=== PATIENT | male | born 1955 | race Caucasian/White ===

== ENCOUNTER 2017-03-16 13:11 | Inpatient (IN) | payer SELFPAY ==
[~2017-03-16] VITALS: Ht 170.2 cm; Wt 56.5 kg
[2017-03-16 13:15] VITALS: BP 131/99; PULSE 114; RESP 20; TEMP 97.7; O2SAT 97
--- NOTE | 2017-03-16 13:43 | PD ---
HPI Chief Complaint: Respiratory Symptoms Time Seen by Provider: 13:28 Travel History International Travel<30 days: No Contact w/Intl Traveler<30days: No Traveled to known affect area: No History of Present Illness HPI 61-year-old male presents to the emergency room for evaluation of worsening shortness of breath over the past 6 months. States it is especially worsened over the past 3 months. States he can go all day feeling well but then around 6 :00 at night he become suddenly short of breath. He also has worsening symptoms after just a few minutes of activity such as riding his bicycle or performing work duties (drywalling). He denies any history of heart or lung disease. He last saw a doctor when he was in high school. He denies any chronic medical conditions or daily medications. He has never been hospitalized or worked up for shortness of breath. Smokes half a pack of cigarettes per day. Reports occasional nonproductive cough. Denies chest pain. [facility] Social History Tobacco Use: Yes Allergies-Medications (Allergen,Severity, Reaction): Coded Allergies: No Known Allergies (Unverified , 03/16/17) Reported Meds & Prescriptions Reported Meds & Active Scripts Active No Active Prescriptions or Reported Medications Review of Systems Except as stated in HPI: all other systems reviewed are Neg Physical Exam Narrative GENERAL: Well-nourished, well-developed, thin male in no acute distress. Afebrile. Ambulatory. SKIN: Focused skin assessment warm/dry. HEAD: Normocephalic. EYES: No scleral icterus. No injection or drainage. NECK: Supple, trachea midline. No JVD or lymphadenopathy. CARDIOVASCULAR: Regular rate and rhythm without murmurs, gallops, or rubs. RESPIRATORY: Barrel chest. Patient has accessory muscle use. Bilateral inspiratory and expiratory wheezes. Data Data Last Documented VS Vital Signs Date Time Temp Pulse Resp B/P (MAP) Pulse Ox O2 Delivery O2 Flow Rate FiO2 03/16/17 14:32 101 20 153/83 (106) 100 Nasal Cannula 2.00 03/16/17 13:15 97.7 Orders Orders Complete Blood Count With Diff (03/16/17 13:33) Comprehensive Metabolic Panel (03/16/17 13:33) B-Type Natriuretic Peptide (03/16/17 13:33) Iv Access Insert/Monitor (03/16/17 13:33) Electrocardiogram (03/16/17 13:33) Ecg Monitoring (03/16/17 13:33) Oximetry (03/16/17 13:33) Sodium Chloride 0.9% Flush (Ns Flush) (03/16/17 13:45) Methylprednisolone So Succ Inj (Solumedr (03/16/17 13:45) Albuterol-Ipratropium Neb (Duoneb Neb) (03/16/17 13:45) Adenosine Inj (Adenocard Inj) (03/16/17 14:15) Ckmb (Isoenzyme) Profile (03/16/17 14:22) Troponin I (03/16/17 14:22) Aspirin Chew (Aspirin Chew) (03/16/17 14:30) Chest, Single Ap (03/16/17 ) Heparin Inj (Heparin Inj) (03/16/17 15:15) Heparin-D5w 25,000 U/250 Ml (Heparin-D5w (03/16/17 15:15) Cbc No Diff, Includes Plts (03/19/17 06:00) Act Partial Throm Time (Ptt) (03/16/17 22:15) Occult Blood (Hemoccult) Stool (03/16/17 15:15) Act Partial Throm Time (Ptt) (03/16/17 15:39) Prothrombin Time / Inr (Pt) (03/16/17 15:39) Admit Order (Ed Use Only) (03/16/17 ) Still Pump Operator / Telemetry RANDY.Q8H (03/16/17 15:54) Vital Signs (Adult) Q4H (03/16/17 15:54) Activity Oob With Assistance (03/16/17 15:54) Notify Dr: Other (03/16/17 15:54) Magnesium (Mg) (03/16/17 16:02) Labs Laboratory Tests Test 03/16/17 13:55 White Blood Count 5.3 TH/MM3 Red Blood Count 4.36 MIL/MM3 Hemoglobin 14.6 GM/DL Hematocrit 43.8 % Mean Corpuscular Volume 100.3 FL Mean Corpuscular Hemoglobin 33.4 PG Mean Corpuscular Hemoglobin Concent 33.3 % Red Cell Distribution Width 12.9 % Platelet Count 194 TH/MM3 Mean Platelet Volume 7.8 FL Neutrophils (%) (Auto) 74.0 % Lymphocytes (%) (Auto) 16.1 % Monocytes (%) (Auto) 8.4 % Eosinophils (%) (Auto) 0.9 % Basophils (%) (Auto) 0.6 % Neutrophils # (Auto) 3.9 TH/MM3 Lymphocytes # (Auto) 0.9 TH/MM3 Monocytes # (Auto) 0.4 TH/MM3 Eosinophils # (Auto) 0.0 TH/MM3 Basophils # (Auto) 0.0 TH/MM3 CBC Comment DIFF FINAL Differential Comment Prothrombin Time 11.5 SEC Prothromb Time International Ratio 1.1 RATIO Activated Partial Thromboplast Time 29.4 SEC Blood Urea Nitrogen 6 MG/DL Creatinine 0.61 MG/DL Random Glucose 90 MG/DL Total Protein 7.3 GM/DL Albumin 3.5 GM/DL Calcium Level 8.9 MG/DL Alkaline Phosphatase 105 U/L Aspartate Amino Transf (AST/SGOT) 26 U/L Alanine Aminotransferase (ALT/SGPT) 18 U/L Total Bilirubin 0.7 MG/DL Sodium Level 131 MEQ/L Potassium Level 4.3 MEQ/L Chloride Level 95 MEQ/L Carbon Dioxide Level 29.3 MEQ/L Anion Gap 7 MEQ/L Estimat Glomerular Filtration Rate 134 ML/MIN Total Creatine Kinase 89 U/L Troponin I 0.10 NG/ML B-Type Natriuretic Peptide 1611 PG/ML MDM Medical Decision Making Medical Screen Exam Complete: Yes Emergency Medical Condition: Yes Medical Record Reviewed: Yes Differential Diagnosis COPD exacerbation, CHF, CAD, asthma, pneumonia Narrative Course 61-year-old male presents to the emergency room for evaluation of worsening shortness of breath over the past 6 months. Symptoms are worse with exertion. He has not seen a doctor since high school. He smokes half a pack cigarettes per day. Physical exam reveals a thin male with a barrel chest. He has accessory muscle use. Lungs sounds reveal bilateral inspiratory and expiratory wheezes. Patient given IV Solu-Medrol and 3 DuoNeb. Vital signs stable on arrival. While obtaining an EKG and receiving 3 DuoNeb, the nurse noted patient to be in SVT. Heart rate was 174 bpm. My attending physician, Dr. Wang , had the patient perform vagal move and carotid massage which brought patient' s heart rate down to 101 bpm. New EKG shows sinus tachycardia with a rate of 101 bpm with occasional PVCs. Signed off by my attending physician. I suspect SVT was caused by beta agonist. DuoNeb was immediately stopped. Wheezing is resolved afterwards. CBC is essentially unremarkable. CMP shows mild hyponatremia of 131. BNP is markedly elevated at 1611. Troponin is elevated to 0.1. Patient was given aspirin and heparin in ED. Patient will be admitted for new onset congestive heart failure. I spoke to the hospitalist on-call, Dr. Urena, who agrees to admit this patient to service. He will be admitted to [facility] for heparin drip and cardiac monitoring. Diagnosis Primary Impression: Congestive heart failure (CHF) Qualified Codes: I50.9 - Heart failure, unspecified Additional Impression: Elevated troponin Admitting Information Admitting Physician Requests: Admit Scripts No Active Prescriptions or Reported Meds Condition: Stable Rahcel Flores Mar 16, 2017 13:43
[2017-03-16] MEDS ORDERED: SODIUM CHLORIDE 0.9% FLUSH 10 ML FLUSH IVF PRN (13:45)
[2017-03-16] MEDS ORDERED: methylPREDNISolone SOD SUCC 125 MG/2 ML VIAL IV PUSH ONE (13:45)
[2017-03-16] MEDS: RESP: ALBUTEROL 2.5 MG/IPRATROPIUM 0.5 MG NEB (SCH) INH (13:57)
[2017-03-16 14:07] LABS: AUTOMATED NEUTROPHIL # 3.9 TH/MM3 (1.8-7.7); BASOPHIL % 0.6 % (0.0-2.0); EOSINOPHIL % 0.9 % (0.0-4.0); HEMATOCRIT 43.8 % (39.0-51.0); HEMO FLAGS DIFF FINAL; LYMPH % 16.1 % (9.0-44.0); LYMPHOCYTE # 0.9 TH/MM3 (1.0-4.8); MEAN CELL VOLUME 100.3 FL (80.0-100.0); MEAN CORPUSCULAR HEMOGLOBIN 33.4 PG (27.0-34.0); MEAN CORPUSCULAR HGB CONC 33.3 % (32.0-36.0); MONO % 8.4 % (0.0-8.0); PLATELET COUNT 194 TH/MM3 (150-450); RED BLOOD COUNT 4.36 MIL/MM3 (4.50-5.90); RED CELL DISTRIBUTION WIDTH 12.9 % (11.6-17.2); WHITE BLOOD COUNT 5.3 TH/MM3 (4.0-11.0)
[2017-03-16] MEDS ORDERED: ADENOSINE IV SOLN 3 MG/ML 2 ML VIAL ONE (14:15)
[2017-03-16 14:30] LABS: ALKALINE PHOSPHATASE 105 U/L (45-117); TOTAL BILIRUBIN ADULT 0.7 MG/DL (0.2-1.0)
[2017-03-16] MEDS ORDERED: ASPIRIN 81 MG CHEW TAB PO ONE (14:30)
[2017-03-16 14:32] VITALS: BP 153/83; PULSE 101; RESP 20; O2SAT 100
[2017-03-16 14:35] LABS: ALT (GPT) 18 U/L (12-78); ANION GAP 7 MEQ/L (5-15); AST (GOT) 26 U/L (15-37); BICARBONATE 29.3 MEQ/L (21.0-32.0); BLOOD UREA NITROGEN 6 MG/DL (7-18); CHLORIDE 95 MEQ/L (98-107); GLOMERULAR FILTRATION RATE 134 ML/MIN (>89); POTASSIUM 4.3 MEQ/L (3.5-5.1); SODIUM (NA) 131 MEQ/L (136-145)
--- NOTE | 2017-03-16 14:41 | PD ---
Data Data Last Documented VS Vital Signs Date Time Temp Pulse Resp B/P (MAP) Pulse Ox O2 Delivery O2 Flow Rate FiO2 03/16/17 14:32 101 20 153/83 (106) 100 Nasal Cannula 2.00 03/16/17 13:15 97.7 Orders Orders Complete Blood Count With Diff (03/16/17 13:33) Comprehensive Metabolic Panel (03/16/17 13:33) B-Type Natriuretic Peptide (03/16/17 13:33) Iv Access Insert/Monitor (03/16/17 13:33) Electrocardiogram (03/16/17 13:33) Ecg Monitoring (03/16/17 13:33) Oximetry (03/16/17 13:33) Sodium Chloride 0.9% Flush (Ns Flush) (03/16/17 13:45) Methylprednisolone So Succ Inj (Solumedr (03/16/17 13:45) Albuterol-Ipratropium Neb (Duoneb Neb) (03/16/17 13:45) Adenosine Inj (Adenocard Inj) (03/16/17 14:15) Ckmb (Isoenzyme) Profile (03/16/17 14:22) Troponin I (03/16/17 14:22) Aspirin Chew (Aspirin Chew) (03/16/17 14:30) Chest, Single Ap (03/16/17 ) Heparin Inj (Heparin Inj) (03/16/17 15:15) Heparin-D5w 25,000 U/250 Ml (Heparin-D5w (03/16/17 15:15) Cbc No Diff, Includes Plts (03/19/17 06:00) Act Partial Throm Time (Ptt) (03/16/17 22:15) Occult Blood (Hemoccult) Stool (03/16/17 15:15) Act Partial Throm Time (Ptt) (03/16/17 15:39) Prothrombin Time / Inr (Pt) (03/16/17 15:39) Admit Order (Ed Use Only) (03/16/17 ) Supervisor [employer] Department / Telemetry RANDY.Q8H (03/16/17 15:54) Vital Signs (Adult) Q4H (03/16/17 15:54) Activity Oob With Assistance (03/16/17 15:54) Notify Dr: Other (03/16/17 15:54) Magnesium (Mg) (03/16/17 16:02) Labs Laboratory Tests Test 03/16/17 13:55 White Blood Count 5.3 TH/MM3 Red Blood Count 4.36 MIL/MM3 Hemoglobin 14.6 GM/DL Hematocrit 43.8 % Mean Corpuscular Volume 100.3 FL Mean Corpuscular Hemoglobin 33.4 PG Mean Corpuscular Hemoglobin Concent 33.3 % Red Cell Distribution Width 12.9 % Platelet Count 194 TH/MM3 Mean Platelet Volume 7.8 FL Neutrophils (%) (Auto) 74.0 % Lymphocytes (%) (Auto) 16.1 % Monocytes (%) (Auto) 8.4 % Eosinophils (%) (Auto) 0.9 % Basophils (%) (Auto) 0.6 % Neutrophils # (Auto) 3.9 TH/MM3 Lymphocytes # (Auto) 0.9 TH/MM3 Monocytes # (Auto) 0.4 TH/MM3 Eosinophils # (Auto) 0.0 TH/MM3 Basophils # (Auto) 0.0 TH/MM3 CBC Comment DIFF FINAL Differential Comment Prothrombin Time 11.5 SEC Prothromb Time International Ratio 1.1 RATIO Activated Partial Thromboplast Time 29.4 SEC Blood Urea Nitrogen 6 MG/DL Creatinine 0.61 MG/DL Random Glucose 90 MG/DL Total Protein 7.3 GM/DL Albumin 3.5 GM/DL Calcium Level 8.9 MG/DL Alkaline Phosphatase 105 U/L Aspartate Amino Transf (AST/SGOT) 26 U/L Alanine Aminotransferase (ALT/SGPT) 18 U/L Total Bilirubin 0.7 MG/DL Sodium Level 131 MEQ/L Potassium Level 4.3 MEQ/L Chloride Level 95 MEQ/L Carbon Dioxide Level 29.3 MEQ/L Anion Gap 7 MEQ/L Estimat Glomerular Filtration Rate 134 ML/MIN Total Creatine Kinase 89 U/L Troponin I 0.10 NG/ML B-Type Natriuretic Peptide 1611 PG/ML MDM Supervised Visit with NEMESIO: Yes Narrative Course I, Dr. Wang, have reviewed the advance practice practitioner's documentation and am in agreement, met with the patient face to face, made the diagnosis, and the medical decision making was done by me. *My assessment and Findings: I was called to the bedside by patient's nurse for rapid heartbeat. I arrived to find the patient sitting upright in a stretcher in no obvious distress undergoing breathing treatment. The patient does have physique of COPD, he presented to the emergency department with wheezing and shortness of breath. Further examination revealed supraventricular tachycardia at a rate of 180, fairly regular and rate and rhythm. No carotid bruits and no heart murmur. The patient alert and awake and talking, IV access was confirmed, EKG at the bedside the patient was counseled on vagal maneuvers, he bear down as I performed a left carotid massage, the patient was able to be converted with this maneuver alone. Afterwards the patient remained hemodynamically stable. On cardiac telemetry he was having occasional P waves without QRS indicating a type II block. After some time after the cardioversion the patient is sinus bradycardia. He does have an elevated troponin, symptoms this is a CHF including bibasilar rales. Patient stabilized for the moment, will be admitted to the CICU for further workup and management. He will be heparinized given the elevated troponin. Diagnosis Primary Impression: SVT (supraventricular tachycardia) Additional Impressions: Heart block CHF (congestive heart failure) NSTEMI (non-ST elevated myocardial infarction) Admitting Information Admitting Physician Requests: Admit Scripts No Active Prescriptions or Reported Meds Condition: Stable Scotty Wang MD Mar 16, 2017 14:41
--- NOTE | 2017-03-16 14:50 | RADRPT ---
EXAM DATE/TIME: 03/16/2017 14:40 [facility] COMPARISON: No previous studies available for comparison. INDICATIONS : Shortness of breath. MEDICAL HISTORY : Chronic obstructive pulmonary disease. SURGICAL HISTORY : None. ENCOUNTER: Initial ACUITY: 4 - 6 months PAIN SCORE: 0/10 LOCATION: Bilateral chest FINDINGS: There is cardiomegaly with moderate interstitial edema. Consolidative changes left base with trace p leural effusion. Blunting right calcific sulcus negative for pneumothorax CONCLUSION: Moderate congestive failure consolidative changes left base. Trace pleural effusions. Cecilio Liriano MD FACR on March 16, 2017 at 14:47 Board Certified Radiologist. This report was verified electronically.
[2017-03-16] MEDS ORDERED: HEPARIN-D5W 25,000 U/250 ML 250 ML IV PRN (15:15)
[2017-03-16] MEDS ORDERED: HEPARIN SODIUM - IV 10,000 UNITS/10 ML VIAL IV PUSH STA (15:15)
[2017-03-16 16:08] LABS: APTT (PATIENT) 29.4 SEC (24.3-30.1); INTERNATIONAL NORMALIZED RATIO 1.1 RATIO; PROTHROMBIN TIME - PATIENT 11.5 SEC (9.8-11.6)
[2017-03-16 16:26] VITALS: BP 137/87; PULSE 93; RESP 18; O2SAT 98
--- NOTE | 2017-03-16 17:56 | HHI.HP ---
HPI [facility] Primary Care Physician No Primary Care Physician Admission Diagnosis new onset CHF, elevated troponin Diagnoses: (1) Congestive heart failure (CHF) Diagnosis: Principal (2) Elevated troponin Diagnosis: Principal Chief Complaint: Shortness of breath Travel History International Travel<30 Days: No Contact w/Intl Traveler <30 Da: No Traveled to Known Affected Are: No History of Present Illness Written by Pietro Galdamez, acting as scribe for Dr. Urena on 03/16/17 at 17: 56. 61-year-old male with significant past medical history who presents to the ED with complaints of progressive shortness of breath for the past 6 months. He states that in the past 3 months this has gotten worse and is unable to do simple things such as ride his bike which he had no issues during previously. He denies any swelling of his legs but does report cough for the past 2 weeks with a scratchy throat. Exertion will make his shortness of breath worse, he denies any chest pain. He denies any fevers, chills, nausea, vomiting, diarrhea , or trouble urinating. He is a smoker half a pack a day and also admits to sixpack of beer daily. States that his last drink was yesterday when he had about 3 beers. He does not report taking any regular medications or visiting a doctor regularly. Review of Systems Respiratory: COMPLAINS OF: Cough, Shortness of breath Cardiovascular: DENIES: Chest pain Except as stated in HPI: all other systems reviewed are Neg Past Family Social History Past Medical History Denies any past medical history Past Surgical History Denies any past surgical history Reported Medications Reported Meds & Active Scripts Active No Active Prescriptions or Reported Medications Allergies: Coded Allergies: No Known Allergies (Unverified , 03/16/17) Family History Denies any past family history Social History Tobacco: Half a pack a day Alcohol: 6 pack of beer daily Illicit drug use: Denies Physical Exam Vital Signs Vital Signs Date Time Temp Pulse Resp B/P (MAP) Pulse Ox O2 Delivery O2 Flow Rate FiO2 03/16/17 16:26 93 18 137/87 (104) 98 Nasal Cannula 2.00 03/16/17 14:32 101 20 153/83 (106) 100 Nasal Cannula 2.00 03/16/17 13:44 84 22 96 Room Air 03/16/17 13:15 97.7 114 20 131/99 (110) 97 Physical Exam GENERAL: This is a well-nourished, well-developed patient, in no apparent distress. SKIN: No rashes, ecchymoses or lesions. Cool and dry. HEAD: Atraumatic. Normocephalic. No temporal or scalp tenderness. EYES: Pupils equal round and reactive. Extraocular motions intact. No scleral icterus. No injection or drainage. ENT: Nose without bleeding, purulent drainage or septal hematoma. Throat without erythema, tonsillar hypertrophy or exudate. Uvula midline. Airway patent. NECK: Trachea midline. No JVD or lymphadenopathy. Supple, nontender, no meningeal signs. CARDIOVASCULAR: Regular rate and rhythm without murmurs, gallops, or rubs. RESPIRATORY: Clear to auscultation. With diminished breath sounds bilateral anterior upper lobes. No wheezes, rales, or rhonchi. GASTROINTESTINAL: Abdomen soft, non-tender, nondistended. No hepato-splenomegaly , or palpable masses. No guarding. MUSCULOSKELETAL: Extremities without clubbing, cyanosis, or edema. No joint tenderness, effusion, or edema noted. No calf tenderness. Negative Homans sign bilaterally. NEUROLOGICAL: Awake and alert. Motor and sensory grossly within normal limits. Five out of 5 muscle strength in all muscle groups. Normal speech. Laboratory Laboratory Tests Test 03/16/17 13:55 03/16/17 17:05 White Blood Count 5.3 Red Blood Count 4.36 Hemoglobin 14.6 Hematocrit 43.8 Mean Corpuscular Volume 100.3 Mean Corpuscular Hemoglobin 33.4 Mean Corpuscular Hemoglobin Concent 33.3 Red Cell Distribution Width 12.9 Platelet Count 194 Mean Platelet Volume 7.8 Neutrophils (%) (Auto) 74.0 Lymphocytes (%) (Auto) 16.1 Monocytes (%) (Auto) 8.4 Eosinophils (%) (Auto) 0.9 Basophils (%) (Auto) 0.6 Neutrophils # (Auto) 3.9 Lymphocytes # (Auto) 0.9 Monocytes # (Auto) 0.4 Eosinophils # (Auto) 0.0 Basophils # (Auto) 0.0 CBC Comment DIFF FINAL Differential Comment Prothrombin Time 11.5 Prothromb Time International Ratio 1.1 Activated Partial Thromboplast Time 29.4 Blood Urea Nitrogen 6 Creatinine 0.61 Random Glucose 90 Total Protein 7.3 Albumin 3.5 Calcium Level 8.9 Alkaline Phosphatase 105 Aspartate Amino Transf (AST/SGOT) 26 Alanine Aminotransferase (ALT/SGPT) 18 Total Bilirubin 0.7 Sodium Level 131 Potassium Level 4.3 Chloride Level 95 Carbon Dioxide Level 29.3 Anion Gap 7 Estimat Glomerular Filtration Rate 134 Total Creatine Kinase 89 Troponin I 0.10 0.08 B-Type Natriuretic Peptide 1611 Magnesium Level 1.5 Result Diagram: 03/16/17 1355 03/16/17 1355 Imaging Last Impressions Chest X-Ray 03/16/17 0000 Signed Impressions: Service Date/Time: Thursday, March 16, 2017 14:40 - CONCLUSION: Moderate congestive failure consolidative changes left base. Trace pleural effusions. Cecilio Liriano MD FACR Caprini VTE Risk Assessment Caprini VTE Risk Assessment: Mod/High Risk (score >= 2) Caprini Risk Assessment Model Point Value = 1 Point Value = 2 Point Value = 3 Point Value = 5 Age 41-60 Minor surgery BMI > 25 kg/m2 Swollen legs Varicose veins or History of unexplained or recurrent spontaneous Oral contraceptives or hormone replacement Sepsis (< 1 month) Serious lung disease, including pneumonia (< 1 month) Abnormal pulmonary function Acute myocardial infarction Congestive heart failure (< 1 month) History of inflammatory bowel disease Medical patient at bed rest Age 61-74 Arthroscopic surgery Major open surgery (> 45 min) Laparoscopic surgery (> 45 min) Malignancy Confined to bed (> 72 hours) Immobilizing plaster cast Central venous access Age >= 75 History of VTE Family history of VTE Factor V Leiden Prothrombin [id number] Lupus anticoagulant Anticardiolipin antibodies Elevated serum homocysteine Heparin-induced thrombocytopenia Other congenital or acquired thrombophilia Stroke (< 1 month) Elective arthroplasty Hip, pelvis, or leg fracture Acute spinal cord injury (< 1 month) Prophylaxis Regimen Total Risk Factor Score Risk Level Prophylaxis Regimen 0-1 Low Early ambulation 2 Moderate Order ONE of the following: *Sequential Compression Device (SCD) *Heparin 5000 units SQ BID 3-4 Higher Order ONE of the following medications: *Heparin 5000 units SQ TID *Enoxaparin/Lovenox 40 mg SQ daily (WT < 150 kg, CrCl > 30 mL/min) *Enoxaparin/Lovenox 30 mg SQ daily (WT < 150 kg, CrCl > 10-29 mL/min) *Enoxaparin/Lovenox 30 mg SQ BID (WT < 150 kg, CrCl > 30 mL/min) AND/OR *Sequential Compression Device (SCD) 5 or more Highest Order ONE of the following medications: *Heparin 5000 units SQ TID (Preferred with Epidurals) *Enoxaparin/Lovenox 40 mg SQ daily (WT < 150 kg, CrCl > 30 mL/min) *Enoxaparin/Lovenox 30 mg SQ daily (WT < 150 kg, CrCl > 10-29 mL/min) *Enoxaparin/Lovenox 30 mg SQ BID (WT < 150 kg, CrCl > 30 mL/min) AND *Sequential Compression Device (SCD) Assessment and Plan Assessment and Plan 61-year-old male with significant past medical history who presents to the ED with complaints of progressive shortness of breath for the past 6 months. SOB, acute likely new onset CHF vs COPD exacerbation - Progressive increase in shortness of breath 6 months - Admit patient to [facility] - Chest x-ray reviewed showing moderate congestive failure consolidative changes in the left base, trace pleural effusions. - BNP 1611 - Diuresis with Lasix - One-time dose of Solu-Medrol given in ED - Hold off on duo nebs due to episode of SVT following breathing treatment in ED - Will order 2-D echo -Consult cardiology for possible new onset of CHF as well as elevated troponin, appreciate recommendations - CBC were reviewed unremarkable, CMP reviewed with slight hyponatremia 131 Elevated troponin Episode of SVT - Patient with no chest pain however initial troponin was 0.1---0.08 - Initial EKG personally reviewed showing frequent PVCs with T-wave inversion in inferior leads - And also had episode of SVT caught on EKG following breathing treatment. Vagal maneuvers resolved SVT episode. - Patient administered aspirin 324 in ED, bolus of heparin along with heparin drip initiated. - Cardiology consult placed for further evaluation and recommendations. Alcohol abuse -Repots drinking 6 beers daily - CIWA protocol/ seizure precautions - Ativan PRN VTE - Anticoagulated on heparin drip Patient discussed with ED nurse. This note was transcribed by garrett Galdamez. I, Dr. Brandon Lockhart personally performed the history, physical exam, and medical decision making; and confirmed the accuracy of the information in the transcribed note. Authenticated by Dr. Brandon Lockhart on 03/16/17 at 18:25. Code Status Full code Physician Certification 2 Midnight Certification Type: Admission for Inpatient Services Order for Inpatient Services The services are ordered in accordance with Medicare regulations or non- Medicare payer requirements, as applicable. In the case of services not specified as inpatient-only, they are appropriately provided as inpatient services in accordance with the 2-midnight benchmark. Estimated LOS (days): 3 days is the estimated time the patient will need to remain in the hospital, assuming treatment plan goals are met and no additional complications. Post-Hospital Plan: Not yet determined Problem Qualifiers (1) Congestive heart failure (CHF): Qualified Codes: I50.9 - Heart failure, unspecified Pietro Galdamez Mar 16, 2017 17:56 Brandon Suárez MD Mar 16, 2017 19:01
[2017-03-16 18:42] VITALS: BP 130/82; PULSE 97; PULSE 98; RESP 17; O2SAT 96
[2017-03-16 19:00] VITALS: BP 132/93; PULSE 91; PULSE 97; RESP 18; TEMP 98.6; O2SAT 96
[2017-03-16] MEDS ORDERED: RESP: ALBUTEROL 2.5 MG/IPRATROPIUM 0.5 MG NEB (PRN) NEB (19:30)
[2017-03-16] MEDS ORDERED: LORazepam 2 MG TAB PO PRN (19:45)
[2017-03-16] MEDS ORDERED: FLUMAZENIL 0.5 MG/5 ML VIAL IV PUSH PRN (19:45)
[2017-03-16] MEDS ORDERED: SODIUM CHLORIDE 0.9% FLUSH 10 ML FLUSH IV FLUSH PRN (19:45)
[2017-03-16] MEDS ORDERED: LORazepam 1 MG TAB PO PRN (19:45)
[2017-03-16] MEDS ORDERED: LORazepam 2 MG/ML VIAL IV PUSH PRN ×4 (19:45)
[2017-03-16] MEDS: SODIUM CHLORIDE 0.9% FLUSH 10 ML FLUSH IV FLUSH SCH (21:00)
[2017-03-16 23:00] VITALS: BP 117/75; PULSE 92; RESP 20; TEMP 97.9; O2SAT 96
[2017-03-16 23:10] LABS: APTT (PATIENT) 35.4 SEC (24.3-30.1)
[2017-03-17] VITALS (19 sets, daily range): BP systolic 106–125; BP diastolic 63–76; PULSE 64–101; RESP 16–20; TEMP 98–98.3; O2SAT 92–97
[2017-03-17 06:50] LABS: APTT (PATIENT) 37.6 SEC (24.3-30.1)
[2017-03-17] MEDS: FOLIC ACID 1 MG TAB PO SCH (08:26)
[2017-03-17] MEDS: MULTIVITAMINS/MINERALS THERAPEUTIC TAB PO SCH (08:26)
[2017-03-17] MEDS: THIAMINE HCL 100 MG TAB PO SCH (08:26)
[2017-03-17] MEDS: SODIUM CHLORIDE 0.9% FLUSH 10 ML FLUSH IV FLUSH SCH ×2 (08:27→21:21)
[2017-03-17] MEDS ORDERED: PILL SPLITTER OTHER PRN (10:00)
[2017-03-17] MEDS: METOPROLOL TARTRATE 25 MG TAB PO SCH ×2 (10:06→21:22)
--- NOTE | 2017-03-17 11:05 | MB ---
cc: GOPI WARE DO DATE OF CONSULTATION: 03/17/2017 REASON FOR CONSULTATION New-onset congestive heart failure, SVT, elevated troponin. HISTORY OF PRESENT ILLNESS Scotty Villegas is a pleasant 61-year-old male who presented to [facility] Emergency Room on March 16, 2017 with the complaint of shortness of breath which has been progressive over the past six months. He states that he rides his bike and he tries to push himself when riding his bike, but has been noticing that he gets more short of breath. He denies chest pain with any of these events. He denies orthopnea. He has had a cough for the past two weeks with a scratchy throat. He denies any fevers, chills, nausea or vomiting. While in the emergency room he was receiving a nebulizer and went into SVT with a heart rate of 170-180 beats per minute. This resolved with Valsalva maneuver. During that he had no chest pain or shortness of breath. PAST MEDICAL HISTORY 1. Alcohol abuse, drinking 4-6 beers a day. 2. Tobacco abuse. 3. Probable COPD, although undiagnosed as the patient does not visit doctors regularly. PAST SURGICAL HISTORY Denies. ALLERGIES No known drug allergies. MEDICATIONS Denies. FAMILY HISTORY Denies premature coronary artery disease or sudden cardiac within the family. SOCIAL HISTORY The patient smokes a half-pack of cigarettes a day. Drinks around six beers a day. Denies drug abuse. REVIEW OF SYSTEMS 14-systems were reviewed including osteopathic. Pertinent positives and negatives as above, otherwise negative. PHYSICAL EXAMINATION VITAL SIGNS: Temperature 98.0, heart rate 88, blood pressure 125/70, respirations 17, pulse ox 96% on 2 liters. GENERAL: The patient appears well, in no acute distress, alert awake and oriented x3. HEENT: Extraocular muscles intact. Mucous membranes moist. NECK: Supple. No JVD at 45 degrees. No carotid bruits heard bilaterally. Carotid upstrokes are brisk in nature. HEART: Regular rate and rhythm. Positive first and second heart sounds without murmurs, gallops or rubs. LUNGS: Decreased breath sounds bilaterally with wheezing throughout. ABDOMEN: Soft, nontender, nondistended. No organomegaly noted. EXTREMITIES: No clubbing, cyanosis or edema. Femoral and distal pulses intact bilaterally. NEUROLOGIC: No focal deficits. SKIN: Warm, dry and intact. MUSCULOSKELETAL: Osteopathically no kyphoscoliosis, lordosis or paraspinal tender points. LABORATORY Hemoglobin 14.6, hematocrit 43.8, platelets 194. Potassium 4.3, BUN 6, creatinine 0.61. Troponin 0.1, decreasing to 0.08. BNP 1611. IMPRESSION 1. New-onset congestive heart failure, unsure if diastolic versus systolic at this time, possibly due to arrhythmia. 2. Episode of SVT, possibly caused by nebulizer therapy. 3. Nonspecific elevated troponin. 4. Tobacco abuse. 5. Alcohol abuse. RECOMMENDATIONS 1. Mr. Villegas presented with shortness of breath which is kind of nonspecific for heart failure versus COPD. Will check an echo to look at his overall left ventricular function, cardiac structure and possible valvulopathies. 2. He does have a mildly elevated troponin, although this possibly could be due to his episode of SVT. This does not appear to be an acute coronary syndrome. Will have him undergo a stress test. 3. I spoke to him for greater than three minutes about tobacco cessation. 4. Further recommendations will be made based on the hospital course. Thank you for allowing me to see Scotty Villegas. If there are any questions, please do not hesitate to call. Gopi Ware DO VGP/BT /9:30 AM /10:49 AM
[2017-03-17] MEDS ORDERED: ADENOSINE IV SOLN 3 MG/ML 2 ML VIAL IV PUSH ONE ×3 (12:42→12:48)
[2017-03-17] MEDS ORDERED: METOPROLOL TARTRATE 5 MG/5 ML VIAL IV PUSH ONE (12:50)
[2017-03-17] MEDS ORDERED: METOPROLOL TARTRATE 5 MG/5 ML VIAL ONE (12:50)
[2017-03-17] MEDS ORDERED: AMIODARONE HCL 150 MG/3 ML VIAL IV PUSH ONE (12:55)
[2017-03-17] MEDS ORDERED: AMIODARONE HCL 150 MG/3 ML VIAL ONE (12:55)
[2017-03-17] MEDS ORDERED: AMIODARONE 150 MG/D5W 97 ML BOLUS 10 MINUTES IV ONE ×2 (12:55)
--- NOTE | 2017-03-17 13:05 | PD.CARD ---
Cardiology Procedure Note Procedure Name: Pharmacologic/mechanical cardioversion Procedure Date: Mar 17, 2017 Procedure Note: Called for a heart rate of 180 bpm. Patient noted to be in SVT again, most likely AVNRT. Patient overall stable. Attempted vagal maneuvers without effect. Given Adenosine 6mg, 12mg, 12mg with no effect. Given Lopressor 5mg IV , then Amiodarone 150mg IV. Carotid massage done, which broke the patient's SVT and now back in normal sinus rhythm. Will place on Amiodarone drip for now. Watch for further episodes. Will plan on stress test in 1 hour if stable. Will need to evaluated by EP cardiology after stress testing. > 30mins critical care time Gopi Sales DO Mar 17, 2017 13:05
[2017-03-17] MEDS ORDERED: AMIODARONE INJ 450 MG in D5W (EXCEL BAG) INJ 241 ML IV PRN (13:30)
--- NOTE | 2017-03-17 14:26 | EKG ---
Date Performed: 03/16/2017 Time Performed: 14:14:04 PTAGE: 61 years EKG: SUPRAVENTRICULAR TACHYCARDIA INFERIOR MYOCARDIAL INFARCTION ST DEPRESSION, CONSIDER SUBENDO CARDIAL INJURY CLINICAL CORRELATION STRONGLY RECOMMENDED ABNORMAL ECG NO PREVIOUS TRACING DOCTOR: Rivas Solis Interpretating Date/Time 03/19/2017 07:55:00
--- NOTE | 2017-03-17 14:26 | EKG ---
Date Performed: 03/16/2017 Time Performed: 14:20:28 PTAGE: 61 years EKG: SINUS TACHYCARDIA WITH FREQUENT VENTRICULAR PREMATURE COMPLEXES WITH OCCASIONAL SUPRAVENTRI CULAR PREMATURE COMPLEXES POSSIBLE LEFT ATRIAL ENLARGEMENT POSSIBLE INFERIOR MYOCARDIAL INFARCTION ST DEVIATION AND MODERATE T-WAVE ABNORMALITY, CONSIDER LATERAL ISCHEMIA ABNORMAL ECG Compared to PREVIOUS TRACING , the heart rate has slowed but persistent ventricular ectopy. Continued clinical correlation recommended. PREVIOUS TRACIN03/16/2017 14.19 DOCTOR: Rivas Solis Interpretating Date/Time 03/17/2017 14:25:39
[2017-03-17] MEDS ORDERED: REGADENOSON INJ 0.4 MG/5 ML SYR ONE (15:06)
[2017-03-17 15:34] LABS: APTT (PATIENT) 38.9 SEC (24.3-30.1)
--- NOTE | 2017-03-17 16:39 | RADRPT ---
EXAM DATE/TIME: 03/17/2017 14:52 [facility] COMPARISON: No previous studies available for comparison. INDICATIONS : Dyspnea with elevated troponins. Congestive heart failure. DOSE: 25.4 mCi Tc99m Myoview at stress. 8.1 mCi Tc99m Myoview at rest. 0.4 mg Lexiscan STRESS SYMPTOMS: Dyspnea. EJECTION FRACTION: 22% MEDICAL HISTORY : None SURGICAL HISTORY : None. ENCOUNTER: Initial ACUITY: 1 day PAIN SCALE: 0/10 LOCATION: chest TECHNIQUE: The patient underwent pharmacologic stress with infusion of prescribed dose. Continuous ECG tracing was monitored during stress. Gated SPECT imaging was performed after stress and conventional SPECT i maging was performed at rest. The examination was performed on a SPECT/CT scanner, both attenuation and non-corrected datasets were reviewed. FINDINGS: DISTRIBUTION: The maximum perfused segment at stress is in the anterior wall. PERFUSION STUDY: There is a large fixed defect involving the inferior and inferior septal wall. No reversible defects observed. GATED STUDY: There is global hypokinesia with significant reduced ejection fraction. No dyskinesia appreciated. CONCLUSION: Large fixed defect involving the anteroseptal wall with global hypokinesia and significantly reduced ejection fraction. No reversible defects observed to suggest acute ischemia. RISK CATEGORY: Intermediate Sherman Xiao Jr., MD on March 17, 2017 at 16:34 Board Certified Radiologist. This report was verified electronically.
--- NOTE | 2017-03-17 17:32 | ECHRPT ---
Indication: Heart failure, unspecified CONCLUSIONS The left ventricular systolic function is severely reduced with an estimated ejection fraction in th e range of 20-25%. There is global left ventricular dysfunction. Moderate mitral valve regurgitation. There is trace tricuspid valve regurgitation. Moderate left pleural effusion is noted. BP: / HR: Rhythm: MEASUREMENTS (Male / Female) Normal Values Technical Quality:Good 2D ECHO LV Diastolic Diameter PLAX 5.6 cm 4.2 - 5.9 / 3.9 - 5.3 cm LV Systolic Diameter PLAX 5.0 cm IVS Diastolic Thickness 1.2 cm 0.6 - 1.0 / 0.6 - 0.9 cm LVPW Diastolic Thickness 1.1 cm 0.6 - 1.0 / 0.6 - 0.9 cm LV Relative Wall Thickness 0.4 RV Internal Dim ED PLAX 2.3 cm LVOT Diameter 2.0 cm M-MODE Aortic Root Diameter MM 2.9 cm LA Systolic Diameter MM 5.1 cm LA Ao Ratio MM 1.8 AV Cusp Separation MM 1.3 cm DOPPLER LVOT Peak Velocity 77.5 cm/s LVOT Peak Gradient 2.4 mmHg LVOT Velocity Time Integral 14.0 cm Mitral E Point Velocity 153.0 cm/s Mitral A Point Velocity 60.8 cm/s Mitral E to A Ratio 2.5 LV E' Lateral Velocity 6.4 cm/s Mitral E to LV E' Lateral Ratio 23.8 TR Peak Velocity 246.0 cm/s TR Peak Gradient 24.2 mmHg Right Atrial Pressure 10.0 mmHg Pulmonary Artery Systolic Pressu 34.2 mmHg Right Ventricular Systolic Press 34.2 mmHg FINDINGS LEFT VENTRICLE Wall thickness is normal. The left ventricular systolic function is severely reduced with an estimated ejection fraction in th e range of 20-25%. There is global left ventricular dysfunction. RIGHT VENTRICLE The right ventricular size is normal. The right ventricular systoilc function is mildly decreased. LEFT ATRIUM The left atrial size is moderately dilated. RIGHT ATRIUM The right atrial size is normal. ATRIAL SEPTUM Normal atrial septal thickness. AORTA The aortic root and proximal ascending aorta are not well visualized. MITRAL VALVE Structurally normal mitral valve. Moderate mitral valve regurgitation. No mitral valve stenosis. AORTIC VALVE Diffuse calcification of the aortic valve. No aortic valve regurgitation. No aortic valve stenosis. TRICUSPID VALVE Structurally normal tricuspid valve. There is trace tricuspid valve regurgitation. No tricuspid valve stenosis. PULMONARY VALVE The pulmonary valve is not well visualized. VESSELS The inferior vena cava is normal in size. PERICARDIUM No pericardial effusion. Moderate left pleural effusion is noted Gopi Sales DO (Electronically Signed) Final Date:17 March 2017 17:31
--- NOTE | 2017-03-17 17:54 | HHI.PR ---
Subjective Remarks Denies cp, sob, palpitations. Case discussed w RN - patient went into SVT earlier. Objective Vitals Vital Signs Date Time Temp Pulse Resp B/P (MAP) Pulse Ox O2 Delivery O2 Flow Rate FiO2 03/17/17 17:00 70 03/17/17 16:00 72 03/17/17 16:00 72 17 106/63 (77) 97 03/17/17 16:00 97 Nasal Cannula 2.00 03/17/17 14:00 70 03/17/17 13:56 69 104/73 03/17/17 13:00 67 03/17/17 12:02 85 03/17/17 11:00 92 Room Air 03/17/17 11:00 98.3 84 19 117/75 (89) 92 03/17/17 11:00 92 03/17/17 10:00 101 03/17/17 09:00 87 03/17/17 09:00 92 21 03/17/17 08:04 95 03/17/17 07:15 96 Nasal Cannula 2.00 03/17/17 07:15 98.0 88 17 125/70 (88) 96 03/17/17 07:05 98 03/17/17 06:00 72 03/17/17 03:00 98.2 84 20 123/76 (92) 96 03/17/17 03:00 84 03/16/17 23:00 97.9 92 20 117/75 (89) 96 03/16/17 23:00 92 03/16/17 20:03 Nasal Cannula 3.00 03/16/17 19:15 96 Nasal Cannula 2.00 03/16/17 19:00 97 03/16/17 19:00 98.6 91 18 132/93 (106) 96 03/16/17 18:42 97 17 130/82 (98) 96 03/16/17 18:42 96 Nasal Cannula 2.00 03/16/17 18:42 98 03/16/17 18:07 I/O 03/16/17 03/16/17 03/16/17 03/17/17 03/17/17 03/17/17 07:00 15:00 23:00 07:00 15:00 23:00 Intake Total 37 ml 288 ml 610 ml Output Total 0 ml 550 ml Balance 37 ml 288 ml 60 ml Intake Oral 240 ml IV Total 37 ml 48 ml 610 ml Output Urine Total 550 ml Stool Total 0 ml # Voids 2 Result Diagram: 03/16/17 1355 03/16/17 1355 Imaging Last Impressions Myocardial Perfusion Scan Nuc Med 03/17/17 0000 Signed Impressions: Service Date/Time: Friday, March 17, 2017 14:52 - CONCLUSION: Large fixed defect involving the anteroseptal wall with global hypokinesia and significantly reduced ejection fraction. No reversible defects observed to suggest acute ischemia. RISK CATEGORY: Intermediate Sherman Xiao Jr., MD Chest X-Ray 03/16/17 0000 Signed Impressions: Service Date/Time: Thursday, March 16, 2017 14:40 - CONCLUSION: Moderate congestive failure consolidative changes left base. Trace pleural effusions. Cecilio Liriano MD FACR Objective Remarks AAOx3 NAD S1S2 RRR, no MRG Diminished breath sounds with diffuse expiratory wheezin in BL lung gonzalez. Abdomen soft, nt, nd no JVD Medications and IVs Current Medications Medications (Trade) Dose Ordered Sig/Heladio Route Start Time Stop Time Status Last Admin (Duoneb Neb) 1 ampule Q4HR NEB PRN NEB 03/16/17 19:30 03/17/17 09:47 (NS Flush) 2 ml UNSCH PRN IV FLUSH 03/16/17 19:45 (NS Flush) 2 ml BID IV FLUSH 03/16/17 21:00 03/17/17 08:27 (Folate) 1 mg DAILY PO 03/17/17 09:00 03/22/17 08:59 03/17/17 08:26 (Vitamin B1) 100 mg DAILY PO 03/17/17 09:00 03/17/17 08:26 (Theragran M Tab) 1 tab DAILY PO 03/17/17 09:00 03/22/17 08:59 03/17/17 08:26 (Romazicon Inj) 0.2 mg Q1M PRN IV PUSH 03/16/17 19:45 (Ativan) 1 mg Q4H PRN PO 03/16/17 19:45 (Ativan Inj) 1 mg Q4H PRN IV PUSH 03/16/17 19:45 (Ativan) 2 mg Q2H PRN PO 03/16/17 19:45 (Ativan Inj) 2 mg Q2H PRN IV PUSH 03/16/17 19:45 (Ativan Inj) 2 mg Q1H PRN IV PUSH 03/16/17 19:45 (Ativan Inj) 2 mg Q15M PRN IV PUSH 03/16/17 19:45 (Aspirin Chew) 81 mg DAILY CHEW 03/18/17 09:00 (Lopressor) 12.5 mg Q12HR PO 03/17/17 09:45 03/17/17 10:06 (Pill Splitter) 1 ea UNSCH PRN OTHER 03/17/17 10:00 (Pneumovax-23 Inj) 25 mcg ONCE ONCE IM 03/18/17 10:00 03/18/17 10:01 (Flu (Quadrivalent) Vaccine Inj) 0.5 ml ONCE ONCE IM 03/18/17 10:00 03/18/17 10:01 Ceftriaxone Sodium 2000 mg/ Sodium Chloride 100 ml @ 200 mls/hr Q24H IV 03/17/17 18:15 UNV Azithromycin 500 mg/Sodium Chloride 250 ml @ 250 mls/hr Q24H IV 03/17/17 18:15 UNV (SoluMEDROL INJ) 40 mg Q6HR IV PUSH 03/17/17 18:15 UNV A/P Problem List: (1) SOB (shortness of breath) ICD Code: R06.02 - Shortness of breath Plan: Likely due to a combination of COPD exacerbation since patient is a chronic heavy smoker and CHF. CXR on admission showed congestion and left consolidative changes - reviewed by me. (2) Acute systolic heart failure ICD Code: I50.21 - Acute systolic (congestive) heart failure Plan: Echo with EF of 20 - 25%. Cardiology consulted. Recommendations appreciated. Patient was given IV lasix in ED. Will place on furosemide 40 mg po daily. (3) COPD exacerbation ICD Code: J44.1 - Chronic obstructive pulmonary disease with (acute) exacerbation Plan: Given 125 mg IV Solumedrol in ED. Will start on IV Solumedrol 40 mg IV Q 6 hrs. Start on ipratropium nebs (4) Demand ischemia ICD Code: I24.8 - Other forms of acute ischemic heart disease Plan: Troponins elevated on admission. Possibly 2/2 episode of SVT. Troponins trending down. Continue to monitor. DC IV heparin. continue aspirin. (5) SVT (supraventricular tachycardia) ICD Code: I47.1 - Supraventricular tachycardia Status: Acute Plan: Patient had episode in ED. Patient has been experiencing palpitations for a year. Patient had another episode today which did not respond to adenosine administration. SVT resolved after patient started on Amiodarone drip and carotid massage applied by cardiology. EP consulted. Discussed case with Dr Pathak who will do EP study in am. Instructed to DC amiodarone and place npo after midnight. Ordered heart healthy diet for tonight. (6) Cardiomyopathy ICD Code: I42.9 - Cardiomyopathy, unspecified Plan: Echo with low ef of 20-25%. Cardiology and EP on board. Patient on beta shanna. BP on the lower side to start JUSTINE inhibitor now. will start if BP allows. Nuclear stress testing ordered by cardiology which showed a large fixed deficit involving the anteroseptal wall (7) Alcohol abuse ICD Code: F10.10 - Alcohol abuse, uncomplicated Status: Chronic Plan: CIWA protocol, no evidence of withdrawal or delirium. (8) Smoking addiction ICD Code: F17.200 - Nicotine dependence, unspecified, uncomplicated Status: Chronic Plan: Advised smoking cessation. Did not offer nicotine patch due to SVT. Assessment and Plan DVT prophylaxis: SCD's Brandon Suárez MD Mar 17, 2017 17:54
[2017-03-17] MEDS: methylPREDNISolone SOD SUCC 40 MG/1 ML VIAL IV PUSH SCH ×2 (18:35→23:43)
--- NOTE | 2017-03-17 18:39 | MB ---
cc: SEN WARE SHRAVANTI R. MD SEIDE, HANSCY M.D. AHMED, SHAHABUDDIN DO DATE OF CONSULTATION 03/17/2017 Electrophysiology consultation REASON FOR CONSULTATION Supraventricular tachyarrhythmia. HISTORY Mr. Villegas is a 61-year-old gentleman with no history of systemic illness. No previous hospitalization. Smokes one-half to a one pack of cigarettes per day. Having palpitations for the past year and a half. Admitted through the emergency room due to shortness of breath. Heart failure diagnosed. He has recurrent episode of tachyarrhythmia. I was consulted for evaluation and management. The chart was reviewed. The patient was evaluated. ALLERGIES None. SOCIAL HISTORY The patient smoked close to a pack of cigarettes a day and drinks 6 beers daily. FAMILY HISTORY Noncontributory to his current medical condition. MEDICATIONS Currently he is on: 1. Amiodarone. 2. And IV heparin. 3. Metoprolol. REVIEW OF SYSTEMS He refers currently feeling better. No chest pain but tachyarrhythmia and palpitation but no fever. PHYSICAL EXAMINATION GENERAL: Alert, fully oriented. VITAL SIGNS: His blood pressure 104/73, pulse 70, respiratory 18. LUNGS: Ventilated. CARDIOVASCULAR: S1-S2, no gallop. No murmur. ABDOMEN: Soft. No mass. No bruit. EXTREMITIES: No edema. Electrocardiogram shows on hospitalization supraventricular tachyarrhythmia. Subsequent electrocardiogram shows sinus rhythm and PACs, poor R-wave progression, diffuse ST changes. LABORATORY DATA Hemoglobin is 14.6, white blood cell 5.3. Potassium 4.3, creatinine is 0.61. Troponin 0.01. INR is 1.1. ASSESSMENT AND RECOMMENDATIONS Mr. Villegas apparently has longstanding episode of tachyarrhythmia. His nuclear stress test indicated no ischemia. Ejection fraction of 25%. 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 He is on amiodarone. I am going to DC the amiodarone. Electrophysiology study and possible ablation discussed. The risks, the nature and the benefit of the procedure are clearly stated to him. The risks include pneumothorax, cardiac perforation, stroke and even . He understood and agreed to proceed. The nature and the presentation of the arrhythmia looks like pulmonary vein tachyarrhythmia versus atrial flutter. There is a possibility also of AV amie reentrant tachycardia. I discussed the case with Dr. Ware and Dr. Urena. The case will be scheduled for the morning. MD BRET Gómez/KK /6:04 PM /6:24 PM
[2017-03-17 18:46] LABS: MEAN CELL VOLUME 100.5 FL (80.0-100.0); MEAN CORPUSCULAR HGB CONC 33.9 % (32.0-36.0); PLATELET COUNT 219 TH/MM3 (150-450); RED BLOOD COUNT 4.28 MIL/MM3 (4.50-5.90); RED CELL DISTRIBUTION WIDTH 12.6 % (11.6-17.2); REVIEW FLAG FINAL
[2017-03-17 19:10] LABS: BICARBONATE 29.5 MEQ/L (21.0-32.0); POTASSIUM 3.9 MEQ/L (3.5-5.1)
[2017-03-17] MEDS: AZITHROMYCIN INJ 500 MG in SODIUM CHLOR 0.9% 250 ML INJ 250 ML IV SCH (20:26)
[2017-03-17] MEDS: RESP: IPRATROPIUM 0.5 MG/2.5 ML NEB NEB SCH (21:05)
[2017-03-17] MEDS: cefTRIAXone INJ 2,000 MG in SODIUM CHLORIDE 0.9% INJ 100 ML IV SCH (21:22)
[2017-03-18] VITALS (21 sets, daily range): BP systolic 112–133; BP diastolic 60–87; PULSE 61–88; RESP 16–18; TEMP 97.5–98.3; O2SAT 95–98
[2017-03-18] MEDS ORDERED: LACTATED RINGER'S 1000 ML IV PRN (03:45)
[2017-03-18] MEDS ORDERED: POVIDONE IODINE 5% (ANTISEPSIS KIT) 4 APPLICATIONS EACH NARE PRN (03:45)
[2017-03-18] MEDS ORDERED: CHLORHEXIDINE GLUCONATE 2 % 1 PACK (2 CLOTHS) TOPICAL PRN (03:45)
[2017-03-18] MEDS: RESP: IPRATROPIUM 0.5 MG/2.5 ML NEB NEB SCH ×4 (04:15→21:03)
[2017-03-18] MEDS: methylPREDNISolone SOD SUCC 40 MG/1 ML VIAL IV PUSH SCH ×3 (06:08→23:19)
[2017-03-18 06:51] LABS: AUTOMATED NEUTROPHIL # 6.1 TH/MM3 (1.8-7.7); HEMATOCRIT 40.7 % (39.0-51.0); HEMO FLAGS DIFF FINAL; LYMPH % 2.5 % (9.0-44.0); LYMPHOCYTE # 0.2 TH/MM3 (1.0-4.8); MEAN CELL VOLUME 100.4 FL (80.0-100.0); MEAN CORPUSCULAR HEMOGLOBIN 34.1 PG (27.0-34.0); NEUT % 96.5 % (16.0-70.0); PLATELET COUNT 175 TH/MM3 (150-450); RED BLOOD COUNT 4.05 MIL/MM3 (4.50-5.90); RED CELL DISTRIBUTION WIDTH 12.5 % (11.6-17.2); WHITE BLOOD COUNT 6.3 TH/MM3 (4.0-11.0)
[2017-03-18] MEDS ORDERED: HEPARIN-NS/PF INJ 1,000 ML ONE (06:53)
[2017-03-18 07:18] LABS: ANION GAP 8 MEQ/L (5-15); AST (GOT) 18 U/L (15-37); BICARBONATE 30.9 MEQ/L (21.0-32.0); BLOOD UREA NITROGEN 13 MG/DL (7-18); CHLORIDE 95 MEQ/L (98-107); GLOMERULAR FILTRATION RATE 137 ML/MIN (>89); MAGNESIUM 1.8 MG/DL (1.5-2.5); POTASSIUM 4.3 MEQ/L (3.5-5.1); SODIUM (NA) 134 MEQ/L (136-145)
[2017-03-18 07:20] LABS: ALT (GPT) 14 U/L (12-78)
[2017-03-18 07:22] LABS: ALKALINE PHOSPHATASE 89 U/L (45-117); TOTAL BILIRUBIN ADULT 0.4 MG/DL (0.2-1.0)
[2017-03-18] MEDS ORDERED: ISOPROTERENOL HCL 1 MG/5 ML AMP ONE (07:54)
[2017-03-18] MEDS ORDERED: BACITRACIN OINT 0.9 GM PKT TOP ONE (08:15)
[2017-03-18] MEDS ORDERED: ATROPINE SULFATE 1 MG/ML VIAL IV PUSH PRN (08:15)
[2017-03-18] MEDS ORDERED: LIDOCAINE HCL 1% 50 ML VIAL INFIL PRN (08:15)
[2017-03-18] MEDS ORDERED: oxyCODONE/ACETAMINOPHEN 5 MG/325 MG TAB PO PRN ×2 (08:15)
[2017-03-18] MEDS ORDERED: SODIUM CHLOR 0.9% 250 ML INJ 250 ML IV PRN (08:15)
[2017-03-18] MEDS ORDERED: METOCLOPRAMIDE HCL 10 MG/2 ML VIAL IV PUSH PRN (08:15)
[2017-03-18] MEDS ORDERED: LORazepam 2 MG/ML VIAL IV PUSH PRN (08:15)
[2017-03-18] MEDS ORDERED: ONDANSETRON HCL 4 MG/2 ML VIAL IV PUSH PRN (08:15)
--- NOTE | 2017-03-18 08:33 | CATHPROC ---
Needish HIS Report Study Information Study Number Admission Scheduled Start Study Start [id number] Mar 16 2017 4:02PM 03/17/2017 Mar 18 2017 6:32AM [place] [facility] Electrophysiology Study Admit Source Facility Department Other [facility] Physician and Clinical Staff Initial Yfn Sosa In House Counsel Estela Regan,RT(R) TECH2 Other Anesthesia, C WEB DEVELOPER Recorder Tessie Caro,RN Scrub Raúl Sepulveda,RT(R) Procedures Performed Procedure Location (Site) RF Ablation AV NODE Equipment Time Postal Superintendent Description Size Mfg Part Number Used/Scraped BIOSENSE MANRIQUE CATHETER, CELSIUS, 4MM, D [id number] 07:46 FR 7 Used INC. TYPE QUAD *[id number] 06:40 Invaluable IND[employer]ES PACK, CCL CUSTOM * Used *[id number] 06:40 Invaluable PACER WILLS, LIMB * 2530 *[id number] Used [id number] 06:40 [employer] BL[employer]ET,WARM AIR CCL * Used *[id number] 06:40 [employer] MEDICAL CATHETER, JSN, QUAD FR 5 Used *[id number] 06:40 [employer] MEDICAL CATHETER, JSN, QUAD FR 5 Used *[id number] 06:40 [employer] MEDICAL CATHETER, JSN, QUAD FR 5 Used *[id number] 06:40 [employer] MEDICAL CATHETER, JSN, QUAD FR 5 Used *[id number] 06:40 [employer] MEDICAL ELECTRODE KIT, REDDY X SURFACE * Used *[id number] 06:40 [employer] MED[employer] SHEATH, EPS, FR5 FAST CATH FR 5 Used *[id number] 06:40 [employer] MEDICAL SHEATH, EPS, FR5 FAST CATH FR 5 Used *[id number] 06:40 [employer] MEDICAL SHEATH, EPS, FR5 FAST CATH FR 5 Used *[id number] 06:40 [employer] MED[employer] SHEATH, EPS, FR6 FAST CATH FR 6 Used *[id number] 06:40 [employer] MEDICAL SHEATH, EPS, FR8 FAST CATH FR 8 Used *[id number] [facility] PAD, ELECTROSURGICAL 06:40 * [id number] *[id number] Used SURGICAL GROUNDING (BLUE) History: Allergies Allergy Reaction No Known Allergies History: Risk Factors Previous Heart Failure Yes Labs Hgb (g/dl) Hct (%) RBC (MIL/MM3) WBC (l/cumm) Platelets (thousands) 11.60-17.00 35.00-51.00 4.00-5.90 4.00-11.00 150.00-450.00 14.0 43 4.4 12 219 Glucose (mg/dl) BUN (mg/dl) Creatinine (mg/dl) BUN:Creatinine (1:x) 74.00-106.00 7.00-18.00 0.50-1.30 10.00-20.00 119 11 0.6 18.3 Na (meq/l) K (meq/l) 136.00-145.00 3.50-5.10 133 3.9 INR (PTT:PT) 0.90-1.10 1 Medication Medication Total Dose (Bolus/Oral) Medication Total Dosage/Unit 1% XYLOCAINE 40 mL Medications (Bolus/Oral) Medication Time Given Dosage/Unit Administered By Reason 1% XYLOCAINE 03/18/2017 7:29:36 AM 20 mL Yfn Pathak 20 mL 1% XYLOCAINE given by Yfn Pathak in Left Groin via Subcutaneous. 1% XYLOCAINE 03/18/2017 7:33:51 AM 20 mL Yfn Pathak 20 mL 1% XYLOCAINE given in lab by Yfn Pathak in Right Groin via Subcutaneous. Medication (Drip) Medication Time Given Dosage/Unit Concentration/Unit Diluent (ml) Solution ISUPREL 03/18/2017 7:56:44 AM 4 mcg/min 1 mg 250 NaCl .9 4 mcg/min ISUPREL given in lab by Anesthesia, C WEB DEVELOPER via Peripheral IV. Pump/Drip Flow = 60 ml/hr using NaCl .9 with a concentration of 1 mg in 250 ml. Ordered by Yfn Pathak. Reason: As per physicians verbal order. Initial Case Assessment Cardiovascular HR Rhythm NIBP Chest Pain 84 sr 140/86 0 Edema Present Skin color Skin None Normal Warm Dry Circulatory - Right Pulses Dorsalis Pedis 3 Scale (0,1,2,3,4,d) Circulatory - Left Pulses Dorsalis Pedis 1 Scale (0,1,2,3,4,d) Circulatory - Lower Extremities Color Lower Right Color Lower Left Normal Normal Neurological State Oriented to time-place- Alert Moves all extremities person Respiration - General Respiration Rate SpO2 (%) O2 (lpm) (B/min) 18 100 4 Final Case Assessment Cardiovascular HR Rhythm NIBP 81 sr 103/57 Edema Present Skin color Skin None Normal Warm Dry Circulatory - Right Pulses Dorsalis Pedis 3 Scale (0,1,2,3,4,d) Circulatory - Left Pulses Dorsalis Pedis 1 Scale (0,1,2,3,4,d) Circulatory - Lower Extremities Color Lower Right Color Lower Left Normal Normal Neurological State Oriented to time-place- Alert Moves all extremities person Respiration - General Respiration Rate SpO2 (%) (B/min) 16 93 Chronological Log Time Study Chronological Log 6:54:31 Patient arrived via Bed. 6:54:32 Patient Name, D.O.B, / Armband Verified By R.N. 6:54:34 Consent signed by the physician and the patient and verified by the [facility] staff. 6:54:34 Pre-op and post- op instructions given; patient acknowledges understanding of instructions. 6:54:35 Verbal Stimulation=2 Physical Stimulation=2 Airway=2 Respiration=2 TOTAL=8. (0=absent, 1=li mited, 2=present) 6:54:36 Anesthesia at bedside. Assumes care of patient. 6:54:45 Patient has been NPO for More than 6Hrs. 6:54:46 Skin Breakdown- none per pt 6:54:57 Patient Warmer Placed on the Table. 6:54:58 Disposable Defibrillator Pads Placed On Patient. 6:54:58 Stevan Prominences Protected 6:55:00 A # 20 IV was noted in the Antecubital (left). Grade = 0 0.9ns kvo 6:55:12 A # 20 IV was noted in the Hand (left). Grade = 0 0.9ns kvo 6:55:28 History and physical on the chart. Assessment: Initial Case, HR=84 BPM, Rhythm=sr, QNSB=675/86 mmhg, Chest Pain=0, Edema=None, Rolla r=Normal, Skin = Warm, Dry Right Pulses: Terell Ped=3 Left Pulses: Terell Ped=1 7:10:45 Lower Right Extremities: Color=Normal Lower Left Extremities: Color=Normal Neurological: State=Alert, Ox3, TURCIOS Respiration: Resp=18 B/min, HtU1=219 %, O2=4 lpm 7:15:50 MD paged 7:16:57 Reference ECG taken 7:17:24 Table restraints applied according to hospital policy 7:17:29 Bilateral groins prepped with 2% chlorhexidine, and draped after a 3 minute waiting time. 7:17:59 MD responded 7:26:31 MD arrived. Time Out. Correct patient, procedure, procedure equipment, site and side verified with physician present. Time 7:29:00 concurred by MD, individual staff and C WEB DEVELOPER. Time Out #2 - Consents verified, patient in correct position, all results are labled and display ed, safety precautions 7:29:20 taken, antibiotics administered. Time out concurred by MD, individual staff and C WEB DEVELOPER in procedur e 7:29:32 Case Start 7:29:36 20 mL 1% XYLOCAINE given by Yfn Pathak in Left Groin via Subcutaneous. 7:32:10 Vascular access was obtained in the Fem Vein (left). 7:32:12 Vascular access was obtained in the Fem Vein (left). 7:32:17 Vascular access was obtained in the Fem Vein (left). 7:32:57 A SHEATH, EPS, FR5 FAST CATH FR 5 was advanced into the Fem Vein (left) using the Modified S eldinger technique. 7:33:04 A SHEATH, EPS, FR5 FAST CATH FR 5 was advanced into the Fem Vein (left) using the Modified S eldinger technique. 7:33:17 A SHEATH, EPS, FR5 FAST CATH FR 5 was advanced into the Fem Vein (left) using the Modified S eldinger technique. 7:33:51 20 mL 1% XYLOCAINE given in lab by Yfn Pathak in Right Groin via Subcutaneous. 7:34:23 Vascular access was obtained in the Fem Vein (right). 7:34:27 Vascular access was obtained in the Fem Vein (right). 7:34:29 A SHEATH, EPS, FR6 FAST CATH FR 6 was advanced into the Fem Vein (right) using the Modified Seldinger technique. 7:34:38 A SHEATH, EPS, FR8 FAST CATH FR 8 was advanced into the Fem Vein (right) using the Modified Seldinger technique. A CATHETER, JSN, QUAD FR 5 was advanced vis Fem Vein (left) and placed in the CS. Placement was visually 7:36:00 confirmed under fluoroscopy. A CATHETER, JSN, QUAD FR 5 was advanced vis Fem Vein (left) and placed in the HIS. Placement was visually 7:36:37 confirmed under fluoroscopy. A CATHETER, JSN, QUAD FR 5 was advanced vis Fem Vein (left) and placed in the RVA. Placement was visually 7:36:59 confirmed under fluoroscopy. A CATHETER, JSN, QUAD FR 5 was advanced vis Fem Vein (right) and placed in the HRA. Placement wa s visually 7:37:54 confirmed under fluoroscopy. 7:38:54 EPS in progress. A CATHETER, CELSIUS, 4MM, D TYPE QUAD FR 7 was advanced vis Fem Vein (right) and placed in the H RA. Placement 7:45:27 was visually confirmed under fluoroscopy. 7:46:46 mapping in progress 7:47:13 RF Ablation of the AV NODE with a CATHETER, CELSIUS, 4MM, D TYPE QUAD FR 7. slow pathway 7:51:01 EPS in progress. 4 mcg/min ISUPREL given in lab by Anesthesia, C WEB DEVELOPER via Peripheral IV. Pump/Drip Flow = 60 ml/hr using NaCl .9 with 7:56:44 a concentration of 1 mg in 250 ml. Ordered by Yfn Pathak. Reason: As per physicians verbal or vane. 8:06:03 Isuprel off 8:06:28 All Catheter(s) removed without difficulty 8:13:32 Sheaths removed; pressure applied to access sites by DB and HH. 8:28:31 Sterile dressings applied to sites. 8:28:41 Case End 8:28:42 No case complications noted. 8:28:42 Cine recording checked. 8:28:57 CPCU called. Spoke to Ambar 8:29:07 Bedside Report will be given. 8:29:09 Defibrillator and ground pads removed. Skin intact. Assessment: Final Case, HR=81 BPM, Rhythm=sr, XDXA=143/57 mmhg, Edema=None, Color=Normal, Skin = Warm, Dry Right Pulses: Terell Ped=3 Left Pulses: Terell Ped=1 8:29:15 Lower Right Extremities: Color=Normal Lower Left Extremities: Color=Normal Neurological: State=Alert, Ox3, TURCIOS Respiration: Resp=16 B/min, SpO2=93 % 8:35:20 Patient moved to stretcher End Study - Contrast Media Used In Study Contrast Total Opened (mL) Total Used (mL) Total Wasted (mL) Unspecified 0 0 0 End Study - Maximum Contrast Load Max Contrast Load (mL) 479.2 End Study - Radiation Exposure Fluoro Time (minutes) 3.9 End Study - Patient Disposition Complications Transferred To Interventional Outcome No Telemetry Bed successful
--- NOTE | 2017-03-18 08:37 | MA ---
cc: MISHA MCCORMACK MD, HANSCY M.D. 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 INDICATION FOR PROCEDURE Mr. Villegas is a 61-year-old gentleman with tachyarrhythmia for the past year and sustained tachyarrhythmia referred for electrophysiology study and ablation. The risks, the nature and the benefit of the procedure were clearly stated to him. The risks include pneumothorax, cardiac perforation, stroke, need for open heart surgery and even . The patient understood and agreed to proceed. PROCEDURE After written informed consent was obtained, the patient was brought to the EP lab where he was prepped and draped in the usual sterile fashion. Conscious sedation was initiated and maintained throughout the procedure by the anesthesiologist. Once sedation was verified, the right and left inguinal area was anesthetized with 2% Xylocaine. Using the modified Seldinger technique, the right femoral vein was cannulated on two occasions and two guidewires were advanced. Over the wire one 6 and one 8 Monegasque Hemaquet were advanced. Then the left femoral vein was cannulated on three occasions and three guidewires were advanced. Over the wire three 5 Monegasque Hemaquets were advanced. Then under fluoroscopic guidance through the 5 and 6 Monegasque Hemaquets, four 5 Monegasque [place] curved quadripolar electrophysiology catheters were advanced and positioned on the His, upper right atrium, coronary sinus and right ventricular apex. During catheter manipulation the patient went into supraventricular tachyarrhythmia. He was paced terminated. Atrial pacing protocol was repeated again and echo beat jump observed. 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 Again it was pace terminated. Then through the 8 Monegasque Hemaquet, a Cordis-Bedolla D-curve 4 mm mapping and radiofrequency ablation catheter was advanced. Using [employer] mapping system a three-dimensional configuration of the right atrium was obtained. Then the catheter was placed at the tricuspid valve annulus. Nearby the os of the coronary sinus ablation energy was delivered. The patient went into junctional rhythm. Further burn was delivered in the area. Then atrial pacing protocol was repeated again with no tachyarrhythmia, no echo beat, no jump observed. Then Isuprel infusion was initiated. Post Isuprel no tachyarrhythmia was induced. At that point the procedure was complete. All catheters were removed. The patient is going to be transferred to the recovery room. No incident report. The patient tolerated the procedure. Blood loss minimal. FINDINGS 1. Electrocardiogram: At baseline the patient was in sinus. Post procedure electrocardiogram was unchanged. 2. Basic intervals: Basic cycle length was around 740, AH at 62 and HV at 50 milliseconds. 3. Atrial pacing protocol: Wenckebach was not reached at the beginning because tachyarrhythmia was induced. Post ablation it was 420 milliseconds. During atrial pacing protocol tachyarrhythmia was induced. 4. Ventricular pacing protocol: There was VA conduction, it was concentric. 5. Tachyarrhythmia. 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 Slow pathway was mapped and ablated. Ablation was successful. 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 COMMENT/RECOMMENDATION The patient is going to be transferred to the telemetry unit. He will be observed and when stable can be discharged home. Also the gentleman has an EF of 20-25%. He will need a defibrillatory vest before going home. Yfn Pathak MD HS/BT /8:06 AM /8:15 AM
[2017-03-18] MEDS ORDERED: FUROSEMIDE 40 MG TAB PO SCH (09:00)
[2017-03-18] MEDS ORDERED: INFLUENZA VIRUS VACCINE (QUADRIVALENT) 0.5 ML SYR IM ONE (10:00)
[2017-03-18] MEDS ORDERED: PNEUMOCOCCAL POLYVALENT INJ 25 MCG/0.5 ML SYR IM ONE (10:00)
[2017-03-18] MEDS: MULTIVITAMINS/MINERALS THERAPEUTIC TAB PO SCH (10:28)
[2017-03-18] MEDS: THIAMINE HCL 100 MG TAB PO SCH (10:28)
[2017-03-18] MEDS: METOPROLOL TARTRATE 50 MG TAB PO SCH ×2 (10:29→21:09)
[2017-03-18] MEDS: FOLIC ACID 1 MG TAB PO SCH (10:29)
[2017-03-18] MEDS: ASPIRIN 81 MG CHEW TAB CHEW SCH (10:29)
[2017-03-18] MEDS: RAMIPRIL 2.5 MG CAP PO SCH (10:30)
[2017-03-18] MEDS: SODIUM CHLORIDE 0.9% FLUSH 10 ML FLUSH IV FLUSH SCH ×2 (10:31→21:10)
[2017-03-18] MEDS ORDERED: DEFIB EXTERNAL (10:56)
--- NOTE | 2017-03-18 11:03 | PD.CARD.PN ---
Subjective Subjective Remarks No events overnight s/p AVNRT ablation this morning No chest pain SOB better Objective Medications Current Medications Medications (Trade) Dose Ordered Sig/Heladio Route Start Time Stop Time Status Last Admin (Duoneb Neb) 1 ampule Q4HR NEB PRN NEB 03/16/17 19:30 03/17/17 09:47 (NS Flush) 2 ml UNSCH PRN IV FLUSH 03/16/17 19:45 (NS Flush) 2 ml BID IV FLUSH 03/16/17 21:00 03/18/17 10:31 (Folate) 1 mg DAILY PO 03/17/17 09:00 03/22/17 08:59 03/18/17 10:29 (Vitamin B1) 100 mg DAILY PO 03/17/17 09:00 03/18/17 10:28 (Theragran M Tab) 1 tab DAILY PO 03/17/17 09:00 03/22/17 08:59 03/18/17 10:28 (Romazicon Inj) 0.2 mg Q1M PRN IV PUSH 03/16/17 19:45 (Ativan) 1 mg Q4H PRN PO 03/16/17 19:45 (Ativan Inj) 1 mg Q4H PRN IV PUSH 03/16/17 19:45 (Ativan) 2 mg Q2H PRN PO 03/16/17 19:45 (Ativan Inj) 2 mg Q2H PRN IV PUSH 03/16/17 19:45 (Ativan Inj) 2 mg Q1H PRN IV PUSH 03/16/17 19:45 (Ativan Inj) 2 mg Q15M PRN IV PUSH 03/16/17 19:45 (Aspirin Chew) 81 mg DAILY CHEW 03/18/17 09:00 03/18/17 10:29 (Pill Splitter) 1 ea UNSCH PRN OTHER 03/17/17 10:00 Ceftriaxone Sodium 2000 mg/ Sodium Chloride 100 ml @ 200 mls/hr Q24H IV 03/17/17 21:00 03/17/17 21:22 Azithromycin 500 mg/Sodium Chloride 250 ml @ 250 mls/hr Q24H IV 03/17/17 20:00 03/17/17 20:26 (SoluMEDROL INJ) 40 mg Q6HR IV PUSH 03/17/17 18:30 03/18/17 06:08 (Atrovent Neb) 0.5 mg Q6HR NEB NEB 03/17/17 18:15 03/18/17 09:09 (Lasix) 40 mg BID@,18 PO 03/18/17 09:00 03/18/17 10:27 Lactated Ringer's 1,000 ml @ 30 mls/hr Q24H PRN IV 03/18/17 03:45 03/21/17 03:44 (Betadine 5% Antisepsis Kit) 1 applic RN PROCEDURES PRN EACH NARE 03/18/17 03:45 03/21/17 03:44 (Chlorhexidine 2% Cloth) 3 pack RN PROCEDURES PRN TOPICAL 03/18/17 03:45 03/21/17 03:44 (Percocet 5-325 Mg) 1 tab Q4H PRN PO 03/18/17 08:15 (Percocet 5-325 Mg) 2 tab Q4H PRN PO 03/18/17 08:15 (Ativan Inj) 0.5 mg UNSCH PRN IV PUSH 03/18/17 08:15 03/19/17 08:14 (Atropine Inj) 0.5 mg UNSCH PRN IV PUSH 03/18/17 08:15 Sodium Chloride 250 ml @ 500 mls/hr ONCE PRN IV 03/18/17 08:15 03/19/17 08:14 (Reglan Inj) 10 mg Q4H PRN IV PUSH 03/18/17 08:15 (Zofran Inj) 4 mg Q4H PRN IV PUSH 03/18/17 08:15 (Xylocaine 1% Inj (50 ml)) 10 ml UNSCH PRN INFIL 03/18/17 08:15 03/19/17 08:14 (Lopressor) 50 mg BID PO 03/18/17 09:00 03/18/17 10:29 (Altace) 2.5 mg DAILY PO 03/18/17 09:00 03/18/17 10:30 Vital Signs / I&O Vital Signs Date Time Temp Pulse Resp B/P (MAP) Pulse Ox O2 Delivery O2 Flow Rate FiO2 03/18/17 09:09 96 Nasal Cannula 2.00 03/18/17 06:00 80 03/18/17 05:00 78 03/18/17 04:00 98 Nasal Cannula 2.00 03/18/17 04:00 88 03/18/17 04:00 97.8 88 16 133/87 (102) 98 03/18/17 03:00 63 03/18/17 02:00 64 03/18/17 01:00 61 03/18/17 00:00 78 03/18/17 00:00 97.5 78 16 112/78 (89) 98 03/18/17 00:00 98 Nasal Cannula 2.00 03/17/17 23:00 64 03/17/17 22:00 72 03/17/17 21:07 Nasal Cannula 2.00 03/17/17 21:00 72 03/17/17 20:00 70 03/17/17 20:00 98.3 82 16 109/74 (86) 96 03/17/17 20:00 96 Nasal Cannula 2.00 03/17/17 19:00 64 03/17/17 18:00 83 03/17/17 17:00 70 03/17/17 16:00 72 03/17/17 16:00 72 17 106/63 (77) 97 03/17/17 16:00 97 Nasal Cannula 2.00 03/17/17 14:00 70 03/17/17 13:56 69 104/73 03/17/17 13:00 67 03/17/17 12:02 85 03/17/17 11:00 92 Room Air 03/17/17 11:00 98.3 84 19 117/75 (89) 92 03/17/17 11:00 92 I/O 03/17/17 03/17/17 03/17/17 03/18/17 03/18/17 03/18/17 07:00 15:00 23:00 07:00 15:00 23:00 Intake Total 288 ml 610 ml 590 ml Output Total 0 ml 550 ml Balance 288 ml 60 ml 590 ml Intake Oral 240 ml 240 ml IV Total 48 ml 610 ml 350 ml Output Urine Total 550 ml Stool Total 0 ml # Voids 2 3 # Bowel Movements 1 Physical Exam GENERAL: NAD, AAOx3 SKIN: Warm and dry. HEAD: Atraumatic. Normocephalic. EYES: Pupils equal and round. No scleral icterus. No injection or drainage. ENT: No nasal bleeding or discharge. Mucous membranes pink and moist. NECK: Trachea midline. No JVD. CARDIOVASCULAR: Regular rate and rhythm. RESPIRATORY: No accessory muscle use. Decreased breath sounds bilaterally GASTROINTESTINAL: Abdomen soft, non-tender, nondistended. Hepatic and splenic margins not palpable. MUSCULOSKELETAL: Extremities without clubbing, cyanosis, or edema. No obvious deformities. NEUROLOGICAL: Awake and alert. No obvious cranial nerve deficits. Motor grossly within normal limits. Five out of 5 muscle strength in the arms and legs. Normal speech. PSYCHIATRIC: Appropriate mood and affect; insight and judgment normal. Laboratory Laboratory Tests Test 03/17/17 14:16 03/17/17 18:20 03/18/17 06:01 Activated Partial Thromboplast Time 38.9 SEC White Blood Count 12.0 TH/MM3 6.3 TH/MM3 Red Blood Count 4.28 MIL/MM3 4.05 MIL/MM3 Hemoglobin 14.6 GM/DL 13.8 GM/DL Hematocrit 43.0 % 40.7 % Mean Corpuscular Volume 100.5 FL 100.4 FL Mean Corpuscular Hemoglobin 34.0 PG 34.1 PG Mean Corpuscular Hemoglobin Concent 33.9 % 34.0 % Red Cell Distribution Width 12.6 % 12.5 % Platelet Count 219 TH/MM3 175 TH/MM3 Mean Platelet Volume 8.5 FL 8.2 FL Blood Urea Nitrogen 11 MG/DL 13 MG/DL Creatinine 0.63 MG/DL 0.60 MG/DL Random Glucose 119 MG/DL 128 MG/DL Calcium Level 9.1 MG/DL 8.5 MG/DL Sodium Level 133 MEQ/L 134 MEQ/L Potassium Level 3.9 MEQ/L 4.3 MEQ/L Chloride Level 94 MEQ/L 95 MEQ/L Carbon Dioxide Level 29.5 MEQ/L 30.9 MEQ/L Anion Gap 10 MEQ/L 8 MEQ/L Estimat Glomerular Filtration Rate 129 ML/MIN 137 ML/MIN Neutrophils (%) (Auto) 96.5 % Lymphocytes (%) (Auto) 2.5 % Monocytes (%) (Auto) 1.0 % Eosinophils (%) (Auto) 0.0 % Basophils (%) (Auto) 0.0 % Neutrophils # (Auto) 6.1 TH/MM3 Lymphocytes # (Auto) 0.2 TH/MM3 Monocytes # (Auto) 0.1 TH/MM3 Eosinophils # (Auto) 0.0 TH/MM3 Basophils # (Auto) 0.0 TH/MM3 CBC Comment DIFF FINAL Differential Comment Total Protein 6.9 GM/DL Albumin 3.2 GM/DL Phosphorus Level 3.6 MG/DL Magnesium Level 1.8 MG/DL Alkaline Phosphatase 89 U/L Aspartate Amino Transf (AST/SGOT) 18 U/L Alanine Aminotransferase (ALT/SGPT) 14 U/L Total Bilirubin 0.4 MG/DL Assessment and Plan Problem List: (1) Cardiomyopathy ICD Codes: I42.9 - Cardiomyopathy, unspecified (2) Demand ischemia ICD Codes: I24.8 - Other forms of acute ischemic heart disease (3) COPD exacerbation ICD Codes: J44.1 - Chronic obstructive pulmonary disease with (acute) exacerbation (4) Acute systolic heart failure ICD Codes: I50.21 - Acute systolic (congestive) heart failure (5) SOB (shortness of breath) ICD Codes: R06.02 - Shortness of breath (6) SVT (supraventricular tachycardia) ICD Codes: I47.1 - Supraventricular tachycardia Status: Acute (7) CHF (congestive heart failure) ICD Codes: I50.9 - Heart failure, unspecified Status: Acute (8) Smoking addiction ICD Codes: F17.200 - Nicotine dependence, unspecified, uncomplicated Status: Chronic Assessment and Plan 1) AVNRT s/p ablation Con't BB therapy 2) New acute systolic heart failure Needs further diuresis Start JUSTINE-I Con't Lopressor (will use metoprolol over coreg due to concern with arrhythmias and ablation) EF 20-25% (possible due to CAD vs arrhythmogenic, doubt ETOH induced unless he drinks more than he states) Lifevest if possible Recheck echo in 3 months, if still low then consideration of ICD 3) Social work/Case management help with insurance 4) Possible DC tomorrow Will need to have time off from work for next week 5) Tobacco/ETOH cessation Problem Qualifiers (1) Cardiomyopathy: Qualified Codes: I42.0 - Dilated cardiomyopathy Gopi Sales DO Mar 18, 2017 11:03
--- NOTE | 2017-03-18 14:16 | HHI.PR ---
Subjective Remarks sp ep study with ablation denies cp/son/palpitations states sob better on 2 liters nasal canula sating 98% Objective Vitals Vital Signs Date Time Temp Pulse Resp B/P (MAP) Pulse Ox O2 Delivery O2 Flow Rate FiO2 03/18/17 11:00 Nasal Cannula 2.00 03/18/17 11:00 98.3 82 18 118/76 (90) 98 03/18/17 11:00 80 03/18/17 10:00 74 03/18/17 09:09 96 Nasal Cannula 2.00 03/18/17 09:00 Nasal Cannula 2.00 03/18/17 09:00 74 03/18/17 09:00 97.8 78 18 113/74 (87) 98 03/18/17 06:00 80 03/18/17 05:00 78 03/18/17 04:00 98 Nasal Cannula 2.00 03/18/17 04:00 88 03/18/17 04:00 97.8 88 16 133/87 (102) 98 03/18/17 03:00 63 03/18/17 02:00 64 03/18/17 01:00 61 03/18/17 00:00 78 03/18/17 00:00 97.5 78 16 112/78 (89) 98 03/18/17 00:00 98 Nasal Cannula 2.00 03/17/17 23:00 64 03/17/17 22:00 72 03/17/17 21:07 Nasal Cannula 2.00 03/17/17 21:00 72 03/17/17 20:00 70 03/17/17 20:00 98.3 82 16 109/74 (86) 96 03/17/17 20:00 96 Nasal Cannula 2.00 03/17/17 19:00 64 03/17/17 18:00 83 03/17/17 17:00 70 03/17/17 16:00 72 03/17/17 16:00 72 17 106/63 (77) 97 03/17/17 16:00 97 Nasal Cannula 2.00 I/O 03/17/17 03/17/17 03/17/17 03/18/17 03/18/17 03/18/17 07:00 15:00 23:00 07:00 15:00 23:00 Intake Total 288 ml 610 ml 590 ml Output Total 0 ml 550 ml Balance 288 ml 60 ml 590 ml Intake Oral 240 ml 240 ml IV Total 48 ml 610 ml 350 ml Output Urine Total 550 ml Stool Total 0 ml # Voids 2 3 # Bowel Movements 1 Result Diagram: 03/18/17 0601 03/18/17 0601 Imaging Last Impressions Myocardial Perfusion Scan Nuc Med 03/17/17 0000 Signed Impressions: Service Date/Time: Friday, March 17, 2017 14:52 - CONCLUSION: Large fixed defect involving the anteroseptal wall with global hypokinesia and significantly reduced ejection fraction. No reversible defects observed to suggest acute ischemia. RISK CATEGORY: Intermediate Sherman Xiao Jr., MD Chest X-Ray 03/16/17 0000 Signed Impressions: Service Date/Time: Thursday, March 16, 2017 14:40 - CONCLUSION: Moderate congestive failure consolidative changes left base. Trace pleural effusions. Cecilio Liriano MD FACR Objective Remarks AAOx3 NAD S1S2 RRR, no MRG Diminished breath sounds with diffuse expiratory wheezin in BL lung gonzalez. Abdomen soft, nt, nd no JVD Medications and IVs Current Medications Medications (Trade) Dose Ordered Sig/Heladio Route Start Time Stop Time Status Last Admin (Duoneb Neb) 1 ampule Q4HR NEB PRN NEB 03/16/17 19:30 03/17/17 09:47 (NS Flush) 2 ml UNSCH PRN IV FLUSH 03/16/17 19:45 (NS Flush) 2 ml BID IV FLUSH 03/16/17 21:00 03/18/17 10:31 (Folate) 1 mg DAILY PO 03/17/17 09:00 03/22/17 08:59 03/18/17 10:29 (Vitamin B1) 100 mg DAILY PO 03/17/17 09:00 03/18/17 10:28 (Theragran M Tab) 1 tab DAILY PO 03/17/17 09:00 03/22/17 08:59 03/18/17 10:28 (Romazicon Inj) 0.2 mg Q1M PRN IV PUSH 03/16/17 19:45 (Ativan) 1 mg Q4H PRN PO 03/16/17 19:45 (Ativan Inj) 1 mg Q4H PRN IV PUSH 03/16/17 19:45 (Ativan) 2 mg Q2H PRN PO 03/16/17 19:45 (Ativan Inj) 2 mg Q2H PRN IV PUSH 03/16/17 19:45 (Ativan Inj) 2 mg Q1H PRN IV PUSH 03/16/17 19:45 (Ativan Inj) 2 mg Q15M PRN IV PUSH 03/16/17 19:45 (Aspirin Chew) 81 mg DAILY CHEW 03/18/17 09:00 03/18/17 10:29 (Pill Splitter) 1 ea UNSCH PRN OTHER 03/17/17 10:00 Ceftriaxone Sodium 2000 mg/ Sodium Chloride 100 ml @ 200 mls/hr Q24H IV 03/17/17 21:00 03/17/17 21:22 Azithromycin 500 mg/Sodium Chloride 250 ml @ 250 mls/hr Q24H IV 03/17/17 20:00 03/17/17 20:26 (SoluMEDROL INJ) 40 mg Q6HR IV PUSH 03/17/17 18:30 03/18/17 12:33 (Atrovent Neb) 0.5 mg Q6HR NEB NEB 03/17/17 18:15 03/18/17 09:09 Lactated Ringer's 1,000 ml @ 30 mls/hr Q24H PRN IV 03/18/17 03:45 03/21/17 03:44 (Betadine 5% Antisepsis Kit) 1 applic SENIOR TAX ACCOUNTANT PRN EACH NARE 03/18/17 03:45 03/21/17 03:44 (Chlorhexidine 2% Cloth) 3 pack SENIOR TAX ACCOUNTANT PRN TOPICAL 03/18/17 03:45 03/21/17 03:44 (Percocet 5-325 Mg) 1 tab Q4H PRN PO 03/18/17 08:15 (Percocet 5-325 Mg) 2 tab Q4H PRN PO 03/18/17 08:15 (Ativan Inj) 0.5 mg UNSCH PRN IV PUSH 03/18/17 08:15 03/19/17 08:14 (Atropine Inj) 0.5 mg UNSCH PRN IV PUSH 03/18/17 08:15 Sodium Chloride 250 ml @ 500 mls/hr ONCE PRN IV 03/18/17 08:15 03/19/17 08:14 (Reglan Inj) 10 mg Q4H PRN IV PUSH 03/18/17 08:15 (Zofran Inj) 4 mg Q4H PRN IV PUSH 03/18/17 08:15 (Xylocaine 1% Inj (50 ml)) 10 ml UNSCH PRN INFIL 03/18/17 08:15 03/19/17 08:14 (Lopressor) 50 mg BID PO 03/18/17 09:00 03/18/17 10:29 (Altace) 2.5 mg DAILY PO 03/18/17 09:00 03/18/17 10:30 (Lasix Inj) 40 mg BID@,18 IV PUSH 03/18/17 18:00 A/P Problem List: (1) Community acquired pneumonia ICD Code: J18.9 - Pneumonia, unspecified organism Status: Acute Plan: CXR showed consolidative changes on BL bases. Continue IV Rocephin and IV Azithromycin. Assessment and Plan (1) SOB (shortness of breath) ICD Code: R06.02 - Shortness of breath Plan: Likely due to a combination of COPD exacerbation since patient is a chronic heavy smoker and CHF. CXR on admission showed congestion and left consolidative changes - reviewed by me. (2) Acute systolic heart failure ICD Code: I50.21 - Acute systolic (congestive) heart failure Plan: Echo with EF of 20 - 25%. Cardiology consulted. Recommendations appreciated. Patient was given IV lasix in ED. Will place on furosemide 40 mg po daily. 03/18 Patient placed on Lasix 40 mg IV BID as per cardiology. (3) COPD exacerbation ICD Code: J44.1 - Chronic obstructive pulmonary disease with (acute) exacerbation Plan: Given 125 mg IV Solumedrol in ED. Will start on IV Solumedrol 40 mg IV Q 6 hrs. Start on ipratropium nebs 03/18 Taper steroids down to 40 mg IV Q8 hrs. Continue IV antibiotics (4) Demand ischemia ICD Code: I24.8 - Other forms of acute ischemic heart disease Plan: Troponins elevated on admission. Possibly 2/2 episode of SVT. Troponins trending down. Continue to monitor. heparin dc'd. continue aspirin. (5) SVT (supraventricular tachycardia) ICD Code: I47.1 - Supraventricular tachycardia Status: Acute Plan: Patient had episode in ED. Patient has been experiencing palpitations for a year. Patient had another episode today which did not respond to adenosine administration. SVT resolved after patient started on Amiodarone drip and carotid massage applied by cardiology. EP consulted. Discussed case with Dr Pathak who will do EP study in am. Instructed to DC amiodarone and place npo after midnight. Ordered heart healthy diet for tonight. 03/18 SP EP study with successful radiofrequency ablation. (6) Cardiomyopathy ICD Code: I42.9 - Cardiomyopathy, unspecified Plan: Echo with low ef of 20-25%. Cardiology and EP on board. Patient on beta shanna. BP on the lower side to start JUSTINE inhibitor now. will start if BP allows. Nuclear stress testing ordered by cardiology which showed a large fixed deficit involving the anteroseptal wall 02/28o Patient will need a life vest prior to DC. Order has been placed by cardiology. Patient without insurance, life vest accounting representative working on case. (7) Alcohol abuse ICD Code: F10.10 - Alcohol abuse, uncomplicated Status: Chronic Plan: CIWA protocol, no evidence of withdrawal or delirium. (8) Smoking addiction ICD Code: F17.200 - Nicotine dependence, unspecified, uncomplicated Status: Chronic Plan: Advised smoking cessation. Did not offer nicotine patch due to SVT. Assessment and Plan DVT prophylaxis: SCD's Discharge Planning Continue to monitor on cardiac floor. Needs vest prior to DC. Problem Qualifiers (1) Community acquired pneumonia: Qualified Codes: J18.9 - Pneumonia, unspecified organism Brandon Suárez MD Mar 18, 2017 14:16
[2017-03-18 16:34] LABS: HEMOGLOBIN A1a 1.1 %; HEMOGLOBIN A1b 1.3 %; HEMOGLOBIN Ao 85.8 %; HEMOGLOBIN F 0.2 %; HEMOGLOBIN LA1C 2.2 %; HEMOGLOBIN P3 3.5 %
[2017-03-18] MEDS: FUROSEMIDE 40 MG/4 ML VIAL IV PUSH SCH (17:32)
[2017-03-18] MEDS: cefTRIAXone INJ 2,000 MG in SODIUM CHLORIDE 0.9% INJ 100 ML IV SCH (21:11)
[2017-03-18] MEDS: AZITHROMYCIN INJ 500 MG in SODIUM CHLOR 0.9% 250 ML INJ 250 ML IV SCH (23:19)
[2017-03-19] VITALS (18 sets, daily range): BP systolic 95–123; BP diastolic 63–81; PULSE 65–90; RESP 16–18; TEMP 97.7–98.4; O2SAT 91–98
[2017-03-19] MEDS: RESP: IPRATROPIUM 0.5 MG/2.5 ML NEB NEB SCH ×3 (03:06→16:18)
[2017-03-19 05:11] LABS: HEMATOCRIT 41.3 % (39.0-51.0); MEAN CELL VOLUME 99.9 FL (80.0-100.0); MEAN CORPUSCULAR HEMOGLOBIN 33.9 PG (27.0-34.0); MEAN CORPUSCULAR HGB CONC 33.9 % (32.0-36.0); PLATELET COUNT 174 TH/MM3 (150-450); RED BLOOD COUNT 4.13 MIL/MM3 (4.50-5.90); RED CELL DISTRIBUTION WIDTH 12.9 % (11.6-17.2); REVIEW FLAG FINAL; WHITE BLOOD COUNT 8.5 TH/MM3 (4.0-11.0)
[2017-03-19 05:20] LABS: INTERNATIONAL NORMALIZED RATIO 1.2 RATIO; PROTHROMBIN TIME - PATIENT 11.7 SEC (9.8-11.6)
[2017-03-19] MEDS: methylPREDNISolone SOD SUCC 40 MG/1 ML VIAL IV PUSH SCH (05:37)
[2017-03-19] MEDS: METOPROLOL TARTRATE 50 MG TAB PO SCH (08:53)
[2017-03-19] MEDS: FOLIC ACID 1 MG TAB PO SCH (08:53)
[2017-03-19] MEDS: ASPIRIN 81 MG CHEW TAB CHEW SCH (08:53)
[2017-03-19] MEDS: SODIUM CHLORIDE 0.9% FLUSH 10 ML FLUSH IV FLUSH SCH (08:53)
[2017-03-19] MEDS: RAMIPRIL 2.5 MG CAP PO SCH (08:53)
[2017-03-19] MEDS: FUROSEMIDE 40 MG/4 ML VIAL IV PUSH SCH (08:54)
[2017-03-19] MEDS: MULTIVITAMINS/MINERALS THERAPEUTIC TAB PO SCH (08:54)
[2017-03-19] MEDS: THIAMINE HCL 100 MG TAB PO SCH (08:54)
--- NOTE | 2017-03-19 09:49 | HHI.DS ---
Discharge Summary Admission Date Mar 16, 2017 at 16:02 Discharge Date: Mar 19, 2017 Admitting Diagnosis new onset CHF, elevated troponin (1) Community acquired pneumonia ICD Code: J18.9 - Pneumonia, unspecified organism Status: Acute (2) Cardiomyopathy ICD Code: I42.9 - Cardiomyopathy, unspecified Diagnosis: Principal (3) COPD exacerbation ICD Code: J44.1 - Chronic obstructive pulmonary disease with (acute) exacerbation Diagnosis: Principal (4) Acute systolic heart failure ICD Code: I50.21 - Acute systolic (congestive) heart failure Diagnosis: Principal Procedures EP study/ ablation Brief History - From Admission Written by Pietro Galdamez, acting as scribe for Dr. Urena on 03/16/17 at 17: 56. 61-year-old male with significant past medical history who presents to the ED with complaints of progressive shortness of breath for the past 6 months. He states that in the past 3 months this has gotten worse and is unable to do simple things such as ride his bike which he had no issues during previously. He denies any swelling of his legs but does report cough for the past 2 weeks with a scratchy throat. Exertion will make his shortness of breath worse, he denies any chest pain. He denies any fevers, chills, nausea, vomiting, diarrhea , or trouble urinating. He is a smoker half a pack a day and also admits to sixpack of beer daily. States that his last drink was yesterday when he had about 3 beers. He does not report taking any regular medications or visiting a doctor regularly. CBC/BMP: 03/19/17 0437 03/18/17 0601 Significant Findings Laboratory Tests Test 03/16/17 13:55 03/16/17 17:05 03/16/17 22:24 03/17/17 05:30 Red Blood Count 4.36 MIL/MM3 (4.50-5.90) Mean Corpuscular Volume 100.3 FL (80.0-100.0) Neutrophils (%) (Auto) 74.0 % (16.0-70.0) Monocytes (%) (Auto) 8.4 % (0.0-8.0) Lymphocytes # (Auto) 0.9 TH/MM3 (1.0-4.8) Blood Urea Nitrogen 6 MG/DL (7-18) Sodium Level 131 MEQ/L (136-145) Chloride Level 95 MEQ/L (98-107) Troponin I 0.10 NG/ML (0.02-0.05) 0.08 NG/ML (0.02-0.05) B-Type Natriuretic Peptide 1611 PG/ML (0-100) Activated Partial Thromboplast Time 35.4 SEC (24.3-30.1) 37.6 SEC (24.3-30.1) Test 03/17/17 14:16 03/17/17 18:20 03/18/17 06:01 03/19/17 04:37 Activated Partial Thromboplast Time 38.9 SEC (24.3-30.1) White Blood Count 12.0 TH/MM3 (4.0-11.0) Red Blood Count 4.28 MIL/MM3 (4.50-5.90) 4.05 MIL/MM3 (4.50-5.90) 4.13 MIL/MM3 (4.50-5.90) Mean Corpuscular Volume 100.5 FL (80.0-100.0) 100.4 FL (80.0-100.0) Random Glucose 119 MG/DL (74-106) 128 MG/DL (74-106) Sodium Level 133 MEQ/L (136-145) 134 MEQ/L (136-145) Chloride Level 94 MEQ/L (98-107) 95 MEQ/L (98-107) Mean Corpuscular Hemoglobin 34.1 PG (27.0-34.0) Neutrophils (%) (Auto) 96.5 % (16.0-70.0) Lymphocytes (%) (Auto) 2.5 % (9.0-44.0) Lymphocytes # (Auto) 0.2 TH/MM3 (1.0-4.8) Albumin 3.2 GM/DL (3.4-5.0) Prothrombin Time 11.7 SEC (9.8-11.6) PE at Discharge AAOx3 NAD S1S2 RRR, no MRG Clear to auscultation Abdomen soft, nt, nd no JVD No lower extremity edema Hospital Course Dyspnea The pt has COPD and CHF. CXR showed consolidative changes on bilateral bases. He was started on IV Rocephin and IV Azithromycin. He was started on IV steroids and received nebs. He will continue antibiotics and steroids upon discharge. He received smoking cessation instruction. Acute systolic heart failure Echo with EF of 20 - 25%. Cardiology was consulted. Nuclear stress test was ordered by cardiology which showed a large fixed deficit involving the anteroseptal wall. The pt was placed on Lasix 40 mg IV BID as per cardiology. He will continue PO Lasix and will follow up with cardiology as an outpt. LifeVest was arranged at the time of discharge. He will continue his cardiac regimen. SVT Patient had an episode in the ED. Patient has been experiencing palpitations for a year. Patient had another episode which did not respond to adenosine administration. SVT resolved after patient was started on Amiodarone drip and carotid massage was applied by cardiology. EP was consulted. S/p EP study with successful radiofrequency ablation. The pt will follow up with cardiology as an outpt. Pt Condition on Discharge: Stable Discharge Disposition: Discharge Home Discharge Time: > 30 minutes Discharge Instructions DIET: Follow Instructions for: Heart Healthy Diet Activities you can perform: Weight Bearing as Orel Follow up Referrals: Cardiology - [address] Sales PCP Follow-up - 1 Week New Orders: BASIC METABOLIC PROF - 3-5 Days New Medications: Azithromycin (Azithromycin) 500 Mg Tab 500 MG PO DAILY for Infection, #3 TAB 0 Refills Cefuroxime (Cefuroxime) 500 Mg Tab 500 MG PO BID for Infection, #8 TAB 0 Refills Defibrillator Jacket (Defibrillator Jacket) 1 Ea Device EA EXTERNAL ONCE for Cardiomyopathy, #1 Energy = 150 Joules; VT Threshold = 150 BPM; VF Threshold = 200 BPM Use up to 90 days only Furosemide (Furosemide) 40 Mg Tab 40 MG PO DAILY for Heart failure, #30 TAB 0 Refills Potassium Chloride ER (Potassium Chloride ER) 20 Meq Tab 20 MEQ PO DAILY for Electrolyte Replacement, #30 TAB 0 Refills Aspirin (Tgt Aspirin) 81 Mg Chw 81 MG CHEW DAILY for Heart, #30 EA Metoprolol Tartrate (Lopressor) 50 Mg Tab 50 MG PO BID for Heart, #60 TAB Ramipril (Ramipril) 2.5 Mg Cap 2.5 MG PO DAILY for Heart, #30 CAP Manish Smith. DO Mar 19, 2017 09:49
--- NOTE | 2017-03-19 09:50 | HHI.DCPOC ---
Discharge Care Plan Diagnosis: (1) Smoking addiction (2) Community acquired pneumonia (3) COPD exacerbation (4) Cardiomyopathy (5) Acute systolic heart failure (6) SOB (shortness of breath) (7) SVT (supraventricular tachycardia) Goals to Promote Your Health * To prevent worsening of your condition and complications * To maintain your health at the optimal level Directions to Meet Your Goals Take your medications as prescribed Follow your dietary instruction Follow activity as directed Keep your appointments as scheduled Take your immunizations and boosters as scheduled If your symptoms worsen call your PCP, if no PCP go to Urgent Care Center or Emergency Room Smoking is Dangerous to Your Health. Avoid second hand smoke Call the 24-hour hour crisis hotline for domestic abuse at Manish Smith DO Mar 19, 2017 09:50
[2017-03-19] MEDS ORDERED: CEFU1TAB20 PO (11:02)
[2017-03-19] MEDS ORDERED: ASPI81 CHEW (11:02)
[2017-03-19] MEDS ORDERED: AZIT500T2 PO (11:02)
[2017-03-19] MEDS ORDERED: FURO40TA PO (11:02)
[2017-03-19] MEDS ORDERED: METO-309 PO (11:02)
[2017-03-19] MEDS ORDERED: RAMI2.5C PO (11:02)
[2017-03-19] MEDS ORDERED: POTA-163 PO (11:02)
--- NOTE | 2017-03-19 12:11 | PD.CARD.PN ---
Subjective Subjective Remarks No events overnight s/p AVNRT ablation No chest pain SOB better Objective Medications Current Medications Medications (Trade) Dose Ordered Sig/Heladio Route Start Time Stop Time Status Last Admin (Duoneb Neb) 1 ampule Q4HR NEB PRN NEB 03/16/17 19:30 03/17/17 09:47 (NS Flush) 2 ml UNSCH PRN IV FLUSH 03/16/17 19:45 (NS Flush) 2 ml BID IV FLUSH 03/16/17 21:00 03/19/17 08:53 (Folate) 1 mg DAILY PO 03/17/17 09:00 03/22/17 08:59 03/19/17 08:53 (Vitamin B1) 100 mg DAILY PO 03/17/17 09:00 03/19/17 08:54 (Theragran M Tab) 1 tab DAILY PO 03/17/17 09:00 03/22/17 08:59 03/19/17 08:54 (Romazicon Inj) 0.2 mg Q1M PRN IV PUSH 03/16/17 19:45 (Ativan) 1 mg Q4H PRN PO 03/16/17 19:45 (Ativan Inj) 1 mg Q4H PRN IV PUSH 03/16/17 19:45 (Ativan) 2 mg Q2H PRN PO 03/16/17 19:45 (Ativan Inj) 2 mg Q2H PRN IV PUSH 03/16/17 19:45 (Ativan Inj) 2 mg Q1H PRN IV PUSH 03/16/17 19:45 (Ativan Inj) 2 mg Q15M PRN IV PUSH 03/16/17 19:45 (Aspirin Chew) 81 mg DAILY CHEW 03/18/17 09:00 03/19/17 08:53 (Pill Splitter) 1 ea UNSCH PRN OTHER 03/17/17 10:00 Ceftriaxone Sodium 2000 mg/ Sodium Chloride 100 ml @ 200 mls/hr Q24H IV 03/17/17 21:00 03/18/17 21:11 Azithromycin 500 mg/Sodium Chloride 250 ml @ 250 mls/hr Q24H IV 03/17/17 20:00 03/18/17 23:19 (Atrovent Neb) 0.5 mg Q6HR NEB NEB 03/17/17 18:15 03/19/17 09:37 Lactated Ringer's 1,000 ml @ 30 mls/hr Q24H PRN IV 03/18/17 03:45 03/21/17 03:44 (Betadine 5% Antisepsis Kit) 1 applic HAND GRINDER PRN EACH NARE 03/18/17 03:45 03/21/17 03:44 (Chlorhexidine 2% Cloth) 3 pack HAND GRINDER PRN TOPICAL 03/18/17 03:45 03/21/17 03:44 (Percocet 5-325 Mg) 1 tab Q4H PRN PO 03/18/17 08:15 (Percocet 5-325 Mg) 2 tab Q4H PRN PO 03/18/17 08:15 (Atropine Inj) 0.5 mg UNSCH PRN IV PUSH 03/18/17 08:15 (Reglan Inj) 10 mg Q4H PRN IV PUSH 03/18/17 08:15 (Zofran Inj) 4 mg Q4H PRN IV PUSH 03/18/17 08:15 (Lopressor) 50 mg BID PO 03/18/17 09:00 03/19/17 08:53 (Altace) 2.5 mg DAILY PO 03/18/17 09:00 03/19/17 08:53 (Lasix Inj) 40 mg BID@,18 IV PUSH 03/18/17 18:00 03/19/17 08:54 Vital Signs / I&O Vital Signs Date Time Temp Pulse Resp B/P (MAP) Pulse Ox O2 Delivery O2 Flow Rate FiO2 03/19/17 10:00 75 03/19/17 09:38 93 21 03/19/17 09:00 90 03/19/17 08:00 77 03/19/17 07:32 98.4 74 18 115/81 (92) 95 03/19/17 07:32 95 Room Air 03/19/17 07:00 80 03/19/17 06:00 75 03/19/17 04:00 95 Room Air 03/19/17 04:00 98.2 75 16 114/74 (87) 95 03/19/17 04:00 73 03/19/17 00:00 95 Room Air 03/19/17 00:00 98.2 73 16 95/63 (74) 98 03/18/17 21:03 96 Nasal Cannula 2.00 03/18/17 20:00 98.0 68 18 132/66 (88) 95 03/18/17 20:00 95 Room Air 03/18/17 18:25 66 03/18/17 17:00 68 03/18/17 16:00 76 03/18/17 15:06 96 Nasal Cannula 1.00 03/18/17 15:06 98.3 84 18 119/60 (79) 97 03/18/17 15:00 73 03/18/17 14:00 80 03/18/17 13:00 70 I/O 03/18/17 03/18/17 03/18/17 03/19/17 03/19/17 03/19/17 07:00 15:00 23:00 07:00 15:00 23:00 Intake Total 590 ml 900 ml 240 ml Output Total 500 ml 500 ml Balance 590 ml 400 ml -260 ml Intake Oral 240 ml 900 ml 240 ml IV Total 350 ml Output Urine Total 500 ml 500 ml # Voids 3 # Bowel Movements 1 Physical Exam GENERAL: NAD, AAOx3 SKIN: Warm and dry. HEAD: Atraumatic. Normocephalic. EYES: Pupils equal and round. No scleral icterus. No injection or drainage. ENT: No nasal bleeding or discharge. Mucous membranes pink and moist. NECK: Trachea midline. No JVD. CARDIOVASCULAR: Regular rate and rhythm. RESPIRATORY: No accessory muscle use. Decreased breath sounds bilaterally GASTROINTESTINAL: Abdomen soft, non-tender, nondistended. Hepatic and splenic margins not palpable. MUSCULOSKELETAL: Extremities without clubbing, cyanosis, or edema. No obvious deformities. NEUROLOGICAL: Awake and alert. No obvious cranial nerve deficits. Motor grossly within normal limits. Five out of 5 muscle strength in the arms and legs. Normal speech. PSYCHIATRIC: Appropriate mood and affect; insight and judgment normal. Laboratory Laboratory Tests Test 03/19/17 04:37 White Blood Count 8.5 TH/MM3 Red Blood Count 4.13 MIL/MM3 Hemoglobin 14.0 GM/DL Hematocrit 41.3 % Mean Corpuscular Volume 99.9 FL Mean Corpuscular Hemoglobin 33.9 PG Mean Corpuscular Hemoglobin Concent 33.9 % Red Cell Distribution Width 12.9 % Platelet Count 174 TH/MM3 Mean Platelet Volume 8.5 FL Prothrombin Time 11.7 SEC Prothromb Time International Ratio 1.2 RATIO Assessment and Plan Problem List: (1) Cardiomyopathy ICD Codes: I42.9 - Cardiomyopathy, unspecified (2) Demand ischemia ICD Codes: I24.8 - Other forms of acute ischemic heart disease (3) COPD exacerbation ICD Codes: J44.1 - Chronic obstructive pulmonary disease with (acute) exacerbation (4) Acute systolic heart failure ICD Codes: I50.21 - Acute systolic (congestive) heart failure (5) SOB (shortness of breath) ICD Codes: R06.02 - Shortness of breath (6) SVT (supraventricular tachycardia) ICD Codes: I47.1 - Supraventricular tachycardia Status: Acute (7) CHF (congestive heart failure) ICD Codes: I50.9 - Heart failure, unspecified Status: Acute (8) Smoking addiction ICD Codes: F17.200 - Nicotine dependence, unspecified, uncomplicated Status: Chronic Assessment and Plan 1) AVNRT s/p ablation Con't BB therapy 2) New acute systolic heart failure Con't Lasix Start JUSTINE-I Con't Lopressor (will use metoprolol over coreg due to concern with arrhythmias and ablation) EF 20-25% (possible due to CAD vs arrhythmogenic, doubt ETOH induced unless he drinks more than he states) Lifevest if possible Recheck echo in 3 months, if still low then consideration of ICD 3) Social work/Case management help with insurance 4) Plan for discharge today, cardiovascularly stable 5) Tobacco/ETOH cessation Especially with cardiomyopathy Problem Qualifiers (1) Cardiomyopathy: Qualified Codes: I42.0 - Dilated cardiomyopathy Gopi Sales DO Mar 19, 2017 12:11
--- NOTE | 2017-03-19 15:41 | HHI.PR ---
Subjective Remarks The patient was resting comfortably. He was anxious to go home. He had no acute concerns. He was willing to use the LifeVest. Discussed with cardiology and nursing. Objective Vitals Vital Signs Date Time Temp Pulse Resp B/P (MAP) Pulse Ox O2 Delivery O2 Flow Rate FiO2 03/19/17 14:00 69 03/19/17 13:00 65 03/19/17 12:00 72 03/19/17 11:32 91 Room Air 03/19/17 11:32 98.2 76 18 123/69 (87) 91 03/19/17 11:00 78 03/19/17 10:00 75 03/19/17 09:38 93 21 03/19/17 09:00 90 03/19/17 08:00 77 03/19/17 07:32 98.4 74 18 115/81 (92) 95 03/19/17 07:32 95 Room Air 03/19/17 07:00 80 03/19/17 06:00 75 03/19/17 04:00 95 Room Air 03/19/17 04:00 98.2 75 16 114/74 (87) 95 03/19/17 04:00 73 03/19/17 00:00 95 Room Air 03/19/17 00:00 98.2 73 16 95/63 (74) 98 03/18/17 21:03 96 Nasal Cannula 2.00 03/18/17 20:00 98.0 68 18 132/66 (88) 95 03/18/17 20:00 95 Room Air 03/18/17 18:25 66 03/18/17 17:00 68 03/18/17 16:00 76 I/O 03/18/17 03/18/17 03/18/17 03/19/17 03/19/17 03/19/17 07:00 15:00 23:00 07:00 15:00 23:00 Intake Total 590 ml 900 ml 240 ml Output Total 500 ml 500 ml Balance 590 ml 400 ml -260 ml Intake Oral 240 ml 900 ml 240 ml IV Total 350 ml Output Urine Total 500 ml 500 ml # Voids 3 # Bowel Movements 1 Result Diagram: 03/19/17 0437 03/18/17 0601 Imaging Last Impressions Myocardial Perfusion Scan Nuc Med 03/17/17 0000 Signed Impressions: Service Date/Time: Friday, March 17, 2017 14:52 - CONCLUSION: Large fixed defect involving the anteroseptal wall with global hypokinesia and significantly reduced ejection fraction. No reversible defects observed to suggest acute ischemia. RISK CATEGORY: Intermediate Sherman Xiao Jr., MD Chest X-Ray 03/16/17 0000 Signed Impressions: Service Date/Time: Thursday, March 16, 2017 14:40 - CONCLUSION: Moderate congestive failure consolidative changes left base. Trace pleural effusions. Cecilio Liriano MD FACR Objective Remarks AAOx3 NAD S1S2 RRR, no MRG Clear to auscultation Abdomen soft, nt, nd no JVD No lower extremity edema Medications and IVs Current Medications Medications (Trade) Dose Ordered Sig/Heladio Route Start Time Stop Time Status Last Admin (Duoneb Neb) 1 ampule Q4HR NEB PRN NEB 03/16/17 19:30 03/17/17 09:47 (NS Flush) 2 ml UNSCH PRN IV FLUSH 03/16/17 19:45 (NS Flush) 2 ml BID IV FLUSH 03/16/17 21:00 03/19/17 08:53 (Folate) 1 mg DAILY PO 03/17/17 09:00 03/22/17 08:59 03/19/17 08:53 (Vitamin B1) 100 mg DAILY PO 03/17/17 09:00 03/19/17 08:54 (Theragran M Tab) 1 tab DAILY PO 03/17/17 09:00 03/22/17 08:59 03/19/17 08:54 (Romazicon Inj) 0.2 mg Q1M PRN IV PUSH 03/16/17 19:45 (Ativan) 1 mg Q4H PRN PO 03/16/17 19:45 (Ativan Inj) 1 mg Q4H PRN IV PUSH 03/16/17 19:45 (Ativan) 2 mg Q2H PRN PO 03/16/17 19:45 (Ativan Inj) 2 mg Q2H PRN IV PUSH 03/16/17 19:45 (Ativan Inj) 2 mg Q1H PRN IV PUSH 03/16/17 19:45 (Ativan Inj) 2 mg Q15M PRN IV PUSH 03/16/17 19:45 (Aspirin Chew) 81 mg DAILY CHEW 03/18/17 09:00 03/19/17 08:53 (Pill Splitter) 1 ea UNSCH PRN OTHER 03/17/17 10:00 Ceftriaxone Sodium 2000 mg/ Sodium Chloride 100 ml @ 200 mls/hr Q24H IV 03/17/17 21:00 03/18/17 21:11 Azithromycin 500 mg/Sodium Chloride 250 ml @ 250 mls/hr Q24H IV 03/17/17 20:00 03/18/17 23:19 (Atrovent Neb) 0.5 mg Q6HR NEB NEB 03/17/17 18:15 03/19/17 09:37 Lactated Ringer's 1,000 ml @ 30 mls/hr Q24H PRN IV 03/18/17 03:45 03/21/17 03:44 (Betadine 5% Antisepsis Kit) 1 applic PILOT INSTRUCTOR PRN EACH NARE 03/18/17 03:45 03/21/17 03:44 (Chlorhexidine 2% Cloth) 3 pack PILOT INSTRUCTOR PRN TOPICAL 03/18/17 03:45 03/21/17 03:44 (Percocet 5-325 Mg) 1 tab Q4H PRN PO 03/18/17 08:15 (Percocet 5-325 Mg) 2 tab Q4H PRN PO 03/18/17 08:15 (Atropine Inj) 0.5 mg UNSCH PRN IV PUSH 03/18/17 08:15 (Reglan Inj) 10 mg Q4H PRN IV PUSH 03/18/17 08:15 (Zofran Inj) 4 mg Q4H PRN IV PUSH 03/18/17 08:15 (Lopressor) 50 mg BID PO 03/18/17 09:00 03/19/17 08:53 (Altace) 2.5 mg DAILY PO 03/18/17 09:00 03/19/17 08:53 (Lasix Inj) 40 mg BID@,18 IV PUSH 03/18/17 18:00 03/19/17 08:54 A/P Problem List: (1) Community acquired pneumonia ICD Code: J18.9 - Pneumonia, unspecified organism Status: Acute (2) Cardiomyopathy ICD Code: I42.9 - Cardiomyopathy, unspecified (3) COPD exacerbation ICD Code: J44.1 - Chronic obstructive pulmonary disease with (acute) exacerbation (4) Acute systolic heart failure ICD Code: I50.21 - Acute systolic (congestive) heart failure Assessment and Plan Community acquired pneumonia - CXR showed consolidative changes on BL bases. Continue IV Rocephin and IV Azithromycin. SOB (shortness of breath) Likely due to a combination of COPD exacerbation since patient is a chronic heavy smoker and CHF. CXR on admission showed congestion and left consolidative changes. - continue Lasix and nebs. - smoking cessation instruction. Acute systolic heart failure Echo with EF of 20 - 25%. Cardiology consulted. Recommendations appreciated. - Patient was given IV Lasix in ED. Will place on furosemide 40 mg po daily on d /c. COPD exacerbation Given 125 mg IV Solumedrol in ED. - Will start on steroid taper. - Start on ipratropium nebs. (Demand ischemia Troponins elevated on admission. Possibly 2/2 episode of SVT. Troponins trending down. - heparin dc'd. continue aspirin. SVT (supraventricular tachycardia) Patient had episode in ED. Patient has been experiencing palpitations for a year. Patient had another episode today which did not respond to adenosine administration. SVT resolved after patient started on Amiodarone drip and carotid massage applied by cardiology. EP consulted. SP EP study with successful radiofrequency ablation. - continue cardiac regimen. Cardiomyopathy Echo with low ef of 20-25%. Cardiology and EP on board. - Patient on beta shanna. BP on the lower side to start JUSTINE inhibitor now. will start if BP allows. - Nuclear stress testing ordered by cardiology which showed a large fixed deficit involving the anteroseptal wall. - Patient will need a life vest prior to DC. Order has been placed by cardiology. Patient without insurance, life vest route sales representative working on case. DVT prophylaxis: SCD's Discharge Planning d/c when LifeVest obtained Problem Qualifiers (1) Community acquired pneumonia: Qualified Codes: J18.9 - Pneumonia, unspecified organism (2) Cardiomyopathy: Qualified Codes: I42.0 - Dilated cardiomyopathy Manish Smith DO Mar 19, 2017 15:41
== END 2017-03-19 18:30 | disposition home or self-care (01) | DRG 273 ==
LOC: NEPC 13:11 → NEDA 16:02 → HCPC 18:30
PROVIDERS: ADMIT Hospitalist; ATTEND Hospitalist
PROC: 5A2204Z Restoration of Cardiac Rhythm, Single (ICD-10-PCS; 2017-03-17)
PROC: 02K83ZZ Map Conduction Mechanism, Percutaneous Approach (ICD-10-PCS; 2017-03-18)
PROC: 4A0234Z Measurement of Cardiac Electrical Activity, Percutaneous Approach (ICD-10-PCS; 2017-03-18)
PROC: 02583ZZ Destruction of Conduction Mechanism, Percutaneous Approach (ICD-10-PCS; principal; 2017-03-18 07:15)
DX: I47.1 Supraventricular tachycardia (principal); I50.21 Acute systolic (congestive) heart failure; J18.9 Pneumonia, unspecified organism; I24.8 Other forms of acute ischemic heart disease; I42.0 Dilated cardiomyopathy; J44.0 Chronic obstructive pulmonary disease with (acute) lower respiratory infection; E87.1 Hypo-osmolality and hyponatremia; J44.1 Chronic obstructive pulmonary disease with (acute) exacerbation; F17.210 Nicotine dependence, cigarettes, uncomplicated; R74.8 Abnormal levels of other serum enzymes; I45.9 Conduction disorder, unspecified; F10.10 Alcohol abuse, uncomplicated; Z23 Encounter for immunization
CPT/HCPCS: 71010; 78452; 80048; 80053; 82550; 82948; 83036; 83735; 83880; 84100; 84484; 85025; 85027; 85610; 85730; 90686; 90732; 93005; 93017; 93306; 93613; 93623; 93653; 94640; 94664; 96374; 96375; A9502; C1730; C1732; C2630; J0153; J0282; J0456; J0696; J1644; J1940; J2785; J2920; J2930; J7050; J7060; J7644; Q2038

== ENCOUNTER 2017-07-29 10:37 | Inpatient (IN) | payer SELFPAY ==
[2017-07-29] VITALS (9 sets, daily range): BP systolic 126–152; BP diastolic 74–85; PULSE 71–104; RESP 16–20; TEMP 97.2; O2SAT 91–98
[~2017-07-29] VITALS: Ht 167.6 cm; Wt 55.9 kg
[~2017-07-29 10:37] MED LIST: ASPI81 CHEW; AZIT500T2 PO; CEFU1TAB20 PO; DEFIB EXTERNAL; FURO40TA PO; METO-309 PO; POTA-163 PO; RAMI2.5C PO
[2017-07-29] MEDS ORDERED: SODIUM CHLORIDE 0.9% FLUSH 10 ML FLUSH IVF PRN (11:15)
--- NOTE | 2017-07-29 11:25 | PD ---
HPI Chief Complaint: Respiratory Symptoms Time Seen by Provider: 11:06 Travel History International Travel<30 days: No Contact w/Intl Traveler<30days: No Traveled to known affect area: No History of Present Illness HPI 61-year-old male with PMH of COPD, CHF diagnosed in February of last year presents to the ED for evaluation of 5 day history of dyspnea on exertion, worsening shortness of breath. Patient also notes edema in his lower extremities. He endorses palpitations. He denies chest pain, productive cough , abdominal pain, nausea, vomiting. He states that he does not currently take any medications. He treated at home with a nebulizer treatment just before arrival with no improvement of symptoms. The patient was admitted in February of last year, discharged with instructions to follow with a auto radio mechanic. Patient states that he has not followed up. He was also discharged with a LifeVest, states that he wore it for 3 months but has not been wearing it as of late. He is a current smoker for 40+ years. He is a daily drinker of "at least a 6 pack" of beer. PFSH Past Medical History Asthma: No Cancer: No Cardiovascular Problems: No Congestive Heart Failure: Yes (With this admission ) COPD: Yes Diabetes: No Endocrine: No Genitourinary: No Immune Disorder: No Musculoskeletal: No Neurologic: No Psychiatric: No Sleep Apnea: No Social History Alcohol Use: No Tobacco Use: Yes Substance Use: Yes (Occasional marijuana use ) Allergies-Medications (Allergen,Severity, Reaction): Coded Allergies: No Known Allergies (Unverified , 03/16/17) Reported Meds & Prescriptions Reported Meds & Active Scripts Active No Active Prescriptions or Reported Medications Review of Systems Except as stated in HPI: all other systems reviewed are Neg Physical Exam Narrative GENERAL: Well-nourished, well-developed white male no acute distress. Speaking in short sentences. SKIN: Focused skin assessment warm/dry. Deeply tanned. HEAD: Normocephalic. EYES: No scleral icterus. No injection or drainage. NECK: Supple, trachea midline. No JVD or lymphadenopathy. CARDIOVASCULAR: Regular rate and rhythm without murmurs, gallops, or rubs. RESPIRATORY: Breath sounds clear and equal bilaterally. No accessory muscle use. GASTROINTESTINAL: Abdomen soft, non-tender, nondistended. Active bowel sounds. MUSCULOSKELETAL: No cyanosis. 1+ edema to the mid shins bilaterally. BACK: Nontender without obvious deformity. No CVA tenderness. Data Data Last Documented VS Vital Signs Date Time Temp Pulse Resp B/P (MAP) Pulse Ox O2 Delivery O2 Flow Rate FiO2 07/29/17 12:59 90 17 126/78 (94) 94 Room Air 07/29/17 10:45 97.2 Orders Orders Complete Blood Count With Diff (07/29/17 11:12) Comprehensive Metabolic Panel (07/29/17 11:12) B-Type Natriuretic Peptide (07/29/17 11:12) Act Partial Throm Time (Ptt) (07/29/17 11:12) Prothrombin Time / Inr (Pt) (07/29/17 11:12) Urinalysis - C+S If Indicated (07/29/17 11:12) Iv Access Insert/Monitor (07/29/17 11:12) Electrocardiogram (07/29/17 11:12) Ecg Monitoring (07/29/17 11:12) Oximetry (07/29/17 11:12) Chest, Single Ap (07/29/17 11:12) Sodium Chloride 0.9% Flush (Ns Flush) (07/29/17 11:15) Furosemide Inj (Lasix Inj) (07/29/17 12:45) Troponin I (07/29/17 12:59) Ckmb (Isoenzyme) Profile (07/29/17 12:59) CKMB (07/29/17 12:00) CKMB% (07/29/17 12:00) Labs Laboratory Tests Test 07/29/17 12:00 07/29/17 12:10 White Blood Count 5.3 TH/MM3 Red Blood Count 4.40 MIL/MM3 Hemoglobin 15.3 GM/DL Hematocrit 44.6 % Mean Corpuscular Volume 101.4 FL Mean Corpuscular Hemoglobin 34.8 PG Mean Corpuscular Hemoglobin Concent 34.3 % Red Cell Distribution Width 12.3 % Platelet Count 203 TH/MM3 Mean Platelet Volume 7.6 FL Neutrophils (%) (Auto) 75.1 % Lymphocytes (%) (Auto) 12.7 % Monocytes (%) (Auto) 10.7 % Eosinophils (%) (Auto) 1.0 % Basophils (%) (Auto) 0.5 % Neutrophils # (Auto) 3.9 TH/MM3 Lymphocytes # (Auto) 0.7 TH/MM3 Monocytes # (Auto) 0.6 TH/MM3 Eosinophils # (Auto) 0.1 TH/MM3 Basophils # (Auto) 0.0 TH/MM3 CBC Comment DIFF FINAL Differential Comment Prothrombin Time 12.4 SEC Prothromb Time International Ratio 1.2 RATIO Activated Partial Thromboplast Time 31.3 SEC Blood Urea Nitrogen 4 MG/DL Creatinine 0.58 MG/DL Random Glucose 88 MG/DL Total Protein 7.2 GM/DL Albumin 3.5 GM/DL Calcium Level 9.0 MG/DL Alkaline Phosphatase 118 U/L Aspartate Amino Transf (AST/SGOT) 41 U/L Alanine Aminotransferase (ALT/SGPT) 23 U/L Total Bilirubin 0.6 MG/DL Sodium Level 125 MEQ/L Potassium Level 4.5 MEQ/L Chloride Level 88 MEQ/L Carbon Dioxide Level 29.0 MEQ/L Anion Gap 8 MEQ/L Estimat Glomerular Filtration Rate 142 ML/MIN Total Creatine Kinase 151 U/L Creatine Kinase MB 8.4 NG/ML Troponin I 0.03 NG/ML B-Type Natriuretic Peptide 2556 PG/ML Urine Color YELLOW Urine Turbidity CLEAR Urine pH 5.5 Urine Specific Darwin 1.019 Urine Protein 30 mg/dL Urine Glucose (UA) NEG mg/dL Urine Ketones TRACE mg/dL Urine Occult Blood NEG Urine Nitrite NEG Urine Bilirubin NEG Urine Urobilinogen 2.0 MG/DL Urine Leukocyte Esterase NEG Urine RBC 1 /hpf Urine WBC 4 /hpf Urine Bacteria RARE /hpf Urine Hyaline Casts 3 /lpf Urine Mucus FEW /lpf Microscopic Urinalysis Comment CULT NOT INDICATED MDM Medical Decision Making Medical Screen Exam Complete: Yes Emergency Medical Condition: Yes Differential Diagnosis CHF exacerbation versus COPD exacerbation versus dysrhythmia versus noncompliance versus other Narrative Course 61-year-old male with PMH of COPD, CHF diagnosed in February of last year presents to the ED for evaluation of 5 day history of dyspnea on exertion, worsening shortness of breath. Patient also notes edema in his lower extremities. He endorses palpitations. He denies chest pain, productive cough , abdominal pain, nausea, vomiting. Per chart review the patient was admitted in February of last year, discharged with a Life Vest and instructions to follow with a auto radio mechanic. Patient states that he has not followed up. Current smoker for 40+ years. He is a daily drinker of "at least a 6 pack" of beer. Patient is afebrile, pulse 90, O2 sats 98% ORA on presentation. On exam this is a thin white male speaking in short sentences. Chest is CTAB. 1+ edema in the extremities bilaterally. Review of the patient's record reveals echo performed 02/2017 showed EF of 20-25 %. Stress test revealed a large fixed deficit of the anteroseptal wall. 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 EKG rate 87, sinus rhythm with PVCs. ND interval 157, QRS 120, QTC 404 ms. Normal axis. Q waves in [address] No acute [address] changes. Reviewed by Dr. Parrish CXR: Pulmonary edema with bilateral pleural effusions. Infiltrates in both lung bases most likely from compressive atelectasis per radiology read. BNP: 2556. Cardiac enzymes: Troponin negative. CKMB 8.4. CBC: WBC 5.3. Hemoglobin 15.3. Coags: INR 1.2. CMP: Sodium 125, chloride 88. BUN 4, creatinine 0.58. UA: No culture indicated. Patient was administered 40 mg Lasix IV. Given his low EF and previous discharge with LifeVest I feel cardiology consult is warranted. I discussed the results of the workup with the patient as well as the need for observation admission. Patient is agreeable. I spoke with Dr. Andujar who agrees to accept the patient to the medicine service. Please see medicine notes for disposition. Scripts No Active Prescriptions or Reported Meds Kaley Ye July 29, 2017 11:25
--- NOTE | 2017-07-29 12:12 | RADRPT ---
EXAM DATE/TIME: 07/29/2017 11:44 [facility] COMPARISON: CHEST SINGLE AP, March 16, 2017, 14:40. INDICATIONS : Short of breath.x 4 days MEDICAL HISTORY : Chronic obstructive pulmonary disease. hx of heart valve problem, not sure which one, high bloo d pressure SURGICAL HISTORY : None. ENCOUNTER: Initial ACUITY: 4 - 6 days PAIN SCORE: 0/10 LOCATION: Bilateral chest FINDINGS: There is infiltrates in both lung bases along with small bilateral effusions. There is prominence of the pulmonary vasculature. The heart size is stable. There is no pneumothorax. These findings are not significantly changed compared to the prior study. The bony structures appear to be stable. CONCLUSION: 1. Pulmonary edema with some bilateral pleural effusions. 2. Infiltrates in both lung bases most likely from compressive atelectasis. David Teresa MD on July 29, 2017 at 12:08 Board Certified Radiologist. This report was verified electronically.
[2017-07-29 12:28] LABS: INTERNATIONAL NORMALIZED RATIO 1.2 RATIO; PROTHROMBIN TIME - PATIENT 12.4 SEC (9.8-11.6)
[2017-07-29 12:29] LABS: AUTOMATED NEUTROPHIL # 3.9 TH/MM3 (1.8-7.7); BASOPHIL % 0.5 % (0.0-2.0); EOSINOPHIL # 0.1 TH/MM3 (0-0.4); HEMATOCRIT 44.6 % (39.0-51.0); HEMOGLOBIN 15.3 GM/DL (13.0-17.0); LYMPH % 12.7 % (9.0-44.0); LYMPHOCYTE # 0.7 TH/MM3 (1.0-4.8); MEAN CELL VOLUME 101.4 FL (80.0-100.0); MEAN CORPUSCULAR HEMOGLOBIN 34.8 PG (27.0-34.0); MEAN CORPUSCULAR HGB CONC 34.3 % (32.0-36.0); MEAN PLATELET VOLUME 7.6 FL (7.0-11.0); MONO % 10.7 % (0.0-8.0); MONOCYTE # 0.6 TH/MM3 (0-0.9); NEUT % 75.1 % (16.0-70.0); PLATELET COUNT 203 TH/MM3 (150-450); RED CELL DISTRIBUTION WIDTH 12.3 % (11.6-17.2); WHITE BLOOD COUNT 5.3 TH/MM3 (4.0-11.0)
[2017-07-29 12:32] LABS: ALBUMIN 3.5 GM/DL (3.4-5.0); AST (GOT) 41 U/L (15-37); BLOOD UREA NITROGEN 4 MG/DL (7-18); CHLORIDE 88 MEQ/L (98-107); CREATININE 0.58 MG/DL (0.60-1.30); GLOMERULAR FILTRATION RATE 142 ML/MIN (>89); GLUCOSE,RANDOM 88 MG/DL (74-106); SODIUM (NA) 125 MEQ/L (136-145)
[2017-07-29 12:33] LABS: ALT (GPT) 23 U/L (12-78)
[2017-07-29 12:36] LABS: ALKALINE PHOSPHATASE 118 U/L (45-117); TOTAL BILIRUBIN ADULT 0.6 MG/DL (0.2-1.0); TOTAL PROTEIN 7.2 GM/DL (6.4-8.2)
[2017-07-29 12:40] LABS: BACTERIA, URINE RARE /hpf; BILIRUBIN, URINE NEG (NEG); BLOOD, URINE NEG (NEG); GLUCOSE,URINE NEG (NEG); HYALINE CAST, URINE 3 /lpf (RARE); KETONE, URINE TRACE mg/dL (NEG); MUCUS URINE FEW /lpf (OCC); NITRITE,URINE NEG (NEG); PH, URINE 5.5 (5.0-8.5); URINE COLOR YELLOW (YELLW/STRAW); URINE LEUKOCYTE ESTERASE NEG (NEG)
[2017-07-29] MEDS ORDERED: FUROSEMIDE 40 MG/4 ML VIAL IV PUSH ONE (12:45)
[2017-07-29 14:01] LABS: TROPONIN I 0.03 NG/ML (0.02-0.05)
[2017-07-29] MEDS ORDERED: ACETAMINOPHEN 325 MG TAB PO PRN (14:45)
[2017-07-29] MEDS ORDERED: ONDANSETRON HCL 4 MG/2 ML VIAL IV PUSH PRN (14:45)
[2017-07-29] MEDS ORDERED: SODIUM CHLORIDE 0.9% FLUSH 10 ML FLUSH IV FLUSH PRN (14:45)
[2017-07-29] MEDS ORDERED: ALUMINUM/MAGNESIUM/SIMETH 30 ML CUP PO PRN (14:45)
[2017-07-29] MEDS: ENOXAPARIN SODIUM 40 MG/0.4 ML SYRINGE SQ SCH (16:14)
[2017-07-29] MEDS ORDERED: FLUMAZENIL 0.5 MG/5 ML VIAL IV PUSH PRN (16:30)
[2017-07-29] MEDS ORDERED: LORazepam 2 MG/ML VIAL IV PUSH PRN ×4 (16:30)
[2017-07-29] MEDS ORDERED: LORazepam 1 MG TAB PO PRN (16:30)
[2017-07-29] MEDS ORDERED: LORazepam 2 MG TAB PO PRN (16:30)
--- NOTE | 2017-07-29 16:51 | HHI.HP ---
[facility] Primary [facility]ician No Primary Care Physician Admission Diagnosis CHF exacerbation Diagnoses: (1) Acute on chronic systolic CHF (congestive heart failure) (2) Cardiomyopathy (3) COPD (chronic obstructive pulmonary disease) (4) Alcohol abuse Chief Complaint: Shortness of breath Travel History International Travel<30 Days: No Contact w/Intl Traveler <30 Da: No Traveled to Known Affected Are: No History of Present Illness 61-year-old male with history of systolic CHF, cardiomyopathy was admitted back in February 2017 and discharged home with a LifeVest 3 months which patient returned in June 2017, presented to the ED today for evaluation of worsening symptom of shortness of breath 2 weeks duration and bilateral lower extremity swelling over the past several weeks. Patient reports state over the past several days he was unable to walk past 50 feet without correction up his breath. He currently complains of a dry cough. After patient was discharged from the hospital in February 2017, he states that he wasn't aware that he had to follow-up with cardiology and his PCP. He did run out of his medications end of March 2017. He denies any chest pain. Abnormal lab on admission include BNP of 2556. Vitals on admission Temp 97.2, pulse 90, respiratory rate 20, BP 152/85 and 98% on room air Review of Systems Except as stated in HPI: all other systems reviewed are Neg Past Family Social History Past Medical History Systolic CHF COPD Cardiomyopathy Past Surgical History No previous surgery Reported Medications Not currently on any medication Allergies: Coded Allergies: No Known Allergies (Unverified , 03/16/17) Family History Mother with a history of hypertension Brother with history of CVA Social History Smokes 8 cigarettes per day and drinks 5 beers per day. Denies any illicit drug intake Physical Exam Vital Signs Vital Signs Date Time Temp Pulse Resp B/P (MAP) Pulse Ox O2 Delivery O2 Flow Rate FiO2 07/29/17 15:00 84 18 134/83 (100) 98 Room Air 07/29/17 12:59 90 17 126/78 (94) 94 Room Air 07/29/17 11:10 98 Room Air 07/29/17 10:45 97.2 90 20 152/85 (620) 78 Physical Exam GENERAL: This is a well-nourished, well-developed patient, in no apparent distress. SKIN: No rashes, ecchymoses or lesions. Cool and dry. HEAD: Atraumatic. Normocephalic. No temporal or scalp tenderness. EYES: Pupils equal round and reactive. Extraocular motions intact. No scleral icterus. No injection or drainage. ENT: Nose without bleeding, purulent drainage or septal hematoma. Throat without erythema, tonsillar hypertrophy or exudate. Uvula midline. Airway patent. NECK: Trachea midline. No JVD or lymphadenopathy. Supple, nontender, no meningeal signs. CARDIOVASCULAR: Regular rate and rhythm without murmurs, gallops, or rubs. RESPIRATORY: Clear to auscultation. Breath sounds decreased bilaterally. No wheezes, rales, or rhonchi. GASTROINTESTINAL: Abdomen soft, non-tender, nondistended. No hepato-splenomegaly , or palpable masses. No guarding. MUSCULOSKELETAL: Extremities without clubbing, cyanosis. +1 BLE edema. No joint tenderness, effusion, or edema noted. No calf tenderness. Negative Homans sign bilaterally. NEUROLOGICAL: Awake and alert. Cranial nerves II through XII intact. Motor and sensory grossly within normal limits. Five out of 5 muscle strength in all muscle groups. Normal speech. Laboratory Laboratory Tests Test 07/29/17 12:00 07/29/17 12:10 White Blood Count 5.3 Red Blood Count 4.40 Hemoglobin 15.3 Hematocrit 44.6 Mean Corpuscular Volume 101.4 Mean Corpuscular Hemoglobin 34.8 Mean Corpuscular Hemoglobin Concent 34.3 Red Cell Distribution Width 12.3 Platelet Count 203 Mean Platelet Volume 7.6 Neutrophils (%) (Auto) 75.1 Lymphocytes (%) (Auto) 12.7 Monocytes (%) (Auto) 10.7 Eosinophils (%) (Auto) 1.0 Basophils (%) (Auto) 0.5 Neutrophils # (Auto) 3.9 Lymphocytes # (Auto) 0.7 Monocytes # (Auto) 0.6 Eosinophils # (Auto) 0.1 Basophils # (Auto) 0.0 CBC Comment DIFF FINAL Differential Comment Prothrombin Time 12.4 Prothromb Time International Ratio 1.2 Activated Partial Thromboplast Time 31.3 Blood Urea Nitrogen 4 Creatinine 0.58 Random Glucose 88 Total Protein 7.2 Albumin 3.5 Calcium Level 9.0 Alkaline Phosphatase 118 Aspartate Amino Transf (AST/SGOT) 41 Alanine Aminotransferase (ALT/SGPT) 23 Total Bilirubin 0.6 Sodium Level 125 Potassium Level 4.5 Chloride Level 88 Carbon Dioxide Level 29.0 Anion Gap 8 Estimat Glomerular Filtration Rate 142 Total Creatine Kinase 151 Creatine Kinase MB 8.4 Troponin I 0.03 B-Type Natriuretic Peptide 2556 Urine Color YELLOW Urine Turbidity CLEAR Urine pH 5.5 Urine Specific [place] 1.019 Urine Protein 30 Urine Glucose (UA) NEG Urine Ketones TRACE Urine Occult Blood NEG Urine Nitrite NEG Urine Bilirubin NEG Urine Urobilinogen 2.0 Urine Leukocyte Esterase NEG Urine RBC 1 Urine WBC 4 Urine Bacteria RARE Urine Hyaline Casts 3 Urine Mucus FEW Microscopic Urinalysis Comment CULT NOT INDICATED Result Diagram: 07/29/17 1200 07/29/17 1200 Imaging Last Impressions Chest X-Ray 07/29/17 1112 Signed Impressions: Service Date/Time: Saturday, July 29, 2017 11:44 - CONCLUSION: 1. Pulmonary edema with some bilateral pleural effusions. 2. Infiltrates in both lung bases most likely from compressive atelectasis. David Teresa MD Septic Shock Reassessment Septic shock perfusion: reassessment completed Caprini VTE Risk Assessment Caprini VTE Risk Assessment: Mod/High Risk (score >= 2) Caprini Risk Assessment Model Point Value = 1 Point Value = 2 Point Value = 3 Point Value = 5 Age 41-60 Minor surgery BMI > 25 kg/m2 Swollen legs Varicose veins or History of unexplained or recurrent spontaneous Oral contraceptives or hormone replacement Sepsis (< 1 month) Serious lung disease, including pneumonia (< 1 month) Abnormal pulmonary function Acute myocardial infarction Congestive heart failure (< 1 month) History of inflammatory bowel disease Medical patient at bed rest Age 61-74 Arthroscopic surgery Major open surgery (> 45 min) Laparoscopic surgery (> 45 min) Malignancy Confined to bed (> 72 hours) Immobilizing plaster cast Central venous access Age >= 75 History of VTE Family history of VTE Factor V Leiden Prothrombin [id number] Lupus anticoagulant Anticardiolipin antibodies Elevated serum homocysteine Heparin-induced thrombocytopenia Other congenital or acquired thrombophilia Stroke (< 1 month) Elective arthroplasty Hip, pelvis, or leg fracture Acute spinal cord injury (< 1 month) Prophylaxis Regimen Total Risk Factor Score Risk Level Prophylaxis Regimen 0-1 Low Early ambulation 2 Moderate Order ONE of the following: *Sequential Compression Device (SCD) *Heparin 5000 units SQ BID 3-4 Higher Order ONE of the following medications: *Heparin 5000 units SQ TID *Enoxaparin/Lovenox 40 mg SQ daily (WT < 150 kg, CrCl > 30 mL/min) *Enoxaparin/Lovenox 30 mg SQ daily (WT < 150 kg, CrCl > 10-29 mL/min) *Enoxaparin/Lovenox 30 mg SQ BID (WT < 150 kg, CrCl > 30 mL/min) AND/OR *Sequential Compression Device (SCD) 5 or more Highest Order ONE of the following medications: *Heparin 5000 units SQ TID (Preferred with Epidurals) *Enoxaparin/Lovenox 40 mg SQ daily (WT < 150 kg, CrCl > 30 mL/min) *Enoxaparin/Lovenox 30 mg SQ daily (WT < 150 kg, CrCl > 10-29 mL/min) *Enoxaparin/Lovenox 30 mg SQ BID (WT < 150 kg, CrCl > 30 mL/min) AND *Sequential Compression Device (SCD) Assessment and Plan Problem List: (1) Acute on chronic systolic CHF (congestive heart failure) ICD Code: I50.23 - Acute on chronic systolic (congestive) heart failure (2) COPD (chronic obstructive pulmonary disease) ICD Code: J44.9 - Chronic obstructive pulmonary disease, unspecified (3) Alcohol abuse ICD Code: F10.10 - Alcohol abuse, uncomplicated (4) Cardiomyopathy ICD Code: I42.9 - Cardiomyopathy, unspecified Assessment and Plan 61-year-old man with Acute on chronic systolic CHF exacerbation Chest x-ray noted and reviewed by me with evidence of pulmonary congestion Continue ACS ruled out per protocol with serial cardiac enzyme and EKG Previous EF of 20 - 25% (February 2017), recheck 2D echo Status post Lasix 40 mg IV 1, start Lasix 40 mg IV every 12H Resume beta-shanna and JUSTINE inhibitor Strict I's and O's Cardiology consultation as needed Cardiomyopathy Patient discharged previously with a LifeVest in February 2017, however 3 months after he returned the LifeVest Previous EF of 20 - 25% (February 2017), recheck 2D echo and consult cardiology for evaluation for possible ICD versus new LifeVest Start Coreg and JUSTINE inhibitor holding parameter COPD No current exacerbation Tobacco cessation counseling provided Bronchodilator as needed Alcohol abuse Alcohol cessation counseling provided Start rally pack, CIWA protocol and consider Librium protocol Hyponatremia of beer potomania Secondary to CHF exacerbation, will hold treatment with IV fluid hydration Continue with fluid restriction Monitor electrolytes Tobacco abuse Tobacco counseling cessation provided DVT prophylaxis Lovenox Code Status Full code Discussed Condition With Patient, ED PA Physician Certification 2 Midnight Certification Type: Admission for Inpatient Services Order for Inpatient Services The services are ordered in accordance with Medicare regulations or non- Medicare payer requirements, as applicable. In the case of services not specified as inpatient-only, they are appropriately provided as inpatient services in accordance with the 2-midnight benchmark. Estimated LOS (days): 2 days is the estimated time the patient will need to remain in the hospital, assuming treatment plan goals are met and no additional complications. Post-Hospital Plan: Not yet determined Adiel Andujar MD July 29, 2017 16:51
[2017-07-29] MEDS: FUROSEMIDE 40 MG/4 ML VIAL IVP SCH (17:50)
[2017-07-29] MEDS: CARVEDILOL 3.125 MG TAB PO SCH (20:04)
[2017-07-29] MEDS: SODIUM CHLORIDE 0.9% FLUSH 10 ML FLUSH IV FLUSH SCH (20:04)
[2017-07-29] MEDS: RESP: ALBUTEROL 2.5 MG/IPRATROPIUM 0.5 MG NEB (PRN) NEB (22:40)
[2017-07-30] VITALS (10 sets, daily range): BP systolic 109–128; BP diastolic 71–80; PULSE 72–98; RESP 16–20; TEMP 97.2–98.6; O2SAT 91–98
[2017-07-30 02:50] LABS: BICARBONATE 32.8 MEQ/L (21.0-32.0); CALCIUM 8.6 MG/DL (8.5-10.1); CREATININE 0.51 MG/DL (0.60-1.30); TROPONIN I 0.05 NG/ML (0.02-0.05)
[2017-07-30] MEDS ORDERED: POTASSIUM CHLORIDE 25 MEQ EFFERVESCENT TAB PO ONE (04:30)
[2017-07-30] MEDS: RESP: ALBUTEROL 2.5 MG/IPRATROPIUM 0.5 MG NEB (PRN) NEB ×3 (04:51→23:30)
[2017-07-30] MEDS ORDERED: MAGNESIUM SULFATE 1 GM PREMIX 100 ML IV ONE (06:15)
[2017-07-30 08:30] LABS: CHOLESTEROL/ HDL RATIO 2.35 RATIO; HDL CHOLESTEROL 58.9 MG/DL (40.0-60.0)
[2017-07-30] MEDS: THIAMINE HCL 100 MG TAB PO SCH (09:26)
[2017-07-30] MEDS: ENALAPRIL MALEATE 2.5 MG TAB PO SCH (09:26)
[2017-07-30] MEDS: CARVEDILOL 3.125 MG TAB PO SCH ×2 (09:26→21:10)
[2017-07-30] MEDS: FUROSEMIDE 40 MG/4 ML VIAL IVP SCH ×2 (09:26→17:46)
[2017-07-30] MEDS: SODIUM CHLORIDE 0.9% FLUSH 10 ML FLUSH IV FLUSH SCH ×2 (09:27→21:12)
[2017-07-30] MEDS ORDERED: INFLUENZA VIRUS VACCINE (QUADRIVALENT) 0.5 ML SYR IM ONE (10:00)
[2017-07-30] MEDS ORDERED: PNEUMOCOCCAL POLYVALENT INJ 25 MCG/0.5 ML SYR IM ONE (10:00)
[2017-07-30] MEDS ORDERED: POTASSIUM CHLORIDE 20 MEQ CONTROLLED RELEASE TAB PO ONE (11:00)
--- NOTE | 2017-07-30 13:38 | HHI.PR ---
Subjective Remarks Patient reported feeling slightly better today no chest pain on O2 nasal cannula Afebrile Objective Vitals Vital Signs Date Time Temp Pulse Resp B/P (MAP) Pulse Ox O2 Delivery O2 Flow Rate FiO2 07/30/17 12:00 97.2 81 20 111/71 (84) 97 07/30/17 08:00 98.2 77 20 128/78 (95) 98 07/30/17 08:00 Nasal Cannula 2.00 07/30/17 06:04 98.6 07/30/17 05:58 Nasal Cannula 2.00 07/30/17 04:55 93 Nasal Cannula 2.00 07/30/17 04:00 90 07/30/17 03:56 81 16 117/80 (92) 93 07/30/17 00:25 85 07/29/17 22:40 92 07/29/17 20:08 71 20 127/77 (94) 91 07/29/17 20:00 104 07/29/17 16:30 78 18 136/74 (94) 98 07/29/17 16:29 97.2 94 16 127/82 (97) 94 07/29/17 15:00 84 18 134/83 (100) 98 Room Air Result Diagram: 07/29/17 1200 07/30/17 0119 Objective Remarks GENERAL: This is a well-nourished, well-developed patient, in no apparent distress. CARDIOVASCULAR: RRR, no gallops, or rubs. RESPIRATORY: Decreased breath sounds bibasilar with positive wheezing GASTROINTESTINAL: Abdomen soft, non-tender, nondistended. Positive bowel sounds MUSCULOSKELETAL: Extremities without clubbing, cyanosis, trace edema. Pedal pulses appreciated NEUROLOGICAL: Awake and alert. Moves all extremity. Normal speech.no focal neurological deficit A/P Problem List: (1) Acute on chronic systolic CHF (congestive heart failure) ICD Code: I50.23 - Acute on chronic systolic (congestive) heart failure (2) COPD (chronic obstructive pulmonary disease) ICD Code: J44.9 - Chronic obstructive pulmonary disease, unspecified (3) Alcohol abuse ICD Code: F10.10 - Alcohol abuse, uncomplicated (4) Cardiomyopathy ICD Code: I42.9 - Cardiomyopathy, unspecified Assessment and Plan 61-year-old man with 5/3: Improving on diuretic, continue current care strict I's and O's, will consult cardiology if EF less than 35 not improving we will need ICD Acute on chronic systolic CHF exacerbation Chest x-ray noted and reviewed by me with evidence of pulmonary congestion Continue ACS ruled out per protocol with serial cardiac enzyme and EKG Previous EF of 20 - 25% (February 2017), pending 2D echo Status post Lasix 40 mg IV 1, start Lasix 40 mg IV every 12H Resume beta-shanna and JUSTINE inhibitor Strict I's and O's Cardiology consultation as needed Cardiomyopathy Patient discharged previously with a LifeVest in February 2017, however 3 months after he returned the LifeVest Previous EF of 20 - 25% (February 2017), recheck 2D echo and consult cardiology for evaluation for possible ICD versus new LifeVest Start Coreg and JUSTINE inhibitor holding parameter COPD No current exacerbation Tobacco cessation counseling provided Bronchodilator as needed Alcohol abuse Alcohol cessation counseling provided Start rally pack, CIWA protocol and consider Librium protocol Hyponatremia of beer potomania Secondary to CHF exacerbation, will hold treatment with IV fluid hydration Continue with fluid restriction Monitor electrolytes Tobacco abuse Tobacco counseling cessation provided DVT prophylaxis Medhat Oleary MD July 30, 2017 13:38
--- NOTE | 2017-07-30 15:07 | EKG ---
Date Performed: 07/29/2017 Time Performed: 12:16:28 PTAGE: 61 years EKG: Sinus rhythm WITH FREQUENT VENTRICULAR PREMATURE COMPLEXES INFERIOR MYOCARDIAL INFARCTION ABNORMAL ECG PREVIOUS TRACING : 03/16/2017 14.20 Chaotic atrial rhythm. Since the prior tracing, there has b een an improvement in the ST segment depression in leads V5 and V6, but it does persist. The electroc ardiogram is otherwise without significant change. DOCTOR: Terri Rosa Interpretating Date/Time 07/30/2017 15:06:37
--- NOTE | 2017-07-30 15:08 | EKG ---
Date Performed: 07/29/2017 Time Performed: 21:42:44 PTAGE: 61 years EKG: Sinus rhythm WITH FREQUENT VENTRICULAR PREMATURE COMPLEXES INTRAVENTRICULAR CONDUCTION DELAY INFERIOR MYOCARDIAL INFARCTION , OF INDETERMINATE AGE ABNORMAL ECG PREVIOUS TRACING : 07/29/2017 12.16 Patient also has frequent atrial contractions. Since the mo st recent tracing, there has been no significant serial change. DOCTOR: Terri Rosa Interpretating Date/Time 07/30/2017 15:07:21
[2017-07-30] MEDS: ENOXAPARIN SODIUM 40 MG/0.4 ML SYRINGE SQ SCH (17:46)
--- NOTE | 2017-07-30 21:21 | ECHRPT ---
Indication: HEART FAILURE CONCLUSIONS Moderately dilated left ventricle. Wall thickness is normal. The left ventricular systolic function is severely reduced with an estimated ejection fraction in th e range of 15-20%. Mitral annular calcification is present. Mild mitral valve regurgitation. Aortic valve sclerosis is present. Trace aortic valve regurgitation. There is mild tricuspid valve regurgitation. A moderate left sided pleural effusion is noted. BP: / HR: Rhythm: Technical Quality: FINDINGS LEFT VENTRICLE Moderately dilated left ventricle. Wall thickness is normal. The left ventricular systolic function is severely reduced with an estimated ejection fraction in th e range of 15-20%. RIGHT VENTRICLE Normal right ventricular size and systolic function. LEFT ATRIUM The left atrial size is normal. RIGHT ATRIUM The right atrial size is normal. ATRIAL SEPTUM Normal atrial septal thickness without atrial level shunting by limited color doppler interrogation. AORTA The aortic root and proximal ascending aorta are normal in size on limited imaging. MITRAL VALVE Mitral annular calcification is present. Mild mitral valve regurgitation. AORTIC VALVE Aortic valve sclerosis is present. Trace aortic valve regurgitation. TRICUSPID VALVE There is mild tricuspid valve regurgitation. PULMONARY VALVE The pulmonary valve is not well visualized. VESSELS The inferior vena cava is normal in size. PERICARDIUM A moderate left sided pleural effusion is noted. Jeff Morgan MD, FACC (Electronically Signed) Final Date:30 Jul 2017 21:21
[2017-07-31] VITALS (11 sets, daily range): BP systolic 94–115; BP diastolic 59–72; PULSE 74–99; RESP 16–20; TEMP 97.3–98.1; O2SAT 95–98
[2017-07-31] MEDS: THIAMINE HCL 100 MG TAB PO SCH (08:29)
[2017-07-31] MEDS: CARVEDILOL 3.125 MG TAB PO SCH ×2 (08:29→21:07)
[2017-07-31] MEDS: FUROSEMIDE 40 MG/4 ML VIAL IVP SCH ×2 (08:29→17:58)
[2017-07-31] MEDS: ENALAPRIL MALEATE 2.5 MG TAB PO SCH (08:29)
[2017-07-31] MEDS: SODIUM CHLORIDE 0.9% FLUSH 10 ML FLUSH IV FLUSH SCH ×2 (08:29→21:07)
[2017-07-31 08:31] LABS: BICARBONATE 34.2 MEQ/L (21.0-32.0); CALCIUM 8.8 MG/DL (8.5-10.1); CREATININE 0.56 MG/DL (0.60-1.30); MAGNESIUM 1.5 MG/DL (1.5-2.5); PHOSPHORUS 4.1 MG/DL (2.5-4.9)
[2017-07-31] MEDS: RESP: ALBUTEROL 2.5 MG/IPRATROPIUM 0.5 MG NEB (PRN) NEB ×3 (08:47→21:16)
--- NOTE | 2017-07-31 14:17 | MB ---
cc: Tyrese Shi MD DATE: 07/31/2017 REASON FOR CONSULTATION: CHF. HISTORY OF PRESENT ILLNESS: The patient is a pleasant 61-year-old gentleman with a known presumably ischemic cardiomyopathy with an echocardiogram showing an ejection fraction back in February of 25%, but yesterday was found to be more like 15-20%. Back in February the patient was hospitalized for congestive heart failure and begun on standard heart failure medications as well as being fitted for a defibrillator jacket. The patient says he did fine over the next month taking his medications; however, he did not make any follow-up appointments and eventually his medications ran out and he had no refill so just stopped taking them. He wore his defibrillator vest for about 3 months and then sent it back as he got tired of wearing it. He had done fine until the last few days when he became progressively more short of breath and presented again in clinical congestive heart failure. He has already been started on diuresis and feels much better, though not completely back to baseline. He denies chest pain, lightheadedness, dizziness or syncope. PAST MEDICAL HISTORY: 1. Systolic congestive heart failure with an ejection fraction of approximately 15-20%. 2. Cardiomyopathy, presumably ischemic with nuclear stress test from 03/18/2017 showing a large anteroseptal infarct pattern without ischemia. 3. AVNRT status post ablation. 4. Tobacco abuse. CURRENT MEDICATIONS: 1. Enalapril 2.5 mg daily. 2. Thiamine. 3. Coreg 3.125 mg b.i.d. 4. Lasix 40 mg IV b.i.d. 5. Ativan. ALLERGIES: NO KNOWN DRUG ALLERGIES. PHYSICAL EXAMINATION: VITAL SIGNS: Afebrile, pulse 78, respiratory rate 18, BP 94/60, sating 95 on 2 liters. GENERAL: Pleasant, thin gentleman in no distress. NECK: No JVD. LUNGS: Decreased breath sounds in all gonzalez. HEART: Regular rate and rhythm. No significant murmurs appreciated. ABDOMEN: Benign. EXTREMITIES: Trace edema bilaterally. LABORATORY DATA: Sodium 128, potassium 3.7, chloride 85, bicarbonate 34.2, BUN 7, creatinine 0.56. BNP is 1805, down from 2393. INR is 1.2. White count 5.3, hematocrit 44.6, platelets 203. EKG shows sinus rhythm with PVCs with a possible inferior and anteroseptal infarct. Echocardiogram shows an ejection fraction of 15-20% with a dilated left ventricle and a left-sided pleural effusion. CONCLUSIONS: 1. Acute on chronic systolic congestive heart failure. The patient presents with this diagnosis likely due to not being on any heart failure medications for the last few months. The challenge here will be his long-term management given he does not have insurance and apparently does not follow up well in the outpatient setting. I will add a beta shanna and low-dose JUSTINE inhibitor. Depending on how well he diureses, hopefully, we can change him to oral Lasix soon. I will ask Dr. Pathak to evaluate him on Thursday. It is unclear whether he is truly a defibrillator candidate at all, due to his poor follow up or whether he is a candidate without 3 more months of proper medical therapy as he really did not have this to begin with. That being said, the patient denies repeat LifeVest. Further recommendations based on the above. Thank you again for the opportunity to participate in this patient's care. MD JACKELYN Villeda/MARISELA , 01:56 PM , 02:16 PM
[2017-07-31] MEDS: ENOXAPARIN SODIUM 40 MG/0.4 ML SYRINGE SQ SCH (17:58)
--- NOTE | 2017-07-31 20:18 | HHI.PR ---
Subjective Remarks No chest pain, afebrile, follow-up on acute on chronic advanced CHF On O2 nasal cannula Objective Vitals Vital Signs Date Time Temp Pulse Resp B/P (MAP) Pulse Ox O2 Delivery O2 Flow Rate FiO2 07/31/17 16:57 97 Nasal Cannula 2.00 07/31/17 16:00 77 07/31/17 16:00 97.6 85 18 96/72 (80) 97 07/31/17 12:00 80 07/31/17 11:10 97.7 78 18 94/60 (71) 95 07/31/17 08:49 98 Nasal Cannula 2.00 07/31/17 08:00 Nasal Cannula 2.00 07/31/17 08:00 80 07/31/17 07:25 97.3 82 18 115/72 (86) 97 07/31/17 04:00 75 07/31/17 04:00 97.5 74 16 109/68 (82) 97 07/31/17 04:00 Nasal Cannula 2.00 07/31/17 00:06 81 07/31/17 00:00 Nasal Cannula 2.00 07/31/17 00:00 98.1 76 18 109/67 (81) 96 07/30/17 20:30 Nasal Cannula 2.00 07/30/17 20:21 Nasal Cannula 2.00 I/O 07/30/17 07/30/17 07/30/17 07/31/17 07/31/17 07/31/17 07:00 15:00 23:00 07:00 15:00 23:00 Intake Total 720 ml 240 ml 480 ml Output Total 1200 ml 1850 ml Balance 720 ml -960 ml -1370 ml Intake Oral 720 ml 240 ml 480 ml Output Urine Total 1200 ml 1850 ml # Voids 4 1 # Bowel Movements 1 0 Result Diagram: 07/29/17 1200 07/31/17 0655 Objective Remarks GENERAL: This is a well-nourished, well-developed patient, in no apparent distress. CARDIOVASCULAR: RRR, no gallops, or rubs. RESPIRATORY: Bibasilar diminished breath sounds, with slight wheezing GASTROINTESTINAL: Abdomen soft, non-tender, nondistended. Positive bowel sounds MUSCULOSKELETAL: Extremities without clubbing, cyanosis, or edema. Pedal pulses appreciated NEUROLOGICAL: Awake and alert. Moves all extremity. Normal speech.no focal neurological deficit A/P Problem List: (1) Acute on chronic systolic CHF (congestive heart failure) ICD Code: I50.23 - Acute on chronic systolic (congestive) heart failure (2) COPD (chronic obstructive pulmonary disease) ICD Code: J44.9 - Chronic obstructive pulmonary disease, unspecified (3) Alcohol abuse ICD Code: F10.10 - Alcohol abuse, uncomplicated (4) Cardiomyopathy ICD Code: I42.9 - Cardiomyopathy, unspecified Assessment and Plan 61-year-old man with 5/3: Improving on diuretic, continue current care strict I's and O's, will consult cardiology if EF less than 35 not improving we will need ICD /4: Edema much improved, 2D echo showed EF 15-20% will consult cardiology, meanwhile continue monitoring BMP BAM continue IV diuretic monitor renal function A/P: Acute on chronic systolic CHF exacerbation Chest x-ray noted and reviewed by me with evidence of pulmonary congestion Continue ACS ruled out per protocol with serial cardiac enzyme and EKG Previous EF of 20 - 25% (February 2017), pending 2D echo Status post Lasix 40 mg IV 1, start Lasix 40 mg IV every 12H Resume beta-shanna and JUSTINE inhibitor Strict I's and O's Cardiology consultation as needed Cardiomyopathy Patient discharged previously with a LifeVest in February 2017, however 3 months after he returned the LifeVest Previous EF of 20 - 25% (February 2017), recheck 2D echo and consult cardiology for evaluation for possible ICD versus new LifeVest Start Coreg and JUSTINE inhibitor holding parameter COPD No current exacerbation Tobacco cessation counseling provided Bronchodilator as needed Alcohol abuse Alcohol cessation counseling provided Start ralSIVA lawler protocol and consider Librium protocol Hyponatremia of beer potomania Secondary to CHF exacerbation, will hold treatment with IV fluid hydration Continue with fluid restriction Monitor electrolytes Tobacco abuse Tobacco counseling cessation provided DVT prophylaxis Medhat Oleary MD July 31, 2017 20:18
[2017-08-01] VITALS (8 sets, daily range): BP systolic 95–113; BP diastolic 55–83; PULSE 78–91; RESP 18–20; TEMP 97.3–97.8; O2SAT 94–99
[2017-08-01] MEDS: RESP: ALBUTEROL 2.5 MG/IPRATROPIUM 0.5 MG NEB (PRN) NEB ×4 (07:37→19:52)
[2017-08-01] MEDS ORDERED: LISINOPRIL 5 MG TAB PO SCH (09:00)
[2017-08-01] MEDS: FUROSEMIDE 40 MG/4 ML VIAL IVP SCH (09:57)
[2017-08-01] MEDS: THIAMINE HCL 100 MG TAB PO SCH (09:59)
[2017-08-01] MEDS: ENALAPRIL MALEATE 2.5 MG TAB PO SCH (09:59)
[2017-08-01] MEDS: CARVEDILOL 3.125 MG TAB PO SCH (09:59)
[2017-08-01] MEDS: SODIUM CHLORIDE 0.9% FLUSH 10 ML FLUSH IV FLUSH SCH ×2 (10:00→21:30)
[2017-08-01] MEDS: methylPREDNISolone SOD SUCC 40 MG/1 ML VIAL IV PUSH SCH ×2 (14:00→21:30)
--- NOTE | 2017-08-01 14:07 | PD.CARD.PN ---
Subjective Subjective Remarks Pt feeling better, he did have a 7 beat run of NSVT, also short atrial runs, no sx currently Objective Medications Current Medications Medications (Trade) Dose Ordered Sig/Heladio Route Start Time Stop Time Status Last Admin (NS Flush) 2 ml BID IV FLUSH 07/29/17 21:00 08/01/17 10:00 (NS Flush) 2 ml UNSCH PRN IV FLUSH 07/29/17 14:45 (Lovenox Inj) 40 mg Q24H SQ 07/29/17 16:00 07/31/17 17:58 (Tylenol) 650 mg Q4H PRN PO 07/29/17 14:45 (Zofran Inj) 4 mg Q6H PRN IV PUSH 07/29/17 14:45 (Galilea-Colace) 1 tab BID PRN PO 07/29/17 14:45 (Mag-Al Plus Susp Liq) 30 ml Q6H PRN PO 07/29/17 14:45 (Restoril) 15 mg HS PRN PO 07/29/17 21:00 (Duoneb Neb) 1 ampule Q2HR NEB PRN NEB 07/29/17 14:45 08/01/17 12:30 (Coreg) 3.125 mg Q12HR PO 07/29/17 21:00 08/01/17 09:59 (Vasotec) 2.5 mg DAILY PO 07/30/17 09:00 08/01/17 09:59 (Romazicon Inj) 0.2 mg Q1M PRN IV PUSH 07/29/17 16:30 (Ativan) 1 mg Q4H PRN PO 07/29/17 16:30 (Ativan Inj) 1 mg Q4H PRN IV PUSH 07/29/17 16:30 (Ativan) 2 mg Q2H PRN PO 07/29/17 16:30 (Ativan Inj) 2 mg Q2H PRN IV PUSH 07/29/17 16:30 (Ativan Inj) 2 mg Q1H PRN IV PUSH 07/29/17 16:30 (Ativan Inj) 2 mg Q15M PRN IV PUSH 07/29/17 16:30 (Vitamin B1) 100 mg DAILY PO 07/30/17 09:00 08/01/17 09:59 (Lasix Inj) 40 mg BID@09,18 IV PUSH 08/01/17 18:00 (SoluMEDROL INJ) 40 mg Q8HR IV PUSH 08/01/17 14:00 (Symbicort 160-4.5 Mcg Inh) 2 puff Q12HR INH 08/01/17 21:00 Vital Signs / I&O Vital Signs Date Time Temp Pulse Resp B/P (MAP) Pulse Ox O2 Delivery O2 Flow Rate FiO2 08/01/17 09:00 Nasal Cannula 2.00 08/01/17 09:00 82 08/01/17 08:00 97.3 79 18 113/61 (78) 94 08/01/17 07:37 Nasal Cannula 2.00 08/01/17 04:05 97.8 80 20 105/61 (76) 96 07/31/17 20:12 97.9 99 20 108/59 (75) 96 07/31/17 16:57 97 Nasal Cannula 2.00 07/31/17 16:00 77 07/31/17 16:00 97.6 85 18 96/72 (80) 97 I/O 07/31/17 07/31/17 07/31/17 08/01/17 08/01/17 08/01/17 07:00 15:00 23:00 07:00 15:00 23:00 Intake Total 240 ml 1200 ml Output Total 1200 ml 1850 ml Balance -960 ml -650 ml Intake Oral 240 ml 1200 ml Output Urine Total 1200 ml 1850 ml # Voids 1 # Bowel Movements 0 Physical Exam GENERAL: This is a well-nourished, well-developed patient, in no apparent distress. CARDIOVASCULAR: Regular rate and rhythm without murmurs, gallops, or rubs. RESPIRATORY: Clear to auscultation. Breath sounds equal bilaterally. No wheezes , rales, or rhonchi. GASTROINTESTINAL: Abdomen soft, non-tender, nondistended. Normal active bowel sounds MUSCULOSKELETAL: Extremities without clubbing, cyanosis, or edema. NEURO: Alert & Oriented x4 to person, place, time, situation. Moves all ext x4 Imaging Last Impressions Chest X-Ray 07/29/17 1112 Signed Impressions: Service Date/Time: Saturday, July 29, 2017 11:44 - CONCLUSION: 1. Pulmonary edema with some bilateral pleural effusions. 2. Infiltrates in both lung bases most likely from compressive atelectasis. David Teresa MD Assessment and Plan Problem List: (1) Cardiomyopathy ICD Codes: I42.9 - Cardiomyopathy, unspecified Plan: on zayda/bb; already had life-vest for 3 mo+ but wasn't on meds for last few months and EF remains low. (2) NSVT (nonsustained ventricular tachycardia) ICD Codes: I47.2 - Ventricular tachycardia Plan: will increase BB to 6.25mg bid (3) Acute on chronic systolic CHF (congestive heart failure) ICD Codes: I50.23 - Acute on chronic systolic (congestive) heart failure Plan: ordered labs, still on O2, will try to wean off, hope to change to PO lasix tomorrow Assessment and Plan will ask dr. thompson to weigh in on aicd thursday Tyrese Shi MD August 01, 2017 14:07
[2017-08-01] MEDS: ENOXAPARIN SODIUM 40 MG/0.4 ML SYRINGE SQ SCH (15:20)
[2017-08-01 15:55] LABS: BICARBONATE 39.2 MEQ/L (21.0-32.0); CALCIUM 8.7 MG/DL (8.5-10.1); CREATININE 0.59 MG/DL (0.60-1.30); MAGNESIUM 1.5 MG/DL (1.5-2.5); PHOSPHORUS 3.3 MG/DL (2.5-4.9)
[2017-08-01] MEDS: FUROSEMIDE 40 MG/4 ML VIAL IV PUSH SCH (18:00)
[2017-08-01] MEDS ORDERED: FUROSEMIDE 40 MG TAB PO SCH (18:00)
--- NOTE | 2017-08-01 20:26 | HHI.PR ---
Subjective Remarks Resting in bed On O2 nasal cannula, no chest pain or short of breath while on oxygen, patient with nonsustained SVT on telemetry Objective Vitals Vital Signs Date Time Temp Pulse Resp B/P (MAP) Pulse Ox O2 Delivery O2 Flow Rate FiO2 08/01/17 19:54 94 Nasal Cannula 2.00 08/01/17 16:00 97.3 91 18 111/83 (92) 96 08/01/17 12:00 97.7 81 18 95/70 (78) 99 08/01/17 09:00 Nasal Cannula 2.00 08/01/17 09:00 82 08/01/17 08:00 97.3 79 18 113/61 (78) 94 08/01/17 07:37 Nasal Cannula 2.00 08/01/17 04:05 97.8 80 20 105/61 (76) 96 I/O 07/31/17 07/31/17 07/31/17 08/01/17 08/01/17 08/01/17 07:00 15:00 23:00 07:00 15:00 23:00 Intake Total 240 ml 1200 ml 600 ml Output Total 1200 ml 1850 ml 850 ml Balance -960 ml -650 ml -250 ml Intake Oral 240 ml 1200 ml 600 ml Output Urine Total 1200 ml 1850 ml 850 ml # Voids 1 # Bowel Movements 0 Result Diagram: 07/29/17 1200 08/01/17 1445 Objective Remarks GENERAL: This is a well-nourished, well-developed patient, in no apparent distress. CARDIOVASCULAR: RRR, no gallops, or rubs. RESPIRATORY: Bibasilar diminished breath sounds, with slight wheezing GASTROINTESTINAL: Abdomen soft, non-tender, nondistended. Positive bowel sounds MUSCULOSKELETAL: Extremities without clubbing, cyanosis, or edema. Pedal pulses appreciated NEUROLOGICAL: Awake and alert. Moves all extremity. Normal speech.no focal neurological deficit A/P Problem List: (1) Acute on chronic systolic CHF (congestive heart failure) ICD Code: I50.23 - Acute on chronic systolic (congestive) heart failure (2) COPD (chronic obstructive pulmonary disease) ICD Code: J44.9 - Chronic obstructive pulmonary disease, unspecified (3) Alcohol abuse ICD Code: F10.10 - Alcohol abuse, uncomplicated (4) Cardiomyopathy ICD Code: I42.9 - Cardiomyopathy, unspecified Assessment and Plan 61-year-old man with 5/: Improving on diuretic, continue current care strict I's and O's, will consult cardiology if EF less than 35 not improving we will need ICD 07/31: Edema much improved, 2D echo showed EF 15-20% will consult cardiology, meanwhile continue monitoring BMP BAM continue IV diuretic monitor renal function 08/01: CHF symptom improving, however patient is having NSVT, appreciate cardiology consultation, patient to be seen by Dr. Pathak on Thursday for ICD or like past A/P: Acute on chronic systolic CHF exacerbation Chest x-ray noted and reviewed by me with evidence of pulmonary congestion Continue ACS ruled out per protocol with serial cardiac enzyme and EKG Previous EF of 20 - 25% (February 2017), pending 2D echo Status post Lasix 40 mg IV 1, start Lasix 40 mg IV every 12H Resume beta-shanna and JUSTINE inhibitor Strict I's and O's Cardiology consultation as needed Cardiomyopathy Patient discharged previously with a LifeVest in February 2017, however 3 months after he returned the LifeVest Previous EF of 20 - 25% (February 2017), recheck 2D echo and consult cardiology for evaluation for possible ICD versus new LifeVest Start Coreg and JUSTINE inhibitor holding parameter COPD No current exacerbation Tobacco cessation counseling provided Bronchodilator as needed Alcohol abuse Alcohol cessation counseling provided Start rally pack, CIWA protocol and consider Librium protocol Hyponatremia of beer potomania Secondary to CHF exacerbation, will hold treatment with IV fluid hydration Continue with fluid restriction Monitor electrolytes Tobacco abuse Tobacco counseling cessation provided DVT prophylaxis Medhat Oleary MD August 01, 2017 20:25
[2017-08-01] MEDS: BUDESONIDE-FORMOTEROL 160/4.5 MCG INHALER INH SCH (21:29)
[2017-08-01] MEDS: CARVEDILOL 6.25 MG TAB PO SCH (21:29)
[2017-08-01] MEDS: TEMAZEPAM 15 MG CAP PO PRN (22:49)
[2017-08-02] VITALS (8 sets, daily range): BP systolic 103–116; BP diastolic 58–74; PULSE 67–97; RESP 17–18; TEMP 97.2–97.8; O2SAT 92–96
[2017-08-02] MEDS: methylPREDNISolone SOD SUCC 40 MG/1 ML VIAL IV PUSH SCH ×3 (06:14→20:40)
[2017-08-02] MEDS: RESP: ALBUTEROL 2.5 MG/IPRATROPIUM 0.5 MG NEB (PRN) NEB ×2 (08:28→16:17)
[2017-08-02] MEDS: THIAMINE HCL 100 MG TAB PO SCH (09:08)
[2017-08-02] MEDS: ENALAPRIL MALEATE 2.5 MG TAB PO SCH (09:08)
[2017-08-02] MEDS: CARVEDILOL 6.25 MG TAB PO SCH ×2 (09:08→20:42)
[2017-08-02] MEDS: FUROSEMIDE 40 MG/4 ML VIAL IV PUSH SCH (09:08)
[2017-08-02] MEDS: SODIUM CHLORIDE 0.9% FLUSH 10 ML FLUSH IV FLUSH SCH ×2 (09:08→20:40)
[2017-08-02] MEDS: BUDESONIDE-FORMOTEROL 160/4.5 MCG INHALER INH SCH ×2 (09:09→20:40)
--- NOTE | 2017-08-02 10:20 | PD.CARD.PN ---
Subjective Subjective Remarks Pt feeling better, he did have a 7 beat run of NSVT, also short atrial runs, no sx currently Objective Medications Current Medications Medications (Trade) Dose Ordered Sig/Heladio Route Start Time Stop Time Status Last Admin (NS Flush) 2 ml BID IV FLUSH 07/29/17 21:00 08/02/17 09:08 (NS Flush) 2 ml UNSCH PRN IV FLUSH 07/29/17 14:45 (Lovenox Inj) 40 mg Q24H SQ 07/29/17 16:00 08/01/17 15:20 (Tylenol) 650 mg Q4H PRN PO 07/29/17 14:45 (Zofran Inj) 4 mg Q6H PRN IV PUSH 07/29/17 14:45 (Galilea-Colace) 1 tab BID PRN PO 07/29/17 14:45 (Mag-Al Plus Susp Liq) 30 ml Q6H PRN PO 07/29/17 14:45 (Restoril) 15 mg HS PRN PO 07/29/17 21:00 08/01/17 22:49 (Duoneb Neb) 1 ampule Q2HR NEB PRN NEB 07/29/17 14:45 08/02/17 08:28 (Vasotec) 2.5 mg DAILY PO 07/30/17 09:00 08/02/17 09:08 (Romazicon Inj) 0.2 mg Q1M PRN IV PUSH 07/29/17 16:30 (Ativan) 1 mg Q4H PRN PO 07/29/17 16:30 (Ativan Inj) 1 mg Q4H PRN IV PUSH 07/29/17 16:30 (Ativan) 2 mg Q2H PRN PO 07/29/17 16:30 (Ativan Inj) 2 mg Q2H PRN IV PUSH 07/29/17 16:30 (Ativan Inj) 2 mg Q1H PRN IV PUSH 07/29/17 16:30 (Ativan Inj) 2 mg Q15M PRN IV PUSH 07/29/17 16:30 (Vitamin B1) 100 mg DAILY PO 07/30/17 09:00 08/02/17 09:08 (Lasix Inj) 40 mg BID@ IV PUSH 08/01/17 18:00 08/02/17 09:08 (SoluMEDROL INJ) 40 mg Q8HR IV PUSH 08/01/17 14:00 08/02/17 06:14 (Symbicort 160-4.5 Mcg Inh) 2 puff Q12HR INH 08/01/17 21:00 08/02/17 09:09 (Coreg) 6.25 mg Q12HR PO 08/01/17 21:00 08/02/17 09:08 Vital Signs / I&O Vital Signs Date Time Temp Pulse Resp B/P (MAP) Pulse Ox O2 Delivery O2 Flow Rate FiO2 08/02/17 08:28 92 Nasal Cannula 2.00 08/02/17 08:00 Nasal Cannula 2.00 08/02/17 08:00 97.3 80 18 115/66 (82) 92 08/02/17 05:22 97.7 70 18 116/68 (84) 94 08/02/17 04:00 Nasal Cannula 2.00 08/02/17 04:00 67 08/02/17 00:00 76 08/02/17 00:00 Nasal Cannula 2.00 08/02/17 00:00 97.5 70 18 110/58 (75) 92 08/01/17 20:02 78 08/01/17 20:00 97.5 90 18 103/55 (71) 95 08/01/17 20:00 2.00 08/01/17 19:54 94 Nasal Cannula 2.00 08/01/17 16:00 97.3 91 18 111/83 (92) 96 08/01/17 12:00 97.7 81 18 95/70 (78) 99 I/O 08/01/17 08/01/17 08/01/17 08/02/17 08/02/17 08/02/17 07:00 15:00 23:00 07:00 15:00 23:00 Intake Total 600 ml 240 ml Output Total 850 ml 775 ml Balance -250 ml -535 ml Intake Oral 600 ml 240 ml Output Urine Total 850 ml 775 ml Physical Exam GENERAL: This is a well-nourished, well-developed patient, in no apparent distress. CARDIOVASCULAR: Regular rate and rhythm without murmurs, gallops, or rubs. RESPIRATORY: Clear to auscultation. Breath sounds equal bilaterally. No wheezes , rales, or rhonchi. GASTROINTESTINAL: Abdomen soft, non-tender, nondistended. Normal active bowel sounds MUSCULOSKELETAL: Extremities without clubbing, cyanosis, or edema. NEURO: Alert & Oriented x4 to person, place, time, situation. Moves all ext x4 Laboratory Laboratory Tests Test 08/01/17 14:45 Blood Urea Nitrogen 9 MG/DL Creatinine 0.59 MG/DL Random Glucose 76 MG/DL Calcium Level 8.7 MG/DL Phosphorus Level 3.3 MG/DL Magnesium Level 1.5 MG/DL Sodium Level 128 MEQ/L Potassium Level 3.3 MEQ/L Chloride Level 81 MEQ/L Carbon Dioxide Level 39.2 MEQ/L Anion Gap 8 MEQ/L Estimat Glomerular Filtration Rate 139 ML/MIN Imaging Last Impressions Chest X-Ray 07/29/17 1112 Signed Impressions: Service Date/Time: Saturday, July 29, 2017 11:44 - CONCLUSION: 1. Pulmonary edema with some bilateral pleural effusions. 2. Infiltrates in both lung bases most likely from compressive atelectasis. David Teresa MD Assessment and Plan Problem List: (1) Cardiomyopathy ICD Codes: I42.9 - Cardiomyopathy, unspecified Plan: on zayda/bb; already had life-vest for 3 mo+ but wasn't on meds for last few months and EF remains low. (2) NSVT (nonsustained ventricular tachycardia) ICD Codes: I47.2 - Ventricular tachycardia Plan: on BB, will ask Dr thompson to evaluate for possible ICD vs 3 more months of med mgt given he really didn't take his meds for that long (3) Acute on chronic systolic CHF (congestive heart failure) ICD Codes: I50.23 - Acute on chronic systolic (congestive) heart failure Plan: asymptomatic, will change to PO lasix Assessment and Plan will ask dr. thompson to weigh in on aicd thursday Tyrese Shi MD August 02, 2017 10:20
[2017-08-02] MEDS ORDERED: POTASSIUM CHLORIDE 20 MEQ CONTROLLED RELEASE TAB PO ONE (11:00)
[2017-08-02 11:09] LABS: BICARBONATE 35.3 MEQ/L (21.0-32.0); CREATININE 0.51 MG/DL (0.60-1.30); MAGNESIUM 1.7 MG/DL (1.5-2.5); PHOSPHORUS 3.8 MG/DL (2.5-4.9)
[2017-08-02] MEDS: ENOXAPARIN SODIUM 40 MG/0.4 ML SYRINGE SQ SCH (15:48)
--- NOTE | 2017-08-02 18:09 | HHI.PR ---
Subjective Remarks Stable on O2 nasal cannula Plan be seen by [employer] store deli manager for N SVT will need ICD or LifeVest Objective Vitals Vital Signs Date Time Temp Pulse Resp B/P (MAP) Pulse Ox O2 Delivery O2 Flow Rate FiO2 08/02/17 12:00 97.6 75 18 112/72 (85) 92 08/02/17 08:28 92 Nasal Cannula 2.00 08/02/17 08:00 Nasal Cannula 2.00 08/02/17 08:00 97.3 80 18 115/66 (82) 92 08/02/17 05:22 97.7 70 18 116/68 (84) 94 08/02/17 04:00 Nasal Cannula 2.00 08/02/17 04:00 67 08/02/17 00:00 76 08/02/17 00:00 Nasal Cannula 2.00 08/02/17 00:00 97.5 70 18 110/58 (75) 92 08/01/17 20:02 78 08/01/17 20:00 97.5 90 18 103/55 (71) 95 08/01/17 20:00 2.00 08/01/17 19:54 94 Nasal Cannula 2.00 I/O 08/01/17 08/01/17 08/01/17 08/02/17 08/02/17 08/02/17 07:00 15:00 23:00 07:00 15:00 23:00 Intake Total 600 ml 240 ml Output Total 850 ml 775 ml Balance -250 ml -535 ml Intake Oral 600 ml 240 ml Output Urine Total 850 ml 775 ml Result Diagram: 07/29/17 1200 08/02/17 0937 Objective Remarks GENERAL: This is a well-nourished, well-developed patient, in no apparent distress. CARDIOVASCULAR: RRR, no gallops, or rubs. RESPIRATORY: Bibasilar diminished breath sounds, with slight wheezing GASTROINTESTINAL: Abdomen soft, non-tender, nondistended. Positive bowel sounds MUSCULOSKELETAL: Extremities without clubbing, cyanosis, or edema. Pedal pulses appreciated NEUROLOGICAL: Awake and alert. Moves all extremity. Normal speech.no focal neurological deficit A/P Problem List: (1) Acute on chronic systolic CHF (congestive heart failure) ICD Code: I50.23 - Acute on chronic systolic (congestive) heart failure (2) COPD (chronic obstructive pulmonary disease) ICD Code: J44.9 - Chronic obstructive pulmonary disease, unspecified (3) Alcohol abuse ICD Code: F10.10 - Alcohol abuse, uncomplicated (4) Cardiomyopathy ICD Code: I42.9 - Cardiomyopathy, unspecified Assessment and Plan 61-year-old man with 5/6: CHF symptoms improving, awaiting Dr. Cosby see patient on Thursday for ICD placement patient is having NSVT A/P: Acute on chronic systolic CHF exacerbation Chest x-ray noted and reviewed by me with evidence of pulmonary congestion Continue ACS ruled out per protocol with serial cardiac enzyme and EKG Previous EF of 20 - 25% (February 2017), pending 2D echo Status post Lasix 40 mg IV 1, start Lasix 40 mg IV every 12H Resume beta-shanna and JUSTINE inhibitor Strict I's and O's Cardiology consultation as needed Cardiomyopathy Patient discharged previously with a LifeVest in February 2017, however 3 months after he returned the LifeVest Previous EF of 20 - 25% (February 2017), recheck 2D echo and consult cardiology for evaluation for possible ICD versus new LifeVest Start Coreg and JUSTINE inhibitor holding parameter COPD No current exacerbation Tobacco cessation counseling provided Bronchodilator as needed Alcohol abuse Alcohol cessation counseling provided Start rally pack, CIWA protocol and consider Librium protocol Hyponatremia of beer potomania Secondary to CHF exacerbation, will hold treatment with IV fluid hydration Continue with fluid restriction Monitor electrolytes Tobacco abuse Tobacco counseling cessation provided DVT prophylaxis Medhat Oleary MD August 02, 2017 18:09
[2017-08-02] MEDS: TEMAZEPAM 15 MG CAP PO PRN (22:19)
[2017-08-03] VITALS (10 sets, daily range): BP systolic 109–120; BP diastolic 68–84; PULSE 66–90; RESP 16–20; TEMP 97.2–97.6; O2SAT 92–99
[2017-08-03] MEDS: methylPREDNISolone SOD SUCC 40 MG/1 ML VIAL IV PUSH SCH ×3 (05:15→22:02)
[2017-08-03] MEDS: CARVEDILOL 6.25 MG TAB PO SCH ×2 (08:52→22:02)
[2017-08-03] MEDS: THIAMINE HCL 100 MG TAB PO SCH (08:52)
[2017-08-03] MEDS: ENALAPRIL MALEATE 2.5 MG TAB PO SCH (08:52)
[2017-08-03] MEDS: POTASSIUM CHLORIDE 20 MEQ CONTROLLED RELEASE TAB PO SCH (08:52)
[2017-08-03] MEDS: SODIUM CHLORIDE 0.9% FLUSH 10 ML FLUSH IV FLUSH SCH ×2 (08:52→22:02)
[2017-08-03] MEDS: FUROSEMIDE 40 MG TAB PO SCH (08:52)
[2017-08-03] MEDS: BUDESONIDE-FORMOTEROL 160/4.5 MCG INHALER INH SCH ×2 (08:53→22:02)
[2017-08-03 08:54] LABS: BICARBONATE 33.4 MEQ/L (21.0-32.0); CREATININE 0.36 MG/DL (0.60-1.30)
--- NOTE | 2017-08-03 14:25 | HHI.PR ---
Subjective Remarks Patient reported feeling better, his eating his lunch is off O2 Plan to be seen by Sayed today to decide on ICD placement Objective Vitals Vital Signs Date Time Temp Pulse Resp B/P (MAP) Pulse Ox O2 Delivery O2 Flow Rate FiO2 08/03/17 12:00 97.6 74 20 120/68 (85) 92 08/03/17 12:00 Nasal Cannula 2.00 08/03/17 08:00 Nasal Cannula 2.00 08/03/17 08:00 97.2 78 20 112/76 (88) 93 08/03/17 04:00 97.2 90 17 112/70 (84) 93 08/03/17 01:11 69 08/03/17 00:00 97.2 81 16 109/68 (82) 93 08/02/17 20:00 97.2 97 17 111/74 (86) 96 08/02/17 16:00 97.8 78 18 103/64 (77) 94 I/O 08/02/17 08/02/17 08/02/17 08/03/17 08/03/17 08/03/17 07:00 15:00 23:00 07:00 15:00 23:00 Intake Total 240 ml 600 ml 480 ml Output Total 775 ml 800 ml 525 ml Balance -535 ml -200 ml 480 ml -525 ml Intake Oral 240 ml 600 ml 480 ml Output Urine Total 775 ml 800 ml 525 ml # Bowel Movements 2 Result Diagram: 08/03/17 0700 Objective Remarks GENERAL: This is a well-nourished, well-developed patient, in no apparent distress. CARDIOVASCULAR: RRR, no gallops, or rubs. RESPIRATORY: Wheezing is better after Solu-Medrol GASTROINTESTINAL: Abdomen soft, non-tender, nondistended. Positive bowel sounds MUSCULOSKELETAL: Extremities without clubbing, cyanosis, or edema. Pedal pulses appreciated NEUROLOGICAL: Awake and alert. Moves all extremity. Normal speech.no focal neurological deficit A/P Problem List: (1) Acute on chronic systolic CHF (congestive heart failure) ICD Code: I50.23 - Acute on chronic systolic (congestive) heart failure (2) COPD (chronic obstructive pulmonary disease) ICD Code: J44.9 - Chronic obstructive pulmonary disease, unspecified (3) Alcohol abuse ICD Code: F10.10 - Alcohol abuse, uncomplicated (4) Cardiomyopathy ICD Code: I42.9 - Cardiomyopathy, unspecified Assessment and Plan 61-year-old man with 08/02: CHF symptoms improving, awaiting Dr. Cosby see patient on Thursday for ICD placement patient is having NSVT 08/03: Respiratory symptoms improved, wheezing improved on Solu-Medrol, Dr. Cosby to see patient today to decide on ICD A/P: Acute on chronic systolic CHF exacerbation Chest x-ray noted and reviewed by me with evidence of pulmonary congestion Continue ACS ruled out per protocol with serial cardiac enzyme and EKG Previous EF of 20 - 25% (February 2017), pending 2D echo Status post Lasix 40 mg IV 1, start Lasix 40 mg IV every 12H Resume beta-hsanna and JUSTINE inhibitor Strict I's and O's Cardiology consultation as needed Cardiomyopathy Patient discharged previously with a LifeVest in February 2017, however 3 months after he returned the LifeVest Previous EF of 20 - 25% (February 2017), recheck 2D echo and consult cardiology for evaluation for possible ICD versus new LifeVest Start Coreg and JUSTINE inhibitor holding parameter COPD No current exacerbation Tobacco cessation counseling provided Bronchodilator as needed Alcohol abuse Alcohol cessation counseling provided Start rally pack, CIWA protocol and consider Librium protocol Hyponatremia of beer potomania Secondary to CHF exacerbation, will hold treatment with IV fluid hydration Continue with fluid restriction Monitor electrolytes Tobacco abuse Tobacco counseling cessation provided DVT prophylaxis Medhat Oleary MD August 03, 2017 14:25
[2017-08-03] MEDS: MAGNESIUM SULFAT 1 GM PREMIX 100 ML x2 bags IV SCH ×2 (15:36→18:01)
[2017-08-03] MEDS: ENOXAPARIN SODIUM 40 MG/0.4 ML SYRINGE SQ SCH (15:36)
[2017-08-03] MEDS: POTASSIUM CHLORIDE 10 MEQ CONTROLLED RELEASE TAB PO SCH ×2 (15:36→18:01)
[2017-08-03] MEDS: TEMAZEPAM 15 MG CAP PO PRN (22:01)
[2017-08-04] VITALS (7 sets, daily range): BP systolic 103–138; BP diastolic 75–95; PULSE 73–107; RESP 18–20; TEMP 97.2–98; O2SAT 94–99
[2017-08-04] MEDS: methylPREDNISolone SOD SUCC 40 MG/1 ML VIAL IV PUSH SCH ×3 (04:53→22:34)
[2017-08-04 06:38] LABS: BICARBONATE 33.4 MEQ/L (21.0-32.0); CALCIUM 8.8 MG/DL (8.5-10.1); CREATININE 0.42 MG/DL (0.60-1.30)
[2017-08-04] MEDS: THIAMINE HCL 100 MG TAB PO SCH (09:34)
[2017-08-04] MEDS: FUROSEMIDE 40 MG TAB PO SCH (09:34)
[2017-08-04] MEDS: ENALAPRIL MALEATE 2.5 MG TAB PO SCH (09:34)
[2017-08-04] MEDS: CARVEDILOL 6.25 MG TAB PO SCH ×2 (09:34→23:23)
[2017-08-04] MEDS: POTASSIUM CHLORIDE 20 MEQ CONTROLLED RELEASE TAB PO SCH (09:35)
[2017-08-04] MEDS: SODIUM CHLORIDE 0.9% FLUSH 10 ML FLUSH IV FLUSH SCH (09:35)
[2017-08-04] MEDS: BUDESONIDE-FORMOTEROL 160/4.5 MCG INHALER INH SCH ×2 (09:35→21:00)
--- NOTE | 2017-08-04 09:39 | MB ---
cc: Yfn Pathak MD,Tyrese Murillo MD DATE: 08/04/2017 REASON FOR CONSULTATION: Congestive heart failure. HISTORY OF PRESENT ILLNESS: Mr. Villegas is a 61-year-old gentleman with a history of congestive heart failure, nonischemic cardiomyopathy, previous ablation in February. In February, ejection fraction was around 25%. This gentleman is not followed through my office. Currently ejection fraction is around 15-20%. Previously seen by Dr. Shi and referred for electrophysiology study for defibrillator implantation for sudden prevention. The chart was reviewed. The patient was evaluated. ALLERGIES: NONE. SOCIAL HISTORY: The patient is still smoking. FAMILY HISTORY: Noncontributory to his current medical condition. MEDICATIONS: The patient is on enalapril 2.5 mg a day, thiamine, Coreg, Lasix and Ativan. REVIEW OF SYSTEMS: Shortness of breath on activity, but no chest pain or chest discomfort. PHYSICAL EXAMINATION: GENERAL: Alert, fully oriented. VITAL SIGNS: Blood pressure on evaluation 114/74, pulse 80, respiratory rate 18. LUNGS: Ventilated. CARDIOVASCULAR: S1, S2. No gallop. No murmur. ABDOMEN: Soft. No mass or bruit. EXTREMITIES: No edema. LABORATORY DATA: Electrocardiogram show sinus rhythm right axis PACs, PVCs, poor R-wave progression, diffuse ST changes. Hemoglobin is 15.3, white blood cells 5.3. Potassium 4.6, creatinine 0.42. BNP is over 2200. INR 1.2. ASSESSMENT AND RECOMMENDATIONS: Mr. Villegas's systolic blood pressure at one point was around 89. He is on Coreg and Altace. There is no further room for medication to up-titrate. He was not taking completely his medication because this gentleman said he does have the morning, but at the same time also, he has very symptomatic hypotension. This is why they stopped all the medication. Ejection fraction is low. As mentioned before, last February, it was 25%. At this point, the best approach for this gentleman is a defibrillator insertion for sudden prevention. The risks, the nature and the benefits of the procedure were clearly stated to him. The risks include pneumothorax, cardiac perforation, stroke and even . The patient understood and agreed to proceed. Procedure will be performed during hospitalization. MD JEAN PIERRE Gómez , 09:21 AM , 09:39 AM
[2017-08-04] MEDS ORDERED: LIDOCAINE HCL 1% PF 5 ML SYRINGE OTHER ONE (12:00)
[2017-08-04] MEDS ORDERED: PROPOFOL 200 MG/20 ML AMP IV ONE (12:00)
[2017-08-04] MEDS ORDERED: ePHEDrine/NS 25 MG/5 ML SYRINGE IV ONE (12:00)
--- NOTE | 2017-08-04 16:01 | HHI.PR ---
Subjective Remarks Doing much better respiratory gibson Plan for ICD today by Dr. Cosby Objective Vitals Vital Signs Date Time Temp Pulse Resp B/P (MAP) Pulse Ox O2 Delivery O2 Flow Rate FiO2 08/04/17 12:00 97.2 79 20 138/78 (98) 99 08/04/17 08:00 96 Nasal Cannula 2.00 08/04/17 08:00 97.3 84 20 125/83 (97) 95 08/04/17 04:00 76 08/04/17 04:00 97.4 107 19 114/87 (96) 99 08/04/17 00:20 77 08/04/17 00:19 Nasal Cannula 2.00 08/04/17 00:00 98.0 73 18 103/75 (84) 94 08/03/17 20:00 86 08/03/17 20:00 97.6 82 18 115/84 (94) 99 I/O 08/03/17 08/03/17 08/03/17 08/04/17 08/04/17 08/04/17 07:00 15:00 23:00 07:00 15:00 23:00 Intake Total 480 ml 120 ml 200 ml Output Total 525 ml 400 ml Balance 480 ml -525 ml 120 ml -200 ml Intake Oral 480 ml 120 ml 200 ml Output Urine Total 525 ml 400 ml # Voids 3 3 # Bowel Movements 1 Result Diagram: 08/04/17 0450 Objective Remarks GENERAL: This is a well-nourished, well-developed patient, in no apparent distress. CARDIOVASCULAR: RRR, no gallops, or rubs. RESPIRATORY: Wheezing is better after Solu-Medrol GASTROINTESTINAL: Abdomen soft, non-tender, nondistended. Positive bowel sounds MUSCULOSKELETAL: Extremities without clubbing, cyanosis, or edema. Pedal pulses appreciated NEUROLOGICAL: Awake and alert. Moves all extremity. Normal speech.no focal neurological deficit A/P Problem List: (1) Acute on chronic systolic CHF (congestive heart failure) ICD Code: I50.23 - Acute on chronic systolic (congestive) heart failure (2) COPD (chronic obstructive pulmonary disease) ICD Code: J44.9 - Chronic obstructive pulmonary disease, unspecified (3) Alcohol abuse ICD Code: F10.10 - Alcohol abuse, uncomplicated (4) Cardiomyopathy ICD Code: I42.9 - Cardiomyopathy, unspecified Assessment and Plan 61-year-old man with 5/6: CHF symptoms improving, awaiting Dr. Cosby see patient on Thursday for ICD placement patient is having NSVT 08/03: Respiratory symptoms improved, wheezing improved on Solu-Medrol, Dr. Cosby to see patient today to decide on ICD /8: Improved respiratory symptom and CHF, plan for ICD today by Dr. Cosby A/P: Acute on chronic systolic CHF exacerbation Chest x-ray noted and reviewed by me with evidence of pulmonary congestion Continue ACS ruled out per protocol with serial cardiac enzyme and EKG Previous EF of 20 - 25% (February 2017), pending 2D echo Status post Lasix 40 mg IV 1, start Lasix 40 mg IV every 12H Resume beta-shanna and JUSTINE inhibitor Strict I's and O's Cardiology consultation as needed Cardiomyopathy Patient discharged previously with a LifeVest in February 2017, however 3 months after he returned the LifeVest Previous EF of 20 - 25% (February 2017), recheck 2D echo and consult cardiology for evaluation for possible ICD versus new LifeVest Start Coreg and JUSTINE inhibitor holding parameter COPD No current exacerbation Tobacco cessation counseling provided Bronchodilator as needed Alcohol abuse Alcohol cessation counseling provided Start rally pack, CIWA protocol and consider Librium protocol Hyponatremia of beer potomania Secondary to CHF exacerbation, will hold treatment with IV fluid hydration Continue with fluid restriction Monitor electrolytes Tobacco abuse Tobacco counseling cessation provided DVT prophylaxis Medhat Oleary MD August 04, 2017 16:01
--- NOTE | 2017-08-04 20:30 | CATHPROC ---
[facility] HIS Report Study Information Study Number Admission Scheduled Start Study Start [id number] Jul 29 2017 2:47PM 08/04/2017 Aug 04 2017 7:00PM [place] Service Cardiac Pacer/ICD Admit Source Facility Department Other [facility] Physician and Clinical Staff Initial Yfn Sosa Staff Registered Nurse Raúl Sepulveda,RT(R) Staff Registered Nurse Suni Michaud,FIELD [employer] ADVOCATE Other Anesthesia, [employer] SALES CONSULTANT Recorder Tessie Caro,JOEL Scrub Estela Regan,RT(R) TECH2 Procedures Performed Procedure Lead Insertion Equipment Time Grain Unloader Machine Description Size Mfg Part Number Used/Scraped DERMABOND, ADHESIVE SKIN [id number] 19:08 CORDIS/PACER * Used GLUE MINI *[id number] 19:08 [employer] INDUSTRIES SUTURE, STRIP PLUS 1/2" * Used *[id number] 19:08 [employer] PACER WILLS, LIMB * 2530 *[id number] Used [id number] 19:08 [employer] PACER PACK, PACER CUSTOM * Used *[id number] 20:15 [employer] PACER SAFE SHEATH, FR9, 13CM FR 9 [id number] Used 19:57 Needle Sponge Count 2 22 Used 19:57 Needle Sponge Count 20 200 Used 19:57 Needle Sponge Count 3 3 Used SUTURE, 0 ETHIBOND [CT1] ([id number]), 8pk SUTURE, 2-0 VICRYL [CT1] ([id number]) SUTURE, 2-0 VICRYL [CT1] ([id number]) [id number] 19:08 [employer],WARM AIR CCL * Used *[id number] [facility] PAD, ELECTROSURGICAL 19:08 * [id number] *[id number] Used SURGICAL GROUNDING ORANGE 20:21 [employer] DEFIBRILLATOR, VISIA AF MRI VR VVEVVIR [id number] Use d LEAD, SPRINT QUATTRO SECURE [id number] 20:16 [employer] 62CM Used S 62CM *[id number] 19:34 [employer] MONITOR, PACEMAKER\\ICD 46417 *[id number] Used [id number] 19:08 [employer] MIC[employer]EL. / * Used *[id number] Equipment Model, Serial, Lot Number and Expiration Data Description Model Number Serial Number Lot Number Expiration Date DEFIBRILLATOR, VISIA AF MRI VR [id number] 07-25-2018 JEFFREY LOPEZ [id number] [id number] 08-01-2018 62CM Medication Medication Total Dose (Bolus/Oral) Medication Total Dosage/Unit 2% XYLOCAINE 50 mL Medications (Bolus/Oral) Medication Time Given Dosage/Unit Administered By Reason 2% XYLOCAINE 08/04/2017 8:11:13 PM 50 mL Yfn Pathak 50 mL 2% XYLOCAINE given in lab by Yfn Pathak via Subcutaneous. Ordered by Yfn Pathak. Medication (Drip) Medication Time Given Dosage/Unit Concentration/Unit Diluent (ml) Solution ANCEF 08/04/2017 7:52:26 PM 2 g 2 g ANCEF given in lab by Anesthesia, [employer] SALES CONSULTANT via Peripheral IV. Ordered by Yfn Pathak. Reason: As pe r physicians verbal order. VANCOMYCIN DRIP 08/04/2017 7:53:44 PM 1 g 1 g VANCOMYCIN DRIP given in lab by Anesthesia, [employer] SALES CONSULTANT via Peripheral IV. Ordered by Yfn Pathak. Leona son: As per physicians verbal order. Initial Case Assessment Cardiovascular HR NIBP Chest Pain 91 148/92 0 Edema Present Skin color Skin None Normal Warm Dry Circulatory - Right Pulses Radial 1 Scale (0,1,2,3,4,d) Circulatory - Left Pulses Radial 1 Scale (0,1,2,3,4,d) Circulatory - Lower Extremities Color Lower Right Color Lower Left Normal Normal Neurological State Oriented to time-place- Alert Moves all extremities person Respiration - General Respiration Rate SpO2 (%) (B/min) 18 94 Chronological Log Time Study Chronological Log 19:31:05 Patient arrived via Bed. 19:31:06 Patient Name, D.O.B, / Armband Verified By R.N. 19:31:06 Consent signed by the physician and the patient and verified by the [facility] staff. 19:31:07 Pre-op and post- op instructions given; patient acknowledges understanding of instructions . 19:31:08 Verbal Stimulation=2 Physical Stimulation=2 Airway=2 Respiration=2 TOTAL=8. (0=absent, 1=l imited, 2=present) 19:31:16 Anesthesia at bedside. Assumes care of patient. 19:31:17 Patient has been NPO for More than 6Hrs. 19:31:18 Skin Breakdown- none per pt 19:31:27 Patient Warmer Placed on the Table. 19:31:28 Disposable Defibrillator Pads Placed On Patient. 19:31:30 Stevan Prominences Protected 19:31:32 A # 20 IV was noted in the Forearm (left). Grade = 0 0.9ns kvo 19:31:33 A # 20 IV was noted in the Antecubital (right). Grade = 0 0.9ns kvo 19:31:34 History and physical on the chart or being dictated. Assessment: Initial Case, HR=91 BPM, SIVD=070/92 mmhg, Chest Pain=0, Edema=None, Color=Normal, Skin = Warm, Dry Right Pulses: Radial=1 Left Pulses: Radial=1 19:38:54 Lower Right Extremities: Color=Normal Lower Left Extremities: Color=Normal Neurological: State=Alert, Ox3, TURCIOS Respiration: Resp=18 B/min, SpO2=94 % 19:49:00 Dr Pathak was notified of patients labs result 2 g ANCEF given in lab by Anesthesia, AC[employer]A SALES CONSULTANT via Peripheral IV. Ordered by Yfn Pathak. Reason: As per physicians 19:52:26 verbal order. 1 g VANCOMYCIN DRIP given in lab by Anesthesia, AC[employer]A SALES CONSULTANT via Peripheral IV. Ordered by Kwadwo Pathak Reason: As per 19:53:44 physicians verbal order. 19:55:52 Table restraints applied according to hospital policy 19:55:59 Upper Chest Prepped Times Two w pvc. 19:56:25 Bovie ground pad applied to: right thigh 19:56:35 2% CHLORHEXIDINE GLUCONATE WASH AND NASAL SWIPE DONE PRIOR TO PROCEDURE. First Sponge And Instrument Count Done by Estela Regan, RT(R) TECH2. 19:56:39 Hypo's: 3, Sponges: 20, Bovie/scratch: 2 Sutures: 10, Blades: 1, Instruments: 26, Syveck Patches: 0 Time Out. Correct patient, procedure, procedure equipment, site and side verified with physicia n present. Time 20:09:33 concurred by MD, individual staff and AC[employer]A SALES CONSULTANT. 20:09:41 Case Start 20:11:13 50 mL 2% XYLOCAINE given in lab by Yfn Pathak via Subcutaneous. Ordered by Yfn Pathak . 20:11:40 Vascular access was obtained in the Subclav. Vein (Lft. 20:12:28 Surgical Incision Made. 20:14:44 A SAFE SHEATH, FR9, 13CM FR 9 was advanced into the Subclav. Vein (Lft using the Percutaneo us technique. 20:15:16 A LEAD, SPRINT QUATTRO SECURE S 62CM 62CM was inserted and positioned in the RV. 20:17:12 Lead placement verified under fluoroscopy 20:17:16 The RV lead impedance and threshold being tested. 20:19:41 A pocket was created at the L Upper Chest. 20:19:57 A DEFIBRILLATOR, VISIA AF MRI VR VVEVVIR was connected and placed in the pocket. second Sponge And Instrument Count Done by Estela Regan, RT(R) TECH2. 20:21:57 Hypo's: 3, Sponges: 20, Bovie/scratch: 2 Sutures: 10, Blades: 1, Instruments: 26, Syveck Patches: 0 20:25:52 The pocket was closed. final Sponge And Instrument Count Done by Estela Regan, RT(R) TECH2. 20:26:06 Hypo's: 3, Sponges: 20, Bovie/scratch: 2 Sutures: 10, Blades: 1, Instruments: 26, Syveck Patches: 0 20:26:35 Case End 20:26:49 Steri-strips and a sterile dressing applied to site. 20:26:57 for medications and vitals refer to anesthesia flowsheet 20:27:42 A sling was placed on the affected arm. 20:27:50 Implant Procedure was performed. 20:27:57 A ICD Implant . (Single) 20:28:57 No case complications noted. 20:29:09 Implantable Device card placed in patient's chart. 20:29:18 Cine recording checked. End Study - Contrast Media Used In Study Contrast Total Opened (mL) Total Used (mL) Total Wasted (mL) Unspecified 0 0 0 End Study - Radiation Exposure Fluoro Time (minutes) 1.3 End Study - Patient Disposition Complications Transferred To No Telemetry Bed
[2017-08-04] MEDS ORDERED: DO NOT ADM ANY ANTICOAGULANT DRUGS PRN (20:50)
[2017-08-04] MEDS ORDERED: ONDANSETRON HCL 4 MG/2 ML VIAL IV PUSH PRN (21:30)
[2017-08-04] MEDS ORDERED: ACETAMINOPHEN/CODEINE 300 MG/30 MG TAB PO PRN ×2 (21:30)
--- NOTE | 2017-08-04 22:24 | RADRPT ---
EXAM DATE/TIME: 08/04/2017 22:43 [place] COMPARISON: CHEST SINGLE AP, July 29, 2017, 11:44. INDICATIONS : Post pacemaker. MEDICAL HISTORY : None. SURGICAL HISTORY : Pacemaker. ENCOUNTER: Subsequent ACUITY: 2 days PAIN SCORE: Non-responsive. LOCATION: Bilateral chest FINDINGS: The heart size is enlarged. There is a single lead pacing device seen in the left chest. No pneumotho rax is seen. There is increased density at the bases bilaterally being more prominent the right. Ther e is blunting of the costophrenic angles bilaterally. CONCLUSION: 1. Single lead pacemaker in place from the left subclavian approach. The tip objects over the expecte d location of the right ventricle. 2. Cardiomegaly. 3. Suspected bilateral effusions with accompanying areas of atelectasis or consolidation at the bases being worse on the right. Dain Pozo MD on August 04, 2017 at 22:18 Board Certified Radiologist. This report was verified electronically.
[2017-08-05] VITALS (23 sets, daily range): BP systolic 99–139; BP diastolic 72–91; PULSE 64–116; RESP 18; TEMP 97.4–98.9; O2SAT 86–100
[2017-08-05] MEDS: ceFAZolin 2 GM PREMIX 50 ML IV SCH ×3 (04:01→21:54)
[2017-08-05] MEDS: methylPREDNISolone SOD SUCC 40 MG/1 ML VIAL IV PUSH SCH ×3 (06:21→21:54)
[2017-08-05] MEDS: RESP: ALBUTEROL 2.5 MG/IPRATROPIUM 0.5 MG NEB (PRN) NEB ×2 (07:51→17:14)
--- NOTE | 2017-08-05 07:52 | HHI.PR ---
Subjective Remarks Follow-up cardiomyopathy status post AICD/COPD/acute respiratory failure patient is requiring oxygen. The patient is currently on 3 L by nasal cannula and he does not have oxygen at home. However patient without insurance and cannot afford oxygen at home. He failed oxygen walking test. Consult PT for evaluation and monitor oxygen try to wean off as tolerated. Also case management consulted for discharge Failed O2 walking test and needs O2 at DC Consult PT for evaluation Patient denies having any chest pain at this time. No shortness of breath or lightheadedness. Says he feels a little better than yesterday. However still tired. No wheezing at this time. Denies any cough. Objective Vitals Vital Signs Date Time Temp Pulse Resp B/P (MAP) Pulse Ox O2 Delivery O2 Flow Rate FiO2 08/05/17 06:00 84 08/05/17 05:00 80 08/05/17 04:00 78 08/05/17 03:30 97.4 81 18 118/85 (96) 100 08/05/17 03:00 82 08/05/17 02:00 70 08/05/17 02:00 70 113/81 (92) 08/05/17 01:00 64 08/05/17 01:00 64 99/72 (81) 08/05/17 00:00 70 08/05/17 00:00 70 113/79 (90) 08/04/17 23:00 74 08/04/17 23:00 97 Nasal Cannula 2.00 08/04/17 23:00 97.4 74 18 128/95 (106) 97 08/04/17 22:30 97.3 74 17 134/91 (105) 96 Nasal Cannula 3 08/04/17 22:15 74 16 137/95 (109) 99 Nasal Cannula 3 08/04/17 22:00 71 14 133/91 (105) 97 Nasal Cannula 4 08/04/17 21:45 70 13 135/83 (100) 97 Nasal Cannula 4 08/04/17 21:30 70 12 147/92 (110) 97 Nasal Cannula 4 08/04/17 21:15 74 14 141/94 (110) 94 Nasal Cannula 4 08/04/17 21:00 75 13 135/97 (110) 98 Nasal Cannula 4 08/04/17 20:48 97.4 76 14 118/90 (99) 96 Nasal Cannula 4 08/04/17 12:00 97.2 79 20 138/78 (98) 99 08/04/17 12:00 97.4 85 20 129/90 (103) 98 08/04/17 08:00 96 Nasal Cannula 2.00 08/04/17 08:00 97.3 84 20 125/83 (97) 95 I/O 08/04/17 08/04/17 08/04/17 08/05/17 08/05/17 08/05/17 07:00 15:00 23:00 07:00 15:00 23:00 Intake Total 120 ml 200 ml 650 ml 240 ml Output Total 400 ml 5 ml 250 ml Balance 120 ml -200 ml 645 ml -10 ml Intake Oral 120 ml 200 ml 0 ml 240 ml IV Total 350 ml Other 300 ml Output Urine Total 400 ml 0 ml 250 ml Estimated Blood Loss 5 ml Other 0 ml # Voids 3 3 # Bowel Movements 1 0 Result Diagram: 08/04/17 0450 Imaging Last Impressions Chest X-Ray 08/04/17 0000 Signed Impressions: Service Date/Time: Friday, August 04, 2017 22:43 - CONCLUSION: 1. Single lead pacemaker in place from the left subclavian approach. The tip objects over the expected location of the right ventricle. 2. Cardiomegaly. 3. Suspected bilateral effusions with accompanying areas of atelectasis or consolidation at the bases being worse on the right. Dain Pozo MD Objective Remarks GENERAL: This is a well-nourished, well-developed patient, in no apparent distress. CARDIOVASCULAR: RRR, no gallops, or rubs. RESPIRATORY: Wheezing is better after Solu-Medrol GASTROINTESTINAL: Abdomen soft, non-tender, nondistended. Positive bowel sounds MUSCULOSKELETAL: Extremities without clubbing, cyanosis, or edema. Pedal pulses appreciated NEUROLOGICAL: Awake and alert. Moves all extremity. Normal speech.no focal neurological deficit A/P Problem List: (1) Acute on chronic systolic CHF (congestive heart failure) ICD Code: I50.23 - Acute on chronic systolic (congestive) heart failure (2) COPD (chronic obstructive pulmonary disease) ICD Code: J44.9 - Chronic obstructive pulmonary disease, unspecified (3) Alcohol abuse ICD Code: F10.10 - Alcohol abuse, uncomplicated (4) Cardiomyopathy ICD Code: I42.9 - Cardiomyopathy, unspecified Assessment and Plan 61-year-old man with 5/6: CHF symptoms improving, awaiting Dr. Cosby see patient on Thursday for ICD placement patient is having NSVT 08/03: Respiratory symptoms improved, wheezing improved on Solu-Medrol, Dr. Cosby to see patient today to decide on ICD 08/04: Improved respiratory symptom and CHF, plan for ICD today by Dr. Cosby 08/05 With acute respiratory failure patient is requiring oxygen. The patient is currently on 3 L by nasal cannula and he does not have oxygen at home. However patient without insurance and cannot afford oxygen at home. He failed oxygen walking test. Consult PT for evaluation and monitor oxygen try to wean off as tolerated. Also case management consulted for discharge Acute on chronic systolic CHF exacerbation Chest x-ray noted and reviewed by me with evidence of pulmonary congestion Continue ACS ruled out per protocol with serial cardiac enzyme and EKG Previous EF of 20 - 25% (February 2017), 2D echo reviewed with EF 15% Status post Lasix 40 mg IV 1, start Lasix 40 mg IV every 12H Resume beta-shanna and JUSTINE inhibitor Strict I's and O's Cardiology consultation , plan for ICD Cardiomyopathy Patient discharged previously with a LifeVest in February 2017, however 3 months after he returned the LifeVest Previous EF of 20 - 25% (February 2017), recheck 2D echo and consult cardiology for evaluation for possible ICD versus new LifeVest Start Coreg and JUSTINE inhibitor holding parameter COPD No current exacerbation Tobacco cessation counseling provided Bronchodilator as needed Alcohol abuse Alcohol cessation counseling provided Start rally pack, CIWA protocol and consider Librium protocol Hyponatremia of beer potomania Secondary to CHF exacerbation, will hold treatment with IV fluid hydration Continue with fluid restriction Monitor electrolytes Tobacco abuse - Tobacco counseling cessation provided DVT prophylaxis - Lovenox DC plan: pending improvement . Wean off O2 as failed O2 walking test and needs O2 at DC. Consult PT. Arcelia Jean Baptiste MD August 05, 2017 07:52
[2017-08-05] MEDS: BUDESONIDE-FORMOTEROL 160/4.5 MCG INHALER INH SCH ×2 (09:00→21:55)
[2017-08-05] MEDS: SODIUM CHLORIDE 0.9% FLUSH 10 ML FLUSH IV FLUSH SCH ×2 (09:00→21:55)
--- NOTE | 2017-08-05 09:11 | EKG ---
Date Performed: 08/05/2017 Time Performed: 06:30:08 PTAGE: 61 years EKG: Sinus rhythm Inferior infarct - age undetermined Possible anterior infarct - age undetermined Abnormal ECG PREVIOUS TRACING : 08/04/2017 23.31 DOCTOR: Delonte Lozada Interpretating Date/Time 08/05/2017 09:09:27
--- NOTE | 2017-08-05 09:16 | EKG ---
Date Performed: 08/04/2017 Time Performed: 23:31:10 PTAGE: 61 years EKG: Sinus rhythm IV conduction defect Inferior infarct - age undetermined Lateral ST-T changes are nonspecific Abnorm al ECG PREVIOUS TRACING : 07/29/2017 21.42 DOCTOR: Delonte Lozada Interpretating Date/Time 08/05/2017 09:12:53
[2017-08-05] MEDS: CARVEDILOL 6.25 MG TAB PO SCH ×2 (09:53→21:55)
[2017-08-05] MEDS: THIAMINE HCL 100 MG TAB PO SCH (09:53)
[2017-08-05] MEDS: FUROSEMIDE 40 MG TAB PO SCH (09:54)
[2017-08-05] MEDS: POTASSIUM CHLORIDE 20 MEQ CONTROLLED RELEASE TAB PO SCH (09:54)
--- NOTE | 2017-08-05 09:58 | HHI.PR ---
Subjective Remarks Coughing, some SOB Objective Vital Signs Date Time Temp Pulse Resp B/P (MAP) Pulse Ox O2 Delivery O2 Flow Rate FiO2 08/05/17 07:53 98 Nasal Cannula 3.00 08/05/17 06:00 84 08/05/17 05:00 80 08/05/17 04:00 78 08/05/17 03:30 97.4 81 18 118/85 (96) 100 08/05/17 03:00 82 08/05/17 02:00 70 08/05/17 02:00 70 113/81 (92) 08/05/17 01:00 64 08/05/17 01:00 64 99/72 (81) 08/05/17 00:00 70 08/05/17 00:00 70 113/79 (90) 08/04/17 23:00 74 08/04/17 23:00 97 Nasal Cannula 2.00 08/04/17 23:00 97.4 74 18 128/95 (106) 97 08/04/17 22:30 97.3 74 17 134/91 (105) 96 Nasal Cannula 3 08/04/17 22:15 74 16 137/95 (109) 99 Nasal Cannula 3 08/04/17 22:00 71 14 133/91 (105) 97 Nasal Cannula 4 08/04/17 21:45 70 13 135/83 (100) 97 Nasal Cannula 4 08/04/17 21:30 70 12 147/92 (110) 97 Nasal Cannula 4 08/04/17 21:15 74 14 141/94 (110) 94 Nasal Cannula 4 08/04/17 21:00 75 13 135/97 (110) 98 Nasal Cannula 4 08/04/17 20:48 97.4 76 14 118/90 (99) 96 Nasal Cannula 4 08/04/17 12:00 97.2 79 20 138/78 (98) 99 08/04/17 12:00 97.4 85 20 129/90 (103) 98 I/O 08/04/17 08/04/17 08/04/17 08/05/17 08/05/17 08/05/17 07:00 15:00 23:00 07:00 15:00 23:00 Intake Total 120 ml 200 ml 650 ml 240 ml Output Total 400 ml 5 ml 250 ml Balance 120 ml -200 ml 645 ml -10 ml Intake Oral 120 ml 200 ml 0 ml 240 ml IV Total 350 ml Other 300 ml Output Urine Total 400 ml 0 ml 250 ml Estimated Blood Loss 5 ml Other 0 ml # Voids 3 3 # Bowel Movements 1 0 Result Diagram: 08/04/17 0450 Imaging Alert, fully oriented Lungs: ventilated, no wheezing Heart: s1, S2 regular clean surgical wound Abdomen: soft, no mass Ext: no edema Last Impressions Chest X-Ray 08/04/17 0000 Signed Impressions: Service Date/Time: Friday, August 04, 2017 22:43 - CONCLUSION: 1. Single lead pacemaker in place from the left subclavian approach. The tip objects over the expected location of the right ventricle. 2. Cardiomegaly. 3. Suspected bilateral effusions with accompanying areas of atelectasis or consolidation at the bases being worse on the right. Dain Pozo MD Current Medications Medications (Trade) Dose Ordered Sig/Heladio Route Start Time Stop Time Status Last Admin (Lovenox Inj) 40 mg Q24H SQ 07/29/17 16:00 08/03/17 15:36 (Tylenol) 650 mg Q4H PRN PO 07/29/17 14:45 (Galilea-Colace) 1 tab BID PRN PO 07/29/17 14:45 (Mag-Al Plus Susp Liq) 30 ml Q6H PRN PO 07/29/17 14:45 (Duoneb Neb) 1 ampule Q2HR NEB PRN NEB 07/29/17 14:45 08/05/17 07:51 (Vasotec) 2.5 mg DAILY PO 07/30/17 09:00 08/04/17 09:34 (Romazicon Inj) 0.2 mg Q1M PRN IV PUSH 07/29/17 16:30 (Ativan) 1 mg Q4H PRN PO 07/29/17 16:30 (Ativan Inj) 1 mg Q4H PRN IV PUSH 07/29/17 16:30 (Ativan) 2 mg Q2H PRN PO 07/29/17 16:30 (Ativan Inj) 2 mg Q2H PRN IV PUSH 07/29/17 16:30 (Ativan Inj) 2 mg Q1H PRN IV PUSH 07/29/17 16:30 (Ativan Inj) 2 mg Q15M PRN IV PUSH 07/29/17 16:30 (Vitamin B1) 100 mg DAILY PO 07/30/17 09:00 08/04/17 09:34 (SoluMEDROL INJ) 40 mg Q8HR IV PUSH 08/01/17 14:00 08/05/17 06:21 (Symbicort 160-4.5 Mcg Inh) 2 puff Q12HR INH 08/01/17 21:00 08/04/17 09:35 (Coreg) 6.25 mg Q12HR PO 08/01/17 21:00 08/04/17 23:23 (KCl) 20 meq DAILY PO 08/03/17 09:00 08/04/17 09:35 (Lasix) 40 mg DAILY PO 08/03/17 09:00 08/04/17 09:34 ([facility] ALL NURSING DEPARTME... UNSCH PRN .XX 08/04/17 20:50 08/05/17 20:49 Cefazolin Sodium/ Dextrose 50 ml @ 100 mls/hr Q8H IV 08/05/17 04:00 08/05/17 20:29 08/05/17 04:01 (Restoril) 15 mg HS PRN PO 08/04/17 21:30 (Zofran Inj) 4 mg Q4H PRN IV PUSH 08/04/17 21:30 (Tylenol-Codeine #3) 1 tab Q4H PRN PO 08/04/17 21:30 (Tylenol-Codeine #3) 2 tab Q4H PRN PO 08/04/17 21:30 (NS Flush) 2 ml BID IV FLUSH 08/05/17 09:00 (NS Flush) 2 ml UNSCH PRN IV FLUSH 08/04/17 21:30 Assessment and Plan Problem List: (1) Cardiac defibrillator in situ ICD Codes: Z95.810 - Presence of automatic (implantable) cardiac defibrillator Plan: Clean surgical wound Device well functioning can be DH whenever it's ok with the managing team I will be available on a PRN basis (2) Acute on chronic systolic CHF (congestive heart failure) ICD Codes: I50.23 - Acute on chronic systolic (congestive) heart failure Plan: On optimal management (3) SOB (shortness of breath) ICD Codes: R06.02 - Shortness of breath Plan: Refers coughing and SOB May need pulmonary evaluation Zo,Hanscy MD August 05, 2017 09:58
[2017-08-05] MEDS ORDERED: THIA100 PO (10:41)
[2017-08-05] MEDS ORDERED: FURO40TA PO (10:41)
[2017-08-05] MEDS ORDERED: CARV6.25 PO (10:41)
[2017-08-05] MEDS ORDERED: ENAL2.5T PO (10:41)
[2017-08-05] MEDS ORDERED: SPIR25TA PO (10:44)
[2017-08-05] MEDS: ENALAPRIL MALEATE 2.5 MG TAB PO SCH (13:29)
[2017-08-05] MEDS: ENOXAPARIN SODIUM 40 MG/0.4 ML SYRINGE SQ SCH ×2 (16:00→21:54)
[2017-08-05] MEDS: TEMAZEPAM 15 MG CAP PO PRN (21:55)
[2017-08-06] VITALS (14 sets, daily range): BP systolic 121–140; BP diastolic 80–87; PULSE 52–105; RESP 17–24; TEMP 97.2–98.5; O2SAT 97–99
[2017-08-06] MEDS: SODIUM CHLORIDE 0.9% FLUSH 10 ML FLUSH IV FLUSH PRN ×2 (05:37→22:17)
[2017-08-06] MEDS: methylPREDNISolone SOD SUCC 40 MG/1 ML VIAL IV PUSH SCH ×3 (05:37→22:16)
[2017-08-06] MEDS ORDERED: FUROSEMIDE 40 MG/4 ML VIAL IV PUSH ONE (09:00)
[2017-08-06] MEDS: BUDESONIDE-FORMOTEROL 160/4.5 MCG INHALER INH SCH ×2 (09:00→19:45)
[2017-08-06] MEDS: SPIRONOLACTONE 25 MG TAB PO SCH (10:02)
[2017-08-06] MEDS: THIAMINE HCL 100 MG TAB PO SCH (10:02)
[2017-08-06] MEDS: CARVEDILOL 6.25 MG TAB PO SCH ×2 (10:02→19:45)
[2017-08-06] MEDS: ENALAPRIL MALEATE 2.5 MG TAB PO SCH (10:02)
[2017-08-06] MEDS: POTASSIUM CHLORIDE 20 MEQ CONTROLLED RELEASE TAB PO SCH (10:02)
[2017-08-06] MEDS: SODIUM CHLORIDE 0.9% FLUSH 10 ML FLUSH IV FLUSH SCH ×2 (10:06→19:46)
--- NOTE | 2017-08-06 15:48 | HHI.PR ---
Subjective Remarks Patient is still requiring oxygen. He denies chest pain. Endorsed mild SOB. Objective Vitals Vital Signs Date Time Temp Pulse Resp B/P (MAP) Pulse Ox O2 Delivery O2 Flow Rate FiO2 08/06/17 12:18 98.2 67 17 129/84 (99) 97 08/06/17 08:01 98.4 52 18 137/83 (101) 97 08/06/17 04:00 75 08/06/17 04:00 98.4 105 24 125/81 (96) 99 08/06/17 00:36 Nasal Cannula 3.00 08/06/17 00:35 77 08/06/17 00:00 97.2 81 20 121/85 (97) 99 08/05/17 22:14 84 18 131/91 (104) 98 08/05/17 22:14 83 08/05/17 20:06 Nasal Cannula 3.00 08/05/17 18:00 82 08/05/17 17:00 82 08/05/17 17:00 82 08/05/17 16:00 82 I/O 08/05/17 08/05/17 08/05/17 08/06/17 08/06/17 08/06/17 07:00 15:00 23:00 07:00 15:00 23:00 Intake Total 240 ml 780 ml Output Total 250 ml 560 ml Balance -10 ml 220 ml Intake Oral 240 ml 780 ml Output Urine Total 250 ml 560 ml # Voids 1 # Bowel Movements 0 Result Diagram: 08/04/17 0450 Imaging Last Impressions Chest X-Ray 08/04/17 0000 Signed Impressions: Service Date/Time: Friday, August 04, 2017 22:43 - CONCLUSION: 1. Single lead pacemaker in place from the left subclavian approach. The tip objects over the expected location of the right ventricle. 2. Cardiomegaly. 3. Suspected bilateral effusions with accompanying areas of atelectasis or consolidation at the bases being worse on the right. Dain Pozo MD Objective Remarks GENERAL: This is a well-nourished, well-developed patient, in no apparent distress. CARDIOVASCULAR: Regular rate and rhythm without murmurs, gallops, or rubs. RESPIRATORY: Bilateral basilar crackles otherwise CTA. GASTROINTESTINAL: Abdomen soft, non-tender, nondistended. Normal active bowel sounds MUSCULOSKELETAL: Extremities without clubbing, cyanosis, or edema. NEURO: Alert & Oriented x4 to person, place, time, situation. Moves all ext x4 A/P Problem List: (1) Acute on chronic systolic CHF (congestive heart failure) ICD Code: I50.23 - Acute on chronic systolic (congestive) heart failure (2) COPD (chronic obstructive pulmonary disease) ICD Code: J44.9 - Chronic obstructive pulmonary disease, unspecified (3) Alcohol abuse ICD Code: F10.10 - Alcohol abuse, uncomplicated (4) Cardiomyopathy ICD Code: I42.9 - Cardiomyopathy, unspecified Assessment and Plan Acute on chronic systolic CHF exacerbation Previous EF of 20 - 25% (February 2017), 2D echo reviewed with EF 15% Still has effusion on x-ray and requiring oxygen. Continue beta-shanna and JUSTINE inhibitor Strict I's and O's Cardiology following. S/P ICD Give IV Lasix today. Hypoxemia: - Secondary to above. Diurese, IS, wean off oxygen as tolerated. COPD No current exacerbation Tobacco cessation counseling provided Bronchodilator as needed Alcohol abuse Alcohol cessation counseling provided rally pack, CIWA protocol Hyponatremia of beer potomania Secondary to CHF exacerbation, will hold treatment with IV fluid hydration Continue with fluid restriction Monitor electrolytes Tobacco abuse - Tobacco counseling cessation provided DVT prophylaxis - Lovenox Discharge Planning Pending improvement . Wean off O2 as tolerated. No insurance benefit for home oxygen. Venus Hodge MD August 06, 2017 15:48
[2017-08-06] MEDS: ENOXAPARIN SODIUM 40 MG/0.4 ML SYRINGE SQ SCH (17:31)
[2017-08-06] MEDS: TEMAZEPAM 15 MG CAP PO PRN (22:16)
[2017-08-07] VITALS (10 sets, daily range): BP systolic 114–141; BP diastolic 69–98; PULSE 58–90; RESP 16–18; TEMP 97.1–97.8; O2SAT 96–100
[2017-08-07 06:05] LABS: CALCIUM 8.8 MG/DL (8.5-10.1); CREATININE 0.54 MG/DL (0.60-1.30)
[2017-08-07] MEDS: methylPREDNISolone SOD SUCC 40 MG/1 ML VIAL IV PUSH SCH ×3 (06:07→22:21)
[2017-08-07] MEDS: SODIUM CHLORIDE 0.9% FLUSH 10 ML FLUSH IV FLUSH PRN (06:08)
[2017-08-07] MEDS: CARVEDILOL 6.25 MG TAB PO SCH ×2 (09:23→22:20)
[2017-08-07] MEDS: ENALAPRIL MALEATE 2.5 MG TAB PO SCH (09:23)
[2017-08-07] MEDS: THIAMINE HCL 100 MG TAB PO SCH (09:23)
[2017-08-07] MEDS: SPIRONOLACTONE 25 MG TAB PO SCH (09:23)
[2017-08-07] MEDS: POTASSIUM CHLORIDE 20 MEQ CONTROLLED RELEASE TAB PO SCH (09:24)
[2017-08-07] MEDS: SODIUM CHLORIDE 0.9% FLUSH 10 ML FLUSH IV FLUSH SCH ×2 (09:24→22:22)
[2017-08-07] MEDS: BUDESONIDE-FORMOTEROL 160/4.5 MCG INHALER INH SCH ×2 (09:26→22:21)
--- NOTE | 2017-08-07 09:38 | HHI.PR ---
Subjective Remarks Patient is still requiring 2 L of oxygen. He states he is using the incentive spirometer intermittently. Objective Vitals Vital Signs Date Time Temp Pulse Resp B/P (MAP) Pulse Ox O2 Delivery O2 Flow Rate FiO2 08/07/17 08:01 97.8 90 17 133/98 (110) 100 08/07/17 05:20 97.2 89 18 141/90 (107) 98 08/07/17 04:00 87 08/07/17 00:00 74 08/07/17 00:00 97.8 84 18 138/84 (102) 100 08/06/17 20:00 80 08/06/17 19:42 Nasal Cannula 3.00 08/06/17 19:27 97.5 82 18 140/87 (104) 98 08/06/17 16:01 98.5 82 17 131/80 (97) 97 08/06/17 16:00 93 08/06/17 15:58 97 Nasal Cannula 2.00 08/06/17 12:18 98.2 67 17 129/84 (99) 97 08/06/17 12:00 90 I/O 08/06/17 08/06/17 08/06/17 08/07/17 08/07/17 08/07/17 07:00 15:00 23:00 07:00 15:00 23:00 Intake Total 600 ml 240 ml Output Total 700 ml Balance -100 ml 240 ml Intake Oral 600 ml 240 ml Output Urine Total 700 ml # Voids 1 2 2 # Bowel Movements 0 0 Result Diagram: 08/07/17 0459 Objective Remarks GENERAL: This is a well-nourished, well-developed patient, in no apparent distress. CARDIOVASCULAR: Regular rate and rhythm without murmurs, gallops, or rubs. RESPIRATORY: Bilateral basilar crackles otherwise CTA. GASTROINTESTINAL: Abdomen soft, non-tender, nondistended. Normal active bowel sounds MUSCULOSKELETAL: Extremities without clubbing, cyanosis, or edema. NEURO: Alert & Oriented x4 to person, place, time, situation. Moves all ext x4 A/P Problem List: (1) Acute on chronic systolic CHF (congestive heart failure) ICD Code: I50.23 - Acute on chronic systolic (congestive) heart failure (2) COPD (chronic obstructive pulmonary disease) ICD Code: J44.9 - Chronic obstructive pulmonary disease, unspecified (3) Alcohol abuse ICD Code: F10.10 - Alcohol abuse, uncomplicated (4) Cardiomyopathy ICD Code: I42.9 - Cardiomyopathy, unspecified Assessment and Plan Acute on chronic systolic CHF exacerbation Previous EF of 20 - 25% (February 2017), 2D echo reviewed with EF 15% Still has effusion on x-ray and requiring oxygen. Continue beta-shanna and JUSTINE inhibitor Strict I's and O's Cardiology following. S/P ICD Continue IV Lasix today. Hypoxemia: - Secondary to above. Diurese, IS, wean off oxygen as tolerated. COPD No current exacerbation Tobacco cessation counseling provided Bronchodilator as needed Alcohol abuse Alcohol cessation counseling provided rally pack, CIWA protocol Hyponatremia of beer potomania Secondary to CHF exacerbation, will hold treatment with IV fluid hydration Continue with fluid restriction Monitor electrolytes Tobacco abuse - Tobacco counseling cessation provided DVT prophylaxis - Lovenox Discharge Planning Pending improvement . Wean off O2 as tolerated. No insurance benefit for home oxygen. Venus Hodge MD August 07, 2017 09:38
[2017-08-07] MEDS: FUROSEMIDE 40 MG/4 ML VIAL IV PUSH SCH ×2 (12:06→16:36)
[2017-08-07] MEDS: ENOXAPARIN SODIUM 40 MG/0.4 ML SYRINGE SQ SCH (16:35)
[2017-08-07] MEDS: TEMAZEPAM 15 MG CAP PO PRN (22:21)
[2017-08-08] VITALS (11 sets, daily range): BP systolic 119–127; BP diastolic 80–103; PULSE 67–107; RESP 17–19; TEMP 97.1–98.2; O2SAT 88–99
[2017-08-08] MEDS: methylPREDNISolone SOD SUCC 40 MG/1 ML VIAL IV PUSH SCH (04:56)
[2017-08-08] MEDS: SODIUM CHLORIDE 0.9% FLUSH 10 ML FLUSH IV FLUSH PRN (04:56)
[2017-08-08] MEDS: DOCUSATE SODIUM 50 MG/SENNA 8.6 MG TAB PO PRN (10:19)
[2017-08-08] MEDS: THIAMINE HCL 100 MG TAB PO SCH (10:19)
[2017-08-08] MEDS: ENALAPRIL MALEATE 2.5 MG TAB PO SCH (10:20)
[2017-08-08] MEDS: POTASSIUM CHLORIDE 20 MEQ CONTROLLED RELEASE TAB PO SCH (10:20)
[2017-08-08] MEDS: FUROSEMIDE 40 MG/4 ML VIAL IV PUSH SCH ×2 (10:20→17:00)
[2017-08-08] MEDS: BUDESONIDE-FORMOTEROL 160/4.5 MCG INHALER INH SCH ×2 (10:21→20:24)
[2017-08-08] MEDS: CARVEDILOL 6.25 MG TAB PO SCH ×2 (10:21→20:23)
[2017-08-08] MEDS: SODIUM CHLORIDE 0.9% FLUSH 10 ML FLUSH IV FLUSH SCH ×2 (10:21→20:24)
[2017-08-08] MEDS: SPIRONOLACTONE 25 MG TAB PO SCH (10:21)
--- NOTE | 2017-08-08 13:21 | HHI.PR ---
Subjective Remarks Patient reports he is feeling better. He is down to 1 L on a nasal cannula. He denies any chest pain. Objective Vitals Vital Signs Date Time Temp Pulse Resp B/P (MAP) Pulse Ox O2 Delivery O2 Flow Rate FiO2 08/08/17 11:20 88 Nasal Cannula 1.00 08/08/17 08:01 97.1 104 17 122/97 (105) 98 08/08/17 08:00 Nasal Cannula 1.00 08/08/17 05:00 97.8 73 19 125/83 (97) 95 08/08/17 04:51 97.8 72 19 125/83 (97) 90 08/07/17 23:52 97.1 58 16 114/69 (84) 96 08/07/17 21:02 97.3 80 16 138/80 (99) 98 08/07/17 19:30 Nasal Cannula 1.00 08/07/17 16:01 97.5 59 17 120/80 (93) 98 I/O 08/07/17 08/07/17 08/07/17 08/08/17 08/08/17 08/08/17 07:00 15:00 23:00 07:00 15:00 23:00 Intake Total 240 ml 600 ml 240 ml Output Total 400 ml Balance 240 ml 200 ml 240 ml Intake Oral 240 ml 600 ml 240 ml Output Urine Total 400 ml # Voids 2 3 3 # Bowel Movements 0 0 Result Diagram: 08/07/17 0459 Objective Remarks GENERAL: This is a well-nourished, well-developed patient, in no apparent distress. CARDIOVASCULAR: Regular rate and rhythm without murmurs, gallops, or rubs. RESPIRATORY: Faint bibasilar crackles otherwise CTA. GASTROINTESTINAL: Abdomen soft, non-tender, nondistended. Normal active bowel sounds MUSCULOSKELETAL: Extremities without clubbing, cyanosis, or edema. NEURO: Alert & Oriented x4 to person, place, time, situation. Moves all ext x4 A/P Problem List: (1) Acute on chronic systolic CHF (congestive heart failure) ICD Code: I50.23 - Acute on chronic systolic (congestive) heart failure (2) COPD (chronic obstructive pulmonary disease) ICD Code: J44.9 - Chronic obstructive pulmonary disease, unspecified (3) Alcohol abuse ICD Code: F10.10 - Alcohol abuse, uncomplicated (4) Cardiomyopathy ICD Code: I42.9 - Cardiomyopathy, unspecified Assessment and Plan Acute on chronic systolic CHF exacerbation Previous EF of 20 - 25% (February 2017), 2D echo reviewed with EF 15% Continue beta-shanna and JUSTINE inhibitor Strict I's and O's Cardiology following. S/P ICD Continue IV Lasix today. Plan to transition to oral Lasix tomorrow. Hypoxemia: - Secondary to above. Diurese, IS, wean off oxygen as tolerated. COPD No current exacerbation Tobacco cessation counseling provided Bronchodilator as needed Transition to oral prednisone. Wean off as tolerated. Alcohol abuse Alcohol cessation counseling provided SIVA cedeño protocol Hyponatremia of beer potomania Secondary to CHF exacerbation, will hold treatment with IV fluid hydration Continue with fluid restriction Monitor electrolytes Tobacco abuse - Tobacco counseling cessation provided DVT prophylaxis - Lovenox Discharge Planning Pending improvement . Wean off O2 as tolerated. No insurance benefit for home oxygen. Venus Hodge MD August 08, 2017 13:21
[2017-08-08] MEDS: ENOXAPARIN SODIUM 40 MG/0.4 ML SYRINGE SQ SCH (16:51)
[2017-08-08] MEDS: predniSONE 20 MG TAB PO SCH (20:23)
[2017-08-08] MEDS: TEMAZEPAM 15 MG CAP PO PRN (22:17)
[2017-08-09] VITALS (7 sets, daily range): BP systolic 109–125; BP diastolic 73–88; PULSE 66–116; RESP 16–17; TEMP 97.2–97.8; O2SAT 92–94
[2017-08-09 05:50] LABS: CALCIUM 8.4 MG/DL (8.5-10.1); CREATININE 0.44 MG/DL (0.60-1.30)
[2017-08-09] MEDS ORDERED: Budeson-Formot 160-4.5 Mcg Inh INH (08:56)
[2017-08-09] MEDS ORDERED: PRED10PA PO (08:56)
[2017-08-09] MEDS: SPIRONOLACTONE 25 MG TAB PO SCH (10:01)
[2017-08-09] MEDS: THIAMINE HCL 100 MG TAB PO SCH (10:02)
[2017-08-09] MEDS: DOCUSATE SODIUM 50 MG/SENNA 8.6 MG TAB PO PRN (10:02)
[2017-08-09] MEDS: CARVEDILOL 6.25 MG TAB PO SCH (10:02)
[2017-08-09] MEDS: ENALAPRIL MALEATE 2.5 MG TAB PO SCH (10:03)
[2017-08-09] MEDS: predniSONE 20 MG TAB PO SCH (10:03)
[2017-08-09] MEDS: FUROSEMIDE 40 MG/4 ML VIAL IV PUSH SCH (10:03)
[2017-08-09] MEDS: POTASSIUM CHLORIDE 20 MEQ CONTROLLED RELEASE TAB PO SCH (10:03)
[2017-08-09] MEDS: SODIUM CHLORIDE 0.9% FLUSH 10 ML FLUSH IV FLUSH SCH (10:04)
[2017-08-09] MEDS: BUDESONIDE-FORMOTEROL 160/4.5 MCG INHALER INH SCH (10:04)
--- NOTE | 2017-08-09 10:14 | HHI.DCPOC ---
Discharge Care Plan Diagnosis: (1) Acute on chronic systolic CHF (congestive heart failure) (2) Cardiomyopathy (3) COPD (chronic obstructive pulmonary disease) (4) Cardiac defibrillator in situ (5) Alcohol abuse (6) Smoking addiction Goals to Promote Your Health * To prevent worsening of your condition and complications * To maintain your health at the optimal level Directions to Meet Your Goals Take your medications as prescribed Follow your dietary instruction Follow activity as directed Keep your appointments as scheduled Take your immunizations and boosters as scheduled If your symptoms worsen call your PCP, if no PCP go to Urgent Care Center or Emergency Room Smoking is Dangerous to Your Health. Avoid second hand smoke Call the 24-hour hour crisis hotline for domestic abuse at Venus Hodge MD August 09, 2017 10:14
--- NOTE | 2017-08-09 10:14 | HHI.DS ---
Discharge Summary Admission Date July 29, 2017 at 14:47 Discharge Date: August 09, 2017 Admitting Diagnosis CHF exacerbation (1) Acute on chronic systolic CHF (congestive heart failure) ICD Code: I50.23 - Acute on chronic systolic (congestive) heart failure (2) COPD (chronic obstructive pulmonary disease) ICD Code: J44.9 - Chronic obstructive pulmonary disease, unspecified (3) Alcohol abuse ICD Code: F10.10 - Alcohol abuse, uncomplicated (4) Cardiomyopathy ICD Code: I42.9 - Cardiomyopathy, unspecified Procedures AICD placement Brief History - From Admission HPI from the admitting physician 61-year-old male with history of systolic CHF, cardiomyopathy was admitted back in February 2017 and discharged home with a LifeVest 3 months which patient returned in June 2017, presented to the ED today for evaluation of worsening symptom of shortness of breath 2 weeks duration and bilateral lower extremity swelling over the past several weeks. Patient reports state over the past several days he was unable to walk past 50 feet without correction up his breath. He currently complains of a dry cough. After patient was discharged from the hospital in February 2017, he states that he wasn't aware that he had to follow-up with cardiology and his PCP. He did run out of his medications end of March 2017. He denies any chest pain. Abnormal lab on admission include BNP of 2556. Vitals on admission Temp 97.2, pulse 90, respiratory rate 20, BP 152/85 and 98% on room air CBC/BMP: 08/09/17 0332 Significant Findings Laboratory Tests Test 08/07/17 04:59 08/09/17 03:32 Blood Urea Nitrogen 21 MG/DL (7-18) Creatinine 0.54 MG/DL (0.60-1.30) 0.44 MG/DL (0.60-1.30) Random Glucose 140 MG/DL (74-106) 115 MG/DL (74-106) Sodium Level 130 MEQ/L (136-145) 130 MEQ/L (136-145) Chloride Level 85 MEQ/L (98-107) 81 MEQ/L (98-107) Carbon Dioxide Level 36.0 MEQ/L (21.0-32.0) 41.0 MEQ/L (21.0-32.0) B-Type Natriuretic Peptide GREATER THAN 5000 PG/ML 2770 PG/ML (0-100) Calcium Level 8.4 MG/DL (8.5-10.1) Potassium Level 3.3 MEQ/L (3.5-5.1) Imaging Last Impressions Chest X-Ray 08/04/17 0000 Signed Impressions: Service Date/Time: Friday, August 04, 2017 22:43 - CONCLUSION: 1. Single lead pacemaker in place from the left subclavian approach. The tip objects over the expected location of the right ventricle. 2. Cardiomegaly. 3. Suspected bilateral effusions with accompanying areas of atelectasis or consolidation at the bases being worse on the right. Dain Pozo MD PE at Discharge GENERAL: This is a well-nourished, well-developed patient, in no apparent distress. CARDIOVASCULAR: Regular rate and rhythm without murmurs, gallops, or rubs. RESPIRATORY: Faint bibasilar crackles otherwise CTA. GASTROINTESTINAL: Abdomen soft, non-tender, nondistended. Normal active bowel sounds MUSCULOSKELETAL: Extremities without clubbing, cyanosis, or edema. NEURO: Alert & Oriented x4 to person, place, time, situation. Moves all ext x4 Pt update on day of discharge Patient reports he is feeling much better. He is off oxygen and is breathing comfortably on room air. Hospital Course 61-year-old male admitted and treated for the following: Acute on chronic systolic CHF exacerbation Previous EF of 20 - 25% (February 2017), 2D echo reviewed with EF 15% Continue beta-shanna and JUSTINE inhibitor Strict I's and O's Cardiology followed the patient. He underwent AICD placement. He is to continue on Lasix, beta-shanna, JUSTINE inhibitor, and spironolactone. Patient is advised to follow-up outpatient with cardiology. Hypoxemia: - Secondary to above and COPD. Patient was diuresed. He was weaned off oxygen. COPD No current exacerbation Tobacco cessation counseling provided Bronchodilator as needed Treated with IV steroids and transitioned to oral prednisone. Alcohol abuse Alcohol cessation counseling provided atif gan, CICELY protocol Hyponatremia of beer potomania Secondary to CHF exacerbation, improved Continue with fluid restriction Tobacco abuse - Tobacco counseling cessation provided Patient had a prolonged hospital stay because he required supplemental oxygen and had no benefit for home oxygen. Oxygen was weaned off. Pt Condition on Discharge: Good Discharge Disposition: Discharge Home Discharge Time: > 30 minutes Discharge Instructions DIET: Follow Instructions for: Heart Healthy Diet Additional Diet Instructions: Limit fluid intake to less than 1500 ml per 24 hrs Activities you can perform: Regular-No Restrictions Follow up Referrals: Cardiology @ [facility] Cardiology @ [facility] with Tyrese Shi MD PCP Follow-up PCP Follow-up @ [facility] New Medications: Spironolactone (Spironolactone) 25 Mg Tab 25 MG PO DAILY for Blood Pressure Management, #30 TAB 0 Refills Carvedilol (Coreg) 6.25 Mg Tab 6.25 MG PO Q12HR for Blood Pressure Management, #60 TAB Enalapril (Enalapril) 2.5 Mg Tab 2.5 MG PO DAILY for Blood Pressure Management, #30 TAB Furosemide (Furosemide) 40 Mg Tab 40 MG PO DAILY for Blood Pressure Management, #30 TAB Prednisone (21) 10 mg tab Dose Pack (Prednisone (21) 10 mg tab Dose Pack) 10 Mg Pack 10 MG PO DIRECTED for Inflammation, #1 DSPK 0 Refills Thiamine HCl (Gnp Vitamin B-1) 100 Mg Tab 100 MG PO DAILY for Nutritional Supplement, #30 TAB [Budeson-Formot 160-4.5 Mcg Inh] () 60 PUFF AERO 2 PUFF INH Q12HR for 30 Days, INH Venus Hodge MD August 09, 2017 10:14
--- NOTE | 2017-08-18 15:51 | PD.CARD ---
SINGLE CHAMBER DEFIB IMPLANT PROCEDURE DATE: August 04, 2017 Prevention: Primary Single Chamber Defib Implant PROCEDURE: Single chamber defibrillator implantation. INDICATIONS: Mr. Villegas is a 61 -year-old male with congestive heart failure, ejection fraction 20% (July 2017), non ischemic cardiomyopathy, referred for defibrillator implantation for sudden prevention. The risks, the nature and the benefit of the procedure are clearly stated to him . Risks include pneumothorax, cardiac perforation, stroke and even . He understood and agreed to proceed. PROCEDURE: After written, informed consent was obtained, the patient was brought to the EP Lab where he was prepped and draped in the sterile fashion. Conscious sedation was initiated and maintained throughout the procedure by anesthesiologist. Once sedation was verified, the left infraclavicular area was anesthetized with 2% Xylocaine. Using modified Seldinger technique, the left subclavian vein was cannulated on one occasion and one guide wire was advanced. Then, using #11 blade scalpel, a 3-cm incision was made two fingerbreadths below left clavicle. This incision was then taken down to the deep fascial layer using Bovie cautery and blunt dissection. Into the inferomedial direction, a device pocket was dissected, then the wire was dissected into the pocket. A 2-0 Vicryl suture was placed around the wires to prevent bleeding. At this point, over the wire, the 9- Tamazight dilator and introducer was advanced. As dilator and wire were removed, an active fixation right ventricular pacing, sensing and defibrillatory lead was advanced. After adequate pacing and sensing thresholds were obtained, the lead was secured in the pocket with #2 Ethibond suture. At that point, the pocket was copiously irrigated with antibiotic solution. The leads were connected to the generator and placed into the pocket. I did proceed with wound closure. The deep fascial layer was approximated with 2-0 Vicryl suture in a continuous fashion. The subcutaneous layer was approximated with 2-0 Vicryl suture in a continuous fashion. The subcuticular layer was approximated with 2-0 Vicryl suture in a continuous fashion. Dermabond adhesive was applied to the wound, followed by a sterile pressure dressing. There was no complication. The patient tolerated procedure. Blood loss minimal. 1. Implanted Hardware: The implanted defibrillator generator is a FreeATM, model number [id number], serial number [id number]. The right ventricular pacing, sensing and defibrillatory lead is a Medtronic model number 6935M-62, serial number [id number]. 2. Thresholds: The right ventricular pacing threshold in the bipolar mode was 0.5volts at 0.5 milliseconds, lead impedance 720 ohms and R-wave at 7.6 mV. 3. Settings: The device set in VVI 40 defibrillatory portion for two zones, one zone for ventricular tachycardia between 170 and 250 beats per minute. Initial therapy consists of one burst of ATP, one ramp, 81%, 10 pulses, 10 millisecond decremental, followed by 20, then 25 and all subsequent shocks at 35 joules defibrillatory shock, the second zone for ventricular fibrillation above 250 beats per minute, first therapy at 25 and all subsequent shocks at 35 joules defibrillatory shock. CONCLUSIONS: Successful defibrillator implantation. COMMENT AND RECOMMENDATIONS: The patient will be transferred to the telemetry unit, will be observed and when stable can be discharged home. Yfn Pathak MD August 18, 2017 15:51
== END 2017-08-09 13:22 | disposition home or self-care (01) | DRG 226 ==
LOC: NEPC 10:37 → NEDA 14:22 → OBSVTOIN 14:47 → N04A 16:41 → HCIS 08-04 22:50 → N04A 08-05 23:55
PROVIDERS: ADMIT Family Medicine; ATTEND Family Medicine
PROC: 02HK3KZ Insertion of Defibrillator Lead into Right Ventricle, Percutaneous Approach (ICD-10-PCS; 2017-08-04)
PROC: 0JH608Z Insertion of Defibrillator Generator into Chest Subcutaneous Tissue and Fascia, Open Approach (ICD-10-PCS; principal; 2017-08-04 17:45)
DX: I50.23 Acute on chronic systolic (congestive) heart failure (principal); J96.01 Acute respiratory failure with hypoxia; I47.2 Ventricular tachycardia; I95.9 Hypotension, unspecified; E87.1 Hypo-osmolality and hyponatremia; J44.9 Chronic obstructive pulmonary disease, unspecified; I25.5 Ischemic cardiomyopathy; F10.10 Alcohol abuse, uncomplicated; F17.210 Nicotine dependence, cigarettes, uncomplicated
CPT/HCPCS: 33249; 71045; 76937; 80048; 80053; 80061; 81001; 82550; 82552; 83735; 83880; 84100; 84484; 85025; 85610; 85730; 93005; 93306; 94150; 94618; 94640; 94664; 96374; C1722; C1777; J0690; J1650; J1940; J2405; J2920; J3475; J7512

== ENCOUNTER 2017-10-11 18:49 | Inpatient (IN) ==
--- NOTE | 2017-10-11 20:21 | ED ---
HPI General Chief Complaint: Shortness of Breath/Dyspnea Stated Complaint: SOB Time Seen by Provider: 10/11/17 19:46 Source: patient Mode of arrival: ambulatory Limitations: no limitations History of Present Illness 61-year-old male the presents to the ED for evaluation of shortness of breath with exertion as well as lower leg swelling. Per patient he has had this for at least a week or 2. Per patient he has a history of CHF exacerbation as well as a CD placed. Apparently patient was supposed to follow-up with a kinder teacher and possible primary care doctor but has not been successful. He has been out of his medication for quite some time. He does not really know what he used to take. He does remember taking a water pill. He does note that he has a history of CHF and this feels similar to his CHF. He does not know if he supposed to be no blood thinner but he believes that he is supposed to. He denies any chest pain. He states that the ICD has not flared on him. Denies any urinary or bowel movement issues. No pain. Shortness of breath does get worse with exertion but also with laying flat. Related Data Home Medications Medication Instructions Recorded Confirmed No Known Home Medications 10/11/17 10/11/17 Allergies Allergy/AdvReac Type Severity Reaction Status Date / Time No Known Allergies Allergy Verified 10/11/17 19:08 Review of Systems ROS Unobtainable All other systems reviewed negative except as stated in HPI [facility] Medical History Medical History COPD (chronic obstructive pulmonary disease) (Acute) Surgical History Surgical History AICD (automatic cardioverter/defibrillator) present (Acute) Social History Social History Substance History: No History of Abuse Second Hand Smoke Exposure: Yes Smoking Status: Former smoker How Often Do You Have a Drink Containing Alcohol: 4 or more times a week Recent Travel in [facility] within the Last 8 Weeks: No Recent Out of Country Travel within the Last 8 Weeks: No Immunization History Tetanus Immunization: Unsure Exam Narrative Exam Narrative: GENERAL: Well-appearing SKIN: Focused skin assessment warm/dry. HEAD: Atraumatic. Normocephalic. EYES: Pupils equal and round. No scleral icterus. No injection or drainage. ENT: No nasal bleeding or discharge. Mucous membranes pink and moist. Tongue is midline. No uvula deviation. NECK: Trachea midline. No JVD. CARDIOVASCULAR: Regular rate and rhythm. No murmur appreciated. RESPIRATORY: No accessory muscle use. Some rales heard in lower lung gonzalez. Breath sounds equal bilaterally. GASTROINTESTINAL: Abdomen soft, non-tender, nondistended. Hepatic and splenic margins not palpable. MUSCULOSKELETAL: No obvious deformities. No clubbing. No cyanosis. No edema. Full range of motion of the upper and lower extremities bilaterally. 1+ pitting edema in the lower extremities bilaterally. NEUROLOGICAL: Awake and alert. No obvious cranial nerve deficits. Motor grossly within normal limits. Normal speech. PSYCHIATRIC: Appropriate mood and affect; insight and judgment normal. Course Initial Documented Vital Signs Temperature 97.6 F 10/11/17 19:02 Pulse Rate 90 10/11/17 19:02 Respiratory Rate 20 10/11/17 19:02 Blood Pressure 130/79 10/11/17 19:02 Pulse Oximetry 97 10/11/17 19:02 Last Documented Vital Signs Temperature 97.6 F 10/11/17 19:02 Pulse Rate 96 H 10/11/17 19:27 Respiratory Rate 18 10/11/17 19:27 Blood Pressure 125/77 10/11/17 19:27 Pulse Oximetry 98 10/11/17 19:30 Medical Decision Making NEMESIO Attestation NEMESIO supervised visit: Yes MDM Narrative Medical decision making narrative: 61-year-old male the presents to the ED for evaluation of possible CHF exacerbation. Labs and imaging were ordered. Patient was given IV Lasix. Labs and imaging showed possible CHF exacerbation. Pulmonary edema as well as very elevated BNP. Also slight hyponatremia. Patient symptomatic with ambulation. Fortunately patient is somewhat noncompliant secondary to not having care. At this time recommendation is for admission. My attending agrees with this. Case discussed with Dr. Montanez who agrees with admission. Differential Diagnosis Differential Diagnosis: CHF exacerbation versus chest pain versus ACS versus DVT Medical Records Medical records reviewed: Yes I reviewed the patient's medical records. Lab Data Lab results reviewed: Yes I reviewed the patient's lab results. Lab results narrative: BNP in the 1999 Troponin and CK-MB within normal limits. Result diagrams: 10/11/17 20:00 10/11/17 20:00 Lab Results 10/11/17 10/11/17 10/11/17 Range/Units 20:00 20:00 20:00 WBC 6.2 (4.0-11.0) th/mm3 RBC 3.70 L (4.50-5.90) mil/mm3 Hgb 12.2 L (13.0-17.0) gm/dL Hct 36.3 L (39.0-51.0) % MCV 98.2 (80.0-100.0) fL MCH 33.0 (27.0-34.0) pg MCHC 33.6 (32.0-36.0) % RDW 15.9 (11.6-17.2) % Plt Count 254 (150-450) th/mm3 MPV 8.0 (7.0-11.0) fL Neut % (Auto) 73.4 H (16.0-70.0) % Lymph % (Auto) 13.7 (9.0-44.0) % [place] % (Auto) 10.5 H (0.0-8.0) % Eos % (Auto) 1.7 (0.0-4.0) % Baso % (Auto) 0.7 (0.0-2.0) % Neut # (Auto) 4.6 (1.8-7.7) th/mm3 Lymph # (Auto) 0.9 L (1.0-4.8) th/mm3 [place] # (Auto) 0.7 (0.0-0.9) th/mm3 Eos # (Auto) 0.1 (0.0-0.4) th/mm3 Baso # (Auto) 0.0 (0.0-0.2) th/mm3 WBC Differential . Differential Comment Auto diff final PT 11.3 (9.8-11.6) sec INR 1.1 Ratio Sodium (136-145) meq/L Potassium (3.5-5.1) meq/L Chloride (98-107) meq/L Carbon Dioxide (21.0-32.0) meq/L Anion Gap (5-15) meq/L BUN (7-18) mg/dL Creatinine (0.60-1.30) mg/dL Estimated GFR (>89) mL/min Random Glucose (74-106) mg/dL Calcium (8.5-10.1) mg/dL Total Creatine Kinase (39-308) U/L Troponin I (0.02-0.05) ng/mL B-Natriuretic Peptide 2036 H (0-100) pg/mL 10/11/17 Range/Units 20:00 WBC (4.0-11.0) th/mm3 RBC (4.50-5.90) mil/mm3 Hgb (13.0-17.0) gm/dL Hct (39.0-51.0) % MCV (80.0-100.0) fL MCH (27.0-34.0) pg MCHC (32.0-36.0) % RDW (11.6-17.2) % Plt Count (150-450) th/mm3 MPV (7.0-11.0) fL Neut % (Auto) (16.0-70.0) % Lymph % (Auto) (9.0-44.0) % [place] % (Auto) (0.0-8.0) % Eos % (Auto) (0.0-4.0) % Baso % (Auto) (0.0-2.0) % Neut # (Auto) (1.8-7.7) th/mm3 Lymph # (Auto) (1.0-4.8) th/mm3 [place] # (Auto) (0.0-0.9) th/mm3 Eos # (Auto) (0.0-0.4) th/mm3 Baso # (Auto) (0.0-0.2) th/mm3 WBC Differential Differential Comment PT (9.8-11.6) sec INR Ratio Sodium 128 L (136-145) meq/L Potassium 4.0 (3.5-5.1) meq/L Chloride 91 L (98-107) meq/L Carbon Dioxide 26.2 (21.0-32.0) meq/L Anion Gap 11 (5-15) meq/L BUN 11 (7-18) mg/dL Creatinine 0.64 (0.60-1.30) mg/dL Estimated GFR Greater than 89 (>89) mL/min Random Glucose 84 (74-106) mg/dL Calcium 9.0 (8.5-10.1) mg/dL Total Creatine Kinase 73 (39-308) U/L Troponin I 0.03 (0.02-0.05) ng/mL B-Natriuretic Peptide (0-100) pg/mL Imaging Data Attestation: I personally reviewed and interpreted this imaging study as follows : Radiologist's impression: Chest X-Ray 10/11/17 19:57 CONCLUSION: Increased density at the bases. There appear to be mild bilateral pleural effusions. Some degree of atelectasis or consolidation especially on the right also needs to be considered. Enlargement of cardiac silhouette. Pacing/AICD device in place. Venous Doppler Study 10/11/17 19:58 CONCLUSION: No DVT. ECG Data EKG Prior to Arrival: No Attestation: I personally reviewed and interpreted this ECG as follows: Interpretation: EKG shows sinus rhythm with no sign of acute ischemia or arrhythmia read by me and attending. Discharge Plan Physicians Team ED Provider: Geovanny Flores ED Midlevel Provider: Juancho Ahumada Primary Care Provider: Primary Care Aisha Webb Rxs /Orders / Referrals /Forms Prescriptions: No Action No Known Home Medications RF: 0 Discharge Interventions Interventions: Vital Signs Last Done: 10/11/17 19:27 Status ED Status: With Doctor
[2017-10-11 20:29] LABS: Baso % (Auto) 0.7 % (0.0-2.0); Eos # (Auto) 0.1 th/mm3 (0.0-0.4); Eos % (Auto) 1.7 % (0.0-4.0); Hematocrit 36.3 % (39.0-51.0); Hemoglobin 12.2 gm/dL (13.0-17.0); Lymph # (Auto) 0.9 th/mm3 (1.0-4.8); Lymph % (Auto) 13.7 % (9.0-44.0); Mean Corpuscular HGB Conc 33.6 % (32.0-36.0); Mean Corpuscular Volume 98.2 fL (80.0-100.0); Mono # (Auto) 0.7 th/mm3 (0.0-0.9); Mono % (Auto) 10.5 % (0.0-8.0); Neut # (Auto) 4.6 th/mm3 (1.8-7.7); Neut % (Auto) 73.4 % (16.0-70.0); Platelet Count 254 th/mm3 (150-450); Red Cell Distribution Width 15.9 % (11.6-17.2); White Blood Count 6.2 th/mm3 (4.0-11.0)
[2017-10-11 20:40] LABS: INR 1.1 Ratio; Prothrombin Time 11.3 sec (9.8-11.6)
[2017-10-11 20:49] LABS: Anion Gap 11 meq/L (5-15); Blood Urea Nitrogen 11 mg/dL (7-18); Carbon Dioxide 26.2 meq/L (21.0-32.0); Chloride 91 meq/L (98-107); Glomerular Filtration Rate Greater Than 89 mL/min (>89); Glucose,Random 84 mg/dL (74-106); Sodium 128 meq/L (136-145)
[2017-10-11 20:53] LABS: Troponin I 0.03 ng/mL (0.02-0.05)
[2017-10-11 20:55] LABS: Creatine Kinase 73 U/L (39-308)
--- NOTE | 2017-10-11 21:06 | XR ---
EXAM DATE: 10/11/2017 8:30 PM EDT AGE/SEX: 61 years / Male INDICATIONS: Short of Breath CLINICAL DATA: This is the patient's initial encounter. Patient reports that signs and symptoms have been present for 1 day and indicates a pain score of 0/10. MEDICAL/SURGICAL HISTORY: Cardiovascular disease. Pacemaker. COMPARISON: [facility] – [place], CHEST SINGLE AP, 08/04/2017. . FINDINGS: There is a pacing/AICD device in place from the left subclavian approach. The cardiac silhouette is e nlarged. There is increased density at the bases bilaterally being worse on the right. The right uppe r lung and the left upper and midlung are clear. CONCLUSION: Increased density at the bases. There appear to be mild bilateral pleural effusions. Some degree of a telectasis or consolidation especially on the right also needs to be considered. Enlargement of cardiac silhouette. Pacing/AICD device in place. Electronically signed by: Dain Pozo MD 10/11/2017 9:05 PM EDT
--- NOTE | 2017-10-11 21:25 | US ---
EXAM DATE: 10/11/2017 9:07 PM EDT AGE/SEX: 61 years / Male INDICATIONS: Right leg swelling. CLINICAL DATA: This is the patient's initial encounter. Patient reports that signs and symptoms have been present for 3 days and indicates a pain score of 0/10. MEDICAL/SURGICAL HISTORY: Chronic obstructive pulmonary disease. . Defibrillator. COMPARISON: No prior exams available for comparison. TECHNIQUE: Venous ultrasound of both lower extremities was performed from the inguinal ligament to t he proximal calf. Real-time, color Doppler and spectral tracing, compression and augmentation techni ques were used. FINDINGS: Normal compression of the deep venous system from the inguinal region to the proximal calf . No echogenic clot is seen. Normal response of the venous system to augmentation and respiration. CONCLUSION: No DVT. Electronically signed by: Dain Pozo MD 10/11/2017 9:24 PM EDT
[2017-10-11] MEDS ORDERED: Bisacodyl 10 MG Supp RECTAL PRN (22:05)
[2017-10-11] MEDS ORDERED: Temazepam 15 MG Capsule PO PRN (22:05)
[2017-10-11] MEDS ORDERED: Acetaminophen 325 MG Tablet PO PRN (22:05)
[2017-10-11] MEDS ORDERED: Haloperidol Inj 5 MG/ML Ampul IV.PUSH PRN (22:09)
[2017-10-11] MEDS ORDERED: LORazepam 1 MG Tablet PO PRN (22:09)
--- NOTE | 2017-10-11 22:10 | P.HPIM ---
History of Present Illness Primary Care Physician: No Primary Care Physician History of Present Illness: This is a 61-year-old male with PMH of CHF (Echo 07/30/2017 with EF 15-20%), s/p AICD, COPD and Alcohol Abuse who presented to the ER w/ complaints of SOB and bilateral lower extremity edema. States symptoms have been ongoing for several weeks, now progressively worse. Previous admit 07/29-08/09/17 for similar complaints, s/p AICD placement by Dr. Pathak. States he ran out of medications approx 1.5 months ago and has not followed up w/ Cardiology. Denies chest pain , cough or sick contacts. Notes RLE edema x1 wk, LLE edema for 1-2 days. On arrival, BP 130/79, HR 90, O2 sat 97% on RA, Afebrile. CBC at baseline. Chemistry unremarkable except for Na 128. Troponin 0 0.03. BNP 2036. CXR w/ mild bilateral pleural effusions. S/p Lasix 40mg IV in ER w/ good diuresis. - Diagnosis (1) CHF (congestive heart failure) (2) Hyponatremia (3) Non-compliance Inpatient Certification: I certify that the inpatient services were ordered in accordance with Medicare regulations governing the order. This includes certification that hospital inpatient services are reasonable and necessary and in the case of services not specified as inpatient-only under 42 CFR 419.22(n), that they are appropriately provided as inpatient services in accordance to with the 2-midnight benchmark under 43 CFR 412.3(e) Estimated Total Length of Stay (Days): 2 Plans for Post Hospital Care: Not yet determined Review of Systems All other systems reviewed negative except as stated in HPI [facility] - History History Provided By: Patient - Medical History Medical History: Medical History (Last Reviewed 10/11/17 @ 20:20 by JEREMY Moura) COPD (chronic obstructive pulmonary disease) - Surgical History Surgical History: Surgical History (Last Reviewed 10/11/17 @ 20:20 by JEREMY Moura) AICD (automatic cardioverter/defibrillator) present - Tobacco History Second Hand Smoke Exposure: Yes Smoking Status: Former smoker - Alcohol History How Often Do You Have a Drink Containing Alcohol: 4 or more times a week - Substance Use History Substance History: No History of Abuse - Travel History Recent Travel in the [facility] Within the Last 8 Weeks: No Recent Travel Out of the Country Within the Last 8 Weeks: No - Immunization History Tetanus Immunization: Unsure Medications and Allergies Active Medications: Active Medications Acetaminophen (Tylenol) 650 mg PO Q4H PRN PRN Reason: Temp > 100.4 Al Hydroxide/Mg Hydroxide (Milk Of Magnesia Liq) 30 ml PO Q12H PRN PRN Reason: Mild Constipation Aspirin (Ecotrin) 81 mg PO DAILY SAWYER Bisacodyl (Dulcolax Supp) 10 mg RECTAL DAILY PRN PRN Reason: SEVERE CONSITIPATION Carvedilol (Coreg) 6.25 mg PO BID SAWYER Furosemide (Lasix Inj) 40 mg IV.PUSH BID@0900,1800 SAWYER Heparin Sodium (Porcine) (Heparin Inj) 5,000 units SQ Q12H SAWYER Lactulose (Lactulose Liq) 30 ml PO DAILY PRN PRN Reason: SEVERE CONSITIPATION Ondansetron HCl (Zofran Inj) 4 mg IV.PUSH Q6H PRN PRN Reason: NAUSEA OR VOMITING Senna/Docusate Sodium (Galilea-Colace) 1 tab PO BID SAWYER Sennosides (Senokot) 17.2 mg PO Q12H PRN PRN Reason: Moderate Constipation Temazepam (Restoril) 15 mg PO HS PRN PRN Reason: INSOMNIA Allergies Allergy/AdvReac Type Severity Reaction Status Date / Time No Known Allergies Allergy Verified 10/11/17 19:08 Home Medications Medication Instructions Recorded Confirmed Type No Known Home Medications 10/11/17 10/11/17 History Exam Vital signs: Vital Signs 10/11/17 19:02 10/11/17 19:27 10/11/17 19:30 Temperature 97.6 F Pulse Rate 90 96 H Respiratory Rate 20 18 Blood Pressure 130/79 125/77 Pulse Oximetry 97 98 98 Intake & Output 10/11/17 10/11/17 10/12/17 06:59 18:59 06:59 Weight 56.699 kg Narrative: PE: GENERAL: Middle-aged white male in no acute distress. HEENT: PERRLA, EOMI. No scleral icterus or conjunctival pallor. No lid lag or facial droop. CARDIOVASCULAR: Regular rate and rhythm. No obvious murmurs to auscultation. No chest tenderness to palpation. RESPIRATORY: No obvious rhonchi or wheezing. Clear to auscultation. Breath sounds equal bilaterally. GASTROINTESTINAL: Abdomen soft, non-tender, nondistended. BS normal. MUSCULOSKELETAL: Extremities without clubbing, cyanosis. Bilateral LE edema, left>right. No obvious deformities. NEUROLOGICAL: Awake, alert and oriented x4. No focal neurologic deficits. Moving both upper and lower extremities spontaneously. Results - Labs CBC & Chem 7: 10/11/17 20:00 10/11/17 20:00 Labs: Short CBC 10/11/17 Range/Units 20:00 WBC 6.2 (4.0-11.0) th/mm3 Hgb 12.2 L (13.0-17.0) gm/dL Hct 36.3 L (39.0-51.0) % Plt Count 254 (150-450) th/mm3 BMP 10/11/17 20:00 Sodium 128 L Potassium 4.0 Chloride 91 L Carbon Dioxide 26.2 BUN 11 Creatinine 0.64 Calcium 9.0 Cardiac Enzymes 10/11/17 Range/Units 20:00 Total Creatine Kinase 73 (39-308) U/L Troponin I 0.03 (0.02-0.05) ng/mL - Imaging Impressions Chest X-Ray 10/11/17 19:57 CONCLUSION: Increased density at the bases. There appear to be mild bilateral pleural effusions. Some degree of atelectasis or consolidation especially on the right also needs to be considered. Enlargement of cardiac silhouette. Pacing/AICD device in place. Venous Doppler Study 10/11/17 19:58 CONCLUSION: No DVT. Caprini VTE Risk Assessment Caprini VTE Risk Assessment: No/Low Risk (score <= 1) Caprini Risk Assessment Model: Point Value = 1 Point Value = 2 Point Value = 3 Point Value = 5 Age 41-60 Minor surgery BMI > 25 kg/m2 Swollen legs Varicose veins or History of unexplained or recurrent spontaneous Oral contraceptives or hormone replacement Sepsis (< 1 month) Serious lung disease, including pneumonia (< 1 month) Abnormal pulmonary function Acute myocardial infarction Congestive heart failure (< 1 month) History of inflammatory bowel disease Medical patient at bed rest Age 61-74 Arthroscopic surgery Major open surgery (> 45 min) Laparoscopic surgery (> 45 min) Malignancy Confined to bed (> 72 hours) Immobilizing plaster cast Central venous access Age >= 75 History of VTE Family history of VTE Factor V Leiden Prothrombin [id number] Lupus anticoagulant Anticardiolipin antibodies Elevated serum homocysteine Heparin-induced thrombocytopenia Other congenital or acquired thrombophilia Stroke (< 1 month) Elective arthroplasty Hip, pelvis, or leg fracture Acute spinal cord injury (< 1 month) Prophylaxis Regimen: Total Risk Factor Score Risk Level Prophylaxis Regimen 0-1 Low Early ambulation 2 Moderate Order ONE of the following: *Sequential Compression Device (SCD) *Heparin 5000 units SQ BID 3-4 Higher Order ONE of the following medications: *Heparin 5000 units SQ TID *Enoxaparin/Lovenox 40 mg SQ daily (WT < 150 kg, CrCl > 30 mL/min) *Enoxaparin/Lovenox 30 mg SQ daily (WT < 150 kg, CrCl > 10-29 mL/min) *Enoxaparin/Lovenox 30 mg SQ BID (WT < 150 kg, CrCl > 30 mL/min) AND/OR *Sequential Compression Device (SCD) 5 or more Highest Order ONE of the following medications: *Heparin 5000 units SQ TID (Preferred with Epidurals) *Enoxaparin/Lovenox 40 mg SQ daily (WT < 150 kg, CrCl > 30 mL/min) *Enoxaparin/Lovenox 30 mg SQ daily (WT < 150 kg, CrCl > 10-29 mL/min) *Enoxaparin/Lovenox 30 mg SQ BID (WT < 150 kg, CrCl > 30 mL/min) AND *Sequential Compression Device (SCD) Assessment and Plan - Assessment (1) CHF (congestive heart failure) Code(s): I50.9 - Heart failure, unspecified Status: Acute (2) Hyponatremia Code(s): E87.1 - Hypo-osmolality and hyponatremia Status: Acute (3) Non-compliance Code(s): Z91.19 - Patient's noncompliance with other medical treatment and regimen Status: Acute - Plan A/P: 1. CHF: Acute on Chronic. Systolic. Echo 07/30/17 w/ EF 15%, s/p AICD placement by Dr. Pathak on last admissions, off medications x1.5 months, now w/ worsening LE edema. Doppler negative for DVT. CXR w/ bilateral pleural effusions, images reviewed by me. BNP 2035. S/p Lasix 40mg IV in ER, continue w/ diuresis, monitor I/O. Start Coreg, Lisinopril, ASA. 2. Hyponatremia: Na 128, likely due to CHF, fluid restriction, monitor I/O, repeat labs in am. 3. Non-compliance: off meds x1.5 months, has not followed up w/ Cardiology as outpatient, stressed importance of taking medications as directed and obtaining follow up 4. DVT Prophylaxis: Heparin sq 5. Social work for d/c planning as needed 6. Case discussed w/ ER physician at length, labs/records/imaging reviewed by me.
[2017-10-12] MEDS ORDERED: Carvedilol 6.25 MG Tablet PO SCH (09:00)
[2017-10-12] MEDS: Heparin - SQ 10,000 UNITS/ML Vial SQ SCH ×2 (10:20→21:30)
[2017-10-12] MEDS: Multivitamin/Minerals Therapeutic Tablet PO SCH (10:21)
[2017-10-12] MEDS: Folic Acid 1 MG Tablet PO SCH (10:21)
[2017-10-12] MEDS: Lisinopril 5 MG Tablet PO SCH (10:21)
[2017-10-12] MEDS: Senna/Docusate Sodium 8.6/50 MG Tablet PO SCH ×2 (10:22→21:29)
[2017-10-12 14:02] LABS: Baso % (Auto) 0.8 % (0.0-2.0); Eos # (Auto) 0.2 th/mm3 (0.0-0.4); Eos % (Auto) 2.8 % (0.0-4.0); Hematocrit 39.9 % (39.0-51.0); Hemoglobin 13.2 gm/dL (13.0-17.0); Lymph # (Auto) 0.8 th/mm3 (1.0-4.8); Lymph % (Auto) 14.9 % (9.0-44.0); Mean Corpuscular Hemoglobin 32.1 pg (27.0-34.0); Mean Corpuscular Volume 97.3 fL (80.0-100.0); Mean Platelet Volume 7.8 fL (7.0-11.0); Mono # (Auto) 0.6 th/mm3 (0.0-0.9); Mono % (Auto) 10.7 % (0.0-8.0); Neut % (Auto) 70.8 % (16.0-70.0); Platelet Count 278 th/mm3 (150-450); Red Cell Distribution Width 15.5 % (11.6-17.2); White Blood Count 5.7 th/mm3 (4.0-11.0)
--- NOTE | 2017-10-12 14:15 | P.PNIM ---
Subjective Interval history: still with SOB with exertion. no c/o o chest pain. c/o dry cough. Physical Exam Vital signs: Vital Signs 10/11/17 19:02 10/11/17 19:27 10/11/17 19:30 Temperature 97.6 F Pulse Rate 90 96 H Respiratory Rate 20 18 Blood Pressure 130/79 125/77 Pulse Oximetry 97 98 98 10/11/17 22:21 10/12/17 05:51 10/12/17 07:07 Temperature Pulse Rate 86 86 86 Respiratory Rate 16 18 17 Blood Pressure 122/82 124/75 127/74 Pulse Oximetry 97 95 96 10/12/17 09:32 10/12/17 12:00 Temperature 97.9 F 97.7 F Pulse Rate 103 H 80 Respiratory Rate 20 18 Blood Pressure 103/79 107/76 Pulse Oximetry 95 93 L Intake & Output 10/11/17 10/12/17 10/12/17 18:59 06:59 18:59 Weight 56.699 kg Other: Date of Last Bowel Movement 10/11/17 Narrative: GENERAL: This is a well-nourished, well-developed patient, in no apparent distress. CARDIOVASCULAR: Regular rate and rhythm RESPIRATORY:diminished breath sounds bilaterally with few crackles GASTROINTESTINAL: Abdomen soft, non-tender, nondistended. Normal active bowel sounds MUSCULOSKELETAL: Extremities without clubbing, cyanosis, or edema. NEURO: Alert & Oriented x4 to person, place, time, situation. Moves all ext x4 Results - Labs CBC & Chem 7: 10/12/17 13:20 10/11/17 20:00 Laboratory Results - last 24 hr 10/11/17 10/11/17 10/11/17 20:00 20:00 20:00 WBC 6.2 RBC 3.70 L Hgb 12.2 L Hct 36.3 L MCV 98.2 MCH 33.0 MCHC 33.6 RDW 15.9 Plt Count 254 MPV 8.0 Neut % (Auto) 73.4 H Lymph % (Auto) 13.7 [place] % (Auto) 10.5 H Eos % (Auto) 1.7 Baso % (Auto) 0.7 Neut # (Auto) 4.6 Lymph # (Auto) 0.9 L [place] # (Auto) 0.7 Eos # (Auto) 0.1 Baso # (Auto) 0.0 WBC Differential . Differential Comment Auto diff final PT 11.3 INR 1.1 Sodium Potassium Chloride Carbon Dioxide Anion Gap BUN Creatinine Estimated GFR POC Glucose Random Glucose Calcium Total Creatine Kinase Troponin I B-Natriuretic Peptide 2036 H 10/11/17 10/12/17 10/12/17 20:00 10:28 13:20 WBC 5.7 RBC 4.10 L Hgb 13.2 Hct 39.9 MCV 97.3 MCH 32.1 MCHC 33.0 RDW 15.5 Plt Count 278 MPV 7.8 Neut % (Auto) 70.8 H Lymph % (Auto) 14.9 [place] % (Auto) 10.7 H Eos % (Auto) 2.8 Baso % (Auto) 0.8 Neut # (Auto) 4.0 Lymph # (Auto) 0.8 L [place] # (Auto) 0.6 Eos # (Auto) 0.2 Baso # (Auto) 0.0 WBC Differential . Differential Comment Auto diff final PT INR Sodium 128 L Potassium 4.0 Chloride 91 L Carbon Dioxide 26.2 Anion Gap 11 BUN 11 Creatinine 0.64 Estimated GFR Greater than 89 POC Glucose 93 Random Glucose 84 Calcium 9.0 Total Creatine Kinase 73 Troponin I 0.03 B-Natriuretic Peptide - Imaging Impressions Chest X-Ray 10/11/17 19:57 CONCLUSION: Increased density at the bases. There appear to be mild bilateral pleural effusions. Some degree of atelectasis or consolidation especially on the right also needs to be considered. Enlargement of cardiac silhouette. Pacing/AICD device in place. Venous Doppler Study 10/11/17 19:58 CONCLUSION: No DVT. Assessment and Plan - Assessment (1) CHF (congestive heart failure) Code(s): I50.9 - Heart failure, unspecified Status: Acute (2) Hyponatremia Code(s): E87.1 - Hypo-osmolality and hyponatremia Status: Acute (3) Non-compliance Code(s): Z91.19 - Patient's noncompliance with other medical treatment and regimen Status: Acute - Plan 1. Acute on chronic systolic CHF: Lasix 40 mg IV BID, fluid restriction, strict I and O. Echo 07/30/17 w/ EF 15%, s/p AICD placement by Dr. Pathak on last admissions, off medications x1.5 months, now w/ worsening LE edema. Doppler negative for DVT. Start Coreg, Lisinopril, ASA. 2. Hyponatremia: likely due to CHF, fluid restriction, monitor I/O, monitor 3. Non-compliance, nonadherence to medications: off meds x 1.5 months, has not followed up w/ Cardiology as outpatient, stressed importance of taking medications as directed and obtaining follow up 4. DVT Prophylaxis: Heparin sq (1) CHF (congestive heart failure) Qualifiers: Heart failure type: systolic Heart failure chronicity: chronic Qualified Code(s): I50.22 - Chronic systolic (congestive) heart failure
[2017-10-12 14:30] LABS: Albumin 3.3 g/dL (3.4-5.0); Anion Gap 14 meq/L (5-15); Aspartate Aminotransferase 21 U/L (15-37); Blood Urea Nitrogen 9 mg/dL (7-18); Calcium 9.6 mg/dL (8.5-10.1); Carbon Dioxide 30.5 meq/L (21.0-32.0); Chloride 89 meq/L (98-107); Glomerular Filtration Rate Greater Than 89 mL/min (>89); Glucose,Random 74 mg/dL (74-106); Sodium 133 meq/L (136-145)
[2017-10-12 14:35] LABS: Alanine Aminotransferase 13 U/L (12-78); Alkaline Phosphatase 120 U/L (45-117); Total Protein 7.1 g/dL (6.4-8.2)
--- NOTE | 2017-10-12 18:19 | ECG ---
Date Performed: 10/11/2017 Time Performed: 19:16:16 PTAGE: 61 years EKG: Sinus rhythm WITH FREQUENT VENTRICULAR PREMATURE COMPLEXES WITH OCCASIONAL SUPRAVENTRICULAR PREMATURE COMPLEXES I NFERIOR MYOCARDIAL INFARCTION ABNORMAL ECG Compared to PREVIOUS TRACING , ectopy is now present. PREVIOUS TRACIN08/05/2017 06.30 DOCTOR: Tyrese Shi Interpretating Date/Time 10/12/2017 18:18:11
[2017-10-13] MEDS: Multivitamin/Minerals Therapeutic Tablet PO SCH (08:36)
[2017-10-13] MEDS: Folic Acid 1 MG Tablet PO SCH (08:36)
[2017-10-13] MEDS: Senna/Docusate Sodium 8.6/50 MG Tablet PO SCH ×2 (08:36→20:56)
[2017-10-13] MEDS: Heparin - SQ 10,000 UNITS/ML Vial SQ SCH ×2 (08:37→20:55)
--- NOTE | 2017-10-13 09:48 | P.PN ---
Physical Exam Vital signs: Vital Signs 10/12/17 10:00 10/12/17 11:00 10/12/17 12:00 Temperature 97.7 F Pulse Rate 71 81 72 Respiratory Rate 18 Blood Pressure 107/76 Pulse Oximetry 93 L 10/12/17 13:00 10/12/17 14:00 10/12/17 15:00 Temperature Pulse Rate 64 84 77 Respiratory Rate Blood Pressure Pulse Oximetry 10/12/17 16:00 10/12/17 17:00 10/12/17 17:38 Temperature 98.1 F Pulse Rate 66 83 Respiratory Rate 20 Blood Pressure 92/57 L 101/66 Pulse Oximetry 93 L 10/12/17 18:00 10/12/17 19:00 10/12/17 20:00 Temperature 98.0 F Pulse Rate 85 72 71 Respiratory Rate 16 Blood Pressure 100/56 L Pulse Oximetry 94 L 10/12/17 21:00 10/12/17 22:00 10/12/17 22:05 Temperature Pulse Rate 70 64 64 Respiratory Rate Blood Pressure Pulse Oximetry 10/12/17 23:00 10/13/17 00:00 10/13/17 01:00 Temperature Pulse Rate 68 64 60 Respiratory Rate 18 Blood Pressure Pulse Oximetry 92 L 10/13/17 02:00 10/13/17 03:00 10/13/17 04:00 Temperature Pulse Rate 70 62 88 Respiratory Rate 18 Blood Pressure 110/75 Pulse Oximetry 94 L 10/13/17 05:00 10/13/17 06:00 Temperature Pulse Rate 66 106 H Respiratory Rate Blood Pressure Pulse Oximetry Intake & Output 10/12/17 10/13/17 10/13/17 18:59 06:59 18:59 Intake Total 240 / 240 Balance 240 / 240 Weight 54.1 kg Intake: Oral 240 / 240 Other: # Voids 2 Date of Last Bowel Movement 10/11/17 10/11/17 Narrative: Subjective Interval history: F.up acute systolic CHF with exacerbation In bed, says he still shortness of breath especially with exertion. No chest pain or nausea. No diaphoresis. No lightheadedness. Feels tired. Physical Exam GENERAL: This is a well-nourished, well-developed patient, in no apparent distress. CARDIOVASCULAR: Regular rate and rhythm RESPIRATORY:diminished breath sounds bilaterally with few crackles GASTROINTESTINAL: Abdomen soft, non-tender, nondistended. Normal active bowel sounds MUSCULOSKELETAL: Extremities without clubbing, cyanosis, or edema. NEURO: Alert & Oriented x4 to person, place, time, situation. Moves all ext x4 Assessment and Plan 1. Acute on chronic systolic CHF: Lasix 40 mg IV BID, fluid restriction, strict I and O. Echo 07/30/17 w/ EF 15%, s/p AICD placement by Dr. Pathak on last admissions, off medications x1.5 months, now w/ worsening LE edema. Doppler negative for DVT. Start Coreg, Lisinopril, ASA. 2. Hyponatremia: likely due to CHF, fluid restriction, monitor I/O, monitor 3. Non-compliance, nonadherence to medications: off meds x 1.5 months, has not followed up w/ Cardiology as outpatient, stressed importance of taking medications as directed and obtaining follow up 4. DVT Prophylaxis: Heparin sq Because with the patient, nurse Discharge plan possible discharge in 1 to days if continues to improve. Results - Labs CBC & Chem 7: 10/12/17 13:20 10/12/17 13:20 Laboratory Results - last 24 hr 10/12/17 10/12/17 10/12/17 10:28 13:20 13:20 WBC 5.7 RBC 4.10 L Hgb 13.2 Hct 39.9 MCV 97.3 MCH 32.1 MCHC 33.0 RDW 15.5 Plt Count 278 MPV 7.8 Neut % (Auto) 70.8 H Lymph % (Auto) 14.9 [place] % (Auto) 10.7 H Eos % (Auto) 2.8 Baso % (Auto) 0.8 Neut # (Auto) 4.0 Lymph # (Auto) 0.8 L [place] # (Auto) 0.6 Eos # (Auto) 0.2 Baso # (Auto) 0.0 WBC Differential . Differential Comment Auto diff final Sodium 133 L Potassium 3.0 L D Chloride 89 L Carbon Dioxide 30.5 Anion Gap 14 BUN 9 Creatinine 0.50 L Estimated GFR Greater than 89 POC Glucose 93 Random Glucose 74 Calcium 9.6 Total Bilirubin 1.5 H AST 21 ALT 13 Alkaline Phosphatase 120 H Total Protein 7.1 Albumin 3.3 L 10/12/17 17:14 WBC RBC Hgb Hct MCV MCH MCHC RDW Plt Count MPV Neut % (Auto) Lymph % (Auto) [place] % (Auto) Eos % (Auto) Baso % (Auto) Neut # (Auto) Lymph # (Auto) [place] # (Auto) Eos # (Auto) Baso # (Auto) WBC Differential Differential Comment Sodium Potassium Chloride Carbon Dioxide Anion Gap BUN Creatinine Estimated GFR POC Glucose 107 Random Glucose Calcium Total Bilirubin AST ALT Alkaline Phosphatase Total Protein Albumin Assessment and Plan - Assessment (1) CHF (congestive heart failure) Code(s): I50.9 - Heart failure, unspecified Status: Acute (2) Hyponatremia Code(s): E87.1 - Hypo-osmolality and hyponatremia Status: Acute (3) Non-compliance Code(s): Z91.19 - Patient's noncompliance with other medical treatment and regimen Status: Acute (1) CHF (congestive heart failure) Qualifiers: Heart failure type: systolic Heart failure chronicity: chronic Qualified Code(s): I50.22 - Chronic systolic (congestive) heart failure
[2017-10-13] MEDS: Lisinopril 5 MG Tablet PO SCH (11:19)
[2017-10-13] MEDS ORDERED: hydrALAZINE HCl Inj 20 MG/ML Vial IV.PUSH PRN (15:59)
[2017-10-13] MEDS: Budesonide-Formoterol 80/4.5 MCG 6.9 GM Inhaler INH SCH (20:55)
[2017-10-14 07:02] LABS: Baso % (Auto) 0.7 % (0.0-2.0); Eos # (Auto) 0.3 th/mm3 (0.0-0.4); Eos % (Auto) 4.6 % (0.0-4.0); Hematocrit 37.9 % (39.0-51.0); Hemoglobin 12.9 gm/dL (13.0-17.0); Lymph # (Auto) 1.3 th/mm3 (1.0-4.8); Lymph % (Auto) 21.2 % (9.0-44.0); Mean Corpuscular HGB Conc 33.9 % (32.0-36.0); Mean Corpuscular Hemoglobin 33.3 pg (27.0-34.0); Mean Corpuscular Volume 98.1 fL (80.0-100.0); Mean Platelet Volume 7.9 fL (7.0-11.0); Mono # (Auto) 0.8 th/mm3 (0.0-0.9); Mono % (Auto) 13.2 % (0.0-8.0); Neut # (Auto) 3.8 th/mm3 (1.8-7.7); Neut % (Auto) 60.3 % (16.0-70.0); Platelet Count 261 th/mm3 (150-450); Red Blood Count 3.87 mil/mm3 (4.50-5.90); Red Cell Distribution Width 15.6 % (11.6-17.2); White Blood Count 6.3 th/mm3 (4.0-11.0)
[2017-10-14 07:33] LABS: Anion Gap 13 meq/L (5-15); Blood Urea Nitrogen 16 mg/dL (7-18); Calcium 9.6 mg/dL (8.5-10.1); Carbon Dioxide 28.4 meq/L (21.0-32.0); Chloride 92 meq/L (98-107); Glomerular Filtration Rate Greater Than 89 mL/min (>89); Glucose,Random 77 mg/dL (74-106); Potassium 3.6 meq/L (3.5-5.1); Sodium 133 meq/L (136-145)
[2017-10-14] MEDS: Heparin - SQ 10,000 UNITS/ML Vial SQ SCH (08:59)
[2017-10-14] MEDS: Folic Acid 1 MG Tablet PO SCH (08:59)
[2017-10-14] MEDS: Senna/Docusate Sodium 8.6/50 MG Tablet PO SCH (09:00)
[2017-10-14] MEDS: Lisinopril 5 MG Tablet PO SCH (09:00)
[2017-10-14] MEDS: Multivitamin/Minerals Therapeutic Tablet PO SCH (09:00)
[2017-10-14] MEDS: Budesonide-Formoterol 80/4.5 MCG 6.9 GM Inhaler INH SCH (09:00)
[2017-10-14 09:01] VITALS: BP 115/73; TEMP 97.6; O2SAT 95
--- NOTE | 2017-10-14 09:15 | P.DS ---
Date of admission: 10/11/17 22:04 Primary care physician: No Primary Care Physician Anticipated date of discharge: 10/14/17 Brief History from admission: Obtained from admitting physician's history and physical This is a 61-year-old male with PMH of CHF (Echo 07/30/2017 with EF 15-20%), s/p AICD, COPD and Alcohol Abuse who presented to the ER w/ complaints of SOB and bilateral lower extremity edema. States symptoms have been ongoing for several weeks, now progressively worse. Previous admit 07/29-08/09/17 for similar complaints, s/p AICD placement by Dr. Pathak. States he ran out of medications approx 1.5 months ago and has not followed up w/ Cardiology. Denies chest pain , cough or sick contacts. Notes RLE edema x1 wk, LLE edema for 1-2 days. On arrival, BP 130/79, HR 90, O2 sat 97% on RA, Afebrile. CBC at baseline. Chemistry unremarkable except for Na 128. Troponin 0 0.03. BNP 2036. CXR w/ mild bilateral pleural effusions. S/p Lasix 40mg IV in ER w/ good diuresis. DS: Diagnosis - Discharge Diagnosis (1) Acute on chronic systolic (congestive) heart failure Status: Acute Diagnosis: Principal (2) Hyponatremia Status: Resolved Diagnosis: Secondary (3) Non-compliance Status: Chronic Diagnosis: Secondary DS: Summary Hospital Course: These are the medical issues addressed during this hospitalization: 1. Acute on chronic systolic CHF: Lasix 40 mg IV BID given during hospitalization will switch over to p.o., fluid restriction, strict I and O. Echo 07/30/17 w/ EF 15%, s/p AICD placement by Dr. Pathak on last admissions, off medications x1.5 months, now w/ worsening LE edema. Doppler negative for DVT. Start Coreg, Lisinopril, ASA. 2. Hyponatremia: likely due to CHF, fluid restriction, monitor I/O, monitor and improving 3. Non-compliance, nonadherence to medications: off meds x 1.5 months, has not followed up w/ Cardiology as outpatient, stressed importance of taking medications as directed and obtaining follow up with primary care physician 4. DVT Prophylaxis: Heparin sq At this time, patient has gained maximum benefit from hospitalization and ready to be discharged to home - Time Spent with Patient Total time spent providing and/or coordinating discharge services: Less than 30 minutes - Quality: VTE Deep Vein Thrombosis/Pulmonary Embolism Present on Admission: No Exam Vital signs: Vital Signs 10/13/17 10:00 10/13/17 11:00 10/13/17 12:00 Temperature 97.7 F Pulse Rate 74 91 H 70 Respiratory Rate 20 Blood Pressure 106/72 Pulse Oximetry 95 10/13/17 13:00 10/13/17 14:00 10/13/17 15:00 Temperature Pulse Rate 84 80 71 Respiratory Rate Blood Pressure Pulse Oximetry 10/13/17 16:00 10/13/17 18:00 10/13/17 19:48 Temperature 98.1 F 97.9 F Pulse Rate 75 85 81 Respiratory Rate 18 18 18 Blood Pressure 104/63 114/75 Pulse Oximetry 95 10/13/17 20:00 10/14/17 00:00 10/14/17 04:00 Temperature 97.4 F L 97.6 F 97.5 F L Pulse Rate 67 87 70 Respiratory Rate 18 18 Blood Pressure 115/70 107/73 113/60 Pulse Oximetry 95 95 94 L 10/14/17 08:00 Temperature 97.6 F Pulse Rate 56 L Respiratory Rate 16 Blood Pressure 115/73 Pulse Oximetry 95 Intake & Output 10/13/17 10/14/17 10/14/17 18:59 06:59 18:59 Intake Total 240 / 240 240 / 240 Output Total 3 / 3 Balance 240 / 240 237 / 237 Weight 53.9 kg 52.7 kg Intake: Oral 240 / 240 240 / 240 Output: Urine 3 / 3 Other: # Voids 2 Date of Last Bowel Movement 10/13/17 10/13/17 # Bowel Movements 0 Narrative: GENERAL: This is a well-nourished, well-developed patient, in no apparent distress. CARDIOVASCULAR: Regular rate and rhythm without murmurs, gallops, or rubs. RESPIRATORY: Clear to auscultation. Breath sounds equal bilaterally. No wheezes , rales, or rhonchi. GASTROINTESTINAL: Abdomen soft, non-tender, nondistended. Normal active bowel sounds MUSCULOSKELETAL: Extremities without clubbing, cyanosis, or edema. NEURO: Alert & Oriented x4 to person, place, time, situation. Moves all ext x4 Results Procedures completed during hospitalization: None Labs on day of discharge: Labs from last 24 hours 10/14/17 10/14/17 05:44 05:44 WBC 6.3 RBC 3.87 L Hgb 12.9 L Hct 37.9 L MCV 98.1 MCH 33.3 MCHC 33.9 RDW 15.6 Plt Count 261 MPV 7.9 Neut % (Auto) 60.3 Lymph % (Auto) 21.2 Dolores % (Auto) 13.2 H Eos % (Auto) 4.6 H Baso % (Auto) 0.7 Neut # (Auto) 3.8 Lymph # (Auto) 1.3 Dolores # (Auto) 0.8 Eos # (Auto) 0.3 Baso # (Auto) 0.0 WBC Differential . Differential Comment Auto diff final Sodium 133 L Potassium 3.6 Chloride 92 L Carbon Dioxide 28.4 Anion Gap 13 BUN 16 Creatinine 0.58 L Estimated GFR Greater than 89 Random Glucose 77 Calcium 9.6 - Impressions ITS Impressions Chest X-Ray 10/11/17 19:57 CONCLUSION: Increased density at the bases. There appear to be mild bilateral pleural effusions. Some degree of atelectasis or consolidation especially on the right also needs to be considered. Enlargement of cardiac silhouette. Pacing/AICD device in place. Venous Doppler Study 10/11/17 19:58 CONCLUSION: No DVT. Discharge Plan - Discharge Disposition Patient Disposition: 01 Discharge Home - Discharge Condition Condition: Good - Discharge Order Discharge Orders: Discharge Order (Routine); Ordered 10/14/17 Ordered By: Faith Park - Discharge Details Anticipated Discharge Date: 10/14/17 - Physicians Team Primary Care Provider: Primary Care Aisha Webb Attending Provider: Faith Park
[2017-10-14 09:34] VITALS: RESP 18
[2017-10-14 10:46] VITALS: PULSE 59
== END 2017-10-14 11:02 | disposition home or self-care (01) ==
LOC: NEPC 18:49 → NEDA 22:04 → NEDH 10-12 01:41 → NEDA 10-12 09:24 → HCIS 10-12 09:35 → N04 10-13 16:50
PROVIDERS: ADMIT Family Medicine; ATTEND Family Medicine
DX: Z91.14 Patient's other noncompliance with medication regimen; Z79.899 Other long term (current) drug therapy; I50.23 Acute on chronic systolic (congestive) heart failure; Z95.810 Presence of automatic (implantable) cardiac defibrillator; F10.10 Alcohol abuse, uncomplicated; Z87.891 Personal history of nicotine dependence; J44.9 Chronic obstructive pulmonary disease, unspecified; E87.1 Hypo-osmolality and hyponatremia; Z79.82 Long term (current) use of aspirin

== ENCOUNTER 2017-11-26 12:50 | Inpatient (IN) ==
--- NOTE | 2017-11-26 13:49 | ED ---
HPI General Chief Complaint: Respiratory Symptoms Stated Complaint: Resp Time Seen by Provider: 11/26/17 13:00 History of Present Illness HPI Narrative: This is a 61-year-old male with a history of CHF, COPD, previous hyponatremia, who presents today with complaints of shortness of breath. Patient was brought in by EMS in CPAP. Patient apparently was found at home severely tachypneic. They report his oxygen saturation was in the mid 90s however he was breathing at a rate of 40 breaths per minute. The patient reports that he has not been using his nebulizer or his diuretic medication because he has run out and cannot afford new medication. He denies any chest pain, chest pressure. He states that the CPAP has helped considerably. Patient was given 2 nebulizer treatments en route. The patient was also given 125 mg of Solu-Medrol. Related Data Previous Rx's Medication Instructions Recorded aspirin 81 mg PO DAILY #30 tab 10/14/17 budesonide-formoterol [Symbicort] 2 puff INH BID #1 g 10/14/17 carvedilol [Coreg] 3.125 mg PO BID #60 tab 10/14/17 furosemide [Lasix] 40 mg PO BID #60 tab 10/14/17 ipratropium-albuterol 1 amp NEB Q4HR NEB PRN #100 ml 10/14/17 lisinopril 5 mg PO DAILY #30 tab 10/14/17 potassium chloride [Klor-Con 10] 10 meq PO BID #60 tab 10/14/17 Allergies Allergy/AdvReac Type Severity Reaction Status Date / Time No Known Allergies Allergy Verified 11/26/17 14:29 Review of Systems ROS: all other systems reviewed are negative Constitutional Denies chills and Denies fever(s) Eyes Reports system reviewed and no additional complaints, except as docu ENT Reports system reviewed and no additional complaints, except as docu Cardiovascular Denies chest pain, Reports leg edema and Reports dyspnea Respiratory Reports chest congestion, Denies cough, Denies pain on inspiration and Reports dyspnea Gastrointestinal Denies abdominal pain, Denies nausea and Denies vomiting Genitourinary Reports system reviewed and no additional complaints, except as docu Musculoskeletal Denies numbness, Denies tingling and Reports other (Bilateral lower extremity edema.) Integumentary/Breasts Denies rash and Reports other (Edema to the bilateral lower extremities) Neurologic Reports system reviewed and no additional complaints, except as [facility] Endocrine Reports system reviewed and no additional complaints, except as [facility] PMFSH Family History Family History Other Stroke Social History Social History Substance History: No History of Abuse Second Hand Smoke Exposure: No Smoking Status: Former smoker Tobacco Type: Cigarettes How Often Do You Have a Drink Containing Alcohol: Monthly or less Recent Travel in [facility] within the Last 8 Weeks: No Recent Out of Country Travel within the Last 8 Weeks: No Immunization History Tetanus Immunization: Unsure Exam Narrative Exam Narrative: GENERAL: Well-developed well-nourished gentleman in moderate respiratory distress. Patient had CPAP in place via EMS. SKIN: Focused skin assessment warm/dry. HEAD: Atraumatic. Normocephalic. EYES: No scleral icterus. No injection or drainage. ENT: No nasal bleeding or discharge. Mucous membranes pink and moist. NECK: Trachea midline. Supple. CARDIOVASCULAR: Sinus tachycardia with a rate of 106. No murmur appreciated. RESPIRATORY: Positive accessory muscle use. Bilateral axillary wheezes heard in the upper airways. No obvious rales appreciated. GASTROINTESTINAL: Abdomen soft, non-tender, nondistended. Hepatic and splenic margins not palpable. MUSCULOSKELETAL: No obvious deformities. No clubbing. No cyanosis. 1+ pretibial edema bilaterally. NEUROLOGICAL: Awake and alert. No obvious cranial nerve deficits. Motor grossly within normal limits. Slight fragmented speech with CPAP in place. Course Initial Documented Vital Signs Pulse Rate 113 H 11/26/17 12:57 Respiratory Rate 24 11/26/17 12:57 Blood Pressure 116/60 11/26/17 12:57 Pulse Oximetry 100 11/26/17 12:57 Last Documented Vital Signs Pulse Rate 103 H 11/26/17 14:20 Respiratory Rate 17 11/26/17 14:20 Blood Pressure 108/59 L 11/26/17 14:01 Pulse Oximetry 99 11/26/17 14:01 Medical Decision Making [facility] Narrative Medical decision making narrative: 61-year-old male with history of CHF, COPD, who presents today via EMS in respiratory distress. Patient was noted to be tachypneic on presentation. They placed him on CPAP and started nebulizer treatments. He was given Solu-Medrol 125 mg IV 1 dose. He has been given a further 2 albuterol doses. He is starting to wean down on the CPAP. He is currently at 40% with a pH of 7.37, PCO2 44, PO2 of 147. Chest x-ray shows congestive heart failure. Patient also has a troponin of 0.11. Patient has no chest pain this is likely secondary to his congestive heart failure. He will be admitted to the hospital. Case was discussed with Dr. Luis Fernando Santiago, [facility] hospitalist, who agrees with the admission. Medical Screen Exam Complete: Yes Emergency Medical Condition: Yes Differential Diagnosis Differential Diagnosis: CHF versus COPD versus ACS versus pneumonia Lab Data Result diagrams: 11/26/17 13:15 Lab Results 11/26/17 11/26/17 11/26/17 Range/Units 13:15 13:15 13:15 PT 12.2 H (9.8-11.6) sec INR 1.2 Ratio APTT 26.3 (24.3-30.1) sec Puncture Site Patient Temperature O2 Saturation (90-100) % ABG pH (7.380-7.420) ABG pCO2 (38-42) mmHg ABG pO2 (61-120) mmHg ABG HCO3 (22-26) mmol/L ABG O2 Content (12.0-20.0) Vol % ABG Base Excess (-2-2) mmol/L ABG Methemoglobin (0-2) % Tanvir Test Hemoglobin (12.0-16.0) G/DL Carboxyhemoglobin (0-4) % O2 Delivery Device Vent Setting Inspired O2 % Critical Value Sodium 131 L (136-145) meq/L Potassium 4.1 (3.5-5.1) meq/L Chloride 93 L (98-107) meq/L Carbon Dioxide 24.9 (21.0-32.0) meq/L Anion Gap 13 (5-15) meq/L BUN 12 (7-18) mg/dL Creatinine 0.65 (0.60-1.30) mg/dL Estimated GFR Greater than 89 (>89) mL/min Random Glucose 105 (74-106) mg/dL Calcium 8.8 (8.5-10.1) mg/dL Total Bilirubin 0.7 (0.2-1.0) mg/dL AST 20 (15-37) U/L ALT 17 (12-78) U/L Alkaline Phosphatase 111 (45-117) U/L Total Creatine Kinase 81 (39-308) U/L Troponin I 0.10 H (0.02-0.05) ng/mL B-Natriuretic Peptide 2525 H (0-100) pg/mL Total Protein 7.5 (6.4-8.2) g/dL Albumin 3.7 (3.4-5.0) g/dL 11/26/17 Range/Units 14:02 PT (9.8-11.6) sec INR Ratio APTT (24.3-30.1) sec Puncture Site Right brachial Patient Temperature 98.6 O2 Saturation 97 (90-100) % ABG pH 7.37 L (7.380-7.420) ABG pCO2 44 H (38-42) mmHg ABG pO2 147 H (61-120) mmHg ABG HCO3 25 (22-26) mmol/L ABG O2 Content 14.9 (12.0-20.0) Vol % ABG Base Excess 0.1 (-2-2) mmol/L ABG Methemoglobin 0.5 (0-2) % Tanvir Test Present Hemoglobin 10.7 L (12.0-16.0) G/DL Carboxyhemoglobin 1.5 (0-4) % O2 Delivery Device Bipap Vent Setting Ipap12/epap5 Inspired O2 40 % Critical Value No Sodium (136-145) meq/L Potassium (3.5-5.1) meq/L Chloride (98-107) meq/L Carbon Dioxide (21.0-32.0) meq/L Anion Gap (5-15) meq/L BUN (7-18) mg/dL Creatinine (0.60-1.30) mg/dL Estimated GFR (>89) mL/min Random Glucose (74-106) mg/dL Calcium (8.5-10.1) mg/dL Total Bilirubin (0.2-1.0) mg/dL AST (15-37) U/L ALT (12-78) U/L Alkaline Phosphatase (45-117) U/L Total Creatine Kinase (39-308) U/L Troponin I (0.02-0.05) ng/mL B-Natriuretic Peptide (0-100) pg/mL Total Protein (6.4-8.2) g/dL Albumin (3.4-5.0) g/dL Imaging Data Radiologist's impression: Chest X-Ray 11/26/17 13:29 CONCLUSION: 1. There continue be bibasal infiltrates and effusions, right greater than left. The parenchymal changes and effusion the right lung base appear to be mildly increased. The left infiltrate and effusion appear to be stable. 2. Pulmonary venous congestion. Discharge Plan Discharge Disposition Patient Disposition: 30 Still Patient Discharge Details Diagnosis: Acute exacerbation of CHF (congestive heart failure), Acute exacerbation of chronic obstructive pulmonary disease (COPD), Elevated troponin, Hx of medication noncompliance Physicians Team ED Provider: Baron Cotton Primary Care Provider: Primary Care Aisha Webb Rxs /Orders / Referrals /Forms Prescriptions: No Action ipratropium-albuterol 0.5 mg-3 mg(2.5 mg base)/3 mL Solution For Nebulization 1 amp NEB Q4HR NEB PRN (Reason: Shortness Of Breath/Wheezing) Qty: 100 RF: 0 potassium chloride [Klor-Con 10] 10 mEq Tablet Extended Release 10 meq PO BID Qty: 60 RF: 0 aspirin 81 mg Tablet,Delayed Release (Dr/Ec) 81 mg PO DAILY Qty: 30 RF: 0 carvedilol [Coreg] 3.125 mg Tablet 3.125 mg PO BID Qty: 60 RF: 0 lisinopril 5 mg Tablet 5 mg PO DAILY Qty: 30 RF: 0 budesonide-formoterol [Symbicort] 80-4.5 mcg/actuation Hfa Aerosol Inhaler 2 puff INH BID Qty: 1 RF: 0 furosemide [Lasix] 20 mg Tablet 40 mg PO BID Qty: 60 RF: 0 Discharge Interventions Interventions: Vital Signs Last Done: 11/26/17 14:01 Status ED Status: With Doctor
--- NOTE | 2017-11-26 14:02 | XR ---
EXAM DATE: 11/26/2017 1:42 PM EDT AGE/SEX: 61 years / Male INDICATIONS: Dyspnea CLINICAL DATA: This is the patient's initial encounter. Patient reports that signs and symptoms have been present for 4 - 6 days and indicates a pain score of 0/10. MEDICAL/SURGICAL HISTORY: Cardiovascular disease. Pacemaker. COMPARISON: [facility] [place], CHEST 1V SINGLE AP, 10/11/2017. . FINDINGS: There continue to be infiltrates in both lung bases along with bilateral effusions, right greater anita n left. The left lung base is stable compared to the prior study. The infiltrate and effusion on the right appears to be slightly increased compared to the prior study. There is a pacemaker overlying th e left chest. There is prominence of pulmonary vasculature. The bony structures are stable. CONCLUSION: 1. There continue be bibasal infiltrates and effusions, right greater than left. The parenchymal felisha nges and effusion the right lung base appear to be mildly increased. The left infiltrate and effusion appear to be stable. 2. Pulmonary venous congestion. Electronically signed by: David Teresa MD 11/26/2017 2:01 PM EDT
[2017-11-26 14:13] LABS: ABG Base Excess 0.1 mmol/L (-2-2); ABG PCO2 44 mmHg (38-42); ABG PO2 147 mmHg (61-120)
[2017-11-26 14:21] LABS: Activated Partial Thrombo Time 26.3 sec (24.3-30.1); INR 1.2 Ratio; Prothrombin Time 12.2 sec (9.8-11.6)
[2017-11-26 14:31] LABS: Alanine Aminotransferase 17 U/L (12-78); Albumin 3.7 g/dL (3.4-5.0); Anion Gap 13 meq/L (5-15); Aspartate Aminotransferase 20 U/L (15-37); Blood Urea Nitrogen 12 mg/dL (7-18); Calcium 8.8 mg/dL (8.5-10.1); Carbon Dioxide 24.9 meq/L (21.0-32.0); Chloride 93 meq/L (98-107); Glomerular Filtration Rate Greater Than 89 mL/min (>89); Glucose,Random 105 mg/dL (74-106); Potassium 4.1 meq/L (3.5-5.1); Sodium 131 meq/L (136-145)
[2017-11-26 14:34] LABS: Alkaline Phosphatase 111 U/L (45-117); Total Protein 7.5 g/dL (6.4-8.2)
[2017-11-26 14:35] LABS: Creatine Kinase 81 U/L (39-308)
[2017-11-26] MEDS ORDERED: Acetaminophen 325 MG Tablet PO PRN (15:03)
[2017-11-26] MEDS ORDERED: LORazepam 1 MG Tablet PO PRN (15:16)
--- NOTE | 2017-11-26 15:16 | P.HP ---
History of Present Illness Primary Care Physician: No Primary Care Physician History of Present Illness: 61-year-old male with history of CHF and COPD presents to the hospital with worsening dyspnea that has prevented him from sleeping over the last 3 days. Onset began slowly 3 weeks ago when he was unable to pay for primary care visit that was quoting him a $200 co-pay. He left frustrated, and without any prescription medications. Slowly over the last 3 weeks he has developed worsening ankle edema related to CHF and worsening shortness of breath related to his COPD. He has had to set up to maintain adequate breathing and has been unable to lay down or fell asleep for adequate rest in the last 3 days. He denies any nausea vomiting or diarrhea. He denies any chest pain, irregular heartbeat, diaphoresis. Review of Systems All other systems reviewed negative except as stated [facility] - History History Provided By: Patient, Load Out Worker / EMT - Medical History Medical History: Medical History (Last Reviewed 10/11/17 @ 20:20 by JEREMY Moura) COPD (chronic obstructive pulmonary disease) - Surgical History Surgical History: Surgical History (Last Reviewed 10/11/17 @ 20:20 by JEREMY Moura) AICD (automatic cardioverter/defibrillator) present - Family History Family History: Family History (Last Updated 11/26/17 @ 15:12 by Charles Santiago MD) Other Stroke - Tobacco History Second Hand Smoke Exposure: No Tobacco Use In Past 30 Days: No Smoking Status: Former smoker Tobacco Type: Cigarettes - Alcohol History How Often Do You Have a Drink Containing Alcohol: Monthly or less - Substance Use History Substance History: No History of Abuse - Travel History Recent Travel in the [place] Within the Last 8 Weeks: No Recent Travel Out of the Country Within the Last 8 Weeks: No - Immunization History Tetanus Immunization: Unsure Medications and Allergies Active Medications: Active Medications Acetaminophen (Tylenol) 650 mg PO Q4H PRN PRN Reason: Temp > 100.4 Al Hydroxide/Mg Hydroxide (Milk Of Magnesia Liq) 30 ml PO Q12H PRN PRN Reason: Mild Constipation Enoxaparin Sodium (Lovenox Inj) 40 mg SQ Q24H SAWYER Ondansetron HCl (Zofran Inj) 4 mg IV.PUSH Q6H PRN PRN Reason: NAUSEA OR VOMITING Allergies Allergy/AdvReac Type Severity Reaction Status Date / Time No Known Allergies Allergy Verified 11/26/17 14:29 Exam Vital signs: Vital Signs 11/26/17 12:57 11/26/17 13:01 11/26/17 13:05 Pulse Rate 113 H 113 H Respiratory Rate 24 20 Blood Pressure 116/60 116/60 Pulse Oximetry 100 100 98 11/26/17 13:29 11/26/17 14:01 11/26/17 14:09 Pulse Rate 116 H 102 H Respiratory Rate 18 18 Blood Pressure 108/59 L Pulse Oximetry 100 99 11/26/17 14:20 Pulse Rate 103 H Respiratory Rate 17 Blood Pressure Pulse Oximetry Intake & Output 11/25/17 11/26/17 11/26/17 18:59 06:59 18:59 Weight 54.431 kg Narrative: GENERAL: AAOx3, moderate respiratory distress on BiPAP, improving, adequate nutrition SKIN: Warm and dry, no rashes. HEAD: Atraumatic. Normocephalic. EYES: Pupils equal, round, reactive to light. No scleral icterus. No injection or drainage. ENT: No nasal bleeding or discharge. Moist mucous membranes. Nonerythematous oropharynx. NECK: Trachea midline. No JVD. Thyroid size within normal limits. CARDIOVASCULAR: Regular rate and rhythm. No murmur, no gallops, no rubs. RESPIRATORY: Reduced airway exchange, scattered wheezing, diminished bases, atelectasis. No accessory muscle use. GASTROINTESTINAL: Abdomen soft, non-tender, nondistended, normal active bowel sounds. Hepatic and splenic margins not palpable. MUSCULOSKELETAL: 1+ edema at ankles, trace edema to knees NEUROLOGICAL: Awake and alert. No obvious cranial nerve deficits. Motor grossly within normal limits. No focal deficits. Five out of 5 muscle strength in the arms and legs. Normal speech. PSYCHIATRIC: Appropriate mood and affect; insight and judgment normal. Results - Labs CBC & Chem 7: 11/26/17 13:15 Labs: Laboratory Results - last 24 hr 11/26/17 11/26/17 11/26/17 13:15 13:15 13:15 PT 12.2 H INR 1.2 APTT 26.3 Puncture Site Patient Temperature O2 Saturation ABG pH ABG pCO2 ABG pO2 ABG HCO3 ABG O2 Content ABG Base Excess ABG Methemoglobin Tanvir Test Hemoglobin Carboxyhemoglobin O2 Delivery Device Vent Setting Inspired O2 Critical Value Sodium 131 L Potassium 4.1 Chloride 93 L Carbon Dioxide 24.9 Anion Gap 13 BUN 12 Creatinine 0.65 Estimated GFR Greater than 89 Random Glucose 105 Calcium 8.8 Total Bilirubin 0.7 AST 20 ALT 17 Alkaline Phosphatase 111 Total Creatine Kinase 81 Troponin I 0.10 H B-Natriuretic Peptide 2525 H Total Protein 7.5 Albumin 3.7 11/26/17 14:02 PT INR APTT Puncture Site Right brachial Patient Temperature 98.6 O2 Saturation 97 ABG pH 7.37 L ABG pCO2 44 H ABG pO2 147 H ABG HCO3 25 ABG O2 Content 14.9 ABG Base Excess 0.1 ABG Methemoglobin 0.5 Tanvir Test Present Hemoglobin 10.7 L Carboxyhemoglobin 1.5 O2 Delivery Device Bipap Vent Setting Ipap12/epap5 Inspired O2 40 Critical Value No Sodium Potassium Chloride Carbon Dioxide Anion Gap BUN Creatinine Estimated GFR Random Glucose Calcium Total Bilirubin AST ALT Alkaline Phosphatase Total Creatine Kinase Troponin I B-Natriuretic Peptide Total Protein Albumin - Imaging Impressions Chest X-Ray 11/26/17 13:29 CONCLUSION: 1. There continue be bibasal infiltrates and effusions, right greater than left. The parenchymal changes and effusion the right lung base appear to be mildly increased. The left infiltrate and effusion appear to be stable. 2. Pulmonary venous congestion. Caprini VTE Risk Assessment Caprini VTE Risk Assessment: Moderate/High Risk (score >= 2) Caprini Risk Assessment Model: Point Value = 1 Point Value = 2 Point Value = 3 Point Value = 5 Age 41-60 Minor surgery BMI > 25 kg/m2 Swollen legs Varicose veins or History of unexplained or recurrent spontaneous Oral contraceptives or hormone replacement Sepsis (< 1 month) Serious lung disease, including pneumonia (< 1 month) Abnormal pulmonary function Acute myocardial infarction Congestive heart failure (< 1 month) History of inflammatory bowel disease Medical patient at bed rest Age 61-74 Arthroscopic surgery Major open surgery (> 45 min) Laparoscopic surgery (> 45 min) Malignancy Confined to bed (> 72 hours) Immobilizing plaster cast Central venous access Age >= 75 History of VTE Family history of VTE Factor V Leiden Prothrombin [id number] Lupus anticoagulant Anticardiolipin antibodies Elevated serum homocysteine Heparin-induced thrombocytopenia Other congenital or acquired thrombophilia Stroke (< 1 month) Elective arthroplasty Hip, pelvis, or leg fracture Acute spinal cord injury (< 1 month) Prophylaxis Regimen: Total Risk Factor Score Risk Level Prophylaxis Regimen 0-1 Low Early ambulation 2 Moderate Order ONE of the following: *Sequential Compression Device (SCD) *Heparin 5000 units SQ BID 3-4 Higher Order ONE of the following medications: *Heparin 5000 units SQ TID *Enoxaparin/Lovenox 40 mg SQ daily (WT < 150 kg, CrCl > 30 mL/min) *Enoxaparin/Lovenox 30 mg SQ daily (WT < 150 kg, CrCl > 10-29 mL/min) *Enoxaparin/Lovenox 30 mg SQ BID (WT < 150 kg, CrCl > 30 mL/min) AND/OR *Sequential Compression Device (SCD) 5 or more Highest Order ONE of the following medications: *Heparin 5000 units SQ TID (Preferred with Epidurals) *Enoxaparin/Lovenox 40 mg SQ daily (WT < 150 kg, CrCl > 30 mL/min) *Enoxaparin/Lovenox 30 mg SQ daily (WT < 150 kg, CrCl > 10-29 mL/min) *Enoxaparin/Lovenox 30 mg SQ BID (WT < 150 kg, CrCl > 30 mL/min) AND *Sequential Compression Device (SCD) Assessment and Plan - Plan CHF exacerbation with fluid overload Patient has been out of indications, particularly Lasix, for the last 3 weeks Resume Lasix and home BP medications Follow serial troponins which were elevated at 0.11, likely due to cardiac strain from COPD exacerbation and fluid overload Consult cardiology if troponin level worsens COPD exacerbation Patient has been out of his inhalers for the last 3 weeks Solu-Medrol IV, duo nebs, BiPAP, oxygen Consider addition of antibiotics if fevers occur or left shift is evident on CBC , CBC still pending DVT Prophylaxis Lovenox
--- NOTE | 2017-11-26 16:28 | ECG ---
Date Performed: 11/26/2017 Time Performed: 13:04:41 PTAGE: 61 years EKG: SINUS TACHYCARDIA WITH OCCASIONAL SUPRAVENTRICULAR PREMATURE COMPLEXES INFERIOR MYOCARDIAL INFARCTION ABNORMAL ECG Since the PREVIOUS TRACING , no significant change noted PREVIOUS TRACIN10/11/2017 19.16 DOCTOR: Ricardo San Interpretating Date/Time 11/26/2017 16:26:56
[2017-11-26] MEDS: Enoxaparin Inj 40 MG/0.4 ML Syringe SQ SCH (16:47)
[2017-11-26] MEDS: MethylPREDNISolone Sod Succinate Inj 40 MG/ML Vial IV.PUSH SCH ×2 (16:48→23:44)
[2017-11-26 20:05] LABS: Baso % (Auto) 0.1 % (0.0-2.0); Hematocrit 37.4 % (39.0-51.0); Hemoglobin 12.7 gm/dL (13.0-17.0); Lymph # (Auto) 0.4 th/mm3 (1.0-4.8); Lymph % (Auto) 5.3 % (9.0-44.0); Mean Corpuscular HGB Conc 33.8 % (32.0-36.0); Mean Corpuscular Hemoglobin 34.9 pg (27.0-34.0); Mean Corpuscular Volume 103.1 fL (80.0-100.0); Mean Platelet Volume 7.9 fL (7.0-11.0); Mono # (Auto) 0.1 th/mm3 (0.0-0.9); Mono % (Auto) 1.7 % (0.0-8.0); Neut # (Auto) 7.1 th/mm3 (1.8-7.7); Neut % (Auto) 92.9 % (16.0-70.0); Platelet Count 230 th/mm3 (150-450); Red Blood Count 3.63 mil/mm3 (4.50-5.90); Red Cell Distribution Width 13.3 % (11.6-17.2); White Blood Count 7.7 th/mm3 (4.0-11.0)
[2017-11-26 20:08] LABS: Troponin I 0.1 ng/mL (0.02-0.05)
[2017-11-27 01:16] LABS: Hematocrit 33.3 % (39.0-51.0); Hemoglobin 11.4 gm/dL (13.0-17.0); Mean Corpuscular HGB Conc 34.1 % (32.0-36.0); Mean Corpuscular Hemoglobin 35.1 pg (27.0-34.0); Mean Corpuscular Volume 102.8 fL (80.0-100.0); Mean Platelet Volume 7.7 fL (7.0-11.0); Platelet Count 207 th/mm3 (150-450); Red Blood Count 3.24 mil/mm3 (4.50-5.90); Red Cell Distribution Width 13.3 % (11.6-17.2); White Blood Count 6.8 th/mm3 (4.0-11.0)
[2017-11-27 01:41] LABS: Anion Gap 10 meq/L (5-15); Blood Urea Nitrogen 13 mg/dL (7-18); Calcium 8.7 mg/dL (8.5-10.1); Carbon Dioxide 30.4 meq/L (21.0-32.0); Chloride 91 meq/L (98-107); Glomerular Filtration Rate Greater Than 89 mL/min (>89); Glucose,Random 204 mg/dL (74-106); Sodium 131 meq/L (136-145)
[2017-11-27 01:44] LABS: Troponin I 0.08 ng/mL (0.02-0.05)
[2017-11-27 02:27] LABS: Creatine Kinase 80 U/L (39-308)
[2017-11-27] MEDS: MethylPREDNISolone Sod Succinate Inj 40 MG/ML Vial IV.PUSH SCH ×2 (08:42→16:17)
[2017-11-27] MEDS: Lisinopril 5 MG Tablet PO SCH (08:43)
--- NOTE | 2017-11-27 09:55 | ECG ---
Date Performed: 11/26/2017 Time Performed: 19:26:21 PTAGE: 61 years EKG: SINUS TACHYCARDIA WITH FREQUENT VENTRICULAR PREMATURE COMPLEXES INFERIOR MYOCARDIAL INFARCT ION ST DEVIATION AND MODERATE T-WAVE ABNORMALITY, CONSIDER LATERAL ISCHEMIA ABNORMAL ECG Since the PREVIOUS TRACING , no significant change noted PREVIOUS TRACIN11/26/2017 13.04 DOCTOR: Ricardo San Interpretating Date/Time 11/27/2017 09:51:35
[2017-11-27] MEDS: Azithromycin 250 MG Tablet PO SCH (13:30)
--- NOTE | 2017-11-27 15:26 | P.PNIM ---
Subjective Interval history: Patient is currently off BiPAP, breathing comfortably on nasal cannula oxygen. He denies any fevers, he does state that he had a cough prior to this exacerbation. Physical Exam Vital signs: Vital Signs 11/26/17 15:30 11/26/17 16:30 11/26/17 17:30 Temperature Pulse Rate 94 H 92 H 90 Respiratory Rate 18 15 15 Blood Pressure 117/81 108/66 125/70 Pulse Oximetry 99 11/26/17 18:30 11/26/17 19:14 11/26/17 19:15 Temperature Pulse Rate 84 86 Respiratory Rate 18 20 Blood Pressure 122/72 122/72 Pulse Oximetry 100 100 11/26/17 19:24 11/26/17 19:53 11/26/17 20:00 Temperature Pulse Rate 103 H Respiratory Rate 19 Blood Pressure 147/91 H Pulse Oximetry 100 99 98 11/26/17 20:05 11/26/17 20:32 11/27/17 00:00 Temperature 97.2 F L 97.1 F L Pulse Rate 56 L 67 90 Respiratory Rate 22 18 22 Blood Pressure 130/89 119/77 Pulse Oximetry 99 99 97 11/27/17 00:01 11/27/17 04:00 11/27/17 07:37 Temperature 97.2 F L Pulse Rate 83 94 H 58 L Respiratory Rate 18 12 Blood Pressure 124/77 Pulse Oximetry 98 98 11/27/17 08:00 11/27/17 09:00 11/27/17 12:00 Temperature 97.3 F L Pulse Rate 94 H 82 68 Respiratory Rate 18 Blood Pressure 125/61 Pulse Oximetry 97 11/27/17 13:58 Temperature Pulse Rate 85 Respiratory Rate 12 Blood Pressure Pulse Oximetry Intake & Output 11/26/17 11/27/17 11/27/17 18:59 06:59 18:59 Intake Total 720 / 720 Output Total 1150 / 1150 Balance -430 / -430 Weight 54.431 kg 62.5 kg Intake: Oral 720 / 720 Output: Urine 1150 / 1150 Other: Date of Last Bowel Movement 11/26/17 # Bowel Movements 0 Weight On Admission 62.8 kg Narrative: GENERAL: AAOx3, no acute distress SKIN: Warm and dry. No rashes HEAD: Atruamtic, normocephalic. EYES: No scleral icterus. No injection or drainage. ENT: Moist mucous membranes, patent nares, no erythema of oropharynx. NECK: Supple, trachea midline. No JVD or lymphadenopathy. Normal thyroid. CARDIOVASCULAR: Regular rate and rhythm. No murmurs, gallops, or rubs. RESPIRATORY: Congestive sounds and scattered wheezing throughout lungs, air exchange improving. No accessory muscle use. GASTROINTESTINAL: Abdomen soft, non-tender, nondistended, normal active bowel sounds MUSCULOSKELETAL: No cyanosis, trace edema limited to feet NEURO: CN II-XII grossly intact, no focal deficits, no slurring of speech Results - Labs CBC & Chem 7: 11/27/17 01:05 11/27/17 01:05 Laboratory Results - last 24 hr 11/26/17 11/26/17 11/27/17 19:20 19:31 01:05 WBC 7.7 RBC 3.63 L Hgb 12.7 L Hct 37.4 L MCV 103.1 H MCH 34.9 H MCHC 33.8 RDW 13.3 Plt Count 230 MPV 7.9 Neut % (Auto) 92.9 H Lymph % (Auto) 5.3 L Overton % (Auto) 1.7 Eos % (Auto) 0.0 Baso % (Auto) 0.1 Neut # (Auto) 7.1 Lymph # (Auto) 0.4 L Overton # (Auto) 0.1 Eos # (Auto) 0.0 Baso # (Auto) 0.0 WBC Differential . Differential Comment Auto diff final Sodium 131 L Potassium 4.0 Chloride 91 L Carbon Dioxide 30.4 Anion Gap 10 BUN 13 Creatinine 0.67 Estimated GFR Greater than 89 Random Glucose 204 H Calcium 8.7 Total Creatine Kinase 74 80 Troponin I 0.10 H 0.08 H 11/27/17 01:05 WBC 6.8 RBC 3.24 L Hgb 11.4 L Hct 33.3 L MCV 102.8 H MCH 35.1 H MCHC 34.1 RDW 13.3 Plt Count 207 MPV 7.7 Neut % (Auto) Lymph % (Auto) Overton % (Auto) Eos % (Auto) Baso % (Auto) Neut # (Auto) Lymph # (Auto) Overton # (Auto) Eos # (Auto) Baso # (Auto) WBC Differential Differential Comment Sodium Potassium Chloride Carbon Dioxide Anion Gap BUN Creatinine Estimated GFR Random Glucose Calcium Total Creatine Kinase Troponin I Assessment and Plan - Plan CHF exacerbation with fluid overload Patient has been out of indications, particularly Lasix, for the last 3 weeks Responding well to Lasix diuresis Troponin level remains stable and decreased, likely cardiac strain from COPD and hypoxemia COPD exacerbation Patient has been out of his inhalers for the last 3 weeks Solu-Medrol IV, duo nebs, BiPAP, oxygen Budesonide nebs added for continued wheezing Azithromycin added for history of recent cough Hyponatremia Sodium stable at 121 Continue adequate diet and recheck with a.m. labs DVT Prophylaxis Lovenox
[2017-11-27] MEDS: Enoxaparin Inj 40 MG/0.4 ML Syringe SQ SCH (16:17)
[2017-11-28] MEDS: MethylPREDNISolone Sod Succinate Inj 40 MG/ML Vial IV.PUSH SCH ×4 (00:34→23:23)
[2017-11-28 07:13] LABS: Hematocrit 34.4 % (39.0-51.0); Hemoglobin 11.7 gm/dL (13.0-17.0); Mean Corpuscular Hemoglobin 34.6 pg (27.0-34.0); Mean Corpuscular Volume 101.8 fL (80.0-100.0); Platelet Count 231 th/mm3 (150-450); Red Blood Count 3.38 mil/mm3 (4.50-5.90); Red Cell Distribution Width 13.3 % (11.6-17.2); White Blood Count 12.4 th/mm3 (4.0-11.0)
[2017-11-28 07:37] LABS: Anion Gap 6 meq/L (5-15); Blood Urea Nitrogen 13 mg/dL (7-18); Calcium 8.8 mg/dL (8.5-10.1); Carbon Dioxide 36.1 meq/L (21.0-32.0); Chloride 93 meq/L (98-107); Glomerular Filtration Rate Greater Than 89 mL/min (>89); Glucose,Random 133 mg/dL (74-106); Potassium 4.2 meq/L (3.5-5.1); Sodium 135 meq/L (136-145)
[2017-11-28] MEDS: Lisinopril 5 MG Tablet PO SCH (08:28)
[2017-11-28] MEDS: Azithromycin 250 MG Tablet PO SCH (08:29)
--- NOTE | 2017-11-28 15:01 | P.PNIM ---
Subjective Interval history: Patient states he is feeling better, ankles are returned to normal, did not pass his oxygen walk test. Physical Exam Vital signs: Vital Signs 11/27/17 16:00 11/27/17 19:44 11/27/17 19:45 Temperature 97.8 F Pulse Rate 95 H 84 86 Respiratory Rate 18 Blood Pressure 99/73 L Pulse Oximetry 94 L 95 Pulse Oximetry [Resting on Room Air] Pulse Oximetry [Resting with Oxygen] 11/27/17 20:00 11/27/17 20:27 11/27/17 23:40 Temperature 97.4 F L Pulse Rate 88 86 82 Respiratory Rate 18 Blood Pressure 94/65 L 95/65 L Pulse Oximetry 95 Pulse Oximetry [Resting on Room Air] Pulse Oximetry [Resting with Oxygen] 11/28/17 00:00 11/28/17 04:00 11/28/17 06:02 Temperature 97.2 F L 97.4 F L Pulse Rate 73 81 101 H Respiratory Rate 18 18 Blood Pressure 93/58 L 105/67 Pulse Oximetry 95 98 Pulse Oximetry [Resting on Room Air] Pulse Oximetry [Resting with Oxygen] 11/28/17 08:00 11/28/17 08:15 11/28/17 12:00 Temperature 97.3 F L Pulse Rate 94 H 101 H 98 H Respiratory Rate 20 18 Blood Pressure 108/68 Pulse Oximetry 96 98 Pulse Oximetry [Resting on Room Air] Pulse Oximetry [Resting with Oxygen] 11/28/17 12:12 11/28/17 13:53 Temperature Pulse Rate 98 H Respiratory Rate 18 Blood Pressure Pulse Oximetry Pulse Oximetry [Resting on Room Air] 86 L Pulse Oximetry [Resting with Oxygen] 98 Intake & Output 11/27/17 11/28/17 11/28/17 18:59 06:59 18:59 Intake Total 600 / 600 240 / 240 Output Total 1500 / 1500 700 / 700 Balance -900 / -900 -460 / -460 Weight 62.9 kg Intake: Oral 600 / 600 240 / 240 Output: Urine 1500 / 1500 700 / 700 Other: Date of Last Bowel Movement 11/26/17 11/26/17 11/26/17 # Bowel Movements 0 Narrative: GENERAL: AAOx3, no acute distress SKIN: Warm and dry. No rashes HEAD: Atruamtic, normocephalic. EYES: No scleral icterus. No injection or drainage. ENT: Moist mucous membranes, patent nares, no erythema of oropharynx. NECK: Supple, trachea midline. No JVD or lymphadenopathy. Normal thyroid. CARDIOVASCULAR: Regular rate and rhythm. No murmurs, gallops, or rubs. RESPIRATORY: Improving lung sounds, still scattered wheezing, air exchange adequate. No accessory muscle use. GASTROINTESTINAL: Abdomen soft, non-tender, nondistended, normal active bowel sounds MUSCULOSKELETAL: No cyanosis, trace edema limited to feet NEURO: CN II-XII grossly intact, no focal deficits, no slurring of speech Results - Labs CBC & Chem 7: 11/28/17 06:42 11/28/17 06:42 Laboratory Results - last 24 hr 11/28/17 11/28/17 06:42 06:42 WBC 12.4 H RBC 3.38 L Hgb 11.7 L Hct 34.4 L MCV 101.8 H MCH 34.6 H MCHC 34.0 RDW 13.3 Plt Count 231 MPV 8.0 Sodium 135 L Potassium 4.2 Chloride 93 L Carbon Dioxide 36.1 H Anion Gap 6 BUN 13 Creatinine 0.55 L Estimated GFR Greater than 89 Random Glucose 133 H Calcium 8.8 Assessment and Plan - Plan CHF exacerbation with fluid overload Patient has been out of indications, particularly Lasix, for the last 3 weeks Responding well to Lasix diuresis, ankles at baseline Troponin level remains stable and decreased, likely cardiac strain from COPD and hypoxemia COPD exacerbation Patient has been out of his inhalers for the last 3 weeks Failed oxygen walk test today with oxygenation of 86% with ambulation Continue Solu-Medrol IV, duo nebs, BiPAP, oxygen, budesonide, azithromycin Hyponatremia Sodium normalized Continue adequate diet and recheck with a.m. labs DVT Prophylaxis Lovenox
[2017-11-28] MEDS: Enoxaparin Inj 40 MG/0.4 ML Syringe SQ SCH (16:44)
[2017-11-29] MEDS: Azithromycin 250 MG Tablet PO SCH (08:28)
[2017-11-29] MEDS: MethylPREDNISolone Sod Succinate Inj 40 MG/ML Vial IV.PUSH SCH ×3 (08:28→23:45)
[2017-11-29] MEDS: Lisinopril 5 MG Tablet PO SCH (08:32)
--- NOTE | 2017-11-29 11:36 | P.PNIM ---
Subjective Interval history: 61-year-old male admitted for COPD exacerbation with CHF exacerbation. He is doing much better, ankle swelling has returned to normal size. He is still wheezing with his breathing. Failed oxygen walk test yesterday. Physical Exam Vital signs: Vital Signs 11/28/17 12:00 11/28/17 12:12 11/28/17 13:53 Temperature 97.9 F Pulse Rate 90 98 H Respiratory Rate 20 18 Blood Pressure 93/77 L Pulse Oximetry 96 Pulse Oximetry [Resting on Room Air] 86 L Pulse Oximetry [Resting with Oxygen] 98 11/28/17 16:00 11/28/17 19:55 11/28/17 20:00 Temperature 97.7 F 97.2 F L Pulse Rate 63 79 75 Respiratory Rate 20 19 Blood Pressure 107/68 105/61 Pulse Oximetry 97 96 Pulse Oximetry [Resting on Room Air] Pulse Oximetry [Resting with Oxygen] 11/29/17 00:00 11/29/17 03:55 11/29/17 04:00 Temperature 97.1 F L 97.2 F L Pulse Rate 83 64 76 Respiratory Rate 18 18 Blood Pressure 103/70 102/56 L Pulse Oximetry 98 97 Pulse Oximetry [Resting on Room Air] Pulse Oximetry [Resting with Oxygen] 11/29/17 07:52 11/29/17 08:00 Temperature 98.1 F Pulse Rate 76 80 Respiratory Rate 16 18 Blood Pressure 118/58 L Pulse Oximetry 97 96 Pulse Oximetry [Resting on Room Air] Pulse Oximetry [Resting with Oxygen] Intake & Output 11/28/17 11/29/17 11/29/17 18:59 06:59 18:59 Intake Total 600 / 600 240 / 240 Output Total 750 / 750 Balance -150 / -150 240 / 240 Weight 61.2 kg Intake: Oral 600 / 600 240 / 240 Output: Urine 750 / 750 Other: # Voids 3 Date of Last Bowel Movement 11/26/17 11/28/17 11/28/17 Narrative: GENERAL: AAOx3, no acute distress SKIN: Warm and dry. No rashes HEAD: Atruamtic, normocephalic. EYES: No scleral icterus. No injection or drainage. ENT: Moist mucous membranes, patent nares, no erythema of oropharynx. NECK: Supple, trachea midline. No JVD or lymphadenopathy. Normal thyroid. CARDIOVASCULAR: Regular rate and rhythm. No murmurs, gallops, or rubs. RESPIRATORY: Improving lung sounds, still scattered wheezing, air exchange adequate. No accessory muscle use. GASTROINTESTINAL: Abdomen soft, non-tender, nondistended, normal active bowel sounds MUSCULOSKELETAL: No cyanosis, trace edema limited to feet NEURO: CN II-XII grossly intact, no focal deficits, no slurring of speech Results - Labs CBC & Chem 7: 11/28/17 06:42 11/28/17 06:42 Assessment and Plan - Plan CHF exacerbation with fluid overload Patient has been out of indications, particularly Lasix, for the last 3 weeks Convert IV Lasix to p.o. Lasix. Ankles are at baseline. COPD exacerbation Patient has been out of his inhalers for the last 3 weeks Failed oxygen walk test yesterday with oxygenation of 86% Continue Solu-Medrol IV, duo nebs, BiPAP, oxygen, budesonide, azithromycin Adding incentive spirometry and Acapella Hyponatremia Sodium normalized DVT Prophylaxis Lovenox
[2017-11-29] MEDS: Enoxaparin Inj 40 MG/0.4 ML Syringe SQ SCH (15:48)
[2017-11-29] MEDS: Furosemide 40 MG Tablet PO SCH (17:09)
[2017-11-30 07:39] LABS: Hematocrit 36.4 % (39.0-51.0); Hemoglobin 12.5 gm/dL (13.0-17.0); Mean Corpuscular HGB Conc 34.5 % (32.0-36.0); Mean Corpuscular Hemoglobin 35.6 pg (27.0-34.0); Mean Corpuscular Volume 103.2 fL (80.0-100.0); Mean Platelet Volume 7.9 fL (7.0-11.0); Platelet Count 236 th/mm3 (150-450); Red Blood Count 3.52 mil/mm3 (4.50-5.90); Red Cell Distribution Width 13.4 % (11.6-17.2); White Blood Count 7.5 th/mm3 (4.0-11.0)
[2017-11-30 07:59] LABS: Anion Gap 3 meq/L (5-15); Blood Urea Nitrogen 14 mg/dL (7-18); Calcium 8.7 mg/dL (8.5-10.1); Carbon Dioxide 44.3 meq/L (21.0-32.0); Chloride 90 meq/L (98-107); Glomerular Filtration Rate Greater Than 89 mL/min (>89); Glucose,Random 121 mg/dL (74-106); Magnesium 2.1 mg/dL (1.5-2.5); Potassium 3.4 meq/L (3.5-5.1); Sodium 137 meq/L (136-145)
[2017-11-30] MEDS ORDERED: Furosemide 20 MG Tablet PO SCH (09:00)
[2017-11-30] MEDS: Lisinopril 5 MG Tablet PO SCH (09:22)
[2017-11-30] MEDS: Azithromycin 250 MG Tablet PO SCH (09:22)
[2017-11-30] MEDS: Furosemide 40 MG Tablet PO SCH ×2 (09:22→20:56)
[2017-11-30] MEDS: MethylPREDNISolone Sod Succinate Inj 40 MG/ML Vial IV.PUSH SCH ×3 (09:22→23:27)
--- NOTE | 2017-11-30 13:51 | P.PNIM ---
Subjective Interval history: Patient states that his congestion is lessened after starting incentive spirometry and Acapella devices. Physical Exam Vital signs: Vital Signs 11/29/17 16:00 11/29/17 19:50 11/29/17 20:00 Temperature 97.4 F L 97.9 F Pulse Rate 76 86 83 Respiratory Rate 18 16 Blood Pressure 112/65 109/62 Pulse Oximetry 98 96 Pulse Oximetry [Exertion on Room Air] Pulse Oximetry [Exertion with Oxygen] Pulse Oximetry [Resting on Room Air] Pulse Oximetry [Resting with Oxygen] 11/29/17 20:06 11/30/17 00:00 11/30/17 00:10 Temperature 98.8 F Pulse Rate 64 78 77 Respiratory Rate 17 18 Blood Pressure 108/68 Pulse Oximetry 96 Pulse Oximetry [Exertion on Room Air] Pulse Oximetry [Exertion with Oxygen] Pulse Oximetry [Resting on Room Air] Pulse Oximetry [Resting with Oxygen] 11/30/17 04:00 11/30/17 04:05 11/30/17 07:46 Temperature 97.4 F L Pulse Rate 82 71 81 Respiratory Rate 19 12 Blood Pressure 126/76 Pulse Oximetry 97 98 Pulse Oximetry [Exertion on Room Air] Pulse Oximetry [Exertion with Oxygen] Pulse Oximetry [Resting on Room Air] Pulse Oximetry [Resting with Oxygen] 11/30/17 08:00 11/30/17 09:00 11/30/17 09:13 Temperature 97.4 F L Pulse Rate 72 78 Respiratory Rate 17 Blood Pressure 129/84 Pulse Oximetry 98 Pulse Oximetry [Exertion on Room Air] 88 L Pulse Oximetry [Exertion with Oxygen] 95 Pulse Oximetry [Resting on Room Air] 97 Pulse Oximetry [Resting with Oxygen] 99 11/30/17 12:00 11/30/17 12:16 Temperature 97.5 F L Pulse Rate 55 L 79 Respiratory Rate 17 12 Blood Pressure 100/56 L Pulse Oximetry 96 Pulse Oximetry [Exertion on Room Air] Pulse Oximetry [Exertion with Oxygen] Pulse Oximetry [Resting on Room Air] Pulse Oximetry [Resting with Oxygen] Intake & Output 11/29/17 11/30/17 11/30/17 18:59 06:59 18:59 Intake Total 720 / 720 440 / 440 Output Total 750 / 750 800 / 800 Balance -30 / -30 -360 / -360 Weight 61.2 kg Intake: Oral 720 / 720 440 / 440 Output: Urine 750 / 750 800 / 800 Other: Date of Last Bowel Movement 11/28/17 11/29/17 11/29/17 # Bowel Movements 1 Narrative: GENERAL: AAOx3, no acute distress SKIN: Warm and dry. No rashes HEAD: Atruamtic, normocephalic. EYES: No scleral icterus. No injection or drainage. ENT: Moist mucous membranes, patent nares, no erythema of oropharynx. NECK: Supple, trachea midline. No JVD or lymphadenopathy. Normal thyroid. CARDIOVASCULAR: Regular rate and rhythm. No murmurs, gallops, or rubs. RESPIRATORY: Scattered wheezing but otherwise clear breath sounds bilaterally, air exchange adequate. No accessory muscle use. GASTROINTESTINAL: Abdomen soft, non-tender, nondistended, normal active bowel sounds MUSCULOSKELETAL: No cyanosis, trace edema limited to feet NEURO: CN II-XII grossly intact, no focal deficits, no slurring of speech Results - Labs CBC & Chem 7: 11/30/17 06:28 11/30/17 06:28 Laboratory Results - last 24 hr 11/30/17 11/30/17 06:28 06:28 WBC 7.5 RBC 3.52 L Hgb 12.5 L Hct 36.4 L MCV 103.2 H MCH 35.6 H MCHC 34.5 RDW 13.4 Plt Count 236 MPV 7.9 Sodium 137 Potassium 3.4 L D Chloride 90 L Carbon Dioxide 44.3 H Anion Gap 3 L BUN 14 Creatinine 0.53 L Estimated GFR Greater than 89 Random Glucose 121 H Calcium 8.7 Magnesium 2.1 Assessment and Plan - Plan CHF exacerbation with fluid overload Patient has been out of medications, particularly Lasix, for the last 3 weeks Convert IV Lasix to p.o. Lasix. Ankles are at baseline. COPD exacerbation Patient has been out of his inhalers for the last 3 weeks Oxygen walk test today demonstrated 88% with ambulation Continue Solu-Medrol IV, duo nebs, BiPAP, oxygen, budesonide, azithromycin Congestion responded well to incentive spirometry and Acapella Hyponatremia Sodium normalized DVT Prophylaxis Lovenox Discharge planning Possible discharge tomorrow, will discuss option of home oxygen with patient, and insurance limitations due to Medicaid
[2017-11-30] MEDS: Enoxaparin Inj 40 MG/0.4 ML Syringe SQ SCH (17:54)
[2017-12-01] MEDS: MethylPREDNISolone Sod Succinate Inj 40 MG/ML Vial IV.PUSH SCH ×2 (09:28→16:29)
[2017-12-01] MEDS: Furosemide 40 MG Tablet PO SCH ×2 (09:29→18:00)
[2017-12-01] MEDS: Lisinopril 5 MG Tablet PO SCH (09:29)
[2017-12-01] MEDS: Azithromycin 250 MG Tablet PO SCH (09:29)
--- NOTE | 2017-12-01 16:13 | P.PNIM ---
Subjective Interval history: Patient has no complaints today, failed oxygen walk test yesterday. He is a candidate for oxygen but managing a tank will be difficult since he has no home at the moment. Physical Exam Vital signs: Vital Signs 11/30/17 20:00 11/30/17 20:20 12/01/17 00:00 Temperature 97.2 F L 97.4 F L Pulse Rate 85 74 61 Respiratory Rate 20 18 18 Blood Pressure 113/72 105/64 Pulse Oximetry 99 100 95 12/01/17 04:00 12/01/17 08:00 12/01/17 09:10 Temperature 97.4 F L 97.5 F L Pulse Rate 70 92 H 99 H Respiratory Rate 18 20 15 Blood Pressure 116/75 116/83 Pulse Oximetry 99 98 99 12/01/17 11:38 12/01/17 12:00 Temperature 97.4 F L Pulse Rate 79 100 H Respiratory Rate 16 20 Blood Pressure 120/79 Pulse Oximetry 98 Intake & Output 11/30/17 12/01/17 12/01/17 18:59 06:59 18:59 Intake Total 360 / 360 240 / 240 Output Total 300 / 300 4 / 4 Balance 360 / 360 -60 / -60 -4 / -4 Intake: Oral 360 / 360 240 / 240 Output: Urine 300 / 300 3 / 3 Stool 1 / Other: # Voids 3 Date of Last Bowel Movement 11/30/17 12/01/17 # Bowel Movements 1 Narrative: GENERAL: AAOx3, no acute distress SKIN: Warm and dry. No rashes HEAD: Atruamtic, normocephalic. EYES: No scleral icterus. No injection or drainage. ENT: Moist mucous membranes, patent nares, no erythema of oropharynx. NECK: Supple, trachea midline. No JVD or lymphadenopathy. Normal thyroid. CARDIOVASCULAR: Regular rate and rhythm. No murmurs, gallops, or rubs. RESPIRATORY: Scattered wheezing but otherwise clear breath sounds bilaterally, air exchange adequate. No accessory muscle use. GASTROINTESTINAL: Abdomen soft, non-tender, nondistended, normal active bowel sounds MUSCULOSKELETAL: No cyanosis, trace edema limited to feet NEURO: CN II-XII grossly intact, no focal deficits, no slurring of speech Results - Labs CBC & Chem 7: 11/30/17 06:28 11/30/17 06:28 Assessment and Plan - Plan CHF exacerbation with fluid overload Patient has been out of medications, particularly Lasix, for the last 3 weeks Convert IV Lasix to p.o. Lasix. Ankles are at baseline. COPD exacerbation Patient has been out of his inhalers for the last 3 weeks Oxygen walk test today demonstrated 88% with ambulation Continue duo nebs, BiPAP, oxygen, budesonide, azithromycin Solu-Medrol replaced with p.o. prednisone, follow for change Congestion responded well to incentive spirometry and Acapella Repeat oxygen walk test tomorrow, order placed Hyponatremia Sodium normalized DVT Prophylaxis Lovenox Discharge planning Oxygen was offered to patient, he has no home at the moment is living out of hotels. Will attempt oxygen walk test tomorrow again.
[2017-12-01] MEDS: Enoxaparin Inj 40 MG/0.4 ML Syringe SQ SCH (16:29)
[2017-12-01] MEDS: predniSONE 20 MG Tablet PO SCH (21:07)
[2017-12-02] MEDS: Azithromycin 250 MG Tablet PO SCH (08:58)
[2017-12-02] MEDS: Lisinopril 5 MG Tablet PO SCH (08:59)
[2017-12-02] MEDS: predniSONE 20 MG Tablet PO SCH ×2 (08:59→21:25)
[2017-12-02] MEDS: Furosemide 40 MG Tablet PO SCH ×2 (09:02→19:39)
[2017-12-02] MEDS ORDERED: Magnesium Sulfate Inj 2 GM in Sodium Chlor 0.9% Inj 96 ML IV.SIG ONE (09:26)
--- NOTE | 2017-12-02 14:17 | P.PNIM ---
Subjective Interval history: PATIENT REMAINS HOMELESS NEEDS TO BE OFF OXYGEN PRIOR TO DISCHARGE STILL WORKING ON IMPROVING OXYGENATION DW RN AND PT AND CM Physical Exam Vital signs: Vital Signs 12/01/17 16:00 12/01/17 19:05 12/01/17 19:06 Temperature 97.5 F L Pulse Rate 105 H 59 L Respiratory Rate 20 18 Blood Pressure 110/71 Pulse Oximetry 93 L 92 L Pulse Oximetry [Exertion on Room Air] Pulse Oximetry [Resting on Room Air] Pulse Oximetry [Resting with Oxygen] 12/01/17 20:00 12/02/17 00:00 12/02/17 04:00 Temperature 98.0 F 97.8 F 98.0 F Pulse Rate 93 H 82 75 Respiratory Rate 18 19 18 Blood Pressure 115/68 122/76 115/73 Pulse Oximetry 91 L 100 92 L Pulse Oximetry [Exertion on Room Air] Pulse Oximetry [Resting on Room Air] Pulse Oximetry [Resting with Oxygen] 12/02/17 07:40 12/02/17 08:00 12/02/17 09:00 Temperature 98.0 F Pulse Rate 75 90 Respiratory Rate 14 18 Blood Pressure 99/60 L Pulse Oximetry 93 L 92 L Pulse Oximetry [Exertion on Room Air] 83 L Pulse Oximetry [Resting on Room Air] 96 Pulse Oximetry [Resting with Oxygen] 97 12/02/17 12:00 Temperature 97.2 F L Pulse Rate 84 Respiratory Rate 18 Blood Pressure 105/72 Pulse Oximetry 94 L Pulse Oximetry [Exertion on Room Air] Pulse Oximetry [Resting on Room Air] Pulse Oximetry [Resting with Oxygen] Intake & Output 12/01/17 12/02/17 12/02/17 18:59 06:59 18:59 Intake Total 240 / 240 240 / 240 Output Total 8 / 8 400 / 400 Balance 232 / 232 -160 / -160 Weight 61.5 kg Intake: Oral 240 / 240 240 / 240 Output: Urine 6 / 6 400 / 400 Stool 2 / 2 Other: # Voids 3 Date of Last Bowel Movement 12/01/17 # Bowel Movements 1 Narrative: GENERAL: AAOx3, no acute distress SKIN: Warm and dry. No rashes HEAD: Atruamtic, normocephalic. EYES: No scleral icterus. No injection or drainage. ENT: Moist mucous membranes, patent nares, no erythema of oropharynx. NECK: Supple, trachea midline. No JVD or lymphadenopathy. Normal thyroid. CARDIOVASCULAR: Regular rate and rhythm. No murmurs, gallops, or rubs. RESPIRATORY: Scattered wheezing but otherwise clear breath sounds bilaterally, air exchange adequate. No accessory muscle use. GASTROINTESTINAL: Abdomen soft, non-tender, nondistended, normal active bowel sounds MUSCULOSKELETAL: No cyanosis, trace edema limited to feet NEURO: CN II-XII grossly intact, no focal deficits, no slurring of speech Results - Labs CBC & Chem 7: 11/30/17 06:28 11/30/17 06:28 Laboratory Results - last 72 hr 11/30/17 11/30/17 06:28 06:28 WBC 7.5 RBC 3.52 L Hgb 12.5 L Hct 36.4 L MCV 103.2 H MCH 35.6 H MCHC 34.5 RDW 13.4 Plt Count 236 MPV 7.9 Sodium 137 Potassium 3.4 L D Chloride 90 L Carbon Dioxide 44.3 H Anion Gap 3 L BUN 14 Creatinine 0.53 L Estimated GFR Greater than 89 Random Glucose 121 H Calcium 8.7 Magnesium 2.1 - Imaging Chest X-Ray 11/26/17 13:29 CONCLUSION: 1. There continue be bibasal infiltrates and effusions, right greater than left. The parenchymal changes and effusion the right lung base appear to be mildly increased. The left infiltrate and effusion appear to be stable. 2. Pulmonary venous congestion. - Procedures NONE Assessment and Plan - Plan CHF exacerbation with fluid overload Patient has been out of medications, particularly Lasix, for the last 3 weeks Convert IV Lasix to p.o. Lasix. Ankles are at baseline. COPD exacerbation Patient has been out of his inhalers for the last 3 weeks Oxygen walk test today demonstrated 88% with ambulation Continue duo nebs, BiPAP, oxygen, budesonide, azithromycin Solu-Medrol replaced with p.o. prednisone, follow for change Congestion responded well to incentive spirometry and Acapella Repeat oxygen walk test tomorrow, order placed HAS NOT BEEN DONE YET Hyponatremia Sodium normalized HYPOKALEMIA WILL REPLACE DVT Prophylaxis Lovenox Discharge planning Oxygen was offered to patient, he has no home at the moment is living out of hotels. Will attempt oxygen walk test tomorrow again. Code Status: FULL CODE Discussed Condition With: RN AND PT AND CM Discharge Planning: AM LABS
[2017-12-02] MEDS: Enoxaparin Inj 40 MG/0.4 ML Syringe SQ SCH (17:57)
[2017-12-03 07:28] LABS: Baso % (Auto) 0.1 % (0.0-2.0); Hematocrit 38.4 % (39.0-51.0); Hemoglobin 13.1 gm/dL (13.0-17.0); Lymph # (Auto) 0.4 th/mm3 (1.0-4.8); Lymph % (Auto) 4.4 % (9.0-44.0); Mean Corpuscular HGB Conc 34.1 % (32.0-36.0); Mean Corpuscular Hemoglobin 34.9 pg (27.0-34.0); Mean Corpuscular Volume 102.2 fL (80.0-100.0); Mean Platelet Volume 7.8 fL (7.0-11.0); Mono # (Auto) 0.6 th/mm3 (0.0-0.9); Mono % (Auto) 7.6 % (0.0-8.0); Neut # (Auto) 7.2 th/mm3 (1.8-7.7); Neut % (Auto) 87.9 % (16.0-70.0); Platelet Count 222 th/mm3 (150-450); Red Blood Count 3.75 mil/mm3 (4.50-5.90); Red Cell Distribution Width 13.1 % (11.6-17.2); White Blood Count 8.2 th/mm3 (4.0-11.0)
[2017-12-03 08:05] LABS: Alanine Aminotransferase 19 U/L (12-78); Albumin 2.9 g/dL (3.4-5.0); Anion Gap 5 meq/L (5-15); Aspartate Aminotransferase 15 U/L (15-37); Blood Urea Nitrogen 19 mg/dL (7-18); Calcium 8.3 mg/dL (8.5-10.1); Chloride 90 meq/L (98-107); Glomerular Filtration Rate Greater Than 89 mL/min (>89); Glucose,Random 107 mg/dL (74-106); Magnesium 2.5 mg/dL (1.5-2.5); Phosphorus 3.3 mg/dL (2.5-4.9); Potassium 3.6 meq/L (3.5-5.1); Sodium 137 meq/L (136-145)
[2017-12-03 08:13] LABS: Alkaline Phosphatase 67 U/L (45-117); Free T4 (Free Thyroxine) 1.17 ng/dL (0.76-1.46)
[2017-12-03] MEDS: predniSONE 20 MG Tablet PO SCH ×2 (09:57→20:56)
[2017-12-03] MEDS: Azithromycin 250 MG Tablet PO SCH (09:57)
[2017-12-03] MEDS: Furosemide 40 MG Tablet PO SCH ×2 (09:57→18:07)
[2017-12-03] MEDS: Lisinopril 5 MG Tablet PO SCH (09:57)
[2017-12-03 11:01] LABS: INR 1.1 Ratio; Prothrombin Time 11.4 sec (9.8-11.6)
--- NOTE | 2017-12-03 12:32 | P.PNIM ---
Subjective Interval history: 9-5 PATIENT REMAINS HOMELESS NEEDS TO BE OFF OXYGEN PRIOR TO DISCHARGE STILL WORKING ON IMPROVING OXYGENATION DW RN AND PT AND CM 9-6 STILL DESATS TO 87% ON EXERTION NEEDS HOME OXYGEN BUT IS HOMELESS AT THIS TIME DW RN AND PT AND CM CONTINUE CURRENT TREATMENTS TRY TO WEAN OFF OXYGEN Physical Exam Vital signs: Vital Signs 12/02/17 16:00 12/02/17 19:08 12/02/17 19:09 Temperature 97.7 F Pulse Rate 65 79 Respiratory Rate 18 18 Blood Pressure 109/70 Pulse Oximetry 96 95 Pulse Oximetry [Exertion on Room Air] Pulse Oximetry [Resting on Room Air] Pulse Oximetry [Resting with Oxygen] 12/02/17 20:00 12/03/17 00:00 12/03/17 04:00 Temperature 97.3 F L 97.7 F 97.4 F L Pulse Rate 82 97 H 70 Respiratory Rate 18 18 18 Blood Pressure 114/60 104/71 116/72 Pulse Oximetry 94 L 97 99 Pulse Oximetry [Exertion on Room Air] Pulse Oximetry [Resting on Room Air] Pulse Oximetry [Resting with Oxygen] 12/03/17 07:35 12/03/17 08:00 12/03/17 11:30 Temperature 97.3 F L Pulse Rate 79 86 Respiratory Rate 16 17 Blood Pressure 108/80 Pulse Oximetry 96 100 Pulse Oximetry [Exertion on Room Air] 87 L Pulse Oximetry [Resting on Room Air] 95 Pulse Oximetry [Resting with Oxygen] 97 12/03/17 12:00 Temperature 97.4 F L Pulse Rate 78 Respiratory Rate 17 Blood Pressure 109/72 Pulse Oximetry 97 Pulse Oximetry [Exertion on Room Air] Pulse Oximetry [Resting on Room Air] Pulse Oximetry [Resting with Oxygen] Intake & Output 12/02/17 12/03/17 12/03/17 18:59 06:59 18:59 Intake Total 600 / 600 480 / 480 Output Total 800 / 800 400 / 400 Balance -200 / -200 80 / 80 Weight 62.8 kg Intake: IV 100 / 100 Magnesium Sulfate Inj 2 GM In 100 / 100 NS Inj 96 ML @ 50 mls/hr IV.SIG ONCE ONE Rx#:[id number] Oral 500 / 500 480 / 480 Output: Urine 800 / 800 400 / 400 Narrative: GENERAL: AAOx3, no acute distress SKIN: Warm and dry. No rashes HEAD: Atruamtic, normocephalic. EYES: No scleral icterus. No injection or drainage. ENT: Moist mucous membranes, patent nares, no erythema of oropharynx. NECK: Supple, trachea midline. No JVD or lymphadenopathy. Normal thyroid. CARDIOVASCULAR: Regular rate and rhythm. No murmurs, gallops, or rubs. RESPIRATORY: Scattered wheezing but otherwise clear breath sounds bilaterally, air exchange adequate. No accessory muscle use. GASTROINTESTINAL: Abdomen soft, non-tender, nondistended, normal active bowel sounds MUSCULOSKELETAL: No cyanosis, trace edema limited to feet NEURO: CN II-XII grossly intact, no focal deficits, no slurring of speech Results - Labs CBC & Chem 7: 12/03/17 04:55 12/03/17 04:55 Laboratory Results - last 24 hr 12/03/17 12/03/17 12/03/17 04:55 04:55 10:25 WBC 8.2 RBC 3.75 L Hgb 13.1 Hct 38.4 L MCV 102.2 H MCH 34.9 H MCHC 34.1 RDW 13.1 Plt Count 222 MPV 7.8 Neut % (Auto) 87.9 H Lymph % (Auto) 4.4 L [place] % (Auto) 7.6 Eos % (Auto) 0.0 Baso % (Auto) 0.1 Neut # (Auto) 7.2 Lymph # (Auto) 0.4 L [place] # (Auto) 0.6 Eos # (Auto) 0.0 Baso # (Auto) 0.0 WBC Differential . Differential Comment Auto diff final PT 11.4 INR 1.1 Sodium 137 Potassium 3.6 Chloride 90 L Carbon Dioxide 42.0 H Anion Gap 5 BUN 19 H Creatinine 0.63 Estimated GFR Greater than 89 Random Glucose 107 H Calcium 8.3 L Phosphorus 3.3 Magnesium 2.5 Total Bilirubin 0.4 AST 15 ALT 19 Alkaline Phosphatase 67 Total Protein 6.0 L D Albumin 2.9 L TSH 1.120 Free T4 1.17 - Imaging Chest X-Ray 11/26/17 13:29 CONCLUSION: 1. There continue be bibasal infiltrates and effusions, right greater than left. The parenchymal changes and effusion the right lung base appear to be mildly increased. The left infiltrate and effusion appear to be stable. 2. Pulmonary venous congestion. - Procedures NONE Assessment and Plan - Plan CHF exacerbation with fluid overload Patient has been out of medications, particularly Lasix, for the last 3 weeks Convert IV Lasix to p.o. Lasix. Ankles are at baseline. COPD exacerbation Patient has been out of his inhalers for the last 3 weeks Oxygen walk test today demonstrated 88% with ambulation Continue duo nebs, BiPAP, oxygen, budesonide, azithromycin Solu-Medrol replaced with p.o. prednisone, follow for change Congestion responded well to incentive spirometry and Acapella Repeat oxygen walk test tomorrow, order placed HAS NOT BEEN DONE YET STILL ONLY 87% ON EXERTION WILL NEED HOME OXYGEN BUT IS HOMELESS AT THIS TIME Hyponatremia Sodium normalized HYPOKALEMIA WILL REPLACE DVT Prophylaxis Lovenox Discharge planning Oxygen was offered to patient, he has no home at the moment is living out of hotels. Will attempt oxygen walk test tomorrow again. Code Status: FULL CODE Discussed Condition With: RN AND PT AND CM Discharge Planning: NEEDS TO WEAN OFF OXYGEN
[2017-12-03] MEDS: Enoxaparin Inj 40 MG/0.4 ML Syringe SQ SCH (18:07)
[2017-12-04] MEDS: Lisinopril 5 MG Tablet PO SCH (08:53)
[2017-12-04] MEDS: Azithromycin 250 MG Tablet PO SCH (08:53)
[2017-12-04] MEDS: predniSONE 20 MG Tablet PO SCH ×3 (08:53→20:20)
[2017-12-04] MEDS: Furosemide 40 MG Tablet PO SCH ×2 (08:53→18:49)
--- NOTE | 2017-12-04 11:55 | P.PNIM ---
Subjective Interval history: 9-5 PATIENT REMAINS HOMELESS NEEDS TO BE OFF OXYGEN PRIOR TO DISCHARGE STILL WORKING ON IMPROVING OXYGENATION DW RN AND PT AND CM 9-6 STILL DESATS TO 87% ON EXERTION NEEDS HOME OXYGEN BUT IS HOMELESS AT THIS TIME DW RN AND PT AND CM CONTINUE CURRENT TREATMENTS TRY TO WEAN OFF OXYGEN 9-7 STILL NOT OFF OXYGEN WILL GET ANOTHER WALK TEST TODAY TRY TO WEAN OFF OXYGEN WILL GIVE MORE STEROIDS TO HELP BREATHING Physical Exam Vital signs: Vital Signs 12/03/17 12:00 12/03/17 16:00 12/03/17 16:04 Temperature 97.4 F L 97.6 F Pulse Rate 103 H 75 79 Respiratory Rate 17 17 Blood Pressure 109/72 101/63 Pulse Oximetry 97 98 12/03/17 19:41 12/03/17 20:00 12/04/17 00:00 Temperature 97.1 F L 97.7 F Pulse Rate 84 81 79 Respiratory Rate 17 18 18 Blood Pressure 103/70 105/67 Pulse Oximetry 96 94 L 99 12/04/17 04:00 12/04/17 07:28 12/04/17 07:50 Temperature 97.7 F Pulse Rate 71 65 86 Respiratory Rate 17 16 Blood Pressure 104/65 Pulse Oximetry 100 98 12/04/17 08:00 Temperature 97.4 F L Pulse Rate 86 Respiratory Rate 17 Blood Pressure 141/77 H Pulse Oximetry 98 Intake & Output 12/03/17 12/04/17 12/04/17 18:59 06:59 18:59 Intake Total 720 / 720 480 / 480 Output Total 700 / 700 Balance 720 / 720 -220 / -220 Weight 62.8 kg Intake: Oral 720 / 720 480 / 480 Output: Urine 700 / 700 Other: # Voids 3 Date of Last Bowel Movement 12/03/17 12/03/17 12/03/17 # Bowel Movements 2 Narrative: GENERAL: AAOx3, no acute distress SKIN: Warm and dry. No rashes HEAD: Atruamtic, normocephalic. EYES: No scleral icterus. No injection or drainage. ENT: Moist mucous membranes, patent nares, no erythema of oropharynx. NECK: Supple, trachea midline. No JVD or lymphadenopathy. Normal thyroid. CARDIOVASCULAR: Regular rate and rhythm. No murmurs, gallops, or rubs. RESPIRATORY: Scattered wheezing but otherwise clear breath sounds bilaterally, air exchange adequate. No accessory muscle use. GASTROINTESTINAL: Abdomen soft, non-tender, nondistended, normal active bowel sounds MUSCULOSKELETAL: No cyanosis, trace edema limited to feet NEURO: CN II-XII grossly intact, no focal deficits, no slurring of speech Results - Labs CBC & Chem 7: 12/03/17 04:55 12/03/17 04:55 Laboratory Results - last 24 hr 12/03/17 04:55 Hemoglobin A1c 5.0 - Procedures NONE Assessment and Plan - Plan CHF exacerbation with fluid overload Patient has been out of medications, particularly Lasix, for the last 3 weeks Convert IV Lasix to p.o. Lasix. Ankles are at baseline. COPD exacerbation Patient has been out of his inhalers for the last 3 weeks Oxygen walk test today demonstrated 88% with ambulation Continue duo nebs, BiPAP, oxygen, budesonide, azithromycin Solu-Medrol replaced with p.o. prednisone, follow for change Congestion responded well to incentive spirometry and Acapella Repeat oxygen walk test tomorrow, order placed HAS NOT BEEN DONE YET STILL ONLY 87% ON EXERTION WILL NEED HOME OXYGEN BUT IS HOMELESS AT THIS TIME WILL INCREASE STEROIDS TO TRY TO HELP WITH BREATHING Hyponatremia Sodium normalized HYPOKALEMIA WILL REPLACE DVT Prophylaxis Lovenox Discharge planning Oxygen was offered to patient, he has no home at the moment is living out of hotels. Will attempt oxygen walk test TODAY again. Code Status: FULL CODE Discussed Condition With: RN AND PT AND CM Discharge Planning: NEEDS TO WEAN OFF OXYGEN
[2017-12-04] MEDS: guaiFENesin 600 MG ER Tablet PO SCH ×2 (13:18→20:20)
[2017-12-04] MEDS: Famotidine 20 MG Tablet PO SCH ×2 (13:18→20:20)
[2017-12-04] MEDS: Enoxaparin Inj 40 MG/0.4 ML Syringe SQ SCH (18:50)
[2017-12-04] MEDS: Budesonide-Formoterol 160/4.5 MCG 6 GM Inhaler INH SCH ×2 (20:19→20:21)
[2017-12-05] MEDS: Budesonide-Formoterol 160/4.5 MCG 6 GM Inhaler INH SCH ×2 (08:17→08:23)
[2017-12-05] MEDS: Azithromycin 250 MG Tablet PO SCH (08:18)
[2017-12-05] MEDS: Famotidine 20 MG Tablet PO SCH (08:18)
[2017-12-05] MEDS: guaiFENesin 600 MG ER Tablet PO SCH (08:18)
[2017-12-05] MEDS: Lisinopril 5 MG Tablet PO SCH (08:18)
[2017-12-05] MEDS: predniSONE 20 MG Tablet PO SCH (08:19)
[2017-12-05] MEDS: Furosemide 40 MG Tablet PO SCH (08:23)
--- NOTE | 2017-12-05 12:30 | P.PNIM ---
Subjective Interval history: 9-5 PATIENT REMAINS HOMELESS NEEDS TO BE OFF OXYGEN PRIOR TO DISCHARGE STILL WORKING ON IMPROVING OXYGENATION DW RN AND PT AND CM 9-6 STILL DESATS TO 87% ON EXERTION NEEDS HOME OXYGEN BUT IS HOMELESS AT THIS TIME DW RN AND PT AND CM CONTINUE CURRENT TREATMENTS TRY TO WEAN OFF OXYGEN 9-7 STILL NOT OFF OXYGEN WILL GET ANOTHER WALK TEST TODAY TRY TO WEAN OFF OXYGEN WILL GIVE MORE STEROIDS TO HELP BREATHING 9-8 FINALLY PASSED HIS WALK TEST WILL DC TO HOME TODAY SWITCH TO [facility] CM FOR HELP WITH DC Physical Exam Vital signs: Vital Signs 12/04/17 13:37 12/04/17 14:06 12/04/17 15:15 Temperature Pulse Rate 78 Respiratory Rate 16 Blood Pressure Pulse Oximetry 98 Pulse Oximetry [Exertion on Room Air] 88 L Pulse Oximetry [Resting on Room Air] 92 L Pulse Oximetry [Resting with Oxygen] 100 12/04/17 15:16 12/04/17 15:53 12/04/17 16:00 Temperature 97.4 F L Pulse Rate 78 74 58 L Respiratory Rate 16 17 Blood Pressure 117/58 L Pulse Oximetry 98 Pulse Oximetry [Exertion on Room Air] Pulse Oximetry [Resting on Room Air] Pulse Oximetry [Resting with Oxygen] 12/04/17 19:13 12/04/17 20:00 12/04/17 23:39 Temperature 97.5 F L Pulse Rate 58 L 79 71 Respiratory Rate 18 20 15 Blood Pressure Pulse Oximetry 96 Pulse Oximetry [Exertion on Room Air] Pulse Oximetry [Resting on Room Air] Pulse Oximetry [Resting with Oxygen] 12/05/17 00:00 12/05/17 04:00 12/05/17 04:15 Temperature 97.6 F 97 F L Pulse Rate 72 67 70 Respiratory Rate 20 20 19 Blood Pressure 106/59 L 107/76 Pulse Oximetry 97 100 99 Pulse Oximetry [Exertion on Room Air] Pulse Oximetry [Resting on Room Air] Pulse Oximetry [Resting with Oxygen] 12/05/17 08:00 12/05/17 08:21 Temperature 97.8 F Pulse Rate 80 70 Respiratory Rate 16 19 Blood Pressure 111/83 Pulse Oximetry 99 99 Pulse Oximetry [Exertion on Room Air] Pulse Oximetry [Resting on Room Air] Pulse Oximetry [Resting with Oxygen] Intake & Output 09/07/18 09/08/18 09/08/18 18:59 06:59 18:59 Intake Total 480 / 480 Balance 480 / 480 Weight 62.8 kg Intake: Oral 480 / 480 Other: # Voids 3 Date of Last Bowel Movement 12/03/17 12/03/17 Narrative: GENERAL: AAOx3, no acute distress SKIN: Warm and dry. No rashes HEAD: Atruamtic, normocephalic. EYES: No scleral icterus. No injection or drainage. ENT: Moist mucous membranes, patent nares, no erythema of oropharynx. NECK: Supple, trachea midline. No JVD or lymphadenopathy. Normal thyroid. CARDIOVASCULAR: Regular rate and rhythm. No murmurs, gallops, or rubs. RESPIRATORY: Scattered wheezing but otherwise clear breath sounds bilaterally, air exchange adequate. No accessory muscle use. GASTROINTESTINAL: Abdomen soft, non-tender, nondistended, normal active bowel sounds MUSCULOSKELETAL: No cyanosis, trace edema limited to feet NEURO: CN II-XII grossly intact, no focal deficits, no slurring of speech Results - Labs CBC & Chem 7: 12/03/17 04:55 12/03/17 04:55 - Imaging Chest X-Ray 11/26/17 13:29 CONCLUSION: 1. There continue be bibasal infiltrates and effusions, right greater than left. The parenchymal changes and effusion the right lung base appear to be mildly increased. The left infiltrate and effusion appear to be stable. 2. Pulmonary venous congestion. - Procedures NONE Assessment and Plan - Plan CHF exacerbation with fluid overload Patient has been out of medications, particularly Lasix, for the last 3 weeks Convert IV Lasix to p.o. Lasix. Ankles are at baseline. COPD exacerbation Patient has been out of his inhalers for the last 3 weeks Oxygen walk test today demonstrated 88% with ambulation Continue duo nebs, BiPAP, oxygen, budesonide, azithromycin Solu-Medrol replaced with p.o. prednisone, follow for change Congestion responded well to incentive spirometry and Acapella Repeat oxygen walk test tomorrow, order placed HAS NOT BEEN DONE YET STILL ONLY 87% ON EXERTION WILL NEED HOME OXYGEN BUT IS HOMELESS AT THIS TIME WILL INCREASE STEROIDS TO TRY TO HELP WITH BREATHING Hyponatremia Sodium normalized HYPOKALEMIA WILL REPLACE DVT Prophylaxis Lovenox Discharge planning Oxygen was offered to patient, he has no home at the moment is living out of hotels. Will attempt oxygen walk WHICH HE FINALLY PASSED CAN DC TO HOME ON NO OXYGEN Code Status: FULL CODE Discussed Condition With: RN AND PT AND CM Discharge Planning: NEEDS TO WEAN OFF OXYGEN
--- NOTE | 2017-12-05 12:42 | P.DS ---
Date of admission: 11/26/17 18:41 Primary care physician: No Primary Care Physician Attending physician on discharge: Cecilio Spivey Anticipated date of discharge: 12/05/17 Brief History from admission: 61-year-old male with history of CHF and COPD presents to the hospital with worsening dyspnea that has prevented him from sleeping over the last 3 days. Onset began slowly 3 weeks ago when he was unable to pay for primary care visit that was quoting him a $200 co-pay. He left frustrated, and without any prescription medications. Slowly over the last 3 weeks he has developed worsening ankle edema related to CHF and worsening shortness of breath related to his COPD. He has had to set up to maintain adequate breathing and has been unable to lay down or fell asleep for adequate rest in the last 3 days. He denies any nausea vomiting or diarrhea. He denies any chest pain, irregular heartbeat, diaphoresis. Patient update on day of discharge: 9-5 PATIENT REMAINS HOMELESS NEEDS TO BE OFF OXYGEN PRIOR TO DISCHARGE STILL WORKING ON IMPROVING OXYGENATION DW RN AND PT AND CM 9-6 STILL DESATS TO 87% ON EXERTION NEEDS HOME OXYGEN BUT IS HOMELESS AT THIS TIME DW RN AND PT AND CM CONTINUE CURRENT TREATMENTS TRY TO WEAN OFF OXYGEN 9-7 STILL NOT OFF OXYGEN WILL GET ANOTHER WALK TEST TODAY TRY TO WEAN OFF OXYGEN WILL GIVE MORE STEROIDS TO HELP BREATHING 9-8 FINALLY PASSED HIS WALK TEST WILL DC TO HOME TODAY SWITCH TO PO MEDS CM FOR HELP WITH DC DS: Diagnosis - Discharge Diagnosis (1) Acute exacerbation of chronic obstructive pulmonary disease (COPD) Status: Chronic (2) Elevated troponin Status: Chronic (3) Hx of medication noncompliance Status: Chronic (4) Acute hyponatremia Status: Chronic (5) Acute on chronic systolic (congestive) heart failure Status: Chronic (6) CHF (congestive heart failure) Status: Chronic (7) Non-compliance Status: Chronic (8) Hyponatremia Status: Chronic DS: Medications - Discharge Medications Prescriptions: aspirin 81 mg PO DAILY #30 tab azithromycin 500 mg PO DAILY #10 tab budesonide-formoterol [Symbicort] 2 puff INH BID #1 inh carvedilol [Coreg] 3.125 mg PO BID #60 tab famotidine 20 mg PO BID #60 tab furosemide 40 mg PO BID@0900,1800 #60 tab guaifenesin [Mucinex] 600 mg PO BID #60 tab ipratropium-albuterol 1 amp NEB Q4HR NEB #180 amp lisinopril 5 mg PO DAILY #30 tab potassium chloride [Klor-Con 10] 30 meq PO BID #180 tab prednisone 40 mg PO BID #60 tab DS: Summary Hospital Course: 61-year-old male with history of CHF and COPD presents to the hospital with worsening dyspnea that has prevented him from sleeping over the last 3 days. Onset began slowly 3 weeks ago when he was unable to pay for primary care visit that was quoting him a $200 co-pay. He left frustrated, and without any prescription medications. Slowly over the last 3 weeks he has developed worsening ankle edema related to CHF and worsening shortness of breath related to his COPD. He has had to set up to maintain adequate breathing and has been unable to lay down or fell asleep for adequate rest in the last 3 days. He denies any nausea vomiting or diarrhea. He denies any chest pain, irregular heartbeat, diaphoresis. 9-5 PATIENT REMAINS HOMELESS NEEDS TO BE OFF OXYGEN PRIOR TO DISCHARGE STILL WORKING ON IMPROVING OXYGENATION DW RN AND PT AND CM 9-6 STILL DESATS TO 87% ON EXERTION NEEDS HOME OXYGEN BUT IS HOMELESS AT THIS TIME DW RN AND PT AND CM CONTINUE CURRENT TREATMENTS TRY TO WEAN OFF OXYGEN 9-7 STILL NOT OFF OXYGEN WILL GET ANOTHER WALK TEST TODAY TRY TO WEAN OFF OXYGEN WILL GIVE MORE STEROIDS TO HELP BREATHING 9-8 FINALLY PASSED HIS WALK TEST WILL DC TO HOME TODAY SWITCH TO PO MEDS CM FOR HELP WITH DC - Time Spent with Patient Total time spent providing and/or coordinating discharge services: Greater than 30 minutes Exam Vital signs: Vital Signs 12/04/17 13:37 12/04/17 14:06 12/04/17 15:15 Temperature Pulse Rate 78 Respiratory Rate 16 Blood Pressure Pulse Oximetry 98 Pulse Oximetry [Exertion on Room Air] 88 L Pulse Oximetry [Resting on Room Air] 92 L Pulse Oximetry [Resting with Oxygen] 100 12/04/17 15:16 12/04/17 15:53 12/04/17 16:00 Temperature 97.4 F L Pulse Rate 78 74 58 L Respiratory Rate 16 17 Blood Pressure 117/58 L Pulse Oximetry 98 Pulse Oximetry [Exertion on Room Air] Pulse Oximetry [Resting on Room Air] Pulse Oximetry [Resting with Oxygen] 12/04/17 19:13 12/04/17 20:00 12/04/17 23:39 Temperature 97.5 F L Pulse Rate 58 L 79 71 Respiratory Rate 18 20 15 Blood Pressure Pulse Oximetry 96 Pulse Oximetry [Exertion on Room Air] Pulse Oximetry [Resting on Room Air] Pulse Oximetry [Resting with Oxygen] 12/05/17 00:00 12/05/17 04:00 12/05/17 04:15 Temperature 97.6 F 97 F L Pulse Rate 72 67 70 Respiratory Rate 20 20 19 Blood Pressure 106/59 L 107/76 Pulse Oximetry 97 100 99 Pulse Oximetry [Exertion on Room Air] Pulse Oximetry [Resting on Room Air] Pulse Oximetry [Resting with Oxygen] 12/05/17 08:00 12/05/17 08:21 12/05/17 12:28 Temperature 97.8 F Pulse Rate 80 70 78 Respiratory Rate 16 19 22 Blood Pressure 111/83 Pulse Oximetry 99 99 Pulse Oximetry [Exertion on Room Air] Pulse Oximetry [Resting on Room Air] Pulse Oximetry [Resting with Oxygen] Intake & Output 12/04/17 12/05/17 12/05/17 18:59 06:59 18:59 Intake Total 480 / 480 Balance 480 / 480 Weight 62.8 kg Intake: Oral 480 / 480 Other: # Voids 3 Date of Last Bowel Movement 12/03/17 12/03/17 Narrative: GENERAL: AAOx3, no acute distress SKIN: Warm and dry. No rashes HEAD: Atruamtic, normocephalic. EYES: No scleral icterus. No injection or drainage. ENT: Moist mucous membranes, patent nares, no erythema of oropharynx. NECK: Supple, trachea midline. No JVD or lymphadenopathy. Normal thyroid. CARDIOVASCULAR: Regular rate and rhythm. No murmurs, gallops, or rubs. RESPIRATORY: Scattered wheezing but otherwise clear breath sounds bilaterally, air exchange adequate. No accessory muscle use. GASTROINTESTINAL: Abdomen soft, non-tender, nondistended, normal active bowel sounds MUSCULOSKELETAL: No cyanosis, trace edema limited to feet NEURO: CN II-XII grossly intact, no focal deficits, no slurring of speech Results Procedures completed during hospitalization: NONE Completed studies during hospitalization: Laboratory Results WBC 8.2 th/mm3 (4.0-11.0) 12/03/17 04:55 RBC 3.75 mil/mm3 (4.50-5.90) L 12/03/17 04:55 Hgb 13.1 gm/dL (13.0-17.0) 12/03/17 04:55 Hct 38.4 % (39.0-51.0) L 12/03/17 04:55 MCV 102.2 fL (80.0-100.0) H 12/03/17 04:55 MCH 34.9 pg (27.0-34.0) H 12/03/17 04:55 MCHC 34.1 % (32.0-36.0) 12/03/17 04:55 RDW 13.1 % (11.6-17.2) 12/03/17 04:55 Plt Count 222 th/mm3 (150-450) 12/03/17 04:55 MPV 7.8 fL (7.0-11.0) 12/03/17 04:55 Neut % (Auto) 87.9 % (16.0-70.0) H 12/03/17 04:55 Lymph % (Auto) 4.4 % (9.0-44.0) L 12/03/17 04:55 [place] % (Auto) 7.6 % (0.0-8.0) 12/03/17 04:55 Eos % (Auto) 0.0 % (0.0-4.0) 12/03/17 04:55 Baso % (Auto) 0.1 % (0.0-2.0) 12/03/17 04:55 Neut # (Auto) 7.2 th/mm3 (1.8-7.7) 12/03/17 04:55 Lymph # (Auto) 0.4 th/mm3 (1.0-4.8) L 12/03/17 04:55 [place] # (Auto) 0.6 th/mm3 (0.0-0.9) 12/03/17 04:55 Eos # (Auto) 0.0 th/mm3 (0.0-0.4) 12/03/17 04:55 Baso # (Auto) 0.0 th/mm3 (0.0-0.2) 12/03/17 04:55 WBC Differential . 12/03/17 04:55 Differential Comment Auto diff final 12/03/17 04:55 PT 11.4 sec (9.8-11.6) 12/03/17 10:25 INR 1.1 Ratio 12/03/17 10:25 APTT 26.3 sec (24.3-30.1) 11/26/17 13:15 Puncture Site Right brachial 11/26/17 14:02 Patient Temperature 98.6 11/26/17 14:02 O2 Saturation 97 % (90-100) 11/26/17 14:02 ABG pH 7.37 (7.380-7.420) L 11/26/17 14:02 ABG pCO2 44 mmHg (38-42) H 11/26/17 14:02 ABG pO2 147 mmHg (61-120) H 11/26/17 14:02 ABG HCO3 25 mmol/L (22-26) 11/26/17 14:02 ABG O2 Content 14.9 Vol % (12.0-20.0) 11/26/17 14:02 ABG Base Excess 0.1 mmol/L (-2-2) 11/26/17 14:02 ABG Methemoglobin 0.5 % (0-2) 11/26/17 14:02 Tanvir Test Present 11/26/17 14:02 Hemoglobin 10.7 G/DL (12.0-16.0) L 11/26/17 14:02 Carboxyhemoglobin 1.5 % (0-4) 11/26/17 14:02 O2 Delivery Device Bipap 11/26/17 14:02 Vent Setting [id number] 11/26/17 14:02 Inspired O2 40 % 11/26/17 14:02 Critical Value No 11/26/17 14:02 Sodium 137 meq/L (136-145) 12/03/17 04:55 Potassium 3.6 meq/L (3.5-5.1) 12/03/17 04:55 Chloride 90 meq/L (98-107) L 12/03/17 04:55 Carbon Dioxide 42.0 meq/L (21.0-32.0) H 12/03/17 04:55 Anion Gap 5 meq/L (5-15) 12/03/17 04:55 BUN 19 mg/dL (7-18) H 12/03/17 04:55 Creatinine 0.63 mg/dL (0.60-1.30) 12/03/17 04:55 Estimated GFR Greater than 89 mL/min (>89) 12/03/17 04:55 Random Glucose 107 mg/dL (74-106) H 12/03/17 04:55 Hemoglobin A1c 5.0 % (4.3-6.0) 12/03/17 04:55 Calcium 8.3 mg/dL (8.5-10.1) L 12/03/17 04:55 Phosphorus 3.3 mg/dL (2.5-4.9) 12/03/17 04:55 Magnesium 2.5 mg/dL (1.5-2.5) 12/03/17 04:55 Total Bilirubin 0.4 mg/dL (0.2-1.0) 12/03/17 04:55 AST 15 U/L (15-37) 12/03/17 04:55 ALT 19 U/L (12-78) 12/03/17 04:55 Alkaline Phosphatase 67 U/L (45-117) 12/03/17 04:55 Total Creatine Kinase 80 U/L (39-308) 11/27/17 01:05 Troponin I 0.08 ng/mL (0.02-0.05) H 11/27/17 01:05 B-Natriuretic Peptide 2525 pg/mL (0-100) H 11/26/17 13:15 Total Protein 6.0 g/dL (6.4-8.2) L D 12/03/17 04:55 Albumin 2.9 g/dL (3.4-5.0) L 12/03/17 04:55 TSH 1.120 uIU/mL (0.358-3.740) 12/03/17 04:55 Free T4 1.17 ng/dL (0.76-1.46) 12/03/17 04:55 Impressions Chest X-Ray 11/26/17 13:29 CONCLUSION: 1. There continue be bibasal infiltrates and effusions, right greater than left. The parenchymal changes and effusion the right lung base appear to be mildly increased. The left infiltrate and effusion appear to be stable. 2. Pulmonary venous congestion. - Impressions ITS Impressions Chest X-Ray 11/26/17 13:29 CONCLUSION: 1. There continue be bibasal infiltrates and effusions, right greater than left. The parenchymal changes and effusion the right lung base appear to be mildly increased. The left infiltrate and effusion appear to be stable. 2. Pulmonary venous congestion. Discharge Plan - Discharge Disposition Patient Disposition: 01 Discharge Home - Discharge Condition Condition: Good - Discharge Order Discharge Orders: Discharge Order (Routine); Ordered 12/05/17 Ordered By: Cecilio Spivey - Discharge Details Anticipated Discharge Date: 12/05/17 Discharge Comment: DC TO HOME - Physicians Team Primary Care Provider: Primary Care Physici,No Attending Provider: Cecilio Spivey
== END 2017-12-05 14:17 | disposition home or self-care (01) ==
LOC: NEPC 12:50 → NEDA 18:41 → N04 20:00
PROVIDERS: ADMIT Hospitalist; ATTEND Hospitalist

== ENCOUNTER 2018-01-25 20:36 | Inpatient (IN) ==
[2018-01-25 22:21] LABS: Baso # (Auto) 0.1 th/mm3 (0.0-0.2); Baso % (Auto) 0.7 % (0.0-2.0); Eos # (Auto) 0.1 th/mm3 (0.0-0.4); Eos % (Auto) 1.3 % (0.0-4.0); Hematocrit 35.7 % (39.0-51.0); Hemoglobin 12.4 gm/dL (13.0-17.0); Lymph % (Auto) 13.5 % (9.0-44.0); Mean Corpuscular HGB Conc 34.9 % (32.0-36.0); Mean Corpuscular Hemoglobin 34.5 pg (27.0-34.0); Mean Corpuscular Volume 98.9 fL (80.0-100.0); Mean Platelet Volume 7.5 fL (7.0-11.0); Mono # (Auto) 0.9 th/mm3 (0.0-0.9); Neut % (Auto) 71.5 % (16.0-70.0); Platelet Count 244 th/mm3 (150-450); Red Cell Distribution Width 13.6 % (11.6-17.2)
--- NOTE | 2018-01-25 22:28 | XR ---
EXAM DATE: 01/25/2018 10:16 PM EDT AGE/SEX: 62 years / Male INDICATIONS: . Shortness of breath and chest pain. CLINICAL DATA: This is the patient's initial encounter. Patient reports that signs and symptoms have been present for 2 weeks and indicates a pain score of 5/10. MEDICAL/SURGICAL HISTORY: Hypertension. Chronic obstructive pulmonary disease. Pacemaker. COMPARISON: C, CHEST 1V SINGLE AP, 11/26/2017. . FINDINGS: Moderate right effusion and small left effusion similar to October 2017. Heart size enlarged with pace r lead overlying right ventricle. No pneumothorax. Basilar airspace disease. CONCLUSION: Bilateral pleural effusions, right greater than left with basilar airspace disease similar to November 26. Electronically signed by: James Short MD 01/25/2018 10:27 PM EDT
[2018-01-25 22:46] LABS: Alanine Aminotransferase 19 U/L (12-78); Albumin 3.3 g/dL (3.4-5.0); Alkaline Phosphatase 109 U/L (45-117); Anion Gap 8 meq/L (5-15); Aspartate Aminotransferase 23 U/L (15-37); Blood Urea Nitrogen 7 mg/dL (7-18); Calcium 8.8 mg/dL (8.5-10.1); Carbon Dioxide 33.5 meq/L (21.0-32.0); Chloride 82 meq/L (98-107); Glomerular Filtration Rate Greater Than 89 mL/min (>89); Glucose,Random 95 mg/dL (74-106); Potassium 4.2 meq/L (3.5-5.1); Total Protein 7.1 g/dL (6.4-8.2); Troponin I 0.03 ng/mL (0.02-0.05)
[2018-01-25 22:56] LABS: Creatine Kinase 73 U/L (39-308); Sodium 123 meq/L (136-145)
[2018-01-25] MEDS ORDERED: Sodium Chlor 0.9% Inj 500 ML IV.SIG SCH (23:00)
[2018-01-26] MEDS ORDERED: Bisacodyl 10 MG Supp RECTAL PRN (03:14)
--- NOTE | 2018-01-26 03:57 | ED ---
HPI General Chief Complaint: Shortness of Breath/Dyspnea Stated Complaint: trouble breathing, both ankles and feet swollen Time Seen by Provider: 01/25/18 21:53 History of Present Illness Patient is a 62-year-old male presents the emergency department with chief complaint of shortness of breath. States that he does have chronic SOB but this is not his baseline. He reports significant worsening over the last 12 hours and swelling of the feet. Patient quit smoking in May 2017. He denies recent travel, sick contacts or recent URI. Related Data Previous Rx's Medication Instructions Recorded aspirin 81 mg PO DAILY #30 tab 12/05/17 azithromycin 500 mg PO DAILY #10 tab 12/05/17 budesonide-formoterol [Symbicort] 2 puff INH BID #1 inh 12/05/17 carvedilol [Coreg] 3.125 mg PO BID #60 tab 12/05/17 famotidine 20 mg PO BID #60 tab 12/05/17 furosemide 40 mg PO BID@0900,1800 #60 tab 12/05/17 guaifenesin [Mucinex] 600 mg PO BID #60 tab 12/05/17 ipratropium-albuterol 1 amp NEB Q4HR NEB #180 amp 12/05/17 lisinopril 5 mg PO DAILY #30 tab 12/05/17 potassium chloride [Klor-Con 10] 30 meq PO BID #180 tab 12/05/17 prednisone 40 mg PO BID #60 tab 12/05/17 Allergies Allergy/AdvReac Type Severity Reaction Status Date / Time No Known Allergies Allergy Verified 01/25/18 21:22 Review of Systems ROS: all other systems reviewed are negative [facility] Family History Family History Other Stroke Social History Social History Substance History: No History of Abuse Second Hand Smoke Exposure: No Smoking Status: Never smoker Tobacco Type: Cigarettes How Often Do You Have a Drink Containing Alcohol: Never Recent Travel in [facility] within the Last 8 Weeks: No Recent Out of Country Travel within the Last 8 Weeks: No Immunization History Tetanus Immunization: >5 Years Exam Narrative Exam Narrative: GENERAL: 62-year-old male in no distress SKIN: Focused skin assessment warm/dry. HEAD: Atraumatic. Normocephalic. EYES: Pupils equal and round. No scleral icterus. No injection or drainage. ENT: No nasal bleeding or discharge. Mucous membranes pink and moist. NECK: Trachea midline. No JVD. CARDIOVASCULAR: Regular rate and rhythm. No murmur appreciated. RESPIRATORY: Rales noted bilateral. GASTROINTESTINAL: Abdomen soft, non-tender, nondistended. Hepatic and splenic margins not palpable. MUSCULOSKELETAL: No obvious deformities. No clubbing. No cyanosis. No edema. NEUROLOGICAL: Awake and alert. No obvious cranial nerve deficits. Motor grossly within normal limits. Normal speech. PSYCHIATRIC: Appropriate mood and affect; insight and judgment normal. Course Initial Documented Vital Signs Temperature 98.2 F 01/25/18 21:22 Pulse Rate 103 H 01/25/18 21:22 Respiratory Rate 21 01/25/18 21:22 Blood Pressure 103/63 01/25/18 21:22 Pulse Oximetry 93 L 01/25/18 21:22 Last Documented Vital Signs Temperature 97.7 F 01/26/18 04:00 Pulse Rate 95 H 01/26/18 04:00 Respiratory Rate 19 01/26/18 04:00 Blood Pressure 114/71 01/26/18 04:00 Pulse Oximetry 98 01/26/18 04:00 Medical Decision Making [facility] [place] Narrative Medical Screen Exam Complete: Yes Emergency Medical Condition: Yes Lab Data Result diagrams: 01/25/18 22:10 01/25/18 22:10 Lab Results 01/25/18 01/25/18 01/25/18 Range/Units 22:10 22:10 22:10 WBC 7.0 (4.0-11.0) th/mm3 RBC 3.60 L (4.50-5.90) mil/mm3 Hgb 12.4 L (13.0-17.0) gm/dL Hct 35.7 L (39.0-51.0) % MCV 98.9 (80.0-100.0) fL MCH 34.5 H (27.0-34.0) pg MCHC 34.9 (32.0-36.0) % RDW 13.6 (11.6-17.2) % Plt Count 244 (150-450) th/mm3 MPV 7.5 (7.0-11.0) fL Neut % (Auto) 71.5 H (16.0-70.0) % Lymph % (Auto) 13.5 (9.0-44.0) % [place] % (Auto) 13.0 H (0.0-8.0) % Eos % (Auto) 1.3 (0.0-4.0) % Baso % (Auto) 0.7 (0.0-2.0) % Neut # (Auto) 5.0 (1.8-7.7) th/mm3 Lymph # (Auto) 1.0 (1.0-4.8) th/mm3 [place] # (Auto) 0.9 (0.0-0.9) th/mm3 Eos # (Auto) 0.1 (0.0-0.4) th/mm3 Baso # (Auto) 0.1 (0.0-0.2) th/mm3 WBC Differential . Differential Comment Auto diff final Sodium 123 L* (136-145) meq/L Potassium 4.2 (3.5-5.1) meq/L Chloride 82 L (98-107) meq/L Carbon Dioxide 33.5 H (21.0-32.0) meq/L Anion Gap 8 (5-15) meq/L BUN 7 (7-18) mg/dL Creatinine 0.57 L (0.60-1.30) mg/dL Estimated GFR Greater than 89 (>89) mL/min Random Glucose 95 (74-106) mg/dL Calcium 8.8 (8.5-10.1) mg/dL Total Bilirubin 0.7 (0.2-1.0) mg/dL AST 23 (15-37) U/L ALT 19 (12-78) U/L Alkaline Phosphatase 109 (45-117) U/L Total Creatine Kinase 73 (39-308) U/L Troponin I 0.03 (0.02-0.05) ng/mL B-Natriuretic Peptide 1879 H (0-100) pg/mL Total Protein 7.1 (6.4-8.2) g/dL Albumin 3.3 L (3.4-5.0) g/dL Imaging Data Radiologist's impression: Chest X-Ray 01/25/18 22:01 CONCLUSION: Bilateral pleural effusions, right greater than left with basilar airspace disease similar to November 26. Discharge Plan Discharge Disposition Patient Disposition: 30 Still Patient Discharge Condition Condition: Stable Discharge Details Diagnosis: CHF (congestive heart failure), COPD (chronic obstructive pulmonary disease), Hypoxia Physicians Team ED Provider: Libertad Mejia Primary Care Provider: UNKNOWN, Attending Provider: Kathy Contreras Other Providers: Gopi Sales Discharge Interventions Interventions: ED Discharge Assessment Last Done: 01/26/18 05:13 Vital Signs Last Done: 01/26/18 02:00 Status ED Status: Left Department Discharge Information Discharge Date/Time: 01/26/18 05:13
[2018-01-26] MEDS: Budesonide-Formoterol 160/4.5 MCG 6 GM Inhaler INH SCH ×2 (09:27→20:28)
[2018-01-26 10:22] LABS: Anion Gap 8 meq/L (5-15); Blood Urea Nitrogen 7 mg/dL (7-18); Calcium 8.7 mg/dL (8.5-10.1); Carbon Dioxide 34.9 meq/L (21.0-32.0); Chloride 84 meq/L (98-107); Glomerular Filtration Rate Greater Than 89 mL/min (>89); Glucose,Random 98 mg/dL (74-106); Potassium 3.4 meq/L (3.5-5.1); Sodium 127 meq/L (136-145)
--- NOTE | 2018-01-26 10:56 | P.HPIM ---
History of Present Illness Primary Care Physician: UNKNOWN History of Present Illness: This patient is a 62-year-old homeless male with a diagnosis of systolic CHF ejection fraction 15-20%, status post defibrillator, COPD not on home O2, hypertension. The patient presented to our emergency department with complaints of shortness of breath that is been ongoing over the past 1 week. The patient's symptoms progressively got worse and he was having difficulty sleeping because he was unable to lie flat. He also notes having progressively worsening swelling of bilateral lower extremities up to the shins. He denies any fevers or chills. He says he does have a cough productive of whitish sputum. He does not have any other complaints. He denies diarrhea, no abdominal pain, no chest pain. Past medical history systolic CHF ejection fraction 15-20%, COPD not on home O2 , hypertension Past surgical history AICD placement Social history the patient states he smoked 1 pack of cigarettes per day for nearly 35 years, quit in May 2017. He also has been drinking 4 beers per day for nearly 30 years. Family history the patient states his brother had multiple strokes in his 60s. Inpatient Certification: I certify that the inpatient services were ordered in accordance with Medicare regulations governing the order. This includes certification that hospital inpatient services are reasonable and necessary and in the case of services not specified as inpatient-only under 42 CFR 419.22(n), that they are appropriately provided as inpatient services in accordance to with the 2-midnight benchmark under 43 CFR 412.3(e) Estimated Total Length of Stay (Days): 3 Plans for Post Hospital Care: Home Review of Systems All other systems reviewed negative except as stated in [facility] - History History Provided By: Patient - Medical History Medical History: Medical History (Last Reviewed 01/25/18 @ 21:24 by Deana Campbell RN) COPD (chronic obstructive pulmonary disease) - Surgical History Surgical History: Surgical History (Last Reviewed 01/25/18 @ 21:24 by Deana Campbell RN) AICD (automatic cardioverter/defibrillator) present - Family History Family History: Family History (Last Updated 11/26/17 @ 15:12 by Charles Santiago MD) Other Stroke - Tobacco History Second Hand Smoke Exposure: No Tobacco Use In Past 30 Days: No Smoking Status: Never smoker Tobacco Type: Cigarettes - Alcohol History How Often Do You Have a Drink Containing Alcohol: Never - Substance Use History Substance History: No History of Abuse - Travel History Recent Travel in the [place] Within the Last 8 Weeks: No Recent Travel Out of the Country Within the Last 8 Weeks: No - Immunization History Tetanus Immunization: >5 Years Medications and Allergies Active Medications: Active Medications Al Hydroxide/Mg Hydroxide (Milk Of Magnesia Liq) 30 ml PO Q12H PRN PRN Reason: Mild Constipation Aspirin (Ecotrin) 81 mg PO DAILY [facility] Last Admin: 01/26/18 09:28 Dose: 81 mg Bisacodyl (Dulcolax Supp) 10 mg RECTAL DAILY PRN PRN Reason: SEVERE CONSITIPATION Budesonide/Formoterol Fumarate (Symbicort 160/4.5 Mcg Inh) 2 puff INH BID [facility] Last Admin: 01/26/18 09:27 Dose: 2 puff Furosemide (Lasix Inj) 40 mg IV.PUSH BID@0900,1800 [facility] Last Admin: 01/26/18 09:27 Dose: 40 mg Sodium Chloride (Ns Inj) 500 mls @ 0 mls/hr IV.SIG BOLUS [facility] Last Infusion: 01/25/18 23:50 Dose: Infused Lactulose (Lactulose Liq) 30 ml PO DAILY PRN PRN Reason: SEVERE CONSITIPATION Sennosides (Senokot) 17.2 mg PO Q12H PRN PRN Reason: Moderate Constipation Allergies Allergy/AdvReac Type Severity Reaction Status Date / Time No Known Allergies Allergy Verified 01/25/18 21:22 Exam Vital signs: Vital Signs 01/25/18 21:22 01/25/18 21:45 01/25/18 22:51 Temperature 98.2 F Pulse Rate 103 H 99 H 88 Respiratory Rate 21 20 20 Blood Pressure 103/63 123/76 Pulse Oximetry 93 L 96 01/26/18 02:00 01/26/18 04:00 01/26/18 08:15 Temperature 97.7 F 97.7 F Pulse Rate 84 95 H 80 Respiratory Rate 12 19 18 Blood Pressure 97/76 L 114/71 113/71 Pulse Oximetry 94 L 98 97 Intake & Output 01/25/18 01/26/18 01/26/18 18:59 06:59 18:59 Intake Total 500 / 500 Balance 500 / 500 Weight 58.967 kg Intake: IV 500 / 500 NS Inj 500 ML @ Wide Open IV. 500 / 500 SIG BOLUS SAWYER Rx#:[id number] Oral 0 / 0 Other: # Voids 0 Weight On Admission 58.967 kg Narrative: General patient complains of shortness of breath when lying flat HEENT extraocular movements are intact, JVD present Cardiovascular S1-S2 audible, RRR Respiratory decreased breath sounds at the bases bilaterally Abdomen soft, nontender, nondistended, normal bowel sounds Extremities 2+ pitting edema bilateral lower extremities up to the shins. Neuro there are no neurological deficits. Patient moves all 4 extremities and sensation is intact bilaterally. Results - Labs CBC & Chem 7: 01/25/18 22:10 01/26/18 09:36 Labs: Short CBC 01/25/18 Range/Units 22:10 WBC 7.0 (4.0-11.0) th/mm3 Hgb 12.4 L (13.0-17.0) gm/dL Hct 35.7 L (39.0-51.0) % Plt Count 244 (150-450) th/mm3 BMP 01/25/18 01/26/18 22:10 09:36 Sodium 123 L* 127 L Potassium 4.2 3.4 L D Chloride 82 L 84 L Carbon Dioxide 33.5 H 34.9 H BUN 7 7 Creatinine 0.57 L 0.47 L Calcium 8.8 8.7 Cardiac Enzymes 01/25/18 Range/Units 22:10 Total Creatine Kinase 73 (39-308) U/L Troponin I 0.03 (0.02-0.05) ng/mL Liver Function 01/25/18 Range/Units 22:10 Total Bilirubin 0.7 (0.2-1.0) mg/dL AST 23 (15-37) U/L ALT 19 (12-78) U/L Alkaline Phosphatase 109 (45-117) U/L Albumin 3.3 L (3.4-5.0) g/dL - Imaging Impressions Chest X-Ray 01/25/18 22:01 CONCLUSION: Bilateral pleural effusions, right greater than left with basilar airspace disease similar to November 26. Caprini VTE Risk Assessment Caprini VTE Risk Assessment: Moderate/High Risk (score >= 2) Caprini Risk Assessment Model: Point Value = 1 Point Value = 2 Point Value = 3 Point Value = 5 Age 41-60 Minor surgery BMI > 25 kg/m2 Swollen legs Varicose veins or History of unexplained or recurrent spontaneous Oral contraceptives or hormone replacement Sepsis (< 1 month) Serious lung disease, including pneumonia (< 1 month) Abnormal pulmonary function Acute myocardial infarction Congestive heart failure (< 1 month) History of inflammatory bowel disease Medical patient at bed rest Age 61-74 Arthroscopic surgery Major open surgery (> 45 min) Laparoscopic surgery (> 45 min) Malignancy Confined to bed (> 72 hours) Immobilizing plaster cast Central venous access Age >= 75 History of VTE Family history of VTE Factor V Leiden Prothrombin [id number] Lupus anticoagulant Anticardiolipin antibodies Elevated serum homocysteine Heparin-induced thrombocytopenia Other congenital or acquired thrombophilia Stroke (< 1 month) Elective arthroplasty Hip, pelvis, or leg fracture Acute spinal cord injury (< 1 month) Prophylaxis Regimen: Total Risk Factor Score Risk Level Prophylaxis Regimen 0-1 Low Early ambulation 2 Moderate Order ONE of the following: *Sequential Compression Device (SCD) *Heparin 5000 units SQ BID 3-4 Higher Order ONE of the following medications: *Heparin 5000 units SQ TID *Enoxaparin/Lovenox 40 mg SQ daily (WT < 150 kg, CrCl > 30 mL/min) *Enoxaparin/Lovenox 30 mg SQ daily (WT < 150 kg, CrCl > 10-29 mL/min) *Enoxaparin/Lovenox 30 mg SQ BID (WT < 150 kg, CrCl > 30 mL/min) AND/OR *Sequential Compression Device (SCD) 5 or more Highest Order ONE of the following medications: *Heparin 5000 units SQ TID (Preferred with Epidurals) *Enoxaparin/Lovenox 40 mg SQ daily (WT < 150 kg, CrCl > 30 mL/min) *Enoxaparin/Lovenox 30 mg SQ daily (WT < 150 kg, CrCl > 10-29 mL/min) *Enoxaparin/Lovenox 30 mg SQ BID (WT < 150 kg, CrCl > 30 mL/min) AND *Sequential Compression Device (SCD) Assessment and Plan - Plan This patient is a 62-year-old homeless male with a diagnosis of systolic CHF ejection fraction 15-20%, status post defibrillator, COPD not on home O2, hypertension. The patient presented to our emergency department with complaints of shortness of breath that is been ongoing over the past 1 week. The patient's symptoms progressively got worse and he was having difficulty sleeping because he was unable to lie flat. He also notes having progressively worsening swelling of bilateral lower extremities up to the shins. He denies any fevers or chills. 1. Acute on chronic systolic CHF exacerbation secondary to medication noncompliance and fluid restriction noncompliance 2. Hyponatremia secondary to volume overload secondary to #1 3. Alcohol abuse The patient presented with the symptoms mentioned above. BNP elevated, chest x-ray shows bilateral pleural effusions. He has been started on IV Lasix. We will continue IV Lasix. Monitor strict ins and outs 1.5 L fluid restriction Patient was counseled on medication noncompliance and advised to take his medications. He was also advised to avoid alcohol. Patient's serum sodium has increased to 127. Continue current management above and I will follow-up with a renal panel later today. 4. COPD Currently not in exacerbation Continue breathing treatments as needed Continue Symbicort and DuoNeb treatments will be given as needed. Lovenox for DVT prophylaxis. H&P: Quality - VTE Deep Vein Thrombosis/Pulmonary Embolism Present on Admission: No
--- NOTE | 2018-01-26 15:12 | ECG ---
Date Performed: 01/25/2018 Time Performed: 21:52:03 PTAGE: 62 years EKG: Sinus rhythm WITH FREQUENT VENTRICULAR PREMATURE COMPLEXES WITH OCCASIONAL SUPRAVENTRICULAR PREMATURE COMPLEXES I NTRAVENTRICULAR CONDUCTION DELAY INFERIOR MYOCARDIAL INFARCTION Since the previous tracing, no signif icant change noted ABNORMAL ECG PREVIOUS TRACING : 11/26/2017 19.26 DOCTOR: Erich Franklin Interpretating Date/Time 01/26/2018 14:58:03
[2018-01-26 19:42] LABS: Anion Gap 11 meq/L (5-15); Blood Urea Nitrogen 8 mg/dL (7-18); Calcium 8.7 mg/dL (8.5-10.1); Carbon Dioxide 32.5 meq/L (21.0-32.0); Chloride 81 meq/L (98-107); Glomerular Filtration Rate Greater Than 89 mL/min (>89); Glucose,Random 83 mg/dL (74-106); Magnesium 1.6 mg/dL (1.5-2.5); Potassium 4.4 meq/L (3.5-5.1)
[2018-01-26 19:49] LABS: Sodium 124 meq/L (136-145)
--- NOTE | 2018-01-27 00:38 | MB ---
cc: Gopi Sales DO DATE: 01/26/2018 REASON FOR CONSULTATION: Heart failure. HISTORY OF PRESENT ILLNESS: Scotty Villegas is a 62-year-old male who presented to [facility] Emergency Room due to shortness of breath. The patient has a known ejection fraction of 15-20% and had a defibrillator placed earlier this year in July. He states that the shortness of breath has been going on for the past week. He has also noticed progressive edema up to his shins. He has been unable to lie flat due to shortness of breath. He denies any chest pain. PAST MEDICAL HISTORY: 1. Chronic systolic heart failure with an ejection fraction of 15-20%. 2. Chronic obstructive pulmonary disease. 3. Hypertension. PAST SURGICAL HISTORY: 1. 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 2. Placement of a [employer] ICD (model #USWA3P1, serial #[id number]) on 08/04/2017. ALLERGIES: NO KNOWN DRUG ALLERGIES. MEDICATIONS: 1. Symbicort 2 puffs b.i.d. 2. Aspirin 81 mg daily. FAMILY HISTORY: Denies sudden cardiac within the family. SOCIAL HISTORY: The patient previously smoked but quit in 05/2017. He drinks 4 beers a day for 30 years. REVIEW OF SYSTEMS: Fourteen systems are reviewed including osteopathic. Pertinent positives and negatives above, otherwise negative. PHYSICAL EXAMINATION: VITAL SIGNS: Temperature 97.8, heart rate 83, blood pressure 108/65, respirations 18, pulse oximetry 96% on 2 liters. GENERAL: The patient appears well, in no acute distress, alert, awake and oriented x3. HEENT: Extraocular muscles intact. Mucous membranes moist. NECK: Supple. No JVD at 45 degrees. No carotid bruits heard bilaterally. Carotid upstroke is brisk in nature. HEART: Regular rate and rhythm. Positive first and second heart sounds with no noted murmurs, gallops or rubs. LUNGS: Decreased breath sounds bilaterally, but no overt wheezes, rales or rhonchi. ABDOMEN: Soft, nontender, nondistended. No organomegaly noted. EXTREMITIES: Have 1+ pitting edema up to the mid ojeda. NEUROLOGIC: No focal deficits. SKIN: Warm, dry and intact. OSTEOPATHIC: No kyphoscoliosis, lordosis or paraspinal tender points. LABORATORY DATA: Hemoglobin 12.4, hematocrit 35.7, platelets 244. Sodium 124, BUN 8, creatinine 0.56. Troponin 0.03. BNP 1879. Electrocardiogram (01/25/2018 at 2152 hours): Sinus rhythm with occasional PVCs and PACs. Intraventricular conduction delay. Inferior myocardial infarction. IMPRESSIONS: 1. Acute on chronic systolic heart failure. 2. Medical noncompliance. 3. Hyponatremia secondary to fluid overload state. 4. Alcohol abuse. 5. Remote tobacco abuse. RECOMMENDATIONS: 1. Mr. Villegas presented with acute on chronic systolic heart failure and will be diuresed. 2. His hyponatremia is most likely due to his fluid overload state. 3. It appears that he is on no heart failure medications for some unknown reason. He will need to be started on most likely a beta shanna and JUSTINE inhibitor to try to help out his overall cardiomyopathy. 4. He will be placed on a fluid restriction and he will need to continue this at home as well as watching his overall salt intake. 5. I did discuss with him watching his weight at home to try to determine if he is taking in too much fluid or salt. 6. Further recommendations will be made based on the hospital course. Thank you for allowing me to see Scotty Villegas. If there are any questions, please do not hesitate to call. DO [place] Taylor/jossy , 11:45 PM , 11:56 PM
[2018-01-27 07:42] LABS: Baso % (Auto) 0.4 % (0.0-2.0); Eos # (Auto) 0.1 th/mm3 (0.0-0.4); Eos % (Auto) 0.9 % (0.0-4.0); Hematocrit 36.2 % (39.0-51.0); Hemoglobin 12.9 gm/dL (13.0-17.0); Lymph # (Auto) 0.9 th/mm3 (1.0-4.8); Lymph % (Auto) 14.4 % (9.0-44.0); Mean Corpuscular HGB Conc 35.6 % (32.0-36.0); Mean Corpuscular Hemoglobin 35.3 pg (27.0-34.0); Mean Corpuscular Volume 99.2 fL (80.0-100.0); Mean Platelet Volume 7.5 fL (7.0-11.0); Mono % (Auto) 15.3 % (0.0-8.0); Neut # (Auto) 4.5 th/mm3 (1.8-7.7); Platelet Count 266 th/mm3 (150-450); Red Blood Count 3.65 mil/mm3 (4.50-5.90); Red Cell Distribution Width 13.6 % (11.6-17.2); White Blood Count 6.5 th/mm3 (4.0-11.0)
[2018-01-27 08:05] LABS: Alanine Aminotransferase 17 U/L (12-78); Albumin 3.5 g/dL (3.4-5.0); Anion Gap 6 meq/L (5-15); Aspartate Aminotransferase 16 U/L (15-37); Blood Urea Nitrogen 7 mg/dL (7-18); Calcium 9.2 mg/dL (8.5-10.1); Carbon Dioxide 39.4 meq/L (21.0-32.0); Chloride 83 meq/L (98-107); Glomerular Filtration Rate Greater Than 89 mL/min (>89); Glucose,Random 83 mg/dL (74-106); Magnesium 1.6 mg/dL (1.5-2.5); Potassium 3.5 meq/L (3.5-5.1); Sodium 128 meq/L (136-145)
[2018-01-27 08:11] LABS: Alkaline Phosphatase 113 U/L (45-117); Total Protein 6.9 g/dL (6.4-8.2)
[2018-01-27] MEDS: Enoxaparin Inj 40 MG/0.4 ML Syringe SQ SCH (08:54)
[2018-01-27] MEDS: Budesonide-Formoterol 160/4.5 MCG 6 GM Inhaler INH SCH ×2 (08:55→21:51)
--- NOTE | 2018-01-27 08:57 | P.PN ---
Subjective Interval history: Follow-up for CHF exacerbation. Patient reports feeling slightly better today. Denies any significant shortness of breath while at rest, did have some dyspnea upon ambulation to the restroom, however overall much improved compared to his arrival. He reports continued orthopnea. Denies any chest pain. His leg swelling is much improved. He states he has been using his brother's oxygen at home, but does not have any of his own. Discussed CHF education including sodium/fluid restriction and monitoring daily weights, patient verbalized understanding, plans to purchase a scale. Patient admits that he does not have a stove at home, and has been eating a lot of frozen dinners cooked in the microwave. Physical Exam Vital signs: Vital Signs 01/26/18 11:26 01/26/18 15:06 01/26/18 16:38 Temperature 97.8 F 97.8 F Pulse Rate 83 86 78 Respiratory Rate 18 17 20 Blood Pressure 108/65 115/81 Pulse Oximetry 96 98 01/26/18 20:00 01/26/18 23:23 01/27/18 04:00 Temperature 97.5 F L 98.0 F 97.6 F Pulse Rate 90 55 L 112 H Respiratory Rate 17 18 20 Blood Pressure 105/75 108/67 110/75 Pulse Oximetry 97 97 97 01/27/18 07:38 Temperature 97.8 F Pulse Rate 61 Respiratory Rate 20 Blood Pressure 109/81 Pulse Oximetry 99 Intake & Output 01/26/18 01/27/18 01/27/18 18:59 06:59 18:59 Intake Total 941 / 941 Output Total 2425 / 2425 Balance -1484 / -1484 Intake: Oral 941 / 941 Output: Urine 2425 / 2425 Other: Date of Last Bowel Movement 01/25/18 Narrative: GENERAL: Well-nourished, well-developed pleasant middle-aged patient in NAD. Sleeping sitting upright in bed upon my arrival. SKIN: Warm and dry. No rash. HEENT: Normocephalic. Atraumatic. Pupils equal and round. Mucous membranes pink and moist. CARDIOVASCULAR: Regular rate and rhythm. No murmur appreciated. RESPIRATORY: No accessory muscle use. Decreased breath sounds at bilateral bases, otherwise clear to auscultation. Breath sounds equal bilaterally. GASTROINTESTINAL: Abdomen soft, non-tender, nondistended. Normoactive bowel sounds x4. MUSCULOSKELETAL: No obvious deformities. Trace bilateral lower extremity edema. NEUROLOGICAL: Awake and alert. No obvious cranial nerve deficits. Motor grossly within normal limits. Moving all extremities spontaneously. Normal speech. PSYCHIATRIC: Appropriate mood and affect; insight and judgment normal. Results - Labs CBC & Chem 7: 01/27/18 06:56 01/27/18 06:56 Laboratory Results - last 24 hr 01/26/18 01/26/18 01/27/18 09:36 18:32 06:56 WBC 6.5 RBC 3.65 L Hgb 12.9 L Hct 36.2 L MCV 99.2 MCH 35.3 H MCHC 35.6 RDW 13.6 Plt Count 266 MPV 7.5 Neut % (Auto) 69.0 Lymph % (Auto) 14.4 [place] % (Auto) 15.3 H Eos % (Auto) 0.9 Baso % (Auto) 0.4 Neut # (Auto) 4.5 Lymph # (Auto) 0.9 L [place] # (Auto) 1.0 H Eos # (Auto) 0.1 Baso # (Auto) 0.0 WBC Differential . Differential Comment Auto diff final Sodium 127 L 124 L* Potassium 3.4 L D 4.4 D Chloride 84 L 81 L Carbon Dioxide 34.9 H 32.5 H Anion Gap 8 11 BUN 7 8 Creatinine 0.47 L 0.56 L Estimated GFR Greater than 89 Greater than 89 Random Glucose 98 83 Calcium 8.7 8.7 Magnesium 1.6 Total Bilirubin AST ALT Alkaline Phosphatase Total Protein Albumin 01/27/18 06:56 WBC RBC Hgb Hct MCV MCH MCHC RDW Plt Count MPV Neut % (Auto) Lymph % (Auto) [place] % (Auto) Eos % (Auto) Baso % (Auto) Neut # (Auto) Lymph # (Auto) [place] # (Auto) Eos # (Auto) Baso # (Auto) WBC Differential Differential Comment Sodium 128 L Potassium 3.5 D Chloride 83 L Carbon Dioxide 39.4 H Anion Gap 6 BUN 7 Creatinine 0.54 L Estimated GFR Greater than 89 Random Glucose 83 Calcium 9.2 Magnesium 1.6 Total Bilirubin 0.9 AST 16 ALT 17 Alkaline Phosphatase 113 Total Protein 6.9 Albumin 3.5 - Imaging Chest X-Ray 01/25/18 22:01 CONCLUSION: Bilateral pleural effusions, right greater than left with basilar airspace disease similar to November 26. Assessment and Plan - Plan 62-year-old male with a diagnosis of systolic CHF ejection fraction 15-20%, status post defibrillator, COPD not on home O2, hypertension, presents with a 1 week history of progressively worsening shortness of breath, lower extremity edema, and orthopnea. Acute exacerbation of chronic systolic CHF: secondary to medication noncompliance, dietary sodium indiscretion, and fluid restriction noncompliance -CXR reviewed, shows bilateral pleural effusions -BNP elevated at 1879 -Continue diuresis with IV Lasix 40mg bid -Monitor Is&Os -Fluid restrictions -Started on Coreg 3.125mg bid, holding off on JUSTINE for now secondary to hyponatremia and borderline hypotension -Cardiology consulted, appreciate assistance -Educated extensively on CHF including fluid/sodium restrictions and monitoring daily weights Hyponatremia: Na 123. secondary to volume overload with CHF and alcohol use -continue diuresis -avoid JUSTINE for now -monitor Na, improving, Na 128 today Alcohol abuse: chronic -counseled on cessation -monitor for withdrawal COPD: chronic, currently not in exacerbation -Continue breathing treatments as needed -Continue Symbicort bid -Incentive spirometer Lovenox for DVT prophylaxis. Discharge Planning: Discharge pending further clinical improvement of CHF and hyponatremia, and clearance from cardiology.
--- NOTE | 2018-01-27 22:29 | P.PNCA ---
Subjective Interval history: Feeling mildly better Still with orthopnea Diuresed 1.5L Medications and Allergies Active Medications: Active Medications Al Hydroxide/Mg Hydroxide (Milk Of Magnesia Liq) 30 ml PO Q12H PRN PRN Reason: Mild Constipation Albuterol (Duoneb Neb (Prn)) 1 ampul NEB Q4HR NEB PRN PRN Reason: SHORTNESS OF BREATH/WHEEZING Last Admin: 01/26/18 15:02 Dose: 1 ampul Aspirin (Ecotrin) 81 mg PO DAILY [facility] Last Admin: 01/27/18 08:55 Dose: 81 mg Bisacodyl (Dulcolax Supp) 10 mg RECTAL DAILY PRN PRN Reason: SEVERE CONSITIPATION Budesonide/Formoterol Fumarate (Symbicort 160/4.5 Mcg Inh) 2 puff INH BID [facility] Last Admin: 01/27/18 21:51 Dose: 2 puff Carvedilol (Coreg) 3.125 mg PO BID [facility] Last Admin: 01/27/18 21:51 Dose: 3.125 mg Enoxaparin Sodium (Lovenox Inj) 40 mg SQ DAILY [facility] Last Admin: 01/27/18 08:54 Dose: 40 mg Furosemide (Lasix Inj) 40 mg IV.PUSH BID@0900,1800 [facility] Last Admin: 01/27/18 17:32 Dose: 40 mg Lactulose (Lactulose Liq) 30 ml PO DAILY PRN PRN Reason: SEVERE CONSITIPATION Sennosides (Senokot) 17.2 mg PO Q12H PRN PRN Reason: Moderate Constipation Allergies Allergy/AdvReac Type Severity Reaction Status Date / Time No Known Allergies Allergy Verified 01/25/18 21:22 Physical Exam Vital signs: Vital Signs 01/26/18 23:23 01/27/18 04:00 01/27/18 07:38 Temperature 98.0 F 97.6 F 97.8 F Pulse Rate 55 L 112 H 61 Respiratory Rate 18 20 20 Blood Pressure 108/67 110/75 109/81 Pulse Oximetry 97 97 99 01/27/18 11:36 01/27/18 11:48 01/27/18 12:36 Temperature 97.8 F Pulse Rate 81 81 Respiratory Rate 20 Blood Pressure 107/74 Pulse Oximetry 100 95 01/27/18 14:19 01/27/18 15:23 01/27/18 19:14 Temperature 97.7 F Pulse Rate 94 H 64 Respiratory Rate 20 Blood Pressure 97/70 L Pulse Oximetry 96 97 01/27/18 20:00 Temperature 98.5 F Pulse Rate 92 H Respiratory Rate 20 Blood Pressure 118/81 Pulse Oximetry 98 Intake & Output 01/27/18 01/27/18 01/28/18 06:59 18:59 06:59 Intake Total 941 / 941 1080 / 1080 Output Total 2425 / 2425 1070 / 1070 Balance -1484 / -1484 Intake: Oral 941 / 941 1080 / 1080 Output: Urine 2425 / 2425 1070 / 1070 Other: Date of Last Bowel Movement 01/25/18 01/27/18 # Bowel Movements 1 Narrative: GENERAL: Well-nourished, well-developed pleasant middle-aged patient in [facility]. Sleeping sitting upright in bed upon my arrival. SKIN: Warm and dry. No rash. HEENT: Normocephalic. Atraumatic. Pupils equal and round. Mucous membranes pink and moist. CARDIOVASCULAR: Regular rate and rhythm. No murmur appreciated. RESPIRATORY: No accessory muscle use. Decreased breath sounds at bilateral bases, otherwise clear to auscultation. Breath sounds equal bilaterally. GASTROINTESTINAL: Abdomen soft, non-tender, nondistended. Normoactive bowel sounds x4. MUSCULOSKELETAL: No obvious deformities. Trace bilateral lower extremity edema. NEUROLOGICAL: Awake and alert. No obvious cranial nerve deficits. Motor grossly within normal limits. Moving all extremities spontaneously. Normal speech. PSYCHIATRIC: Appropriate mood and affect; insight and judgment normal. Results 01/27/18 06:56 01/27/18 06:56 Cardiac Enzymes 01/25/18 01/25/18 01/27/18 Range/Units 22:10 22:10 06:56 AST 23 16 (15-37) U/L Troponin I 0.03 (0.02-0.05) ng/mL B-Natriuretic Peptide 1879 H (0-100) pg/mL Coagulation 01/25/18 Range/Units 22:10 B-Natriuretic Peptide 1879 H (0-100) pg/mL CBC 01/27/18 Range/Units 06:56 WBC 6.5 (4.0-11.0) th/mm3 RBC 3.65 L (4.50-5.90) mil/mm3 Hgb 12.9 L (13.0-17.0) gm/dL Hct 36.2 L (39.0-51.0) % Plt Count 266 (150-450) th/mm3 Neut # (Auto) 4.5 (1.8-7.7) th/mm3 Lymph # (Auto) 0.9 L (1.0-4.8) th/mm3 Tate # (Auto) 1.0 H (0.0-0.9) th/mm3 Eos # (Auto) 0.1 (0.0-0.4) th/mm3 Baso # (Auto) 0.0 (0.0-0.2) th/mm3 Comprehensive Metabolic Panel 01/25/18 01/26/18 01/26/18 Range/Units 22:10 09:36 18:32 Sodium 123 L* 127 L 124 L* (136-145) meq/L Potassium 4.2 3.4 L D 4.4 D (3.5-5.1) meq/L Chloride 82 L 84 L 81 L (98-107) meq/L Carbon Dioxide 33.5 H 34.9 H 32.5 H (21.0-32.0) meq/L BUN 7 7 8 (7-18) mg/dL Creatinine 0.57 L 0.47 L 0.56 L (0.60-1.30) mg/dL Calcium 8.8 8.7 8.7 (8.5-10.1) mg/dL AST 23 (15-37) U/L ALT 19 (12-78) U/L Alkaline Phosphatase 109 (45-117) U/L Total Protein 7.1 (6.4-8.2) g/dL Albumin 3.3 L (3.4-5.0) g/dL 01/27/18 Range/Units 06:56 Sodium 128 L (136-145) meq/L Potassium 3.5 D (3.5-5.1) meq/L Chloride 83 L (98-107) meq/L Carbon Dioxide 39.4 H (21.0-32.0) meq/L BUN 7 (7-18) mg/dL Creatinine 0.54 L (0.60-1.30) mg/dL Calcium 9.2 (8.5-10.1) mg/dL AST 16 (15-37) U/L ALT 17 (12-78) U/L Alkaline Phosphatase 113 (45-117) U/L Total Protein 6.9 (6.4-8.2) g/dL Albumin 3.5 (3.4-5.0) g/dL Intake and Output 01/27/18 01/27/18 01/27/18 06:59 14:59 22:59 Intake Total 1080 / 1080 Output Total 500 / 500 1070 / 1070 Balance -500 / -500 Intake: Oral 1080 / 1080 Output: Urine 500 / 500 1070 / 1070 Other: Date of Last Bowel Movement 01/27/18 # Bowel Movements 1 - Imaging and Cardiology Imaging: Impressions Chest X-Ray 01/25/18 22:01 CONCLUSION: Bilateral pleural effusions, right greater than left with basilar airspace disease similar to November 26. Assessment and Plan - Assessment (1) Acute exacerbation of CHF (congestive heart failure) Code(s): I50.9 - Heart failure, unspecified Status: Acute (2) Acute hyponatremia Code(s): E87.1 - Hypo-osmolality and hyponatremia Status: Chronic (3) CHF (congestive heart failure) Code(s): I50.9 - Heart failure, unspecified Status: Chronic (4) Non-compliance Code(s): Z91.19 - Patient's noncompliance with other medical treatment and regimen Status: Chronic (5) Acute on chronic systolic (congestive) heart failure Code(s): I50.23 - Acute on chronic systolic (congestive) heart failure Status : Chronic - Plan 1) Acute on chronic CHF Most likely due to eating frozen meals high in sodium Con't diuresis Fluid restriction Discussed watching weights at home to determine fluid balance 2) NICM Started on Coreg Will need JUSTINE-I therapy on discharge if possible 3) Hyponatremia Due to fluid overload state (1) Acute exacerbation of CHF (congestive heart failure) Qualifiers: Heart failure type: unspecified Qualified Code(s): I50.9 - Heart failure, unspecified (3) CHF (congestive heart failure) Qualifiers: Heart failure type: systolic Heart failure chronicity: chronic Qualified Code(s): I50.22 - Chronic systolic (congestive) heart failure
[2018-01-28 07:51] LABS: Anion Gap 9 meq/L (5-15); Blood Urea Nitrogen 7 mg/dL (7-18); Carbon Dioxide 39.4 meq/L (21.0-32.0); Chloride 84 meq/L (98-107); Glomerular Filtration Rate Greater Than 89 mL/min (>89); Glucose,Random 83 mg/dL (74-106); Potassium 3.6 meq/L (3.5-5.1); Sodium 132 meq/L (136-145)
--- NOTE | 2018-01-28 08:25 | P.DS ---
Date of admission: 01/26/18 03:18 Primary care physician: UNKNOWN Brief History from admission: This patient is a 62-year-old homeless male with a diagnosis of systolic CHF ejection fraction 15-20%, status post defibrillator, COPD not on home O2, hypertension. The patient presented to our emergency department with complaints of shortness of breath that is been ongoing over the past 1 week. The patient's symptoms progressively got worse and he was having difficulty sleeping because he was unable to lie flat. He also notes having progressively worsening swelling of bilateral lower extremities up to the shins. He denies any fevers or chills. He says he does have a cough productive of whitish sputum. He does not have any other complaints. He denies diarrhea, no abdominal pain, no chest pain. Past medical history systolic CHF ejection fraction 15-20%, COPD not on home O2 , hypertension Past surgical history AICD placement Social history the patient states he smoked 1 pack of cigarettes per day for nearly 35 years, quit in May 2017. He also has been drinking 4 beers per day for nearly 30 years. Family history the patient states his brother had multiple strokes in his 60s. Patient update on day of discharge: Follow-up for CHF exacerbation. Patient reports overall feeling much better. He denies any current shortness of breath or any dyspnea on exertion. He still reports some mild orthopnea. His lower extremity swelling has resolved. He passed his home oxygen walk test. He denies any chest pain. Denies any other medical complaints at this time. DS: Diagnosis - Discharge Diagnosis (1) Acute exacerbation of CHF (congestive heart failure) Status: Acute (2) Acute hyponatremia Status: Chronic (3) COPD (chronic obstructive pulmonary disease) Status: Acute DS: Medications - Discharge Medications Prescriptions: carvedilol [Coreg] 3.125 mg PO BID #60 tab furosemide 40 mg PO BID@0900,1800 #60 tab lisinopril 5 mg PO DAILY #30 tab potassium chloride [Klor-Con 10] 30 meq PO BID #180 tab DS: Summary Hospital Course: 62-year-old male with a diagnosis of systolic CHF ejection fraction 15-20%, status post defibrillator, COPD not on home O2, hypertension, presents with a 1 week history of progressively worsening shortness of breath, lower extremity edema, and orthopnea. Acute exacerbation of chronic systolic CHF: secondary to medication noncompliance, dietary sodium indiscretion, and fluid restriction noncompliance. Patient admits to eating frozen meals daily with high sodium. Has AICD in place. CXR reviewed, shows bilateral pleural effusions. BNP elevated at 1879. Given diuresis with IV Lasix 40mg bid. Monitored Is&Os. Fluid restrictions. Started on Coreg 3.125mg bid, unable to start JUSTINE due to hypotension. Cardiology consulted, appreciate assistance. Educated extensively on CHF including fluid/sodium restrictions and monitoring daily weights. Patient much improved. Passed home O2 walk test with O2 sat 96%. Stable for discharge. Hyponatremia: Na 123. secondary to volume overload with CHF and alcohol use. Given diuresis. Avoid JUSTINE. Monitor Na, improving, Na 132 today. Stable. Alcohol abuse: chronic. Counseled on cessation. No signs of withdrawal. COPD: chronic, currently not in exacerbation. Continue breathing treatments as needed. Continue Symbicort bid. Incentive spirometer. Stable. Passed home O2 walk test. - Time Spent with Patient Total time spent providing and/or coordinating discharge services: Less than 30 minutes - Quality: VTE Deep Vein Thrombosis/Pulmonary Embolism Present on Admission: No Exam Vital signs: Vital Signs 01/27/18 11:36 01/27/18 11:48 01/27/18 12:36 Temperature 97.8 F Pulse Rate 81 81 Respiratory Rate 20 Blood Pressure 107/74 Pulse Oximetry 100 95 01/27/18 14:19 01/27/18 15:23 01/27/18 19:14 Temperature 97.7 F Pulse Rate 94 H 64 Respiratory Rate 20 Blood Pressure 97/70 L Pulse Oximetry 96 97 01/27/18 20:00 01/27/18 23:39 01/28/18 04:00 Temperature 98.5 F 98.1 F 97.6 F Pulse Rate 71 71 75 Respiratory Rate 20 15 18 Blood Pressure 118/81 92/56 L 100/68 Pulse Oximetry 98 95 97 Intake & Output 01/27/18 01/28/18 01/28/18 18:59 06:59 18:59 Intake Total 1080 / 1080 Output Total 1070 / 1070 Balance Intake: Oral 1080 / 1080 Output: Urine 1070 / 1070 Other: Date of Last Bowel Movement 01/27/18 01/27/18 # Bowel Movements 1 Narrative: GENERAL: Well-nourished, well-developed pleasant middle-aged patient in [facility]. SKIN: Warm and dry. No rash. HEENT: Normocephalic. Atraumatic. Pupils equal and round. Mucous membranes pink and moist. CARDIOVASCULAR: Regular rate and rhythm. No murmur appreciated. RESPIRATORY: No accessory muscle use. Clear to auscultation. Breath sounds equal bilaterally. GASTROINTESTINAL: Abdomen soft, non-tender, nondistended. Normoactive bowel sounds x4. MUSCULOSKELETAL: No obvious deformities. No lower extremity edema bilaterally. NEUROLOGICAL: Awake and alert. No obvious cranial nerve deficits. Motor grossly within normal limits. Moving all extremities spontaneously. Normal speech. PSYCHIATRIC: Appropriate mood and affect; insight and judgment normal. Results Procedures completed during hospitalization: None. Labs on day of discharge: Labs from last 24 hours 01/28/18 06:34 Sodium 132 L Potassium 3.6 Chloride 84 L Carbon Dioxide 39.4 H Anion Gap 9 BUN 7 Creatinine 0.60 Estimated GFR Greater than 89 Random Glucose 83 Calcium 9.0 - Impressions ITS Impressions Chest X-Ray 01/25/18 22:01 CONCLUSION: Bilateral pleural effusions, right greater than left with basilar airspace disease similar to November 26. Discharge Plan - Discharge Disposition Patient Disposition: Discharge Home - Discharge Condition Condition: Stable - Discharge Order Discharge Orders: Discharge Order (Routine); Ordered 01/28/18 Ordered By: Barbara Ball - Discharge Details Anticipated Discharge Date: 01/28/18 Discharge Comment: Discharge after home O2 walk test and when cleared by cardiology. - Physicians Team Primary Care Provider: UNKNOWN, Attending Provider: Aj Santiago Other Providers: Gopi Sales DO
[2018-01-28] MEDS: Budesonide-Formoterol 160/4.5 MCG 6 GM Inhaler INH SCH (09:27)
[2018-01-28] MEDS: Enoxaparin Inj 40 MG/0.4 ML Syringe SQ SCH (09:58)
[2018-01-28 10:11] VITALS: PULSE 82; TEMP 97.5
[2018-01-28 12:27] VITALS: BP 91/60; RESP 18; O2SAT 90
--- NOTE | 2018-01-28 18:54 | P.PNCA ---
Subjective Interval history: No events overnight SOB better, ready to go home Medications and Allergies Allergies Allergy/AdvReac Type Severity Reaction Status Date / Time No Known Allergies Allergy Verified 01/25/18 21:22 Physical Exam Vital signs: Vital Signs 01/27/18 19:14 01/27/18 20:00 01/27/18 23:39 Temperature 98.5 F 98.1 F Pulse Rate 71 71 Respiratory Rate 20 15 Blood Pressure 118/81 92/56 L Pulse Oximetry 97 98 95 Pulse Oximetry [Exertion on Room Air] Pulse Oximetry [Resting on Room Air] 01/28/18 04:00 01/28/18 08:00 01/28/18 09:18 Temperature 97.6 F 97.5 F L Pulse Rate 75 82 Respiratory Rate 18 16 Blood Pressure 100/68 112/65 Pulse Oximetry 97 92 L Pulse Oximetry [Exertion on Room Air] 99 Pulse Oximetry [Resting on Room Air] 96 01/28/18 12:00 Temperature 97.5 F L Pulse Rate 82 Respiratory Rate 18 Blood Pressure 91/60 L Pulse Oximetry 90 L Pulse Oximetry [Exertion on Room Air] Pulse Oximetry [Resting on Room Air] Intake & Output 01/27/18 01/28/18 01/28/18 18:59 06:59 18:59 Intake Total 1080 / 1080 Output Total 1070 / 1070 Balance Intake: Oral 1080 / 1080 Output: Urine 1070 / 1070 Other: Date of Last Bowel Movement 01/27/18 01/27/18 # Bowel Movements 1 Narrative: GENERAL: Well-nourished, well-developed pleasant middle-aged patient in [facility]. SKIN: Warm and dry. No rash. HEENT: Normocephalic. Atraumatic. Pupils equal and round. Mucous membranes pink and moist. CARDIOVASCULAR: Regular rate and rhythm. No murmur appreciated. RESPIRATORY: No accessory muscle use. Clear to auscultation. Breath sounds equal bilaterally. GASTROINTESTINAL: Abdomen soft, non-tender, nondistended. Normoactive bowel sounds x4. MUSCULOSKELETAL: No obvious deformities. No lower extremity edema bilaterally. NEUROLOGICAL: Awake and alert. No obvious cranial nerve deficits. Motor grossly within normal limits. Moving all extremities spontaneously. Normal speech. PSYCHIATRIC: Appropriate mood and affect; insight and judgment normal. Results 01/27/18 06:56 01/28/18 06:34 Cardiac Enzymes 01/27/18 Range/Units 06:56 AST 16 (15-37) U/L CBC 01/27/18 Range/Units 06:56 WBC 6.5 (4.0-11.0) th/mm3 RBC 3.65 L (4.50-5.90) mil/mm3 Hgb 12.9 L (13.0-17.0) gm/dL Hct 36.2 L (39.0-51.0) % Plt Count 266 (150-450) th/mm3 Neut # (Auto) 4.5 (1.8-7.7) th/mm3 Lymph # (Auto) 0.9 L (1.0-4.8) th/mm3 Lucas # (Auto) 1.0 H (0.0-0.9) th/mm3 Eos # (Auto) 0.1 (0.0-0.4) th/mm3 Baso # (Auto) 0.0 (0.0-0.2) th/mm3 Comprehensive Metabolic Panel 01/26/18 01/27/18 01/28/18 Range/Units 18:32 06:56 06:34 Sodium 124 L* 128 L 132 L (136-145) meq/L Potassium 4.4 D 3.5 D 3.6 (3.5-5.1) meq/L Chloride 81 L 83 L 84 L (98-107) meq/L Carbon Dioxide 32.5 H 39.4 H 39.4 H (21.0-32.0) meq/L BUN 8 7 7 (7-18) mg/dL Creatinine 0.56 L 0.54 L 0.60 (0.60-1.30) mg/dL Calcium 8.7 9.2 9.0 (8.5-10.1) mg/dL AST 16 (15-37) U/L ALT 17 (12-78) U/L Alkaline Phosphatase 113 (45-117) U/L Total Protein 6.9 (6.4-8.2) g/dL Albumin 3.5 (3.4-5.0) g/dL Assessment and Plan - Assessment (1) Acute exacerbation of CHF (congestive heart failure) Code(s): I50.9 - Heart failure, unspecified Status: Acute (2) Acute hyponatremia Code(s): E87.1 - Hypo-osmolality and hyponatremia Status: Chronic (3) CHF (congestive heart failure) Code(s): I50.9 - Heart failure, unspecified Status: Chronic (4) Non-compliance Code(s): Z91.19 - Patient's noncompliance with other medical treatment and regimen Status: Chronic (5) Acute on chronic systolic (congestive) heart failure Code(s): I50.23 - Acute on chronic systolic (congestive) heart failure Status : Chronic - Plan 1) Acute on chronic CHF Most likely due to eating frozen meals high in sodium Discussed eating less sodium or he would be right back here Con't diuresis Fluid restriction Discussed watching weights at home to determine fluid balance 2) NICM Started on Coreg Unable to start JUSTINE-I due to borderline hypotension 3) Hyponatremia Due to fluid overload state 4) Cardiovascularly stable for discharge (1) Acute exacerbation of CHF (congestive heart failure) Qualifiers: Heart failure type: unspecified Qualified Code(s): I50.9 - Heart failure, unspecified (3) CHF (congestive heart failure) Qualifiers: Heart failure type: systolic Heart failure chronicity: chronic Qualified Code(s): I50.22 - Chronic systolic (congestive) heart failure
== END 2018-01-28 15:05 | disposition home or self-care (01) ==
LOC: NEPC 20:36 → NEDA 01-26 03:18 → NEPGCP 01-26 04:38
PROVIDERS: ADMIT Hospitalist; ATTEND Hospitalist